=== PATIENT | male | born 1980 | race Caucasian/White ===

== ENCOUNTER 2018-04-24 00:28 | Inpatient (IN) | payer OTHER ==
[2018-04-24] MEDS ORDERED: NA CHLORIDE 0.9% 2,000 ML ONE (00:49)
[2018-04-24] MEDS ORDERED: IBUPROFEN 100 MG/5 ML UCUP ONE (00:49)
[2018-04-24 01:01] LABS: Arterial Blood Carboxyhemoglob 1.2 % (0-1.5); Blood Gas Oxyhemoglobin 87.2 % (94-97); Blood O2 Saturation 89.1 % (92-98.5)
[2018-04-24] MEDS ORDERED: INSULIN -REGULAR HUMAN 50 UNIT/0.5 ML ML ONE (01:16)
--- NOTE | 2018-04-24 01:27 | RAD REPORT ---
EXAM DESCRIPTION: RAD - Chest Single View - 04/24/2018 1:14 am CLINICAL HISTORY: FEVER Chest pain. COMPARISON: Chest Single View dated 06/01/2017; Chest Single View dated 05/29/2017; CHEST PA AND LAT 2 V IEW dated 05/04/2012 FINDINGS: Portable technique limits examination quality. Bilateral interstitial pulmonary opacities are present in both lower lobes, suspicious for interstiti al pneumonia. The heart is normal in size. No displaced fractures. IMPRESSION: Bibasilar pneumonia pattern is suspected, greatest in the right medial lung base.
[2018-04-24 01:34] LABS: Protime INR 1.34
[2018-04-24 01:37] LABS: Absolute Lymphocytes (CBC) 1.2 K/uL (0.7-4.9); Absolute Monocytes 0.8 K/uL (0.1-1.3); Basophils % 0.2 % (0-1.3); Eosinophils % 0.1 % (0-4.4); Hematocrit 53.5 % (39.6-49.0); MCH 30.6 pg (27.0-35.0); Monocytes % 4.1 % (3.3-12.3); RBC Red Blood Cell Count 5.51 M/uL (4.33-5.43)
[2018-04-24] MEDS ORDERED: RSI MEDICATION KIT IV ONE (02:09)
[2018-04-24 02:13] LABS: ALT/SGPT 59 U/L (12-78); AST/SGOT 42 U/L (15-37); Albumin 2.4 g/dL (3.4-5.0); Alkaline Phosphatase 113 U/L (45-117); Amylase Level 109 U/L (25-115); BUN Blood Urea Nitrogen 82 mg/dL (7-18); Bicarbonate 23 mmol/L (21-32); Bilirubin Direct 0.3 mg/dL (0-0.2); Bilirubin Total 0.7 mg/dL (0.2-1.0); CKMB Creatine Kinase MB < 1.0 ng/mL (0.3-3.6); Creatine Phosphokinase 127 U/L (39-308); Lipase 405 U/L (73-393); Potassium 4.4 mmol/L (3.5-5.1); Protein, Total 7.8 g/dL (6.4-8.2); Sodium Level 160 mmol/L (136-145)
[2018-04-24 02:15] LABS: Glucose Level 700 mg/dL (74-106)
--- NOTE | 2018-04-24 02:31 | RAD REPORT ---
EXAM DESCRIPTION: RAD - Chest Single View - 04/24/2018 2:25 am CLINICAL HISTORY: POST ETT Chest pain. COMPARISON: Chest Single View dated 04/24/2018; Chest Single View dated 06/01/2017; Chest Single View d ated 05/29/2017; CHEST PA AND LAT 2 VIEW dated 05/04/2012 FINDINGS: Portable technique limits examination quality. Since the prior examination, the patient has been intubated. The tip of the ET tube is above the naif na. Ill-defined opacities in both lung bases, greater on the right, persist. The heart is normal in s ize.
--- NOTE | 2018-04-24 02:32 | EDPHYS ---
Physician Documentation [facility] Name: Farhat Maza Age: 38 yrs Sex: Male : 1980 Arrival Date: 04/24/2018 Time: 00:38 Bed 4 Private MD: ED Physician Rommel Zamora HPI: 04/24 02:25 This 38 yrs old Male presents to ER via EMS with complaints of Fever. pkl 02:25 The patient has shortness of breath at rest. Onset: The symptoms/episode began/occurred pkl today. Associated signs and symptoms: Pertinent positives: fever. Historical: - Allergies: 00:50 Antihistamine; tl2 00:50 Aspirin; tl2 00:50 PENICILLINS; tl2 - Home Meds: 00:50 Dilantin-125 125 mg/5 mL Oral susp 5 mL 3 times per day [Active]; lactulose 10 gram/15 tl2 mL (15 mL) Oral soln 15 mL nightly [Active]; - PMHx: 00:50 Anoxic brain injury post suicide attempt; Seizures; upper and lower ext contractures; tl2 - Immunization history:: Adult Immunizations up to date. - Social history:: Smoking status: Patient/guardian denies using tobacco. - Ebola Screening: : No symptoms or risks identified at this time. ROS: 02:25 Eyes: Negative for injury, pain, redness, and discharge, ENT: Negative for injury, pkl pain, and discharge, Neck: Negative for injury, pain, and swelling, Cardiovascular: Negative for chest pain, palpitations, and edema. 02:25 Respiratory: Positive for cough, with green sputum, shortness of breath. 02:25 Abdomen/GI: Negative for abdominal pain, nausea, vomiting, and diarrhea. 02:25 Back: Negative for acute changes. 02:25 : Negative for urinary symptoms. 02:25 MS/extremity: Negative for acute changes. 02:25 Skin: Negative for rash. 02:25 Neuro: Negative for acute changes. Exam: 02:25 Head/Face: Normocephalic, atraumatic. Eyes: Pupils equal round and reactive to light, pkl extra-ocular motions intact. Lids and lashes normal. Conjunctiva and sclera are non-icteric and not injected. Cornea within normal limits. Periorbital areas with no swelling, redness, or edema. ENT: Nares patent. No nasal discharge, no septal abnormalities noted. Tympanic membranes are normal and external auditory canals are clear. Oropharynx with no redness, swelling, or masses, exudates, or evidence of obstruction, uvula midline. Mucous membranes moist. Neck: Trachea midline, no thyromegaly or masses palpated, and no cervical lymphadenopathy. Supple, full range of motion without nuchal rigidity, or vertebral point tenderness. No Meningismus. Chest/axilla: Normal chest wall appearance and motion. Nontender with no deformity. No lesions are appreciated. Cardiovascular: Regular rate and rhythm with a normal S1 and S2. No gallops, murmurs, or rubs. Normal PMI, no JVD. No pulse deficits. 02:25 Respiratory: moderate respiratory distress is noted, Respirations: labored breathing, Breath sounds: rales, that are moderate, are scattered, Respiratory rate: 55 02:25 Abdomen/GI: Bowel sounds: normal, Palpation: abdomen is soft and non-tender, in all quadrants. 02:25 Back: Exam negative for acute changes. 02:25 : Exam negative for acute changes. 02:25 Musculoskeletal/extremity: Exam is negative for acute changes. 02:25 Skin: Exam negative for rash. 02:25 Neuro: Exam negative for acute changes. Vital Signs: 00:50 BP 94 / 71; Pulse 155; Resp 45; Temp 104.3(R); Pulse Ox 88% on Non-rebreather mask; tl2 Weight 70.31 kg; Height 5 ft. 9 in. (175.26 cm); 01:29 BP 96 / 66; Pulse 153; Resp 55; Pulse Ox 92% on Non-rebreather mask; tl2 02:00 BP 97 / 61; Pulse 148; Resp 45; Temp 103(R); Pulse Ox 94% on Non-rebreather mask; tl2 02:48 BP 91 / 73; Pulse 137; Resp 26; Pulse Ox 97% on 100% FiO2 ETT vent; tl2 03:26 BP 88 / 74; Pulse 139; Resp 26; Temp 102.9; Pulse Ox 94% on ETT vent; ao 03:55 BP 103 / 71; Pulse 139; Resp 28; Pulse Ox 94% on 100% FiO2 ETT vent; tl2 04:22 BP 91 / 62; Pulse 136; Resp 26; Temp 102.2(R); Pulse Ox 94% on 100% FiO2 ETT vent; tl2 00:50 Body Mass Index 22.89 (70.31 kg, 175.26 cm) tl2 Procedures: 02:29 Intubation: Intubated orally using # 4 Ohlliday blade with 7.0 mm ETT. was successful on pkl first attempt. Tube secured with ETT simpson Placement verified by CXR, CO2 detector with (+) color change, auscultating bilateral breath sounds, Patient tolerated well. MDM: 00:44 Patient medically screened. pkl 02:29 Data reviewed: vital signs, nurses notes, lab test result(s), EKG, radiologic studies, pkl plain films. 04/24 00:46 Order name: Amylase, Serum; Complete Time: 02:32 pk 04/24 00:46 Order name: Basic Metabolic Panel; Complete Time: 02:32 pk 04/24 00:46 Order name: Blood Culture Adult (2) pkl 04/24 00:46 Order name: C-Reactive Protein; Complete Time: 02:32 pk 04/24 00:46 Order name: CBC with Diff; Complete Time: 03:43 pk 04/24 00:46 Order name: Ckmb; Complete Time: 02:32 pkl 04/24 00:46 Order name: CPK; Complete Time: 02:32 pk 04/24 00:46 Order name: Lactate; Complete Time: 02:16 pk 04/24 00:46 Order name: LFT's; Complete Time: 02:32 pkl 04/24 00:46 Order name: Lipase; Complete Time: 02:32 pk 04/24 00:46 Order name: Procalcitonin; Complete Time: 02:32 pkl 04/24 00:46 Order name: Protime (+inr); Complete Time: 02:16 pkl 04/24 00:46 Order name: Ptt, Activated; Complete Time: 02:16 pkl 04/24 00:46 Order name: Sed Rate; Complete Time: 03:43 pkl 04/24 00:46 Order name: Troponin (emerg Dept Use Only); Complete Time: 02:16 pkl 04/24 00:46 Order name: Chest Single View XRAY; Complete Time: 02:16 pkl 04/24 00:47 Order name: ABG pkl 04/24 01:19 Order name: Glucose, Ancillary Testing; Complete Time: 02:16 EDMS 04/24 01:39 Order name: Manual Differential; Complete Time: 03:43 EDMS 04/24 02:22 Order name: Chest Single View XRAY; Complete Time: 02:32 ms 04/24 02:56 Order name: Chest Single View XRAY ao 04/24 03:52 Order name: Lactate ao 04/24 04:36 Order name: Glucose, Ancillary Testing; Complete Time: 05:20 EDMS 04/24 04:40 Order name: Lactate Sepsis 2 HR Follow-up; Complete Time: 05:20 EDMS 04/24 04:50 Order name: Sputum Culture ms 04/24 05:04 Order name: Urine Dipstick--Ancillary (enter results) ms 04/24 00:46 Order name: Accucheck; Complete Time: 01:06 pkl 04/24 00:46 Order name: Cardiac monitoring; Complete Time: 00:54 pkl 04/24 00:46 Order name: EKG - Nurse/Tech; Complete Time: 00:54 pkl 04/24 00:46 Order name: IV Saline Lock - Large Bore; Complete Time: 00:54 pkl 04/24 00:46 Order name: Labs collected and sent; Complete Time: 00:55 pkl 04/24 00:46 Order name: O2 Per Protocol; Complete Time: 00:55 pkl 04/24 00:46 Order name: O2 Sat Monitoring; Complete Time: 00:55 pkl 04/24 00:46 Order name: Urine Dipstick-Ancillary (obtain specimen); Complete Time: 05:03 pkl Administered Medications: 00:54 Drug: NS 0.9% (30 ml/kg) 30 ml/kg Route: IV; Rate: bolus; Site: right hand; tl2 05:03 Follow up: IV Status: Completed infusion; IV Intake: 2500ml tl2 00:56 Drug: Ibuprofen 600 mg Route: PO; tl2 02:38 Follow up: Response: No adverse reaction; Temperature is decreased tl2 01:26 Drug: Insulin Regular Human 10 units {Co-Signature: tl2 (Vee Willis RN).} Route: IVP; ao Site: left hand; 05:04 Follow up: Response: No adverse reaction; Blood sugar is lowered tl2 02:12 Drug: Etomidate 10 mg Route: IVP; Site: left hand; tl2 05:05 Follow up: Response: No adverse reaction; Patient is sedated tl2 02:13 Drug: Etomidate 10 mg Route: IVP; Site: left hand; tl2 05:05 Follow up: Response: No adverse reaction; Patient is sedated tl2 04:15 Drug: Versed 2 mg {Note: left IJ.} Route: IVP; Site: Other; tl2 05:05 Follow up: Response: No adverse reaction; Patient is sedated tl2 04:50 Drug: Versed 2 mg Route: IVP; Site: Other; tl2 05:06 Follow up: Response: No adverse reaction; Patient is sedated tl2 Point of Care Testing: Blood Glucose: 02:48 Blood Glucose: 447 mg/dL; tl2 Ranges: Critical Glucose Levels:Adult <50 mg/dl or >400 mg/dl <40 mg/dl or >180 mg/dl Disposition: 02:29 Critical Care:. pkl Disposition: 04/24/18 02:31 Hospitalization ordered by Dedrick Webber for Inpatient Admission. Preliminary diagnosis is Acute respiratory distress. Bilateral pneumonia. Sepsis. - Bed requested for Intensive Care Unit. - Status is Inpatient Admission. tl2 - Condition is Fair. - Problem is new. - Symptoms are unchanged. UTI on Admission? No Signatures: Dispatcher [employer] EDMS Patt Jeff RN RN kl Lam, Pin, MD MD pk Mario Mai PA PA cp Ortiz, Alex, RN RN ao Knox, Taylor, RN RN tl2 Vee Willis RN tl2 Corrections: (The following items were deleted from the chart) 03:14 02:31 Hospitalization Ordered by Dedrick Webber MD for Inpatient Admission. Preliminary diagnosis is Acute respiratory distress. Bilateral pneumonia. Sepsis. Bed requested for Intensive Care Unit. Status is Inpatient Admission. Condition is Fair. Problem is new. Symptoms are unchanged. UTI on Admission? No. pkl 03:17 03:14 04/24/2018 02:31 Hospitalization Ordered by Dedrick Webber MD for Inpatient Admission. Preliminary diagnosis is Acute respiratory distress. Bilateral pneumonia. Sepsis. Bed requested for Intensive Care Unit. Status is Inpatient Admission. Condition is Fair. Problem is new. Symptoms are unchanged. UTI on Admission? No. kl 05:03 01:40 Cardenas ordered. tl2 tl2 05:09 03:17 04/24/2018 02:31 Hospitalization Ordered by Dedrick Webber MD for Inpatient tl2 Admission. Preliminary diagnosis is Acute respiratory distress. Bilateral pneumonia. Sepsis. Bed requested for Intensive Care Unit. Status is Inpatient Admission. Condition is Fair. Problem is new. Symptoms are unchanged. UTI on Admission? No. kl
--- NOTE | 2018-04-24 02:32 | ER ---
Nurse's Notes [facility] Name: Farhat Maza Age: 38 yrs Sex: Male : 1980 Arrival Date: 04/24/2018 Time: 00:38 Bed 4 Private MD: Diagnosis: Acute respiratory distress. Bilateral pneumonia. Sepsis Presentation: 04/24 00:47 Presenting complaint: EMS states: Pt was diagnosed with a URI and started antibiotics tl2 today, spiked a fever this evening of 104 F. Pt is tachypneic and tachycardic. Rhonchi in RU lobe. Transition of care: patient was received from another setting of care (long-term care facility). Onset of symptoms was April 23, 2018 at 19:00. Risk Assessment: Do you want to hurt yourself or someone else? Patient reports no desire to harm self or others. Initial Sepsis Screen: Does the patient meet any 2 criteria? RR > 20 per min. Temp <36.0*C (96.8*F)) or > 38.3*C (100.4*F). HR > 90 bpm. Yes Does the patient have a suspected source of infection? Yes: Productive cough/pneumonia If YES to both, name of provider notified: Rommel Zamora MD. Care prior to arrival: None. Pt was given Tylenol at facility. 00:47 Method Of Arrival: EMS: [facility] tl2 00:47 Acuity: JOSEPH 2 tl2 Triage Assessment: 00:50 General: Appears distressed, uncomfortable, Behavior is anxious. Pain: Unable to use tl2 pain scale. Patient appears agitated. Neuro: Level of Consciousness is awake, listless, Oriented to pt does not speak. Cardiovascular: Capillary refill < 3 seconds Rhythm is sinus tachycardia. Respiratory: Reports cough that is productive, Airway is patent Respiratory effort is unlabored, Respiratory pattern is symmetrical, tachypnea Breath sounds with rhonchi in right posterior upper lobe the patient has moderate shortness of breath. GI: No signs and/or symptoms were reported involving the gastrointestinal system. : No signs and/or symptoms were reported regarding the genitourinary system. Derm: Skin is clammy, Skin temperature is hot. Historical: - Allergies: 00:50 Antihistamine; tl2 00:50 Aspirin; tl2 00:50 PENICILLINS; tl2 - Home Meds: 00:50 Dilantin-125 125 mg/5 mL Oral susp 5 mL 3 times per day [Active]; lactulose 10 gram/15 tl2 mL (15 mL) Oral soln 15 mL nightly [Active]; - PMHx: 00:50 Anoxic brain injury post suicide attempt; Seizures; upper and lower ext contractures; tl2 - Immunization history:: Adult Immunizations up to date. - Social history:: Smoking status: Patient/guardian denies using tobacco. - Ebola Screening: : No symptoms or risks identified at this time. Screenin:53 Abuse screen: Denies threats or abuse. Nutritional screening: No deficits noted. tl2 Tuberculosis screening: No symptoms or risk factors identified. Fall Risk IV access (20 points). Mental Status- Overestimates/Forgets Limitations (15 pts.). Assessment: 00:50 General: see triage assessment. tl2 01:29 Reassessment: Cool rags placed on pt. tl2 01:50 Reassessment: unable to insert saldana catheter, Dr. Zamora notified, ordered to place tl2 condom cath. 02:00 Reassessment: Dr. Burnette at bedside, order to prepare for intubation. tl2 02:40 Reassessment: Intubation done by DR Zamora. Assisted by DR Burnette, Roya, RN, genaro Baxter RN, Cody, RN and Thomas from respiratory department. Patient tolerated well prcedure. 03:26 Reassessment: Patient and/or family updated on plan of care and expected duration. Pain ao level reassessed. Patient to be admitted to ICU. 04:30 Reassessment: Dr. Burnette ordered for 3 total Liters of NS, third liter started before tl2 taking to ICU. 04:40 Reassessment: VO from Dr. Burnette to give 2 mg IV versed, wait 10 minutes for new BP tl2 and call him before taking to ICU. 04:50 Reassessment: BP 88/65, notified Dr. Burnette, approved to take to ICU. VO from Dr. Zamora tl2 to give 2 mg IV versed, see NOV. Vital Signs: 00:50 BP 94 / 71; Pulse 155; Resp 45; Temp 104.3(R); Pulse Ox 88% on Non-rebreather mask; tl2 Weight 70.31 kg; Height 5 ft. 9 in. (175.26 cm); 01:29 BP 96 / 66; Pulse 153; Resp 55; Pulse Ox 92% on Non-rebreather mask; tl2 02:00 BP 97 / 61; Pulse 148; Resp 45; Temp 103(R); Pulse Ox 94% on Non-rebreather mask; tl2 02:48 BP 91 / 73; Pulse 137; Resp 26; Pulse Ox 97% on 100% FiO2 ETT vent; tl2 03:26 BP 88 / 74; Pulse 139; Resp 26; Temp 102.9; Pulse Ox 94% on ETT vent; ao 03:55 BP 103 / 71; Pulse 139; Resp 28; Pulse Ox 94% on 100% FiO2 ETT vent; tl2 04:22 BP 91 / 62; Pulse 136; Resp 26; Temp 102.2(R); Pulse Ox 94% on 100% FiO2 ETT vent; tl2 00:50 Body Mass Index 22.89 (70.31 kg, 175.26 cm) tl2 Vitals: 01:29 Cardiac Rhythm Assessment Sinus tach. tl2 ED Course: 00:38 Patient arrived in ED. fc 00:44 Rommel Zamora MD is Attending Physician. pkl 00:49 Triage completed. tl2 00:50 Arm band placed on right wrist. EKG completed in triage. Results shown to MD. tl2 00:53 Patient has correct armband on for positive identification. Placed in gown. Bed in low tl2 position. Call light in reach. Side rails up X2. 00:53 Inserted saline lock: 22 gauge in right hand, using aseptic technique. Blood collected. tl2 01:02 Cody Pantoja, ALENA is Primary Nurse. ao 01:10 X-ray completed. Portable x-ray completed in exam room. Patient tolerated procedure kw well. 01:14 Chest Single View XRAY In Process Unspecified. EDMS 01:29 IV was discontinued by the patient. Inserted saline lock: 20 gauge in left hand, using tl2 aseptic technique. 02:14 Assisted provider with intubation using 7.0 mm ETT via oral route. ET tube secured at tl2 24cm at the teeth. Set up intubation tray. Intubated by Rommel Zamora MD Placement verified by CXR, CO2 detector w/ + color change, auscultating bilateral breath sounds, Patient tolerated well. 02:25 Chest Single View XRAY In Process Unspecified. EDMS 02:30 Dedrick Webber MD is Hospitalizing Provider. pkl 02:55 Assisted provider with central line placement. Set up central line tray. Triple lumen ao line placed in left internal jugular. Line placed by Dedrick Webber MD Placement verified by CXR, blood return, Dressed with 4X4s, Tape, Tegaderm, Patient tolerated well. 03:15 Chest Single View XRAY In Process Unspecified. EDMS 05:07 Patient admitted, IV remains in place. tl2 Administered Medications: 00:54 Drug: NS 0.9% (30 ml/kg) 30 ml/kg Route: IV; Rate: bolus; Site: right hand; tl2 05:03 Follow up: IV Status: Completed infusion; IV Intake: 2500ml tl2 00:56 Drug: Ibuprofen 600 mg Route: PO; tl2 02:38 Follow up: Response: No adverse reaction; Temperature is decreased tl2 01:26 Drug: Insulin Regular Human 10 units {Co-Signature: tl2 (Vee Willis RN).} Route: IVP; ao Site: left hand; 05:04 Follow up: Response: No adverse reaction; Blood sugar is lowered tl2 02:12 Drug: Etomidate 10 mg Route: IVP; Site: left hand; tl2 05:05 Follow up: Response: No adverse reaction; Patient is sedated tl2 02:13 Drug: Etomidate 10 mg Route: IVP; Site: left hand; tl2 05:05 Follow up: Response: No adverse reaction; Patient is sedated tl2 04:15 Drug: Versed 2 mg {Note: left IJ.} Route: IVP; Site: Other; tl2 05:05 Follow up: Response: No adverse reaction; Patient is sedated tl2 04:50 Drug: Versed 2 mg Route: IVP; Site: Other; tl2 05:06 Follow up: Response: No adverse reaction; Patient is sedated tl2 Point of Care Testing: Blood Glucose: 02:48 Blood Glucose: 447 mg/dL; tl2 Ranges: Intake: 05:03 IV: 2500ml; Total: 2500ml. tl2 Outcome: 02:31 Decision to Hospitalize by Provider. pkl 05:06 Admitted to ICU accompanied by nurse, via stretcher, room 3, with oxygen, on monitor, tl2 with chart, Report called to ALENA Scott 05:06 critical 05:06 Discharge instructions given to pt intubated 05:09 Patient left the ED. tl2 Signatures: Dispatcher [employer] EDMS Rommel Zamora MD MD pkl Chretien, Felicia RN RN Tashia Lowery Alex RN Vee Ibarra RN RN tl2 Vee Willis RN tl2 Corrections: (The following items were deleted from the chart) 03:53 03:26 BP 88 / 74; Pulse 139bpm; Resp 26bpm; Pulse Ox 94% ET / Ventilator; ao ao
[2018-04-24 02:40] LABS: Blood Morphology Comment NOT SEEN (NOT SEEN); Platelet Estimate ADEQ
[2018-04-24] MEDS ORDERED: NA CHLORIDE 0.9% 1,000 ML IV ONE (02:51)
--- NOTE | 2018-04-24 03:20 | P.HP ---
Certification for Inpatient Patient admitted to: Inpatient With expected LOS: >2 Midnights Practitioner: I am a practitioner with admitting privileges, knowledge of patient current condition, hospital course, and medical plan of care. Services: Services provided to patient in accordance with Admission requirements found in Title 42 Section 412.3 of the Code of Federal Regulations Patient History Date of Service: 04/24/18 Reason for admission: Severe sepsis History of Present Illness: Mr. Maza is a 38-year-old male, with history of anoxic brain injury after suicidal attempt, quadriplegic, resident of a long-term care facility, who was diagnosed with an upper respiratory infection today, and was prescribed oral antibiotics. However, the patient become progressively more shortness of breath , he spikes fever 104.0 F. In ER, the patient remained tachypneic, tachycardic , O2 sat 88% on non-rebreather mask. The patient was intubated in ED. Laboratory work significantly abnormal, remarkable for leukocytosis with bandemia, elevated lactate and procalcitonin, abnormal kidney function. Chest x -ray remarkable for bilateral infiltrate consistent with pneumonia. Allergies Penicillins Allergy (Intermediate, Verified 02/19/13 12:48) Hives/Rash Antih Allergy (Uncoded 05/30/17 04:46) Unknown Aspirin Allergy (Uncoded 05/30/17 04:46) Unknown Home medications list reviewed: Yes Home Medications: Acetaminophen [Tylenol] 650 mg FT Q6HP PRN 05/30/17 Ibuprofen 400 mg FT Q4HP PRN 05/30/17 Lactulose 15 ml PO BEDTIME 05/30/17 Nut.sup,Spec.frm,l-Fr,Iron/Fos [Twocal Hn Liquid] 1,000 ml FT SEECOM 05/30/17 Phenytoin [Dilantin-125] 5 ml FT TID 05/30/17 Cefuroxime [Ceftin*] 500 mg PO BID #20 tab 06/04/17 - Past Medical/Surgical History Diabetic: No -: anoxic brain injury -: seizure disorder -: trach - Family History Family History: Reviewed- Non-Contributory - Social History Alcohol use: No CD- Drugs: No Caffeine use: No Place of Residence: Home Review of Systems is unable to be obtained (The patient was non-verbal) Physical Examination - Physical Exam General: Alert, Moderate distress (Due to respiratory distress) HEENT: Atraumatic, PERRLA, Other (Mucous membrane dry), EOMI Neck: Supple, 2+ carotid pulse no bruit, No LAD, Without JVD or thyroid abnormality Respiratory: Diminished, Crackles/rales (Crackles bibasilar), Expiratory wheezes Cardiovascular: Regular rate/rhythm, Normal S1 S2 Gastrointestinal: Normal bowel sounds, No tenderness Musculoskeletal: No tenderness Integumentary: No rashes Neurological: Abnormal gait, Abnormal speech, Abnormal strength, Abnormal tone Lymphatics: No axilla or inguinal lymphadenopathy - Studies Laboratory Data (last 24 hrs) 04/24/18 00:55: PT 15.9 H, INR 1.34, APTT 40.2 H 04/24/18 00:55: WBC 20.0 H D, Hgb 16.9, Hct 53.5 H, Plt Count 104 L D 04/24/18 00:55: Sodium 160 H, Potassium 4.4, BUN 82 H, Creatinine 2.40 H, Glucose 700 H*, Total Bilirubin 0.7, AST 42 H, ALT 59, Alkaline Phosphatase 113 , Amylase 109, Lipase 405 H Assessment and Plan - Problems (Diagnosis) (1) Severe sepsis Current Visit: Yes Status: Acute (2) Acute respiratory failure Current Visit: Yes Status: Acute Qualifiers: Respiratory failure complication: hypoxia Qualified Code(s): J96.01 - Acute respiratory failure with hypoxia (3) Anoxic brain injury Current Visit: Yes Status: Acute (4) Acute kidney injury Current Visit: No Status: Acute (5) Pneumonia Onset Date: 06/02/17 Current Visit: No Status: Acute Qualifiers: Pneumonia type: due to unspecified organism Laterality: bilateral Lung location: lower lobe of lung Qualified Code(s): J18.1 - Lobar pneumonia, unspecified organism (6) Seizure disorder Onset Date: 06/02/17 Current Visit: No Status: Chronic - Plan 1. Severe sepsis: The patient has elevated lactate and procalcitonin, leukocytosis with bandemia, he is febrile with borderline low blood pressure. Will continue aggressive IV fluid resuscitation, he has central line placed in case he needs vasopressors support. Blood cultures and sputum culture are in process. Broad-spectrum antibiotics have been ordered. 2. Acute respiratory failure: Due to bilateral pneumonia. The patient is ventilator support. Consult Dr. Salcido for ventilator management 3. Bilateral pneumonia: Will order empiric treatment with vancomycin and aztreonam. 4. Acute renal injury: Likely secondary to sepsis in context of volume depletion. Continue aggressive volume resuscitation. - Advance Directives Does patient have a Living Will: No Does patient have a Durable POA for Healthcare: No - Code Status/Comfort Care Code Status Assessed: Yes Code Status: Full Code
[2018-04-24] MEDS ORDERED: MIDAZOLAM HCL 2 MG/2 ML INJ ONE ×2 (04:07→04:41)
[2018-04-24] MEDS ORDERED: SODIUM CHLORIDE 0.9% 10ML INJ IV PRN (04:08)
[2018-04-24] MEDS ORDERED: NACHLORIDE 0.45% 1,000 ML IV SCH (04:08)
[2018-04-24] MEDS ORDERED: ONDANSETRON 4 MG/2 ML VIAL IV PRN (04:08)
--- NOTE | 2018-04-24 04:31 | P.OP ---
Date of Service: 04/24/18 Findings and Operative Technique Central Venous Catheter (CVC, Central Line) Placement Indication: Hemodynamic monitoring/Intravenous access Attending: Mechelle Burnette MD A time-out was completed verifying correct patient, procedure, site, positioning , and special equipment. The patient was placed in a dependent position appropriate for central line placement based on the vein to be cannulated. The patients left neck was prepped and draped in sterile fashion. 1% Lidocaine was used to anesthetize the surrounding skin area. A triple lumen <9-Romanian> Cordis catheter was introduced into the the internal jugular vein using the Seldinger technique and under ultrasound guidance. The catheter was threaded smoothly over the guide wire and appropriate blood return was obtained. Each lumen of the catheter was evacuated of air and flushed with sterile saline. The catheter was then sutured in place to the skin and a sterile dressing applied. Perfusion to the extremity distal to the point of catheter insertion was checked and found to be adequate. Estimated Blood Loss: 4 cc The patient tolerated the procedure well and there were no complications.
[2018-04-24] MEDS ORDERED: HALOPERIDOL LACT 5 MG/ML INJ IV PRN (04:37)
[2018-04-24] MEDS ORDERED: NA CHLORIDE 0.9% 250 ML IV PRN (04:37)
[2018-04-24] MEDS ORDERED: PROPOFOL 1,000 MG/100 ML VIAL IV PRN (04:37)
[2018-04-24] MEDS: INSULIN -REGULAR HUMAN 50 UNIT/0.5 ML ML SQ SCH ×3 (05:27→17:15)
[2018-04-24] MEDS: ACETAMINOPHEN 650MG/RECT SUPP RECT PRN ×2 (05:29→15:27)
[2018-04-24] MEDS ORDERED: VANCOMYCIN 2 GM/500 ML BAG ONE (05:29)
[2018-04-24] MEDS: FENTANYL CITR 100 MCG/2 ML IV PRN ×4 (05:29→21:52)
[2018-04-24 05:31] LABS: Urine Blood 3+ (NEG); Urine Glucose 2+ (NEG); Urine Protein 2+ (NEG)
[2018-04-24 05:45] LABS: Arterial Blood Carboxyhemoglob 0.9 % (0-1.5); Blood Gas Oxyhemoglobin 94.5 % (94-97); Blood O2 Saturation 95.7 % (92-98.5)
[2018-04-24] MEDS ORDERED: AZTREONAM 1 GM/VIAL ONE (05:49)
[2018-04-24] MEDS ORDERED: NA CHLORIDE 0.9% 50 ML ONE (05:54)
[2018-04-24] MEDS ORDERED: AZTREONAM 1 GM in NA CHLORIDE 0.9% 50 ML IV SCH (06:00)
[2018-04-24] MEDS: LORazepam 2 MG/ML VIAL IV PRN (06:38)
--- NOTE | 2018-04-24 07:16 | EKG ---
Test Date: 2018-04-24 Test Time: 00:39:14 Setter Up: JODY MEASUREMENT RESULTS: Intervals: Rate: 155 MA: 128 QRSD: 78 QT: 282 QTc: 453 Blair: P: MA: 128 QRS: 101 T: 27 INTERPRETIVE STATEMENTS: Sinus tachycardia Rightward axis Borderline ECG Compared to ECG 05/30/2017 00:26:32 No significant changes Electronically Signed On 04-24-18 07:15:45 CDT by Lamin Almonte
[2018-04-24] MEDS ORDERED: LACTULOSE 20 GM/30 ML UCUP PO PRN (07:51)
--- NOTE | 2018-04-24 08:26 | P.PN ---
Subjective Date of Service: 04/24/18 Primary Care Provider: CAREN Chief Complaint: Severe sepsis Subjective: Other (Patient intubated and sedated at this time.) Physical Examination - Vital Signs Temperature: 100.1 F Blood Pressure: 85/70 Pulse: 132 Respirations: 24 Pulse Ox (%): 94 - Physical Exam General: Other (Patient intubated and sedated at this time) HEENT: Atraumatic Neck: Supple Respiratory: Clear to auscultation bilaterally Cardiovascular: Abnormal pulses (Sinus tachycardia) Gastrointestinal: Normal bowel sounds, Soft and benign, No tenderness, No masses , No rebound, No guarding, Other (PEG tube in place) Musculoskeletal: Contractures (To the lower extremity), Other (Muscle wasting to the upper and lower extremity) Integumentary: No tenderness/swelling, No erythema, No warmth, No cyanosis Neurological: Other (Patient intubated) Urinary: Other (Condom catheter in place) - Studies Laboratory Data (last 24 hrs) 04/24/18 00:55: PT 15.9 H, INR 1.34, APTT 40.2 H 04/24/18 00:55: WBC 20.0 H D, Hgb 16.9, Hct 53.5 H, Plt Count 104 L D 04/24/18 00:55: Sodium 160 H, Potassium 4.4, BUN 82 H, Creatinine 2.40 H, Glucose 700 H*, Total Bilirubin 0.7, AST 42 H, ALT 59, Alkaline Phosphatase 113 , Amylase 109, Lipase 405 H Medications List Reviewed: Yes Assessment & Plan - Problems (Diagnosis) (1) Acute renal failure Current Visit: Yes Status: Acute Plan: Likely from sepsis related to bilateral pneumonia with possible aspiration pneumonia. Will continue IV fluids. Patient with hypernatremia. Will check BMP this morning. IV fluids may need to be adjusted. Will check renal ultrasound. Patient with history of urethral stricture in the past. Patient has a condom catheter and producing urine. No need for catheter at this time as the ER tried and had difficulty. Nephrology consulted to further assess. (2) Urethral stricture Current Visit: No Status: Chronic Plan: Patient with history urethral stricture in the past. Patient has seen Neurology in the past. ER tried to put in Cardenas catheter without success. Condom catheter in place. No need for catheterization at this time. Qualifiers: Urethral stricture type: unspecified stricture type Qualified Code(s): N35.9 - Urethral stricture, unspecified (3) Severe sepsis Current Visit: Yes Status: Acute Plan: Patient with severe likely from bilateral ammonia and aspiration pneumonia. Continue IV antibiotic therapy. Patient intubated at this time. Pulmonology consulted to further assess. Await blood and urine culture. Patient will be weaned off ventilator. Nurses report that the patient had been given Levaquin a couple days ago for upper respiratory infection. (4) Acute respiratory failure Current Visit: Yes Status: Acute Plan: Patient with acute respiratory failure secondary to bilateral pneumonia/ aspiration pneumonia. Continue as above. Patient on IV antibiotic therapy. Qualifiers: Respiratory failure complication: hypoxia Qualified Code(s): J96.01 - Acute respiratory failure with hypoxia (5) Anoxic brain injury Current Visit: Yes Status: Chronic Plan: Patient with history of anoxic brain injury. He was in half-way when he committed suicide which led to his anoxic brain injury many years ago. He is currently at a longterm. He is quadriplegic (6) Seizure disorder Onset Date: 06/02/17 Current Visit: No Status: Chronic Plan: Patient with history of seizure disorder. Will continue with his anti seizure medication. (7) Pneumonia Onset Date: 06/02/17 Current Visit: No Status: Acute Plan: Bilateral pneumonia likely from aspiration. Patient recently given Levaquin at the longterm for upper respiratory infection a couple days ago. Patient had some nausea and vomiting recently. Suspect aspiration. Now with severe sepsis and acute respiratory failure currently intubated. Pulmonology consulted. Continue IV antibiotic therapy. Will wean off ventilator. Qualifiers: Pneumonia type: aspiration pneumonia Laterality: bilateral Lung location : lower lobe of lung (8) Hypernatremia Onset Date: 06/02/17 Current Visit: No Status: Acute Plan: Recheck BMP. May need to make adjustments to IV fluids. Nephrology consulted to further assess. (9) Quadriplegia Current Visit: Yes Status: Chronic Plan: Patient with quadriplegia and contractures to the lower extremity. Will continue DVT prophylaxis. (10) Malnutrition Current Visit: Yes Status: Chronic Plan: Patient with severe malnutrition in the past. History of PEG tube. Will have dietary assess and continue PEG tube feeds. Qualifiers: Malnutrition type: protein-calorie malnutrition Protein-calorie malnutrition severity: severe Qualified Code(s): E43 - Unspecified severe protein-calorie malnutrition (11) Thrombocytopenia Current Visit: Yes Status: Chronic Plan: Patient with history of thrombocytopenia. Will monitor closely. Discharge Plan: Senior Care Plan to discharge in: Greater than 2 days - Code Status/Comfort Care Code Status Assessed: Yes (Patient is full code. This was confirmed by nurse with .) Time Spent Managing Pts Care (In Minutes): 55
[2018-04-24 08:30] LABS: Absolute Lymphocytes (CBC) 2.7 K/uL (0.7-4.9); Absolute Monocytes 0.6 K/uL (0.1-1.3); Absolute Neutrophil 16.2 K/uL (1.8-8.0); Basophils % 0.5 % (0-1.3); Hematocrit 43.8 % (39.6-49.0); Lymphocytes % 13.7 % (15.3-44.8); MCH 30.7 pg (27.0-35.0); MCV 95.5 fL (80-100); MPV 14.5 fL (7.6-11.3); Monocytes % 3.3 % (3.3-12.3); RBC Red Blood Cell Count 4.59 M/uL (4.33-5.43)
[2018-04-24 08:51] LABS: Potassium 4.2 mmol/L (3.5-5.1)
[2018-04-24 08:52] LABS: Albumin 1.9 g/dL (3.4-5.0); Bilirubin Total 0.6 mg/dL (0.2-1.0); Protein, Total 6.2 g/dL (6.4-8.2)
[2018-04-24] MEDS ORDERED: PANTOPRAZOLE 40 MG INJ IVP SCH (09:00)
[2018-04-24] MEDS ORDERED: AZTREONAM 1 GM/VIAL IV SCH (09:00)
[2018-04-24] MEDS ORDERED: VANCOMYCIN 1.5 GM in NA CHLORIDE 0.9% 500 ML IVPB SCH (09:00)
[2018-04-24] MEDS: PHENYTOIN 125 MG/5 ML ORAL.SUSP FT SCH ×3 (09:26→20:30)
[2018-04-24] MEDS: ENOXAPARIN 30 MG/0.3 ML SQ SCH (09:27)
[2018-04-24] MEDS: FAMOTIDINE 20 MG/2 ML VIAL IV SCH (09:28)
[2018-04-24] MEDS ORDERED: Meropenem 500 MG VIAL IV SCH (09:50)
[2018-04-24] MEDS ORDERED: ALBUMIN HUMAN 25% 100 ML IV ONE (09:51)
--- NOTE | 2018-04-24 09:53 | P.CNS ---
Date of Consult: 04/24/18 Primary Care Provider: CAREN Chief Complaint: Respiratory failure History of Present Illness: Patient is 38 years of age anoxic brain damage admitted to the hospital with respiratory failure fever he was intubated transferred here to the ICU patient is alert does open his eyes to stimulus high concentration of oxygen positive sepsis screen hypotension Allergies Penicillins Allergy (Intermediate, Verified 02/19/13 12:48) Hives/Rash Antih Allergy (Uncoded 05/30/17 04:46) Unknown Antihistamine Allergy (Uncoded 04/24/18 05:13) Unknown Aspirin Allergy (Uncoded 05/30/17 04:46) Unknown Home Medications: Acetaminophen [Pain Relief 8Hr] 650 mg FT Q4HP PRN 04/24/18 Acetaminophen with Codeine [Tylenol with Codeine #3 Tablet] 1 each PO Q6HP PRN 04/24/18 Acetaminophen with Codeine [Tylenol with-Codeine #3 Tablet] 1 each FT BID Ibuprofen 400 mg FT Q4HP PRN 04/24/18 Lactulose 15 ml PO BEDTIME 04/24/18 Phenytoin [Dilantin-125] 6 ml FT TID 04/24/18 levoFLOXacin [Levaquin] 500 mg FT DAILY 04/24/18 - Past Medical/Surgical History Diabetic: No -: anoxic brain injury -: seizure disorder -: trach - Social History Alcohol use: No CD- Drugs: No Caffeine use: No Place of Residence: [facility] Review of Systems is unable to be obtained Physical Examination Temp Pulse Resp BP Pulse Ox 100.1 F 132 H 24 H 85/70 L 94 04/24/18 08:31 04/24/18 08:31 04/24/18 08:31 04/24/18 08:31 04/24/18 08:31 General: Alert Respiratory: Clear to auscultation bilaterally, Diminished Cardiovascular: No edema, Regular rate/rhythm Gastrointestinal: Normal bowel sounds, Soft and benign Laboratory Data (last 24 hrs) 04/24/18 00:55: PT 15.9 H, INR 1.34, APTT 40.2 H 04/24/18 00:55: WBC 20.0 H D, Hgb 16.9, Hct 53.5 H, Plt Count 104 L D 04/24/18 00:55: Sodium 160 H, Potassium 4.4, BUN 82 H, Creatinine 2.40 H, Glucose 700 H*, Total Bilirubin 0.7, AST 42 H, ALT 59, Alkaline Phosphatase 113 , Amylase 109, Lipase 405 H - Problems (1) Acute respiratory failure Current Visit: Yes Status: Acute Plan: Patient is 38 years of age quadriplegic secondary to anoxic brain damage admitted with respiratory failure septic shock I suggest adding meropenem continue with vancomycin cultures are pending requiring high concentrations of oxygen increase PEEP multiorgan failure acute renal failure at 2 doses of albumin Possible pneumonia Qualifiers: Respiratory failure complication: hypoxia Qualified Code(s): J96.01 - Acute respiratory failure with hypoxia (2) Hypernatremia Onset Date: 06/02/17 Current Visit: No Status: Acute Plan: Patient has hypernatremia continue with IV fluids
[2018-04-24] MEDS ORDERED: ETOMIDATE 20 MG/10 ML VIAL IV ONE (11:02)
[2018-04-24] MEDS: Meropenem 500 MG in NA CHLORIDE 0.9% 100 ML IV SCH ×2 (11:09→20:30)
[2018-04-24] MEDS: D5W 1,000 ML IV SCH ×2 (11:10→18:16)
--- NOTE | 2018-04-24 11:31 | RAD REPORT ---
EXAM DESCRIPTION: RAD - Chest Single View - 04/24/2018 3:17 am CLINICAL HISTORY: Check Central line placement Chest pain. COMPARISON: Chest Single View dated 04/24/2018; Chest Single View dated 04/24/2018; Chest Single View dated 06/01/2017; Chest Single View dated 05/29/2017; CHEST PA AND LAT 2 VIEW dated 05/04/2012 FINDINGS: Portable technique limits examination quality. Tip of the ET tube is at the level of the clavicular heads. Left-sided central line terminates along the midline probably within the brachiocephalic vein. No pneumothorax is seen. Again noted are airspa ce opacities in both lungs bases, greatest in the right base, likely representing pneumonia.
[2018-04-24 12:24] LABS: Arterial Blood Carboxyhemoglob 1.1 % (0-1.5); Blood Gas Oxyhemoglobin 87.3 % (94-97); Blood O2 Saturation 88.8 % (92-98.5)
[2018-04-24] MEDS: GLUCERNA 1.5 CAL 1,000 ML BOT RTH SCH (15:00)
--- NOTE | 2018-04-24 16:17 | RAD REPORT ---
EXAM DESCRIPTION: US - Renal Ultrasound-Complete - 04/24/2018 4:03 pm CLINICAL HISTORY: acute renal failure COMPARISON: No comparisons FINDINGS: Both kidneys are normal in size, shape and echotexture. The right kidney measures 11.4 x 4.8 x 4.7 cm. No hydronephrosis, focal mass or perinephric fluid. The left kidney measures 11.3 x 4.7 x 4.5 cm. No hydronephrosis, focal mass or perinephric fluid. The urinary bladder is incompletely distended without gross abnormality seen. IMPRESSION: Unremarkable renal sonogram.
[2018-04-24 16:34] LABS: Magnesium 2.8 mg/dL (1.8-2.4); Phosphorus 2.1 mg/dL (2.5-4.9); Potassium 3.8 mmol/L (3.5-5.1)
[2018-04-24] MEDS ORDERED: KCL 20 MEQ/100 mL IVPB 20 MEQ/100 ML BAG IV SCH (19:00)
[2018-04-24] MEDS ORDERED: POTASS/SODIUM PHOSPHATE 1 PKT POWD.PACK PO ONE (19:00)
[2018-04-24 22:45] LABS: Potassium 4.5 mmol/L (3.5-5.1)
[2018-04-25] MEDS: INSULIN -REGULAR HUMAN 50 UNIT/0.5 ML ML SQ SCH ×4 (00:11→17:09)
--- NOTE | 2018-04-25 02:10 | CON ---
Date of Consultation: 04/24/2018 Chief Complaint: Acute kidney injury; nonoliguric; associated with dehydration , volume depletion and severe hypernatremia. History Of Present Illness: The patient came to the hospital, received IV fluids and normal saline was used for volume resuscitation. Sodium level at that time was 160 and patient was found to have hyperglycemia. Subsequently, sodium was 166 and hyperglycemia improved, the patient was started on D5W for severe dehydration. Sodium level is gradually improving. This afternoon, sodium improved to 164. The patient was found to have hypokalemia and is receiving potassium replacement as well as is receiving phosphorus replacement. The patient has multiple medical problems. He has severe encephalopathy. He is bedbound, unresponsive. He has severe anoxic encephalopathy, history of anoxic brain injury after suicidal attempt. He is quadriplegic. He is a resident of long-term care [facility], was diagnosed with upper respiratory infection. On arrival to the hospital, he was admitted to ICU and started on IV antibiotics. He was found to have hypoxemia and required non-rebreather mask. He was found to have severe leukocytosis, sepsis. Chest x-ray showed bilateral infiltrate, possible pneumonia. Review of Systems: Cannot be obtained. The patient is encephalopathic. Does not follow commands. Past Medical History: Anoxic brain injury, seizure, status post trach. Family History: Unobtainable. Social History: Negative for tobacco, alcohol, illicit drugs. Physical Examination: General: The patient is lethargic, cannot answer questions, encephalopathic, does not follow commands. EYES: No hemorrhagic changes. No conjunctivitis. Ears, Nose, Mouth, and Throat: Oral mucosa moist. No pallor. Neck: Supple. No bruits. Lungs: Crackles and rhonchi bilaterally present. No wheezing. Cardiovascular: Regular rate and rhythm. No pericardial friction rub. S1, S2. Gastrointestinal: Bowel sounds present. no bruits Musculoskeletal: Contractures and decreased muscle mass. Skin: Warm and dry. No cyanosis. Neurological: The patient is quadriparetic, does not move extremities. Laboratory Data: PT 16.9, INR 1.34, PTT is 40.2. WBC 20,000, hemoglobin 16.9, platelet count 104,000. Sodium 166, potassium 4.4, BUN 82, creatinine 2.4, glucose 700. Total bilirubin 0.7. AST 42, ALT is 59. Amylase was 109, lipase 405. Impression And Plan: 1. Severe sepsis. Continue antibiotics. Adjust dose to renal dose. 2. Acute respiratory failure, pneumonia. Continue antibiotics and non- rebreather mask. 3. Anoxic brain injury, chronic. 4. Acute kidney injury with dehydration. Continue fluid replacement for hypernatremia correction and treatment of acute kidney injury and hypovolemia treatment , monitor electrolytes. Monitor phosphorus and magnesium level. 5. The patient is critically ill with sepsis. Plan is to check renal ultrasound to assess kidney size and echotexture. The patient likely has some underlying chronic kidney disease. Previously, he was found to have obstructive uropathy. Monitor urine output and daily fluid balance. EB/MODL Voice ID: [id number] Report ID: [id number] CYNDI
[2018-04-25] MEDS: LORazepam 2 MG/ML VIAL IV PRN ×2 (03:13→15:30)
[2018-04-25 05:44] LABS: Absolute Lymphocytes (CBC) 1.8 K/uL (0.7-4.9); Absolute Monocytes 0.4 K/uL (0.1-1.3); Absolute Neutrophil 12.5 K/uL (1.8-8.0); Basophils % 0.7 % (0-1.3); Eosinophils % 0.7 % (0-4.4); Lymphocytes % 11.9 % (15.3-44.8); MCH 30.6 pg (27.0-35.0); MCV 94.5 fL (80-100); MPV 14.8 fL (7.6-11.3); Monocytes % 2.6 % (3.3-12.3); RBC Red Blood Cell Count 3.91 M/uL (4.33-5.43)
[2018-04-25 06:03] LABS: Albumin 2.3 g/dL (3.4-5.0); Bilirubin Total 0.7 mg/dL (0.2-1.0); Magnesium 2.7 mg/dL (1.8-2.4); Potassium 4.3 mmol/L (3.5-5.1); Protein, Total 6.1 g/dL (6.4-8.2)
[2018-04-25 06:33] LABS: Phosphorus 2.1 mg/dL (2.5-4.9)
[2018-04-25] MEDS: Meropenem 500 MG in NA CHLORIDE 0.9% 100 ML IV SCH ×2 (08:00→20:06)
[2018-04-25] MEDS: PHENYTOIN 125 MG/5 ML ORAL.SUSP FT SCH ×3 (08:00→20:04)
[2018-04-25] MEDS: FAMOTIDINE 20 MG/2 ML VIAL IV SCH (08:00)
[2018-04-25] MEDS ORDERED: D5W 1,000 ML IV SCH ×2 (08:00→15:00)
[2018-04-25] MEDS: ENOXAPARIN 30 MG/0.3 ML SQ SCH (08:00)
[2018-04-25] MEDS: FENTANYL CITR 100 MCG/2 ML IV PRN ×2 (08:06→21:00)
--- NOTE | 2018-04-25 12:04 | P.PN ---
Subjective Date of Service: 04/25/18 Primary Care Provider: CAREN Chief Complaint: Respiratory failure Subjective: Other (Patient intubated.) Physical Examination - Vital Signs Temperature: 99.7 F Blood Pressure: 86/58 Pulse: 113 Respirations: 15 Pulse Ox (%): 97 - Physical Exam General: Other (Patient intubated at this time. Minimal response to pain) HEENT: Atraumatic Neck: Supple Respiratory: Clear to auscultation bilaterally, Normal air movement Cardiovascular: Abnormal pulses (Sinus tachycardia) Gastrointestinal: Normal bowel sounds, Soft and benign, Non-distended Musculoskeletal: Contractures (Contractures to the lower extremity) Integumentary: Other (No significant edema note) Neurological: Other (Intubated ) - Studies Medications List Reviewed: Yes Assessment & Plan - Problems (Diagnosis) (1) Acute renal failure Current Visit: Yes Status: Acute Plan: Likely from sepsis related to bilateral pneumonia with possible aspiration pneumonia. Patient with hypernatremia. Nephrology continues to adjust IV fluids. Patient currently intubated. Pulmonology has adjusted antibiotic therapy. Patient currently on vancomycin and meropenem. Blood cultures positive for Gram negative rods. Sputum culture pending. (2) Urethral stricture Current Visit: No Status: Chronic Plan: Patient with history urethral stricture in the past. Patient has seen Neurology in the past. ER tried to put in Cardenas catheter without success. Condom catheter in place. No need for catheterization at this time. Qualifiers: Urethral stricture type: unspecified stricture type Qualified Code(s): N35.9 - Urethral stricture, unspecified (3) Severe sepsis Current Visit: Yes Status: Acute Plan: Patient with severe sepsis likely from bilateral pneumonia and aspiration pneumonia. Antibiotics adjusted by pulmonology. Currently on meropenem and vancomycin. Blood culture positive for Gram negative rods. Patient intubated this time. Pulmonology to wean off ventilator. (4) Acute respiratory failure Current Visit: Yes Status: Acute Plan: Patient with acute respiratory failure secondary to bilateral pneumonia/ aspiration pneumonia. Continue as above. Patient on IV antibiotic therapy. Qualifiers: Respiratory failure complication: hypoxia Qualified Code(s): J96.01 - Acute respiratory failure with hypoxia (5) Anoxic brain injury Current Visit: Yes Status: Chronic Plan: Patient with history of anoxic brain injury. He was in senior care when he committed suicide which led to his anoxic brain injury many years ago. He is currently at a alf. He is quadriplegic (6) Seizure disorder Onset Date: 06/02/17 Current Visit: No Status: Chronic Plan: Patient with history of seizure disorder. Will continue with his anti seizure medication. (7) Pneumonia Onset Date: 06/02/17 Current Visit: No Status: Acute Plan: Bilateral pneumonia likely from aspiration. Continue IV antibiotic therapy. Patient intubated at this time. Await further recommendations from pulmonology. Qualifiers: Pneumonia type: aspiration pneumonia Laterality: bilateral Lung location : lower lobe of lung (8) Hypernatremia Onset Date: 06/02/17 Current Visit: No Status: Acute Plan: Slight improvement noted. Nephrology making adjustments to IV fluids. (9) Quadriplegia Current Visit: Yes Status: Chronic Plan: Patient with quadriplegia and contractures to the lower extremity. Will continue DVT prophylaxis. (10) Malnutrition Current Visit: Yes Status: Chronic Plan: Patient with severe malnutrition in the past. History of PEG tube. Will continue with PEG tube feeds. Qualifiers: Malnutrition type: protein-calorie malnutrition Protein-calorie malnutrition severity: severe Qualified Code(s): E43 - Unspecified severe protein-calorie malnutrition (11) Thrombocytopenia Current Visit: Yes Status: Chronic Plan: Patient with history of thrombocytopenia. Will monitor closely. Discharge Plan: Senior Living Plan to discharge in: Greater than 2 days Time Spent Managing Pts Care (In Minutes): 55
[2018-04-25 12:51] LABS: Potassium 4.5 mmol/L (3.5-5.1)
[2018-04-25] MEDS: VANCOMYCIN/NS 1 gm 1 GM/250 ML BAG IV SCH (17:09)
[2018-04-25 18:59] LABS: Potassium 4.2 mmol/L (3.5-5.1)
[2018-04-25] MEDS ORDERED: NA CHLORIDE 0.9% 500 ML IV ONE (19:58)
[2018-04-25] MEDS ORDERED: CALCIUM GLUC 10% INJ 4.65 MEQ in NA CHLORIDE 0.9% 100 ML IV ONE (20:09)
[2018-04-25] MEDS: MIDODRINE HCL 5 MG TABLET FT SCH (21:00)
[2018-04-25] MEDS ORDERED: CALCIUM GLUCONATE 1 GM IVPB 1 GM/50 ML BAG IV ONE (23:07)
[2018-04-26] MEDS: D5W 1,000 ML IV SCH ×2 (00:57→16:00)
[2018-04-26] MEDS: MIDAZOLAM HCL 2 MG/2 ML INJ IV PRN ×3 (00:58→06:49)
[2018-04-26] MEDS: LORazepam 2 MG/ML VIAL IV PRN ×4 (02:30→20:16)
--- NOTE | 2018-04-26 03:19 | PN ---
Date of Progress Note: 04/25/2018 Chief Complaint: Acute kidney injury. History Of Present Illness: Acute kidney injury, nonoliguric, associated with hypovolemia, dehydration. The patient was found to have severe hypernatremia. The patient primarily received IV fluids for volemia control. The patient has history of severe anoxic encephalopathy, history of anoxic brain injury after a suicidal attempt in the past. The patient is bed bound, quadriplegic. He has a tube feeding and the patient is started on IV fluids primarily for volume control. Subsequently, normal saline was switched to D5W for hypernatremia control. Sodium level is gradually improving. The patient is on tube feeding and is receiving free water via tube feeding as well. The patient today was found to have hypotension. Midodrine was started for blood pressure control. The patient presented to the hospital after he developed a cough and was found to have severe leukocytosis. He is treated for aspiration pneumonia. White count is improving from 20,000 to 14.9. The patient is started on IV normal saline boluses for hypotension and midodrine was initiated via the tube feeding for blood pressure support. Review of Systems: Unobtainable due to the patient's condition. Physical Examination: Lungs: Few crackles at bases. Heart: S1, S2. Abdomen: Soft. Bowel sounds present. Laboratory Work: Sodium 162, potassium 4.5, chloride 130, CO2 26, BUN 53, creatinine 1.60, glucose 222, calcium 7.9. Impression And Plan: 1. Acute kidney injury. Renal function is gradually improving. Creatinine was 2.4, improving to 1.6 and currently is trending up to 1.8 secondary to prerenal azotemia with hypotension. The patient received normal saline for blood pressure control as well as he will have midodrine. Blood pressure is improving. 2. Pneumonia. Continue antibiotics of broad spectrum. 3. Hypophosphatemia. Monitor phosphorus level. Adjust replacement. 4. Diabetes mellitus. Continue insulin per sliding scale. I spent total 36 min including 25 min to coordinate care plan. ASHLEY/YUSEF Voice ID: [id number] Report ID: [id number] CYNDI
[2018-04-26 06:08] LABS: Absolute Lymphocytes (CBC) 1.3 K/uL (0.7-4.9); Absolute Monocytes 0.2 K/uL (0.1-1.3); Absolute Neutrophil 12.2 K/uL (1.8-8.0); Basophils % 0.5 % (0-1.3); Eosinophils % 1.1 % (0-4.4); Hematocrit 33.3 % (39.6-49.0); Lymphocytes % 9.5 % (15.3-44.8); MCH 31.3 pg (27.0-35.0); MCV 93.8 fL (80-100); MPV 14.6 fL (7.6-11.3); Monocytes % 1.3 % (3.3-12.3); RBC Red Blood Cell Count 3.56 M/uL (4.33-5.43)
[2018-04-26] MEDS: INSULIN -REGULAR HUMAN 50 UNIT/0.5 ML ML SQ SCH ×4 (07:00→17:40)
[2018-04-26 07:03] LABS: Albumin 2.1 g/dL (3.4-5.0); Bilirubin Total 0.5 mg/dL (0.2-1.0); Magnesium 2.5 mg/dL (1.8-2.4); Potassium 4.5 mmol/L (3.5-5.1); Protein, Total 6.2 g/dL (6.4-8.2)
[2018-04-26] MEDS: ACETAMINOPHEN 650MG/RECT SUPP RECT PRN (07:23)
--- NOTE | 2018-04-26 08:09 | P.PN ---
Subjective Date of Service: 04/26/18 Primary Care Provider: CAREN Chief Complaint: Respiratory failure Patient's condition is stable he had an episode of hypotension was bolus yesterday however he has considerable dependent edema thick secretions FiO2 has also decreased minimally responsive Review of Systems is unable to be obtained Physical Examination - Vital Signs Temperature: 98.3 F Blood Pressure: 98/65 Pulse: 114 Respirations: 19 Pulse Ox (%): 97 - Physical Exam General: Unresponsive Respiratory: Clear to auscultation bilaterally Cardiovascular: Edema Gastrointestinal: Normal bowel sounds, Soft and benign - Studies Medications List Reviewed: Yes Assessment & Plan - Problems (Diagnosis) (1) Acute respiratory failure Onset Date: 04/26/18 Current Visit: Yes Status: Acute Plan: Patient is currently on a ventilator oxygenation satisfactory at 45% patient has some haziness on the right side possible pneumonia repeat chest x-ray ordered ETT may need to be reposition Qualifiers: Respiratory failure complication: hypoxia Qualified Code(s): J96.01 - Acute respiratory failure with hypoxia (2) Hypernatremia Onset Date: 06/02/17 Current Visit: No Status: Acute Plan: Currently on D5 water sodium is declining (3) Septic shock Current Visit: Yes Status: Acute Plan: Blood cultures positive for Gram negative rods id pending most likely Pseudomonas patient is on vancomycin and meropenem not on any vasopressors as a transfer to an L tach unit renal function is also worsened
[2018-04-26] MEDS: MIDODRINE HCL 5 MG TABLET FT SCH ×3 (08:40→20:16)
[2018-04-26] MEDS: ENOXAPARIN 30 MG/0.3 ML SQ SCH ×2 (08:40→09:00)
[2018-04-26] MEDS: POTASS/SODIUM PHOSPHATE 1 PKT POWD.PACK FT SCH (08:40)
[2018-04-26] MEDS: PHENYTOIN 125 MG/5 ML ORAL.SUSP FT SCH ×3 (08:43→20:15)
[2018-04-26] MEDS: FAMOTIDINE 20 MG/2 ML VIAL IV SCH (08:43)
[2018-04-26] MEDS: Meropenem 500 MG in NA CHLORIDE 0.9% 100 ML IV SCH ×2 (08:43→20:15)
--- NOTE | 2018-04-26 08:58 | P.PN ---
Subjective Date of Service: 04/26/18 Primary Care Provider: CAREN Chief Complaint: Respiratory failure Subjective: Other (No significant change since yesterday. Patient with noted enlarged scrotal sac today. Patient still intubated.) Physical Examination - Vital Signs Temperature: 98.3 F Blood Pressure: 98/65 Pulse: 114 Respirations: 19 Pulse Ox (%): 97 - Physical Exam General: Other (Patient intubated. Patient nonverbal. Poor response today.) HEENT: Atraumatic Neck: Supple Respiratory: Clear to auscultation bilaterally, Normal air movement Cardiovascular: Abnormal pulses (Sinus tachycardia) Gastrointestinal: Normal bowel sounds, Soft and benign, Non-distended, No tenderness, No masses, No rebound, No guarding Musculoskeletal: Contractures (To the lower extremity.), Other (Muscle wasting to the upper and lower extremities.) Neurological: Other (Patient is nonverbal. Patient with slow responses. Nurses report that he was more alert yesterday with family present) Urinary: Other (A condom catheter in place. Scrotal sac enlarged.) - Studies Medications List Reviewed: Yes Assessment & Plan - Problems (Diagnosis) (1) Acute renal failure Onset Date: 04/26/18 Current Visit: Yes Status: Acute Plan: Likely from sepsis related to bilateral pneumonia with possible aspiration pneumonia. Blood culture positive for Proteus. Will continue with vancomycin and meropenem. IV fluids adjusted by Nephrology. Hypernatremic knee has slightly improved. Renal function slightly more compromise today. Will check scrotal ultrasound to evaluate the enlargement of scrotal sac. Will need to rule out obstruction. Patient with history of trauma to the area. Pulmonology recommends long-term acute care facility placement as the patient has been difficult to wean off. Will discuss with family and social work coordinator. Will discuss further with nephrology. (2) Urethral stricture Current Visit: No Status: Chronic Plan: Patient with history urethral stricture in the past. Patient has seen Urology in the past. ER tried to put in Cardenas catheter without success. Condom catheter in place. Increased scrotal sac noted. Will check scrotal ultrasound to evaluate for possible obstruction. No need for catheterization at this time. Qualifiers: Urethral stricture type: unspecified stricture type Qualified Code(s): N35.9 - Urethral stricture, unspecified (3) Severe sepsis Onset Date: 04/26/18 Current Visit: Yes Status: Acute Plan: Patient with severe sepsis likely from bilateral pneumonia and aspiration pneumonia. Blood culture positive for Proteus. Antibiotics adjusted by pulmonology. Currently on meropenem and vancomycin. Pulmonology recommends long-term acute care facility placement. (4) Acute respiratory failure Onset Date: 04/26/18 Current Visit: Yes Status: Acute Plan: Patient with acute respiratory failure secondary to bilateral pneumonia/ aspiration pneumonia. Continue IV antibiotic therapy. Pulmonology recommends long-term care facility placement to wean off ventilator. Qualifiers: Respiratory failure complication: hypoxia Qualified Code(s): J96.01 - Acute respiratory failure with hypoxia (5) Anoxic brain injury Onset Date: 04/26/18 Current Visit: Yes Status: Chronic Plan: Patient with history of anoxic brain injury. He was in [facility] when he committed [facility] which led to his anoxic brain injury many years ago. He is currently at a detention. He is quadriplegic and nonverbal (6) Seizure disorder Onset Date: 06/02/17 Current Visit: No Status: Chronic Plan: Patient with history of seizure disorder. Will continue with his anti seizure medication. (7) Pneumonia Onset Date: 06/02/17 Current Visit: No Status: Acute Plan: Bilateral pneumonia likely from aspiration. Continue IV antibiotic therapy. Patient intubated at this time. Continue as above Qualifiers: Pneumonia type: aspiration pneumonia Laterality: bilateral Lung location : lower lobe of lung (8) Hypernatremia Onset Date: 06/02/17 Current Visit: No Status: Acute Plan: Slight improvement noted. Nephrology continues to make adjustments to IV fluids. (9) Quadriplegia Onset Date: 04/26/18 Current Visit: Yes Status: Chronic Plan: Patient with quadriplegia and contractures to the lower extremity. Will continue DVT prophylaxis. (10) Malnutrition Onset Date: 04/26/18 Current Visit: Yes Status: Chronic Plan: Patient with severe malnutrition in the past. History of PEG tube. Will continue with PEG tube feeds. Qualifiers: Malnutrition type: protein-calorie malnutrition Protein-calorie malnutrition severity: severe Qualified Code(s): E43 - Unspecified severe protein-calorie malnutrition (11) Thrombocytopenia Onset Date: 04/26/18 Current Visit: Yes Status: Chronic Plan: Patient with history of thrombocytopenia. Will monitor closely. We will hold Lovenox at this time (12) Scrotal edema Current Visit: Yes Status: Acute Plan: Will check scrotal ultrasound. Patient with history of trauma in the past. Will need to rule out obstruction. Condom catheter will be removed. (13) Hypotension Current Visit: Yes Status: Acute Plan: Currently stable. Patient on midodrine. This was started by a nephrology. Qualifiers: Hypotension type: other hypotension type Qualified Code(s): I95.89 - Other hypotension (14) Anemia Current Visit: Yes Status: Acute Plan: Will monitor closely. Likely related to sepsis Qualifiers: Anemia type: other cause Discharge Plan: LTAC Plan to discharge in: 24 Hours Time Spent Managing Pts Care (In Minutes): 55
--- NOTE | 2018-04-26 09:02 | RAD REPORT ---
EXAM DESCRIPTION: US - Scrotum Testicles - 04/26/2018 8:28 am CLINICAL HISTORY: Scrotal pain, scrotal edema COMPARISON: None. FINDINGS: No intratesticular mass lesions identified. Doppler evaluation shows normal blood flow wit hin each testicle. Right testicle may be slightly hyperemic relative to the left. No epididymal enlar gement or abnormal hyperemia. No hydrocele or other extratesticular focal mass lesion. Patient has pronounced scrotal wall thickening and edema. No abscess or drainable fluid collection. IMPRESSION: Pronounced scrotal wall thickening/ edema without abscess or drainable fluid collection. No focal abnormality of either testicle.
--- NOTE | 2018-04-26 14:08 | RAD REPORT ---
EXAM DESCRIPTION: RAD - Chest Single View - 04/26/2018 2:03 pm CLINICAL HISTORY: Respiratory failure Chest pain. COMPARISON: Chest Single View dated 04/24/2018; Chest Single View dated 04/24/2018; Chest Single View dated 04/24/2018; Chest Single View dated 06/01/2017 FINDINGS: Portable technique limits examination quality. Tip of the ET tube is above the mattie. Mild basilar opacities in both lung bases appear improved sin ce the comparative study. The heart is normal in size. No displaced fractures.
[2018-04-26 15:40] LABS: Potassium 4.5 mmol/L (3.5-5.1)
[2018-04-27] MEDS: FENTANYL CITR 100 MCG/2 ML IV PRN ×4 (01:20→17:40)
--- NOTE | 2018-04-27 03:20 | PN ---
Date of Progress Note: 04/26/2018 Chief Complaint: Dehydration, acute on chronic kidney injury, severe hypernatremia. History Of Present Illness: The patient is on tube feeding and is receiving free water flushes with tube feeding as well as IV D5W. Sodium level has improved. The patient is taken off IV fluids and free water with tube feeding was adjusted accordingly. The patient has severe sepsis with leukocytosis and aspiration pneumonia. The patient developed hypotension. Midodrine was started yesterday for blood pressure support. Renal function has declined since yesterday. The patient has acute on chronic kidney injury, moderately severe, nonoliguric. Urine output is somewhat improving this morning. Review of Systems: Unobtainable. The patient has severe encephalopathy and he is nonverbal. Physical Examination: Lungs: Few crackles at bases. Heart: S1, S2. Abdomen: Soft, benign. Extremities: No edema. Laboratory Data: Sodium 151, potassium 4.5, chloride 122, CO2 of 25, BUN 55, creatinine 2.3, glucose 105, calcium 8.0, phosphorus is pending, magnesium is 2.5. Impression And Plan: 1. Acute on chronic kidney injury. Continue IV fluids. 2. Hypernatremia. Currently, the patient is on tube feeding with free water flushes. 3. Hypotension. The patient received midodrine for blood pressure support. 4. Hypophosphatemia, replacement was ordered. Monitor phosphorus level. 5. Diabetes mellitus. Continue insulin per sliding scale. I spent total 36 min including 26 min to coordinate care plan. ASHLEY/YUSEF Voice ID: [id number] Report ID: [id number] CYNDI
[2018-04-27 04:24] LABS: Absolute Lymphocytes (CBC) 1.5 K/uL (0.7-4.9); Absolute Monocytes 0.2 K/uL (0.1-1.3); Absolute Neutrophil 9.4 K/uL (1.8-8.0); Basophils % 0.3 % (0-1.3); Hematocrit 29.1 % (39.6-49.0); MCH 31.2 pg (27.0-35.0); MCV 92.5 fL (80-100); MPV 14.2 fL (7.6-11.3); Monocytes % 2.1 % (3.3-12.3); RBC Red Blood Cell Count 3.15 M/uL (4.33-5.43)
[2018-04-27 04:37] LABS: Albumin 1.9 g/dL (3.4-5.0); Bilirubin Total 0.6 mg/dL (0.2-1.0); Magnesium 2.3 mg/dL (1.8-2.4); Potassium 4.6 mmol/L (3.5-5.1); Protein, Total 6.1 g/dL (6.4-8.2)
[2018-04-27] MEDS: INSULIN -REGULAR HUMAN 50 UNIT/0.5 ML ML SQ SCH ×4 (06:00→18:00)
[2018-04-27] MEDS: VANCOMYCIN/NS 1 gm 1 GM/250 ML BAG IV SCH (06:07)
[2018-04-27 07:20] LABS: Blood Morphology Comment NOT SEEN (NOT SEEN); Platelet Estimate DECR; Urine White Blood Cell Casts OK
[2018-04-27] MEDS: PHENYTOIN 125 MG/5 ML ORAL.SUSP FT SCH ×3 (08:01→21:22)
[2018-04-27] MEDS: FAMOTIDINE 20 MG/2 ML VIAL IV SCH (08:01)
[2018-04-27] MEDS: ACETAMINOPHEN 650MG/RECT SUPP RECT PRN (08:01)
[2018-04-27] MEDS: ENOXAPARIN 30 MG/0.3 ML SQ SCH ×2 (08:02→09:32)
[2018-04-27] MEDS: MIDODRINE HCL 5 MG TABLET FT SCH (08:02)
[2018-04-27] MEDS: POTASS/SODIUM PHOSPHATE 1 PKT POWD.PACK FT SCH (08:04)
--- NOTE | 2018-04-27 08:49 | P.PN ---
Subjective Date of Service: 04/27/18 Primary Care Provider: CAREN Chief Complaint: Respiratory failure Patient is doing better although he has thick secretions significant scrotal and penile edema still urinating Review of Systems is unable to be obtained Physical Examination - Vital Signs Temperature: 99.2 F Blood Pressure: 118/64 Pulse: 102 Respirations: 19 Pulse Ox (%): 94 - Physical Exam General: Unresponsive Respiratory: Clear to auscultation bilaterally, Diminished Urinary: Other (Significant scrotal and penile edema) - Studies Microbiology Data (last 24 hrs): 04/24/18 01:21 Blood - Blood Aerobic Blood Culture - Final Proteus Mirabilis 04/24/18 01:21 Blood - Blood Gram Stain - Final 04/24/18 01:21 Blood - Blood Anaerobic Blood Culture - Final Proteus Mirabilis 04/24/18 01:21 Blood - Blood Gram Stain - Final 04/24/18 00:55 Blood - Blood Aerobic Blood Culture - Final Proteus Mirabilis 04/24/18 00:55 Blood - Blood Gram Stain - Final 04/24/18 00:55 Blood - Blood Anaerobic Blood Culture - Final Proteus Mirabilis 04/24/18 00:55 Blood - Blood Gram Stain - Final Medications List Reviewed: Yes Assessment & Plan - Problems (Diagnosis) (1) Acute respiratory failure Onset Date: 04/26/18 Current Visit: Yes Status: Acute Plan: Patient is doing better he is on 45% FiO2 plan to wean Qualifiers: Respiratory failure complication: hypoxia Qualified Code(s): J96.01 - Acute respiratory failure with hypoxia (2) Hypernatremia Onset Date: 06/02/17 Current Visit: No Status: Acute Plan: Patient is still hypernatremic start on D5 water patient's renal function has improved significantly (3) Septic shock Current Visit: Yes Status: Acute Plan: Blood cultures positive for Proteus change to Rocephin white count is improving Dc midodrine
--- NOTE | 2018-04-27 08:49 | RAD REPORT ---
EXAM DESCRIPTION: RAD - Chest Single View - 04/27/2018 6:36 am CLINICAL HISTORY: Respiratory failure, intubation COMPARISON: March 30 TECHNIQUE: AP portable chest image was obtained 0619 hours . FINDINGS: Endotracheal tube remains in good position T3 level 2 cm above the aortic arch. Lung anayeli ngs are mildly prominent but unchanged. No progressive lung parenchymal process. Heart and vasculatur e are normal. No pneumothorax or large pleural effusion. No acute aortic findings suspected. IMPRESSION: No new or progressive cardiopulmonary finding. Endotracheal tube positioning is stable.
[2018-04-27] MEDS ORDERED: D5W 1,000 ML IV SCH (09:00)
[2018-04-27] MEDS: CEFTRIAXONE/SWI 1gm 1 GM/10 ML SYR IV SCH (09:25)
--- NOTE | 2018-04-27 12:51 | P.PN ---
Subjective Date of Service: 04/27/18 Primary Care Provider: CAREN Chief Complaint: Respiratory failure Patient seen and examined. Case discussed with pulmonology and nephrology. Currently patient remains intubated. Patient has been having some scrotal edema and that is getting progressively worse. Patient has been having urinary incontinence. No long-term acute care benefits. Review of Systems General: As per HPI Physical Examination - Vital Signs Temperature: 99.2 F Blood Pressure: 118/64 Pulse: 102 Respirations: 19 Pulse Ox (%): 94 - Physical Exam General: Other (Intubated and sedated) HEENT: Atraumatic Neck: Supple Respiratory: Normal air movement, Crackles/rales Cardiovascular: Normal pulses, Regular rate/rhythm Gastrointestinal: Normal bowel sounds, Soft and benign, Non-distended Musculoskeletal: Contractures, Other (Quadriplegic) Integumentary: Skin breakdown, Skin lesion, Tenderness/swelling, Erythema, Warmth (To the scrotal area) External genitalia: Edema, Tenderness, Other (Severe scrotal swelling noted. Tip of the penis on the dorsal side patient has hematoma noted) - Studies Microbiology Data (last 24 hrs): 04/24/18 01:21 Blood - Blood Aerobic Blood Culture - Final Proteus Mirabilis 04/24/18 01:21 Blood - Blood Gram Stain - Final 04/24/18 01:21 Blood - Blood Anaerobic Blood Culture - Final Proteus Mirabilis 04/24/18 01:21 Blood - Blood Gram Stain - Final 04/24/18 00:55 Blood - Blood Aerobic Blood Culture - Final Proteus Mirabilis 04/24/18 00:55 Blood - Blood Gram Stain - Final 04/24/18 00:55 Blood - Blood Anaerobic Blood Culture - Final Proteus Mirabilis 04/24/18 00:55 Blood - Blood Gram Stain - Final Medications List Reviewed: Yes Assessment & Plan - Problems (Diagnosis) (1) Acute respiratory failure Onset Date: 04/26/18 Current Visit: Yes Status: Acute Plan: Acute respiratory failure most likely secondary to bilateral pneumonia. -Currently intubated and sedated. -pulmonology consulted. Recc appreciated. -vent protocol. Wean as tolerated. -continue to monitor continuous pulse ox, chest x-ray and ABGs Qualifiers: Respiratory failure complication: hypoxia Qualified Code(s): J96.01 - Acute respiratory failure with hypoxia (2) Severe sepsis Onset Date: 04/26/18 Current Visit: Yes Status: Acute Plan: Severe sepsis most likely secondary to pneumonia and bacteremia -bilateral pneumonia: Most likely secondary to aspiration. -bacteremia: Positive for Proteus. -IV vanc and meropenem -Hemodynamically stable -WBC improving. (3) Pneumonia Onset Date: 06/02/17 Current Visit: No Status: Acute Qualifiers: Pneumonia type: aspiration pneumonia Laterality: bilateral Lung location : lower lobe of lung (4) Bacteremia Current Visit: No Status: Acute (5) Scrotal edema Current Visit: Yes Status: Acute Plan: Acute scrotal edema most likely secondary to volume overload. -urology consultation. Recommendations awaiting -patient may need to have suprapubic catheter due to urinary incontinence. -will elevate the scrotal area at this time and ice the area. -scrotal ultrasound done consistent with fluid accumulation (6) Acute renal failure Onset Date: 04/26/18 Current Visit: Yes Status: Acute Plan: Acute renal failure most likely secondary to sepsis -IV fluids changed to D5W -avoid nephrotoxic agent -nephrology consulted. Recommendations appreciated -BUN/CR improving Qualifiers: Acute renal failure type: with acute tubular necrosis Qualified Code(s): N17.0 - Acute kidney failure with tubular necrosis (7) Anoxic brain injury Onset Date: 04/26/18 Current Visit: Yes Status: Chronic (8) Quadriplegia Onset Date: 04/26/18 Current Visit: Yes Status: Chronic (9) Severe protein-calorie malnutrition Current Visit: No Status: Acute (10) Seizure disorder Onset Date: 06/02/17 Current Visit: No Status: Chronic (11) Urethral stricture Current Visit: No Status: Chronic Qualifiers: Urethral stricture type: unspecified stricture type Qualified Code(s): N35.9 - Urethral stricture, unspecified Discharge Plan: Other Plan to discharge in: 72 Hours - Code Status/Comfort Care Code Status Assessed: Yes Critical Care: Yes
[2018-04-27] MEDS: D5W 1,000 ML IV SCH ×2 (15:00→21:23)
--- NOTE | 2018-04-27 15:52 | PN ---
Date of Progress Note: 04/27/2018 Subjective: The patient still sleepy, confused. Objective: Vital Signs: Blood pressure 122/58, pulse of 79. The patient had urine output of 850, p ositive of 1 liter. Chest: Decreased entry bilateral base. Heart: S1, S2. Regular. Abdomen: Soft, nontender. Extremities: Contracted. Edema on the scrotal area. Laboratory Data: WBC 11.2, H and H 9.8/29.1, platelets of 67. Sodium 152, potassium 4.6, bicarb 27, BUN 41, creatinine down to 1.2, calcium of 8. Current Medications: The patient on D5 started at 75, ceftriaxone, Tylenol, haloperidol, midazolam, Dilantin 150 t.i.d., Glucerna, Pepcid, Zofran. Assessment And Plan: 1.Acute kidney injury secondary to prerenal, on the recovery phase. Slightly on the third spacing, with significant proteinuria. No quantification for the proteinuria, on recovery. I am going to nely nge D5 to 100 to control the hypernatremia and we will continue to monitor. 2.Hypernatremia secondary to dehydration, third spacing. I am going to give the patient 1 dose of a lbumin with Lasix to establish for sodium diuresis and we will increase the D5 to 100, increase free water to 200 q.6, and we will monitor the patient. We will request urine electrolyte. 3.Proteinuria. We will send for protein creatinine. 4.Bacteremia, Proteus mirabilis. Continue current antibiotic. Will follow up with the primary. AKILAH Voice ID: [id number] Report ID: [id number]
[2018-04-27] MEDS ORDERED: FUROSEMIDE 40 MG/4 ML VIAL IV ONE (16:00)
[2018-04-27] MEDS ORDERED: ALBUMIN HUMAN 25% 100 ML IV ONE (16:00)
[2018-04-27] MEDS: LORazepam 2 MG/ML VIAL IV PRN (17:10)
[2018-04-27 17:57] LABS: UR PROTEIN 16 mg/dL (<11.9); UR SODIUM 137 mmol/L (27-287)
[2018-04-28] MEDS: INSULIN -REGULAR HUMAN 50 UNIT/0.5 ML ML SQ SCH ×4 (02:00→18:00)
[2018-04-28 05:33] LABS: Absolute Lymphocytes (CBC) 1.1 K/uL (0.7-4.9); Absolute Monocytes 0.3 K/uL (0.1-1.3); Absolute Neutrophil 7.1 K/uL (1.8-8.0); Basophils % 0.2 % (0-1.3); Eosinophils % 1.3 % (0-4.4); Hematocrit 25.8 % (39.6-49.0); Lymphocytes % 13.2 % (15.3-44.8); MCV 90.8 fL (80-100); MPV 14.2 fL (7.6-11.3); Monocytes % 3.5 % (3.3-12.3); RBC Red Blood Cell Count 2.84 M/uL (4.33-5.43)
[2018-04-28 05:55] LABS: ALT/SGPT 71 U/L (12-78); AST/SGOT 56 U/L (15-37); Albumin 2.1 g/dL (3.4-5.0); Alkaline Phosphatase 89 U/L (45-117); BUN Blood Urea Nitrogen 27 mg/dL (7-18); Bicarbonate 28 mmol/L (21-32); Bilirubin Total 0.5 mg/dL (0.2-1.0); Glucose Level 193 mg/dL (74-106); Magnesium 2.2 mg/dL (1.8-2.4); Potassium 3.8 mmol/L (3.5-5.1); Sodium Level 144 mmol/L (136-145)
--- NOTE | 2018-04-28 08:35 | RAD REPORT ---
EXAM DESCRIPTION: RAD - Chest Single View - 04/28/2018 6:30 am CLINICAL HISTORY: Respiratory failure Chest pain. COMPARISON: Chest Single View dated 04/27/2018; Chest Single View dated 04/26/2018; Chest Single View dated 04/24/2018; Chest Single View dated 04/24/2018 FINDINGS: Portable technique limits examination quality. Since the prior study, the patient has been extubated. Left-sided central line has tip in the brachio cephalic vein. Mild haziness of both lung bases probably related to atelectasis and small pleural eff usions and appear stable. The heart is normal in size. No displaced fractures. IMPRESSION: Interval extubation since comparative study.
[2018-04-28] MEDS: CEFTRIAXONE/SWI 1gm 1 GM/10 ML SYR IV SCH (10:28)
[2018-04-28] MEDS: FAMOTIDINE 20 MG/2 ML VIAL IV SCH (10:28)
[2018-04-28] MEDS: POTASS/SODIUM PHOSPHATE 1 PKT POWD.PACK FT SCH (10:28)
[2018-04-28] MEDS: ENOXAPARIN 30 MG/0.3 ML SQ SCH (10:28)
[2018-04-28] MEDS: PHENYTOIN 125 MG/5 ML ORAL.SUSP FT SCH ×3 (10:28→20:36)
[2018-04-28] MEDS: GLUCERNA 1.5 CAL 1,000 ML BOT RTH SCH (10:30)
[2018-04-28] MEDS: D5W 1,000 ML IV SCH ×2 (10:30→10:33)
[2018-04-28] MEDS ORDERED: FUROSEMIDE 20 MG TABLET PO ONE (11:31)
[2018-04-28] MEDS ORDERED: POTASSIUM 25 MEQ EFFERV TAB PO ONE (11:44)
[2018-04-28] MEDS ORDERED: CEFTRIAXONE/SWI 1gm 1 GM/10 ML SYR IV ONE (12:00)
--- NOTE | 2018-04-28 12:15 | PN ---
Date of Progress Note: 04/28/2018 Subjective: The patient is status post Lasix yesterday, increased D5 and free water. Sodium is tren ding down. Objective: Vital Signs: Blood pressure 114/74, pulse of 83. The patient had good urine output. Mu ltiple wet diaper. Chest: Clear to auscultation. Heart: S1, S2. Regular. Abdomen: Soft, nontender. Extremities: Contracted. Scrotal swelling. Laboratory Data: H and H 8.8/25.8. Sodium 144, potassium 3.8, bicarb 28, BUN 27, creatinine 0.9, GF R of 90, calcium 7.8. Protein-creatinine look mostly possible bad collection as protein 16, creatini ne 0.1, could be turned to be nephrotic giving. Assessment And Plan: 1.Acute kidney injury secondary to prerenal, resolved. Currently has third spacing. Received Lasix yesterday. I am going to go ahead and give him extra dose today and we will follow up the patient. 2.Hypernatremia, recovered. I going to go ahead and decrease D5 to 50 per hour with plan to discont inue tomorrow. 3.Respiratory failure status post self extubation. We will continue with the primary. 4.Multiorgan failure bacteremia, pneumonia secondary to Proteus mirabilis. Continue current antibio tic. Dose adjusted. We will increase it to 2 g and we will follow up. AKILAH Voice ID: [id number] Report ID: [id number]
--- NOTE | 2018-04-28 13:18 | P.PN ---
Subjective Date of Service: 04/28/18 Primary Care Provider: CAREN Chief Complaint: Respiratory failure Patient seen and examined at bedside with RN. Chart reviewed. Patient self- extubated himself yesterday. Has been doing well since then. Patient is currently saturating well on nasal cannula. No complaints to offer overnight. Review of Systems General: As per HPI Physical Examination - Vital Signs Temperature: 98.9 F Blood Pressure: 114/74 Pulse: 83 Respirations: 18 Pulse Ox (%): 98 - Physical Exam General: Alert, Cachectic, Other HEENT: Atraumatic Neck: Supple Respiratory: Normal air movement, Crackles/rales, Rhonchi/gurgles Cardiovascular: Regular rate/rhythm, Normal S1 S2 Gastrointestinal: Normal bowel sounds, Soft and benign, Non-distended, No tenderness Musculoskeletal: Other (parapelgic ) Integumentary: No rashes Neurological: Abnormal speech, Abnormal affect Lymphatics: No axilla or inguinal lymphadenopathy External genitalia: Edema, Lesions, Tenderness - Studies Medications List Reviewed: Yes Assessment & Plan - Problems (Diagnosis) (1) Acute respiratory failure Onset Date: 04/26/18 Current Visit: Yes Status: Acute Plan: Acute respiratory failure most likely secondary to bilateral pneumonia. Resolved now -Currently extubated and doing well. On NC. Wean As tolerated. -pulmonology consulted. Recc appreciated. -continue to monitor continuous pulse ox, chest x-ray and ABGs Qualifiers: Respiratory failure complication: hypoxia Qualified Code(s): J96.01 - Acute respiratory failure with hypoxia (2) Severe sepsis Onset Date: 04/26/18 Current Visit: Yes Status: Acute Plan: Severe sepsis most likely secondary to pneumonia and bacteremia -bilateral pneumonia: Most likely secondary to aspiration. -bacteremia: Positive for Proteus. -IV vanc and meropenem -Hemodynamically stable -WBC improving. (3) Pneumonia Onset Date: 06/02/17 Current Visit: No Status: Acute Plan: BL PNA -Aspiration most likely -IV vanc and meropenum -Pulmonology consulted. Appreciated Reccs Qualifiers: Pneumonia type: aspiration pneumonia Laterality: bilateral Lung location : lower lobe of lung (4) Bacteremia Current Visit: No Status: Acute (5) Scrotal edema Current Visit: Yes Status: Acute Plan: Acute scrotal edema most likely secondary to volume overload. -urology consultation. Recommendations awaiting -patient may need to have suprapubic catheter due to urinary incontinence. -will elevate the scrotal area at this time and ice the area. -scrotal ultrasound done consistent with fluid accumulation (6) Acute renal failure Onset Date: 04/26/18 Current Visit: Yes Status: Acute Plan: Acute renal failure most likely secondary to sepsis. Improved today -IV fluids changed to D5W and decreased rate -avoid nephrotoxic agent -nephrology consulted. Recommendations appreciate Qualifiers: Acute renal failure type: with acute tubular necrosis Qualified Code(s): N17.0 - Acute kidney failure with tubular necrosis (7) Anoxic brain injury Onset Date: 04/26/18 Current Visit: Yes Status: Chronic (8) Quadriplegia Onset Date: 04/26/18 Current Visit: Yes Status: Chronic (9) Severe protein-calorie malnutrition Current Visit: No Status: Acute (10) Seizure disorder Onset Date: 06/02/17 Current Visit: No Status: Chronic (11) Urethral stricture Current Visit: No Status: Chronic Qualifiers: Urethral stricture type: unspecified stricture type Qualified Code(s): N35.9 - Urethral stricture, unspecified Discharge Plan: Other Plan to discharge in: 48 Hours - Code Status/Comfort Care Code Status Assessed: Yes Critical Care: No
--- NOTE | 2018-04-28 20:33 | CON ---
History Of Present Illness: This gentleman is a quadriplegic 38-year-old gentleman who attempted suicide in [place], attempted to hang himself and developed anoxic brain injury. Currently resides in a fci. I saw him back in May 2017 for urethral stricture with filiforms and follower dilation at the bedside and placed a Cardenas catheter in his bladder. The nursing was to change it monthly. Apparently recently they took it off and could not replace it. Then, the patient developed aspiration pneumonia and came to the hospital. Now he is in ICU, has edematous scrotum and penis, possible from third spacing from bacteremia. He has been admitted for about 3 days now. Allergies: PENICILLIN CAUSES HIVES AND RASH, ANTIHISTAMINE UNKNOWN ALLERGY, ASPIRIN UNKNOWN ALLERGY. Medications: His medication list includes ibuprofen, Tylenol, lactulose, nutritional supplement, phenytoin, Ceftin. He is not diabetic. Past Medical History: Significant for anoxic brain injury, seizure disorder, quadriplegic. Family History: Noncontributory. Social History: No alcohol, no drug, no caffeine use. Resides in a fci. Review of Systems: Unable to obtain. The patient is nonverbal and is in ICU bed #3 in the position form his quadriplegia. Physical Examination: Vital Signs: Afebrile, stable. HEENT: Atraumatic, normocephalic. Neck: Supple. Respiratory: Diminished. Crackles and rales. Expiratory wheezes. Cardiovascular: S1, S2. Gastrointestinal: Soft, nontender. No abdominal scars. There is hair in the abdominal wall. Skin: No rashes. Neurologic: He does not walk, does not talk. No speech. No gait. Lymphatics: Normal. Laboratory Studies: White count is now normalized at 8.4, was high at 20,000. H and H are now 8.8 and 25.8, platelet count 68. Coagulation; PT 15.9, INR 1.3 , PTT 40. Chemistry; sodium 144, potassium 3.5, chloride 110, carbon dioxide 28 , BUN 27, creatinine 0.9. GFR greater than 90. Glucose 193. Urine study done showed 3+ blood, nitrite negative. Assessment: This gentleman is quadriplegic from attempted suicide, now he has anoxic brain injury and quadriplegic. Cardenas catheter has been removed at the fci, but never replaced, developed aspiration pneumonia, now in ICU. His white count down from 20,000 to about 8000. He is on Rocephin and Lovenox. We will hold the Lovenox today and we plan to do a cystoscopy and suprapubic tube placement tomorrow sometime. Make him n.p.o. after midnight. Consent will be obtained from his , next-of-kin, who has the power of attorney recruiter. AIDA Voice ID: [id number] Report ID: [id number] MTDChaka
[2018-04-29 05:29] LABS: Absolute Lymphocytes (CBC) 1.2 K/uL (0.7-4.9); Absolute Monocytes 0.4 K/uL (0.1-1.3); Basophils % 0.1 % (0-1.3); Eosinophils % 1.5 % (0-4.4); Hematocrit 27.6 % (39.6-49.0); Lymphocytes % 15.4 % (15.3-44.8); MCH 31.1 pg (27.0-35.0); MCV 90.8 fL (80-100); MPV 13.3 fL (7.6-11.3); RBC Red Blood Cell Count 3.04 M/uL (4.33-5.43)
[2018-04-29 05:53] LABS: ALT/SGPT 83 U/L (12-78); AST/SGOT 59 U/L (15-37); Albumin 2.2 g/dL (3.4-5.0); Alkaline Phosphatase 98 U/L (45-117); BUN Blood Urea Nitrogen 18 mg/dL (7-18); Bicarbonate 26 mmol/L (21-32); Bilirubin Total 0.4 mg/dL (0.2-1.0); Glucose Level 127 mg/dL (74-106); Potassium 3.6 mmol/L (3.5-5.1); Protein, Total 6.4 g/dL (6.4-8.2); Sodium Level 141 mmol/L (136-145)
[2018-04-29] MEDS: INSULIN -REGULAR HUMAN 50 UNIT/0.5 ML ML SQ SCH ×4 (06:00→18:00)
[2018-04-29] MEDS: D5W 1,000 ML IV SCH (06:34)
[2018-04-29] MEDS ORDERED: KCL 20 MEQ/100 mL IVPB 20 MEQ/100 ML BAG IV SCH (08:00)
[2018-04-29] MEDS: PHENYTOIN 125 MG/5 ML ORAL.SUSP FT SCH ×3 (09:00→22:12)
[2018-04-29] MEDS ORDERED: CEFTRIAXONE 2,000 MG in NA CHLORIDE 0.9% 100 ML IV SCH (09:00)
[2018-04-29] MEDS: FAMOTIDINE 20 MG/2 ML VIAL IV SCH (09:22)
[2018-04-29] MEDS: CEFTRIAXONE/SWI 2gm 2 GM/20 ML SYR IV SCH (09:22)
[2018-04-29] MEDS ORDERED: MIDAZOLAM HCL 2 MG/2 ML INJ ONE (11:47)
[2018-04-29] MEDS ORDERED: PROPOFOL 200 MG/20 ML VIAL IV ONE (11:47)
[2018-04-29] MEDS ORDERED: LIDOCAINE 2% MPF 5 ML VIAL ONE (11:47)
[2018-04-29] MEDS ORDERED: NA CHLORIDE 0.9% 1,000 ML ONE (12:08)
[2018-04-29] MEDS ORDERED: LIDOCAINE 1% MPF 5 ML VIAL ONE (12:12)
[2018-04-29] MEDS ORDERED: FENTANYL CITR 100 MCG/2 ML ONE ×4 (12:27→13:26)
[2018-04-29] MEDS ORDERED: EPHEDRINE SULF 50 MG/10 ML SYR ONE (12:32)
[2018-04-29] MEDS ORDERED: Ringers Lactate 1,000 ML IV ONE (13:48)
--- NOTE | 2018-04-29 14:45 | P.PN ---
Subjective Date of Service: 04/29/18 Primary Care Provider: CAREN Chief Complaint: Respiratory failure Patient seen and examined at bedside with RN. Chart reviewed. doing well overnight. No Respiratory Distress noted. Is Scheduled for Suprapubic catheter placement today. Swelling in the gential area is improved as well. Review of Systems General: As per HPI Physical Examination - Vital Signs Temperature: 97.4 F Blood Pressure: 130/64 Pulse: 68 Respirations: 18 Pulse Ox (%): 97 - Physical Exam General: In no apparent distress HEENT: Atraumatic Neck: Supple Respiratory: Normal air movement, Crackles/rales Cardiovascular: Regular rate/rhythm, Normal S1 S2 Gastrointestinal: Normal bowel sounds, Soft and benign, Non-distended, No tenderness Musculoskeletal: Contractures Neurological: Abnormal speech, Abnormal tone Lymphatics: No axilla or inguinal lymphadenopathy External genitalia: Edema (Improved from Prior day. ), Tenderness - Studies Medications List Reviewed: Yes Assessment & Plan - Problems (Diagnosis) (1) Acute respiratory failure Onset Date: 04/26/18 Current Visit: Yes Status: Acute Plan: Acute respiratory failure most likely secondary to bilateral pneumonia. Resolved now -Currently extubated and doing well. On NC. Wean As tolerated. -pulmonology consulted. Recc appreciated. -continue to monitor continuous pulse ox, chest x-ray and ABGs Qualifiers: Respiratory failure complication: hypoxia Qualified Code(s): J96.01 - Acute respiratory failure with hypoxia (2) Severe sepsis Onset Date: 04/26/18 Current Visit: Yes Status: Acute Plan: Severe sepsis most likely secondary to pneumonia and bacteremia -bilateral pneumonia: Most likely secondary to aspiration. -bacteremia: Positive for Proteus. -On rocephin now -Hemodynamically stable -WBC improving. (3) Pneumonia Current Visit: No Status: Acute Plan: BL PNA -Aspiration most likely -On rocephin now -Pulmonology consulted. Appreciated Reccs Qualifiers: Pneumonia type: aspiration pneumonia Laterality: bilateral Lung location : lower lobe of lung (4) Bacteremia Current Visit: No Status: Acute (5) Scrotal edema Current Visit: Yes Status: Acute Plan: Acute scrotal edema most likely secondary to volume overload. -urology consultation. Recommendations awaiting -scheduled for suprapubic catheter due to urinary incontinence. -will elevate the scrotal area at this time and ice the area. -scrotal ultrasound done consistent with fluid accumulation (6) Acute renal failure Onset Date: 04/26/18 Current Visit: Yes Status: Acute Plan: Acute renal failure most likely secondary to sepsis. Improved today -IV fluids changed to D5W and decreased rate -avoid nephrotoxic agent -nephrology consulted. Recommendations appreciate Qualifiers: Acute renal failure type: with acute tubular necrosis Qualified Code(s): N17.0 - Acute kidney failure with tubular necrosis (7) Anoxic brain injury Onset Date: 04/26/18 Current Visit: Yes Status: Chronic (8) Quadriplegia Onset Date: 04/26/18 Current Visit: Yes Status: Chronic (9) Severe protein-calorie malnutrition Current Visit: No Status: Acute (10) Seizure disorder Onset Date: 06/02/17 Current Visit: No Status: Chronic (11) Urethral stricture Current Visit: No Status: Chronic Qualifiers: Urethral stricture type: unspecified stricture type Qualified Code(s): N35.9 - Urethral stricture, unspecified Discharge Plan: [facility] Plan to discharge in: 24 Hours - Code Status/Comfort Care Code Status Assessed: Yes Critical Care: No
[2018-04-29] MEDS: GLUCERNA 1.5 CAL 1,000 ML BOT RTH SCH (14:58)
--- NOTE | 2018-04-29 15:07 | RAD REPORT ---
EXAM DESCRIPTION: RAD - Urography Retrograde - 04/29/2018 3:02 pm CLINICAL HISTORY: SUP PUBIC CATHETER PLACEMENT COMPARISON: No comparisons FINDINGS: Fluoroscopic imaging of the pelvis is submitted from suprapubic catheter placement. Detail s of the procedure are not available. Total fluoro time: 5 seconds.
--- NOTE | 2018-04-29 18:55 | PN ---
Subjective: The patient is sleeping. Objective: Pelvic: Urine in the bag is clear, but not much, so we will have the nurse irrigate the catheter as soon as possible. Assessment: Status post cystoscopy, stricture dilation and extraction of stones due to false passage into scrotum, large cavity, cystoscopy and cystogram and suprapubic tube placement. Plan: Irrigate suprapubic. Make sure it is patent and draining well to gravity and suprapubic care. NONA/YUSEF Voice ID: [id number] Report ID: [id number]
--- NOTE | 2018-04-30 01:12 | PN ---
Date of Progress Note: 04/29/2018 Chief Complaint: Acute on chronic kidney injury, prerenal azotemia. Subjective: The patient developed hypotensive episodes. Renal function has declined. Creatinine wa s up to 2.0. IV fluids were adjusted and the patient received midodrine for blood pressure support. Creatinine level improved to 1.2. There is persistent prerenal azotemia. BUN was up to 52 and impr tayla to 41. Recently, blood work obtained today showed BUN 18, creatinine 0.60. Hypernatremia has improved with adequate hydration. Review of Systems: Unobtainable. The patient has severe encephalopathy. Physical Examination: Lungs: Clear to auscultation bilaterally. Heart: S1, S2. Abdomen: Soft, benign. Extremities: No edema. Laboratory Data: Sodium 141, potassium 3.6, chloride 109, CO2 26, BUN 18, creatinine 0.6, calcium 8. 1. Impression And Plan: 1.Acute kidney injury. Renal function has improved. Monitor electrolytes and fluid balance. Marin nue IV fluids. 2.Obstructive uropathy. The patient underwent cystoscopy today. Further workup with Urology. Cont inue antibiotics for urinary tract infection. EB/MODL Voice ID: [id number] Report ID: [id number]
[2018-04-30] MEDS: D5W 1,000 ML IV SCH ×2 (03:00→05:39)
[2018-04-30] MEDS: INSULIN -REGULAR HUMAN 50 UNIT/0.5 ML ML SQ SCH ×3 (06:00→11:50)
[2018-04-30 06:38] LABS: BUN Blood Urea Nitrogen 11 mg/dL (7-18); Bicarbonate 27 mmol/L (21-32); Glucose Level 123 mg/dL (74-106); Potassium 3.9 mmol/L (3.5-5.1); Sodium Level 142 mmol/L (136-145)
[2018-04-30] MEDS ORDERED: KCL 20 MEQ/100 mL IVPB 20 MEQ/100 ML BAG IV SCH (07:00)
[2018-04-30] MEDS: FAMOTIDINE 20 MG/2 ML VIAL IV SCH (09:30)
[2018-04-30] MEDS: CEFTRIAXONE/SWI 2gm 2 GM/20 ML SYR IV SCH (09:30)
[2018-04-30] MEDS: PHENYTOIN 125 MG/5 ML ORAL.SUSP FT SCH ×2 (09:30→14:51)
--- NOTE | 2018-04-30 16:39 | P.DS ---
Admission Date: 04/24/18 Discharge Date: 04/30/18 Primary Care Provider: CAREN Disposition: ROUTINE DISCHARGE Discharge Condition: GOOD Reason for Admission: Respiratory failure Consultations: Nephrology Cardiology Urology - Problems (1) Acute respiratory failure Onset Date: 04/26/18 Current Visit: Yes Status: Acute Qualifiers: Respiratory failure complication: hypoxia Qualified Code(s): J96.01 - Acute respiratory failure with hypoxia (2) Severe sepsis Onset Date: 04/26/18 Current Visit: Yes Status: Acute (3) Pneumonia Current Visit: No Status: Acute Qualifiers: Pneumonia type: aspiration pneumonia Laterality: bilateral Lung location : lower lobe of lung (4) Bacteremia Current Visit: No Status: Acute (5) Scrotal edema Current Visit: Yes Status: Acute (6) Acute renal failure Onset Date: 04/26/18 Current Visit: Yes Status: Acute Qualifiers: Acute renal failure type: with acute tubular necrosis Qualified Code(s): N17.0 - Acute kidney failure with tubular necrosis (7) Anoxic brain injury Onset Date: 04/26/18 Current Visit: Yes Status: Chronic (8) Quadriplegia Onset Date: 04/26/18 Current Visit: Yes Status: Chronic (9) Severe protein-calorie malnutrition Current Visit: No Status: Acute (10) Seizure disorder Onset Date: 06/02/17 Current Visit: No Status: Chronic (11) Urethral stricture Current Visit: No Status: Chronic Qualifiers: Urethral stricture type: unspecified stricture type Qualified Code(s): N35.9 - Urethral stricture, unspecified Brief History of Present Illness: Mr. Maza is a 38-year-old male, with history of anoxic brain injury after suicidal attempt, quadriplegic, resident of a long-term care facility, who was diagnosed with an upper respiratory infection today, and was prescribed oral antibiotics. However, the patient become progressively more shortness of breath , he spikes fever 104.0 F. In ER, the patient remained tachypneic, tachycardic , O2 sat 88% on non-rebreather mask. The patient was intubated in ED. Laboratory work significantly abnormal, remarkable for leukocytosis with bandemia, elevated lactate and procalcitonin, abnormal kidney function. Chest x -ray remarkable for bilateral infiltrate consistent with pneumonia. Hospital Course: Overall during the hospital stay patient stable Patient was initially admitted to the hospital for acute respiratory distress, severe sepsis most likely secondary to pneumonia. Patient has been resident of the long-term acute care facility. He initially was prescribed oral antibiotics however failed outpatient therapy and was seen in the ER. Patient was intubated for acute respiratory failure. For patient's acute respiratory failure patient was initially extubated. Pulmonology was consulted. Patient was placed on vent protocol. Patient was successfully weaned off the ventilator and was extubated without any complications. Patient's respiratory failure was most likely secondary to pneumonia which was treated with IV vanc and Zosyn initially. Patient sputum culture was negative however blood culture was positive for Proteus thus patient was continued on IV Rocephin and vancomycin and Zosyn were stopped. Patient had marked improvement in his respiratory status and thus was switched over to p.o. Levaquin on discharge. For patient's severe sepsis which was most likely secondary to pneumonia versus bacteremia. As mentioned before patient was started on IV vancomycin and Zosyn and had marked improvement in his symptoms. Urine culture blood culture and sputum cultures were collected out of which blood culture was positive for Proteus. Patient's Proteus was sensitive to Levaquin which he was prescribed on discharge. Patient also had acute renal failure while here in the hospital for which nephrology was consulted. Patient remained on IV fluids. Patient had marked improvement of his kidney function on the day of discharge. Patient was also found to have scrotal edema after having IV fluids for his acute renal failure. Urology was consulted. Patient had suprapubic catheter placed by urology here in the hospital. Patient tolerated the procedure without any complication and thus was discharged back to the [facility] without having any complication during this stay. Patient is to continue taking Levaquin for 2 weeks post discharge and follow up with urology nephrology and pulmonology after discharge in about 1-2 weeks. Vital Signs/Physical Exam: Temp Pulse Resp BP Pulse Ox 98.9 F 99 H 18 106/58 L 96 04/30/18 12:04/30/18 12:00 04/30/18 12:00 04/30/18 12:04/30/18 12:00 General: Alert, Demented, Other (In [place] sick brain injury. Patient is confused at baseline) HEENT: Atraumatic Neck: Supple, JVD not distended Respiratory: Normal air movement, Expiratory wheezes Cardiovascular: Regular rate/rhythm, Normal S1 S2 Gastrointestinal: Normal bowel sounds, Soft and benign, Non-distended, No tenderness, Other (PEg tube in place) Musculoskeletal: Contractures (BL LE and UE) Integumentary: No rashes Neurological: Normal tone, Abnormal speech, Abnormal reflexes, Abnormal affect Lymphatics: No axilla or inguinal lymphadenopathy Laboratory Data at Discharge: WBC 7.7 K/uL (4.3-10.9) 04/29/18 04:40 Hgb 9.5 g/dL (13.6-17.9) L 04/29/18 04:40 Hct 27.6 % (39.6-49.0) L 04/29/18 04:40 Plt Count 106 K/uL (152-406) L D 04/29/18 04:40 PT 15.9 SECONDS (9.5-12.5) H 04/24/18 00:55 INR 1.34 04/24/18 00:55 APTT 40.2 SECONDS (24.3-36.9) H 04/24/18 00:55 Sodium 142 mmol/L (136-145) 04/30/18 05:48 Potassium 3.9 mmol/L (3.5-5.1) 04/30/18 05:48 BUN 11 mg/dL (7-18) 04/30/18 05:48 Creatinine 0.40 mg/dL (0.55-1.3) L 04/30/18 05:48 Glucose 123 mg/dL (74-106) H 04/30/18 05:48 Phosphorus 2.1 mg/dL (2.5-4.9) L 04/25/18 05:10 Magnesium 2.0 mg/dL (1.8-2.4) 04/29/18 04:40 Total Bilirubin 0.4 mg/dL (0.2-1.0) 04/29/18 04:40 AST 59 U/L (15-37) H 04/29/18 04:40 ALT 83 U/L (12-78) H 04/29/18 04:40 Alkaline Phosphatase 98 U/L (45-117) 04/29/18 04:40 Amylase 109 U/L (25-115) 04/24/18 00:55 Lipase 405 U/L (73-393) H 04/24/18 00:55 Home Medications: Acetaminophen [Pain Relief 8Hr] 650 mg FT Q4HP PRN 04/24/18 Acetaminophen with Codeine [Tylenol with Codeine #3 Tablet] 1 each PO Q6HP PRN 04/24/18 Acetaminophen with Codeine [Tylenol with-Codeine #3 Tablet] 1 each FT BID Lactulose 15 ml PO BEDTIME 04/24/18 Phenytoin [Dilantin-125] 6 ml FT TID 04/24/18 Pantoprazole Sodium [Protonix] 40 mg PO DAILY #30 tablet. 04/30/18 levoFLOXacin [Levaquin*] 500 mg FT DAILY #14 tab 04/30/18 New Medications: levoFLOXacin [Levaquin*] 500 mg FT DAILY #14 tab Pantoprazole Sodium [Protonix] 40 mg PO DAILY #30 tablet. Diet: PEG tube feeding Activity: Ad dallin Followup: Alfa Zavala MD [ACTIVE - CAN ADMIT] - 1 Week
[2018-05-03 15:46] LABS: Albumin, (SPE) 2.6 g/dL (3.8-4.8); Alpha-1-Globulins 0.6 g/dL (0.2-0.3); Gamma Globulins 1.3 g/dL (0.8-1.7); INTERPRETATION REPORT
== END 2018-04-30 17:15 | DRG 871 ==
LOC: ER 00:28 → ERHOLD 02:34 → 3RD-ICU 04:36 → 4TH 04-28 17:00
PROVIDERS: ADMIT Internal Medicine; ATTEND Family Medicine
PROC: 05H433Z Insertion of Infusion Device into Left Innominate Vein, Percutaneous Approach (ICD-10-PCS; principal; 2018-04-24)
PROC: 0BH17EZ Insertion of Endotracheal Airway into Trachea, Via Natural or Artificial Opening (ICD-10-PCS; 2018-04-24)
PROC: 5A1945Z Respiratory Ventilation, 24-96 Consecutive Hours (ICD-10-PCS; 2018-04-24)
PROC: 0TCD8ZZ Extirpation of Matter from Urethra, Via Natural or Artificial Opening Endoscopic (ICD-10-PCS; 2018-04-29)
PROC: 0T9B30Z Drainage of Bladder with Drainage Device, Percutaneous Approach (ICD-10-PCS; 2018-04-29)
DX: A41.89 Other specified sepsis (principal); J96.01 Acute respiratory failure with hypoxia; J69.0 Pneumonitis due to inhalation of food and vomit; N17.0 Acute kidney failure with tubular necrosis; G82.50 Quadriplegia, unspecified; E43 Unspecified severe protein-calorie malnutrition; R65.21 Severe sepsis with septic shock; G93.1 Anoxic brain damage, not elsewhere classified; E87.0 Hyperosmolality and hypernatremia; N50.89 Other specified disorders of the male genital organs; G40.909 Epilepsy, unspecified, not intractable, without status epilepticus; R73.9 Hyperglycemia, unspecified; E83.39 Other disorders of phosphorus metabolism; N35.9 Urethral stricture, unspecified; D64.9 Anemia, unspecified; N13.9 Obstructive and reflux uropathy, unspecified; D69.6 Thrombocytopenia, unspecified; N21.0 Calculus in bladder; Z88.6 Allergy status to analgesic agent; Z88.0 Allergy status to penicillin; Z88.8 Allergy status to other drugs, medicaments and biological substances; Z74.01 Bed confinement status
CPT/HCPCS: 31500; 36415; 71045; 74420; 76770; 76870; 80048; 80053; 80076; 80202; 81003; 82150; 82360; 82550; 82553; 82570; 82805; 82962; 83605; 83690; 83735; 84100; 84132; 84145; 84156; 84165; 84300; 84484; 85025; 85610; 85652; 85730; 86140; 87040; 87070; 87077; 87186; 87205; 88300; 93005; 94002; 94003; 99285; J0610; J0696; J1650; J2250; J3010; J3370; J7030; P9047; Q9967

== ENCOUNTER 2018-05-26 00:15 | Observation (INO) | payer OTHER ==
--- NOTE | 2018-05-26 00:40 | ER ---
Nurse's Notes [facility] Name: Farhat Maza Age: 38 yrs Sex: Male : 1980 Arrival Date: 05/26/2018 Time: 00:18 Bed 14 Private MD: Diagnosis: Displacement of cystostomy catheter Presentation: 05/26 00:22 Presenting complaint: EMS states: Pt pulled out his suprapubic catheter. Transition of jb4 care: patient was received from another setting of care (long-term care facility), [facility]. Onset of symptoms is unknown. Risk Assessment: Do you want to hurt yourself or someone else? Patient reports no desire to harm self or others. Initial Sepsis Screen: Does the patient meet any 2 criteria? HR > 90 bpm. Yes Does the patient have a suspected source of infection? No. Patient's initial sepsis screen is negative. Care prior to arrival: None. 00:22 Method Of Arrival: EMS: [facility] jb4 00:22 Acuity: JOSEPH 4 jb4 Triage Assessment: 00:43 General: Appears in no apparent distress. comfortable, Behavior is calm, cooperative. jb4 Pain: Denies pain. Historical: - Allergies: 00:43 Antihistamine; jb4 00:43 Aspirin; jb4 00:43 PENICILLINS; jb4 - Home Meds: 00:43 lactulose 10 gram/15 mL (15 mL) Oral soln 15 mL nightly [Active]; Dilantin-125 125 mg/5 jb4 mL Oral susp 5 mL 3 times per day [Active]; Protonix 40 mg Oral TbEC 1 tab [Active]; zinc sulfate 220 mg Oral tab [Active]; Vitamin C 500 mg Oral tab [Active]; acetaminophen-codeine 300-30 mg Oral tab [Active]; acetaminophen 325 mg Oral cap for Fever [Active]; - PMHx: 00:43 Anoxic brain injury post suicide attempt; Seizures; upper and lower ext contractures; jb4 GERD; Obstructive and Reflux Uropathy; Pneumonia; - Immunization history:: Adult Immunizations up to date, Pneumococcal vaccine is up to date, Flu vaccine is up to date. - Social history:: Smoking status: unknown. - Ebola Screening: : No symptoms or risks identified at this time. Screenin:00 Abuse screen: Denies threats or abuse. Nutritional screening: No deficits noted. jb4 01:00 Tuberculosis screening: No symptoms or risk factors identified. Fall Risk None jb4 identified. Assessment: 01:00 General: Appears in no apparent distress. comfortable, Behavior is calm, cooperative. jb4 Pain: Denies pain. Neuro: Level of Consciousness is awake, alert, Oriented to unable to obtain due to pt history of anoxic brain injury. PT presents to ED today in his normal state.. Cardiovascular: Heart tones S1 S2 present Patient's skin is warm and dry. Respiratory: Airway is patent Respiratory effort is even, unlabored, Respiratory pattern is regular, symmetrical, Breath sounds are clear bilaterally. GI: No signs and/or symptoms were reported involving the gastrointestinal system. : Suprapubic catheter was dislodged prior to arrival. EENT: No signs and/or symptoms were reported regarding the EENT system. Derm: Skin is intact, Skin is pink, warm \T\ dry. Musculoskeletal: Pt presents in his normal state. 06:54 Reassessment:. aa1 Vital Signs: 00:30 BP 93 / 65; Pulse 99; Resp 18; Temp 98.3; Pulse Ox 94% on R/A; jb4 01:00 BP 91 / 78; Pulse 98; Resp 18; Pulse Ox 95% on R/A; jb4 ED Course: 00:18 Patient arrived in ED. ds1 00:22 Edmundo Juarez PA is PHCP. jr8 00:22 Christian Candelaria MD is Attending Physician. jr8 00:22 Neymar Rosado, ALENA is Primary Nurse. jb4 00:30 Arm band placed on right wrist. jb4 00:31 Triage completed. jb4 00:39 Torrey Andres MD is Hospitalizing Provider. jr8 01:00 Patient has correct armband on for positive identification. Placed in gown. Bed in low jb4 position. Side rails up X2. Pulse ox on. NIBP on. 01:00 Initial lab(s) drawn, by me, sent to lab. Inserted saline lock: 24 gauge in left hand, jb4 using aseptic technique. Blood collected. 01:15 Inserted saline lock: 20 gauge in right hand, using aseptic technique. Blood collected. jb4 Administered Medications: 01:31 Drug: NS 0.9% 1000 ml Route: IV; Rate: 50 ml/hr; Site: right hand; jb4 02:38 Follow up: Response: No adverse reaction; IV Status: Infusion continued upon admission jb4 Outcome: 00:40 Decision to Hospitalize by Provider. jr8 01:30 Admitted to ER Hold. Please see [facility] for further documentation. jb4 10:28 Patient left the ED. ph Signatures: Gina Parisi, RN RN aa1 Nandini Ann ds1 Edmundo Juarez PA PA jr8 Adry Cornelius RN RN Neymar Rosado RN RN jb4 Corrections: (The following items were deleted from the chart) 05:49 00:22 Initial Sepsis Screen: Does the patient meet any 2 criteria? No. Patient's jb4 initial sepsis screen is negative. Does the patient have a suspected source of infection? No. Patient's initial sepsis screen is negative. jb4
[2018-05-26] MEDS ORDERED: ONDANSETRON 4 MG/2 ML VIAL IV PRN ×2 (00:43→11:04)
[2018-05-26] MEDS ORDERED: ACETAMINOPHEN 650MG/RECT SUPP PR PRN (00:43)
[2018-05-26] MEDS: NA CHLORIDE 0.9% 1,000 ML IV SCH ×2 (01:00→17:39)
[2018-05-26] MEDS ORDERED: NA CHLORIDE 0.9% 1,000 ML ONE ×3 (01:14→14:06)
[2018-05-26 01:34] LABS: Absolute Monocytes 0.9 K/uL (0.1-1.3); Absolute Neutrophil 7.4 K/uL (1.8-8.0); Basophils % 0.8 % (0-1.3); Eosinophils % 7.7 % (0-4.4); Hematocrit 36.4 % (39.6-49.0); Lymphocytes % 17.7 % (15.3-44.8); MCH 29.5 pg (27.0-35.0); MCV 88.9 fL (80-100); MPV 9.9 fL (7.6-11.3); Monocytes % 8.4 % (3.3-12.3); RBC Red Blood Cell Count 4.09 M/uL (4.33-5.43)
[2018-05-26 01:37] LABS: BUN Blood Urea Nitrogen 14 mg/dL (7-18); Bicarbonate 29 mmol/L (21-32); Glucose Level 94 mg/dL (74-106); Potassium 4.3 mmol/L (3.5-5.1); Sodium Level 135 mmol/L (136-145)
[2018-05-26] MEDS ORDERED: CEFAZOLIN/SWI 1gm 1 GM/10 ML SYR ONE (05:43)
[2018-05-26] MEDS ORDERED: CEFAZOLIN/NS 1gm 1 GM/50 ML BAG IVPB SCH (06:00)
[2018-05-26] MEDS ORDERED: ONDANSETRON 4 MG/2 ML VIAL ONE (07:57)
[2018-05-26] MEDS ORDERED: MORPHINE 4 MG/ML SYR ONE (07:57)
[2018-05-26] MEDS: MORPHINE 2 MG/ML SYR IV PRN (08:06)
[2018-05-26] MEDS ORDERED: CODEINE 30MG/APAP 300MG TAB FT PRN (09:14)
[2018-05-26] MEDS ORDERED: ACETAMINOPHEN 325 MG TABLET FT PRN (09:14)
--- NOTE | 2018-05-26 09:21 | P.HP ---
Certification for Inpatient Patient admitted to: Observation With expected LOS: <2 Midnights Patient will require the following post-hospital care: None Practitioner: I am a practitioner with admitting privileges, knowledge of patient current condition, hospital course, and medical plan of care. Services: Services provided to patient in accordance with Admission requirements found in Title 42 Section 412.3 of the Code of Federal Regulations Patient History Date of Service: 05/26/18 Reason for admission: Suprapubic catheter was removed History of Present Illness: Patient is a 38-year-old gentleman who came into the hospital after the suprapubic catheter was pulled. Patient came into the emergency room for replacement. Patient lives at a halfway. Suprapubic catheter was accidentally removed. The tract had been replace. Patient will be brought into the hospital for replacement of a suprapubic catheter. Patient has a history of anoxic brain injury. He does seems to follow voice with his eyes. He will need to be monitored very closely. Allergies Penicillins Allergy (Intermediate, Verified 02/19/13 12:48) Hives/Rash aspirin Allergy (Verified 05/26/18 01:19) Unknown Antihistamine Allergy (Uncoded 04/24/18 05:13) Unknown Home Medications: Acetaminophen [Pain Relief 8Hr] 650 mg FT Q4HP PRN 04/24/18 Acetaminophen with Codeine [Tylenol with-Codeine #3 Tablet] 1 each FT TID PRN Lactulose 15 ml FT DAILY 04/24/18 Phenytoin [Dilantin-125] 6 ml FT TID 04/24/18 Ascorbate Calcium [Vitamin C] 500 mg FT DAILY 05/26/18 Famotidine [Pepcid] 20 mg FT DAILY 05/26/18 Zinc Sulfate [Zinc Sulfate*] 220 mg FT DAILY 05/26/18 - Past Medical/Surgical History Diabetic: No -: anoxic brain injury -: seizure disorder -: GERD -: Pneumonitis -: Obstructive uropathy -: Tracheostomy - Family History Father Family History: Reviewed- Non-Contributory - Social History Smoking Status: Unknown if ever smoked Alcohol use: No CD- Drugs: No Caffeine use: No Place of Residence: [place] Review of Systems 10-point ROS is otherwise unremarkable Physical Examination - Vital Signs Temperature: 99.4 F Blood Pressure: 102/67 Pulse: 95 Respirations: 18 Pulse Ox (%): 94 - Physical Exam General: In no apparent distress, Unresponsive HEENT: Atraumatic, PERRLA, Mucous membr. moist/pink, EOMI, Sclerae nonicteric Neck: Supple, 2+ carotid pulse no bruit, No LAD, Without JVD or thyroid abnormality Respiratory: Clear to auscultation bilaterally, Normal air movement Cardiovascular: Regular rate/rhythm, Normal S1 S2 Gastrointestinal: Normal bowel sounds, Soft and benign, Non-distended, No tenderness, Other (peg tube) Musculoskeletal: No tenderness Integumentary: No rashes Neurological: Abnormal gait, Abnormal speech, Abnormal strength, Abnormal tone, Abnormal affect Lymphatics: No axilla or inguinal lymphadenopathy Assessment & Plan - Problems (Diagnosis) (1) Suprapubic catheter dysfunction Current Visit: Yes Status: Acute (2) S/P percutaneous endoscopic gastrostomy (PEG) tube placement Current Visit: Yes Status: Acute (3) Anoxic brain injury Onset Date: 04/26/18 Current Visit: No Status: Chronic (4) Malnutrition Onset Date: 04/26/18 Current Visit: No Status: Chronic Qualifiers: (5) Quadriplegia Onset Date: 04/26/18 Current Visit: No Status: Chronic (6) Seizure disorder Onset Date: 06/02/17 Current Visit: No Status: Chronic - Plan Plan: 1. NPO after midnight 2. Urology consultation 3. Suprapubic catheter replacement 4. Gentle hydration 5. The antibiotic 6. Strict blood pressure and blood sugar control 7. GI and DVT prophylaxis Discharge Plan: Home Plan to discharge in: 48 Hours - Advance Directives Does patient have a Living Will: Yes Does patient have a Durable POA for Healthcare: No - Code Status/Comfort Care Code Status Assessed: Yes Code Status: Full Code Critical Care: No Time Spent Managing PTS Care (In Minutes): 50
--- NOTE | 2018-05-26 10:29 | EDPHYS ---
Physician Documentation [facility] Name: Farhat Maza Age: 38 yrs Sex: Male : 1980 Arrival Date: 05/26/2018 Time: 00:18 Bed 14 Private MD: ED Physician Christian Candelaria HPI: 05/26 00:40 This 38 yrs old Male presents to ER via EMS with complaints of Problem With jr8 Urinary Catheter. 00:41 Patient sent over from [place] for displaced suprapubic catheter. Unknown when it was pulled jr8 today . Severity of symptoms: At their worst the symptoms were very mild in the emergency department the symptoms are unchanged. It is unknown whether or not the patient has had similar symptoms in the past. It is unknown whether or not the patient has recently seen a physician. Historical: - Allergies: 00:43 Antihistamine; jb4 00:43 Aspirin; jb4 00:43 PENICILLINS; jb4 - Home Meds: 00:43 lactulose 10 gram/15 mL (15 mL) Oral soln 15 mL nightly [Active]; Dilantin-125 125 mg/5 jb4 mL Oral susp 5 mL 3 times per day [Active]; Protonix 40 mg Oral TbEC 1 tab [Active]; zinc sulfate 220 mg Oral tab [Active]; Vitamin C 500 mg Oral tab [Active]; acetaminophen-codeine 300-30 mg Oral tab [Active]; acetaminophen 325 mg Oral cap for Fever [Active]; - PMHx: 00:43 Anoxic brain injury post suicide attempt; Seizures; upper and lower ext contractures; jb4 GERD; Obstructive and Reflux Uropathy; Pneumonia; - Immunization history:: Adult Immunizations up to date, Pneumococcal vaccine is up to date, Flu vaccine is up to date. - Social history:: Smoking status: unknown. - Ebola Screening: : No symptoms or risks identified at this time. ROS: 00:41 Unable to obtain ROS due to patient is in a persistent vegetative state. jr8 Exam: 00:41 Eyes: Pupils equal round and reactive to light, extra-ocular motions intact. Lids and jr8 lashes normal. Conjunctiva and sclera are non-icteric and not injected. Cornea within normal limits. Periorbital areas with no swelling, redness, or edema. ENT: Nares patent. No nasal discharge, no septal abnormalities noted. Tympanic membranes are normal and external auditory canals are clear. Oropharynx with no redness, swelling, or masses, exudates, or evidence of obstruction, uvula midline. Mucous membranes moist. Cardiovascular: Regular rate and rhythm with a normal S1 and S2. No gallops, murmurs, or rubs. Normal PMI, no JVD. No pulse deficits. Respiratory: Lungs have equal breath sounds bilaterally, clear to auscultation and percussion. No rales, rhonchi or wheezes noted. No increased work of breathing, no retractions or nasal flaring. Abdomen/GI: Soft, non-tender, with normal bowel sounds. No distension or tympany. No guarding or rebound. No evidence of tenderness throughout. PEG tube in place. Suprapubic ostomy site almost completely sealed up Skin: Warm, dry with normal turgor. Normal color with no rashes, no lesions, and no evidence of cellulitis. MS/ Extremity: Pulses equal, no cyanosis. Neurovascular intact. Patient is contracted 00:41 Neuro: Orientation: Not oriented to person, place, time, situation, Mentation: unable to follow commands, Patient with persistent vegetative state. Will open eyes occasionally. Will moan with movement . Vital Signs: 00:30 BP 93 / 65; Pulse 99; Resp 18; Temp 98.3; Pulse Ox 94% on R/A; jb4 01:00 BP 91 / 78; Pulse 98; Resp 18; Pulse Ox 95% on R/A; jb4 MDM: 00:39 Patient medically screened. jr8 00:43 Data reviewed: vital signs, nurses notes, lab test result(s). Data interpreted: Pulse jr8 oximetry: on room air is 100 %. Interpretation: normal. Counseling: I had a detailed discussion with the patient and/or guardian regarding: the historical points, exam findings, and any diagnostic results supporting the discharge/admit diagnosis, lab results, the need for further work-up and treatment in the hospital. ED course: Called Dr. Zavala about suprapubic ostomy site. Stated to put him in and he will bring him back to surgery to open site and cannulate it again . 05/26 00:45 Order name: CBC with Diff jr8 05/26 00:45 Order name: Basic Metabolic Panel jr8 05/26 00:36 Order name: CONS Physician Consult EDMS 05/26 00:46 Order name: CBC with Automated Diff EDAL 05/26 00:46 Order name: Basic Metabolic Panel EDAL 05/26 00:45 Order name: IV; Complete Time: 01:07 jr8 05/26 00:46 Order name: CONS Pharmacy Consult EDAL 05/26 00:46 Order name: NPO EDAL Administered Medications: 01:31 Drug: NS 0.9% 1000 ml Route: IV; Rate: 50 ml/hr; Site: right hand; [facility] 02:38 Follow up: Response: No adverse reaction; IV Status: Infusion continued upon admission jb4 Disposition: 05/26/18 00:40 Hospitalization ordered by Torrey Andres for Observation. Preliminary diagnosis is Displacement of cystostomy catheter. - Bed requested for Telemetry/MedSurg (observation). - Status is Observation. ph - Condition is Stable. - Problem is new. - Symptoms are unchanged. UTI on Admission? No Signatures: Dispatcher [employer] EDAL Dominique Palafox Josh, PA PA jr8 Adry Cornelius RN RN ph Vee Willis, RN RN tl2 Neymar Rosado, ALENA RN jb4 Corrections: (The following items were deleted from the chart) 04:28 00:40 Hospitalization Ordered by Torrey Andres MD for Observation. Preliminary tl2 diagnosis is Displacement of cystostomy catheter. Bed requested for Telemetry/MedSurg (observation). Status is Observation. Condition is Stable. Problem is new. Symptoms are unchanged. UTI on Admission? No. jr8 08:45 04:28 05/26/2018 00:40 Hospitalization Ordered by Torrey Andres MD for Observation. bd Preliminary diagnosis is Displacement of cystostomy catheter. Bed requested for [facility] ER HOLD. Status is Observation. Condition is Stable. Problem is new. Symptoms are unchanged. UTI on Admission? No. tl2 10:28 08:45 05/26/2018 00:40 Hospitalization Ordered by Torrey Andres MD for Observation. ph Preliminary diagnosis is Displacement of cystostomy catheter. Bed requested for Telemetry/MedSurg (observation). Status is Observation. Condition is Stable. Problem is new. Symptoms are unchanged. UTI on Admission? No. bd
[2018-05-26] MEDS ORDERED: NA CHLORIDE 0.9% 1,000 ML IV SCH (11:04)
[2018-05-26] MEDS: CEFAZOLIN/SWI 1gm 1 GM/10 ML SYR IV SCH ×2 (11:49→18:08)
[2018-05-26] MEDS ORDERED: MIDAZOLAM HCL 2 MG/2 ML INJ ONE ×2 (12:26→12:34)
[2018-05-26] MEDS ORDERED: PROPOFOL 200 MG/20 ML VIAL IV ONE ×2 (12:34→13:26)
[2018-05-26] MEDS ORDERED: LIDOCAINE JELLY 2%- 5 ML TUBE ONE (12:35)
[2018-05-26] MEDS ORDERED: FENTANYL CITR 100 MCG/2 ML ONE (12:35)
[2018-05-26] MEDS ORDERED: LIDOCAINE 2% INJ, MPF 2 ML 1 ML ONE (12:40)
[2018-05-26] MEDS ORDERED: LIDOCAINE 1% MPF 2 ML AMPULE ONE (12:50)
[2018-05-26] MEDS ORDERED: ONDANSETRON HCL 40 MG/20 ML VIAL ONE (12:58)
[2018-05-26] MEDS ORDERED: GENTAMICIN 100 MG/100 ML BAG 100 MG/100 ML BAG IV ONE (13:13)
[2018-05-26] MEDS ORDERED: MORPHINE 10 MG/ML VIAL ONE (13:27)
[2018-05-26] MEDS: PHENYTOIN 125 MG/5 ML ORAL.SUSP FT SCH ×2 (14:00→22:26)
[2018-05-26] MEDS ORDERED: GENTAMICIN 80 MG/100 ML BAG 80 MG/100 ML BAG IV ONE (14:12)
--- NOTE | 2018-05-26 14:12 | RAD REPORT ---
EXAM DESCRIPTION: RAD - Cystography - 05/26/2018 1:55 pm FINDINGS: Two images were submitted from a cystogram. Assessment is limited when only selected image s are available. Fluoro time was 0.03 minutes.
[2018-05-26 14:20] LABS: Urine Appearance CLOUDY; Urine Bilirubin NEGATIVE (NEG); Urine Blood 3+ (NEG); Urine Color YELLOW; Urine Glucose NEGATIVE (NEG); Urine Protein TRACE (NEG); Urine Urobilinogen 0.2 mg/dL (0.2-1.0)
[2018-05-26 14:36] LABS: Urine Bacteria 20-50 /HPF (NONE SEEN); Urine Culture Reflex Order REFLEXED; Urine RBC >50 /HPF (NONE SEEN)
--- NOTE | 2018-05-26 17:19 | CON ---
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 He came here a few months ago. The urethra was all traumatized and th e scrotum had a huge pocket in it from the urethra. Had multiple stones that were removed and we use d S dilators to dilate the urethra and get into the bladder, placed a cystoscope in and placed a Cook 14-Telugu suprapubic tube. Apparently, these catheters have been removed, and now he needs another catheter to be replaced. Allergies: PENICILLIN, ASPIRIN, AND ANTIHISTAMINE. Home Medications: Tylenol, lactulose, Dilantin, vitamin C, Pepcid, zinc sulfate. 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 Family History: Not known. Social History: As far as we know, no drugs, alcohol, or caffeine use. Resides in a detention. Review of Systems: A 10-point review of systems is unable to obtain. Physical Examination: Vital Signs: Temperature 99.4, blood pressure 102/67, pulse 97, respirations 18, pulse ox 94%. General Appearance: The patient is all contracted, upper and lower, lying in bed, in no acute distre ss. Unresponsive. HEENT: Atraumatic, normocephalic. Neck: Supple. Respiratory: Clear. Cardiovascular: S1, S2. Gastrointestinal: Normal bowel sounds. Musculoskeletal: No tenderness. Skin: No rashes. Neurologic: No gait. No speech. No strength. Abnormal tone. Lymphatic: No lymphadenopathy. Assessment: Neurogenic bladder. The patient lost suprapubic tube. Plan: Plan is try to do a cysto, try to get into the bladder, possible [place], placement of SP tube , possible ultrasound assistance if possible. Informed consent was obtained via phone. Verbal order from power of commonwealth attorney by the nurses. NONA/YUSEF Voice ID: [id number] Report ID: [id number]
[2018-05-27] MEDS: CEFAZOLIN/SWI 1gm 1 GM/10 ML SYR IV SCH ×3 (00:35→12:00)
--- NOTE | 2018-05-27 01:41 | OP ---
Preop dx: Quadriplegia, Neurogenic Bladder, lost Suprapubic catheter Post op dx: same Procedure: Cysto Suprapubic Catheter Placement 18 Fr by SP Punch Technique and Morgan drain placement into scrotal cavity. Surgeon: Alfa Zavala MD Complication: none Anesth; General and local He is a quadriplegic gentleman with anoxic brain injury from attempted hanging in [facility]. He acciddentally pulled out suprapubic tube. He has an open scrotal space, has been collecting urine that was left to be drained via urethra before. Because this tube fell out and he needs another placed, he had a Cook urethane SP tube placed last time 14-Bahamian. Consent was obtained by phone from Carmen Mai, spouse, today. He was taken to the operative room, placed in a supine lithotomy position. Received general anesthesia. Area was shaved, prepped, and draped. We first performed cystoscopy with a 17-Bahamian scope and 30-degree lens. Penile urethra was intact up until the bulbar that was blown out into an open cavity in the scrotum , it had cloudy looking like urine. This was squeezed and extracted. The urethra was seen at 12 o'clock and narrowed. We were able to pass a wire through this area, verifying that it was in the bladder by fluoroscopy. It was unable to accommodate a 17-Bahamian scope, so we dilated with Amplatz dilators up to 20-Bahamian that was pretty tight. We were unable to pass a 17-Bahamian scope into the bladder after. Verifying that we were in the bladder and that the wire was in the bladder, we could see the area where the suprapubic tube was before at the dome. We filled the bladder up, put the patient in Trendelenburg , placed a spinal needle to verify the track. We were then able to place the entire area up with lidocaine. We did placement of trocar by nicking the fascia with a 15 blade knife and we used the metal trocar and placed into the bladder then the obturator was removed. Then, the 18-Bahamian Cardenas was slid through the space. We then verified that the Cardenas catheter was in the bladder cystoscopically, we then stitched the Cardenas in place pulling the balloon up to the bladder for tamponade and any bleeders using 2-0 Prolene suture. Next, we placed a sound through the penile urethra into the scrotum, brought up to the skin in the midline of the scrotum. This was incised and 0.25 inch Helena drain was placed into the cavity and stitched in place, so it can drain. The procedure was then terminated and the patient went to the recovery room in stable condition. NONA/YUSEF Voice ID: [id number] Report ID: [id number] CYNDI
[2018-05-27] MEDS: MORPHINE 2 MG/ML SYR IV PRN (02:24)
[2018-05-27 05:13] LABS: Absolute Lymphocytes (CBC) 1.6 K/uL (0.7-4.9); Absolute Monocytes 0.8 K/uL (0.1-1.3); Absolute Neutrophil 7.1 K/uL (1.8-8.0); Basophils % 0.4 % (0-1.3); Eosinophils % 3.4 % (0-4.4); Lymphocytes % 15.8 % (15.3-44.8); MCH 29.9 pg (27.0-35.0); MCV 88.9 fL (80-100); MPV 9.3 fL (7.6-11.3); RBC Red Blood Cell Count 3.59 M/uL (4.33-5.43)
[2018-05-27 05:53] LABS: BUN Blood Urea Nitrogen 9 mg/dL (7-18); Bicarbonate 25 mmol/L (21-32); Glucose Level 80 mg/dL (74-106); Potassium 4.2 mmol/L (3.5-5.1); Sodium Level 138 mmol/L (136-145)
[2018-05-27] MEDS: NA CHLORIDE 0.9% 1,000 ML IV SCH (05:55)
[2018-05-27] MEDS ORDERED: FAMOTIDINE 20 MG TAB FT SCH (09:00)
[2018-05-27] MEDS ORDERED: ZINC SULFATE 220 MG CAP FT SCH (09:00)
[2018-05-27] MEDS ORDERED: ASCORBIC ACID 500 MG TABLET FT SCH (09:00)
[2018-05-27] MEDS ORDERED: LACTULOSE 20 GM/30 ML UCUP FT SCH (09:00)
[2018-05-27] MEDS ORDERED: JEVITY 1.5 CAL LIQUID 1,000 ML BOT RTH SCH (10:00)
[2018-05-27] MEDS: PHENYTOIN 125 MG/5 ML ORAL.SUSP FT SCH (10:56)
--- NOTE | 2018-05-27 15:26 | P.SSS ---
Patient History Date of Service: 05/27/18 Reason for admission: Suprapubic catheter was removed History of Present Illness: Patient is a 38-year-old gentleman who came into the hospital after the suprapubic catheter was pulled. Patient came into the emergency room for replacement. Patient lives at a snf. Suprapubic catheter was accidentally removed. The tract had been replace. Patient will be brought into the hospital for replacement of a suprapubic catheter. Patient has a history of anoxic brain injury. He does seems to follow voice with his eyes. He will need to be monitored very closely. Allergies Penicillins Allergy (Intermediate, Verified 02/19/13 12:48) Hives/Rash aspirin Allergy (Verified 05/26/18 01:19) Unknown Antihistamine Allergy (Uncoded 04/24/18 05:13) Unknown Home Medications: Acetaminophen [Pain Relief 8Hr] 650 mg FT Q4HP PRN 04/24/18 Acetaminophen with Codeine [Tylenol with-Codeine #3 Tablet] 1 each FT TID PRN Lactulose 15 ml FT DAILY 04/24/18 Phenytoin [Dilantin-125] 6 ml FT TID 04/24/18 Ascorbate Calcium [Vitamin C] 500 mg FT DAILY 05/26/18 Famotidine [Pepcid*] 20 mg FT DAILY 05/26/18 Zinc Sulfate [Zinc Sulfate*] 220 mg FT DAILY 05/26/18 levoFLOXacin [Levaquin] 500 mg PO DAILY #7 tab 05/27/18 - Past Medical/Surgical History Diabetic: No -: anoxic brain injury -: seizure disorder -: GERD -: Pneumonitis -: Obstructive uropathy -: Tracheostomy - Social History Smoking Status: Unknown if ever smoked Alcohol use: No CD- Drugs: No Caffeine use: No Place of Residence: [place] Review of Systems 10-point ROS is otherwise unremarkable Physical Examination - Vital Signs Temperature: 98.9 F Blood Pressure: 114/72 Pulse: 100 Respirations: 16 Pulse Ox (%): 93 - Physical Exam General: Alert, In no apparent distress HEENT: Atraumatic, PERRLA, Mucous membr. moist/pink, EOMI, Sclerae nonicteric Neck: Supple, 2+ carotid pulse no bruit, No LAD, Without JVD or thyroid abnormality Respiratory: Clear to auscultation bilaterally, Normal air movement Cardiovascular: Regular rate/rhythm, Normal S1 S2 Gastrointestinal: Normal bowel sounds, No tenderness Musculoskeletal: No tenderness Integumentary: No rashes Neurological: Normal gait, Normal speech, Normal strength at 5/5 x4 extr, Normal tone, Normal affect Lymphatics: No axilla or inguinal lymphadenopathy - Diagnosis (Problem(s)) (1) Suprapubic catheter dysfunction Status: Acute (2) Anoxic brain injury Onset Date: 04/26/18 Status: Chronic (3) Malnutrition Onset Date: 04/26/18 Status: Chronic Qualifiers: (4) Quadriplegia Onset Date: 04/26/18 Status: Chronic (5) Seizure disorder Onset Date: 06/02/17 Status: Chronic Treatment Summary: Overall during the hospital stay patient remained stable Patient was initially admitted to the hospital due to dislodge suprapubic catheter. Urology was consulted. Patient had a for replacement of his suprapubic catheter here in the hospital. He was them trasferred to the [place]. - Disposition Disposition: TRANSFER TO CORRECTION Condition: GOOD Diet: Regular Activity: Ad dallin
--- NOTE | 2018-05-27 18:14 | PN ---
Subjective: The patient is stable. Objective: Afebrile, stable. White count normal. Suprapubic draining well. Scrotal wound draining well, serosanguineous. Plan: The patient is ready to go home. He will go home on Levaquin 500 once a day, crushed via G-tu be x7 days. Dressings will be pressed to the scrotum. Nurses can change the suprapubic tube in a mo [facility]. Also, they can advance to [place] in a month when the wound closes and follow up p.r.n. NONA/YUSEF Voice ID: [id number] Report ID: [id number]
== END 2018-05-27 13:32 ==
LOC: ER 00:15 → ERHOLD 00:46 → 2ND 10:13
PROVIDERS: ADMIT Hospitalist; ATTEND Hospitalist
PROC: 0WH Anatomical Regions, General, Insertion (ICD-10-PCS; principal; 2018-05-26 12:15)
DX: T83.090A Other mechanical complication of cystostomy catheter, initial encounter (principal); Z87.820 Personal history of traumatic brain injury; G82.50 Quadriplegia, unspecified; G40.909 Epilepsy, unspecified, not intractable, without status epilepticus; E46 Unspecified protein-calorie malnutrition; Z68.22 Body mass index [BMI] 22.0-22.9, adult; N31.9 Neuromuscular dysfunction of bladder, unspecified
CPT/HCPCS: 36415; 51600; 74430; 80048; 81001; 82962; 85025; 87077; 87086; 87088; 87186; 96360; 99285; G0378; J0690; J1580; J2001; J2250; J2270; J2405; J3010; J3490; J7030

== ENCOUNTER 2018-09-02 17:31 | Emergency (ER) | payer OTHER ==
[2018-09-02 18:53] LABS: Absolute Lymphocytes (CBC) 1.9 K/uL (0.7-4.9); Absolute Monocytes 0.5 K/uL (0.1-1.3); Absolute Neutrophil 4.8 K/uL (1.8-8.0); Basophils % 0.8 % (0-1.3); Eosinophils % 2.9 % (0-4.4); Lymphocytes % 25.5 % (15.3-44.8); MCH 30.3 pg (27.0-35.0); MCV 88.1 fL (80-100); MPV 11.2 fL (7.6-11.3); Monocytes % 6.3 % (3.3-12.3); RBC Red Blood Cell Count 4.99 M/uL (4.33-5.43)
--- NOTE | 2018-09-02 19:03 | RAD REPORT ---
EXAM DESCRIPTION: CT - Pelvis Wo Cont - 09/02/2018 6:56 pm CLINICAL HISTORY: suprapubic catheter malfunction Pelvic pain COMPARISON: No comparisons TECHNIQUE: All CT scans are performed using dose optimization technique as appropriate and may inclu de automated exposure control or mA/KV adjustment according to patient size. FINDINGS: Suprapubic catheter tip appears to be within the urinary bladder directed caudally. The ca theter bulb also appears within the urinary bladder. Urinary bladder volume is low currently. No pelvic free fluid, mass or hematoma. IMPRESSION: Suprapubic catheter bulb and tip appear within the bladder lumen as detailed.
[2018-09-02 19:09] LABS: BUN Blood Urea Nitrogen 13 mg/dL (7-18); Bicarbonate 29 mmol/L (21-32); Glucose Level 80 mg/dL (74-106); Potassium 4.1 mmol/L (3.5-5.1); Sodium Level 139 mmol/L (136-145)
[2018-09-02] MEDS ORDERED: NA CHLORIDE 0.9% 1,000 ML ONE (20:21)
[2018-09-02 21:31] LABS: Urine Blood 3+ (NEG); Urine Glucose NEGATIVE (NEG); Urine Protein 3+ (NEG); Urine Specific Gravity 1.025 (1.005-1.030)
--- NOTE | 2018-09-02 21:59 | EDPHYS ---
Physician Documentation [facility] Name: Farhat Maza Age: 38 yrs Sex: Male : 1980 Arrival Date: 09/02/2018 Time: 17:32 Bed 16 Private MD: ED Physician Dwayne Haines HPI: 09/02 17:50 This 38 yrs old Male presents to ER via EMS with complaints of Problem With [facility] Urinary Catheter. 17:50 The patient presents with catheter problem. Onset: The symptoms/episode began/occurred jm today. This is a 38 year old male with a history of anoxic brain injury that presents to the ED with longterm complaints of suprapubic catheter being unable to drain. Historical: - Allergies: 17:42 Antihistamine; ch 17:42 Aspirin; ch 17:42 PENICILLINS; ch 17:42 Demerol; ch - Home Meds: 17:42 Dilantin-125 125 mg/5 mL Oral susp 6 mL every 8 hours for Epilepsy [Active]; Ibuprofen ch Oral [Active]; lactulose 10 gram/15 mL (15 mL) Oral soln 15 mL nightly for Constipation [Active]; Pepcid 20 mg Oral tab 1 tab once daily for Gastroesophageal Reflux [Active]; tramadol 50 mg Oral tab 1 tab every 8 hours prn pain [Active]; - PMHx: 17:42 Anoxic brain injury post suicide attempt; GERD; obstructive and reflux uropathy; ch Pneumonia; Seizures; upper and lower ext contractures; aspiration pneumonia; UTI; - PSHx: 17:42 peg; suprapubic cath; ch - Immunization history:: Adult Immunizations up to date. - Social history:: Smoking status: Patient/guardian denies using tobacco. - Ebola Screening: : Patient negative for fever greater than or equal to 101.5 degrees Fahrenheit, and additional compatible Ebola Virus Disease symptoms Patient denies exposure to infectious person Patient denies travel to an Ebola-affected area in the 21 days before illness onset No symptoms or risks identified at this time. ROS: 17:50 Unable to obtain ROS due to patient is in a persistent vegetative state. [facility] Exam: 17:50 Cardiovascular: Regular rate and rhythm. No edema appreciated Respiratory: Normal [facility] respirations, no respiratory distress appreciated 17:50 ENT: Moist Mucus Membranes Neck: Trachea midline, Supple Chest/axilla: Normal chest wall appearance and motion. 17:50 Constitutional: The patient appears in no acute distress. 17:50 Abdomen/GI: suprapubic catheter noted, foul smelling drainage is appreciated. 17:50 Skin: Appearance: Color: normal in color. Vital Signs: 17:42 Pulse 84; Resp 18; Temp 98.9(R); Pulse Ox 97% on R/A; Pain 2/10; ch 17:55 BP 87 / 61; ch 18:43 BP 106 / 67; Pulse 74; Resp 20; Pulse Ox 97% on R/A; rb1 19:05 BP 100 / 54; Pulse 74; Resp 16; Pulse Ox 99% on R/A; jb4 20:00 BP 103 / 60; Pulse 77; Resp 16; Pulse Ox 95% on R/A; jb4 21:15 BP 99 / 65; Pulse 70; Resp 16; Pulse Ox 99% on R/A; jb4 22:00 BP 116 / 75; Pulse 71; Resp 16; Pulse Ox 98% on R/A; jb4 17:42 Junior-Edwards (FACES) ch 17:55 pt is non verbal, with sever contractures. pt does not move at all on his own, ch considered a quadrapegic MDM: 17:50 Patient medically screened. [facility] 21:56 Data reviewed: vital signs, nurses notes. ED course: a new suprapubic catheter was [facility] inserted by RN. Cardenas appears to be draining. UA is concerning for infection. Will prescribe antibiotics. . 09/02 17:51 Order name: CBC with Diff; Complete Time: 19:07 [facility] 09/02 17:51 Order name: BMP; Complete Time: 19:20 [facility] 09/02 17:51 Order name: Urine Microscopic Only [facility] 09/02 18:21 Order name: CT Pelvis wo Cont; Complete Time: 19:07 [facility] 09/02 21:01 Order name: Urine Culture [facility] 09/02 21:02 Order name: Urine Dipstick--Ancillary (enter results); Complete Time: 21:55 [facility] 09/02 17:51 Order name: Saline Lock; Complete Time: 18:48 [facility] 09/02 17:51 Order name: Urine Dipstick-Ancillary (obtain specimen); Complete Time: 21:01 [facility] Administered Medications: 20:13 Not Given (Duplicate Order): NS 0.9% 1000 ml IV at 1 bolus Per protocol; 1000 mL bolus jb4 20:16 Drug: NS 0.9% 1000 ml Route: IV; Rate: 1 bolus; Site: left hand; jb4 22:37 Follow up: Response: No adverse reaction; IV Status: Completed infusion jb4 Disposition: 09/02/18 21:58 Discharged to Home. Impression: Other mechanical complication of urinary (indwelling) catheter, Urinary tract infection, site not specified. - Condition is Stable. - Discharge Instructions: Urinary Tract Infection, Adult, Suprapubic Catheter Replacement, Care After, Suprapubic Catheter Home Guide. - Prescriptions for sulfamethoxazole- trimethoprim 200-40 mg/5 mL Oral Suspension - take 20 milliliter by ORAL route every 12 hours for 10 days; 400 milliliter. - Medication Reconciliation Form, Thank You Letter, Antibiotic Education, Prescription Opioid Use, SBAR form form. - Follow up: Private Physician; When: 2 - 3 days; Reason: Recheck today's complaints, Continuance of care, Re-evaluation by your physician. Addendum: 09/06/2018 07:03 Co-signature as Attending Physician, Dwayne Haines MD. r n Signatures: Dispatcher [employer] EDZahida Schulte RN RN Benito Monique PA PA jmm Nieto, Roman, MD MD rn Bryson, James, RN RN jb4 Corrections: (The following items were deleted from the chart) 09/02 22:43 21:58 09/02/2018 21:58 Discharged to Home. Impression: Other mechanical complication of jb4 urinary (indwelling) catheter; Urinary tract infection, site not specified. Condition is Stable. Forms are Medication Reconciliation Form, Thank You Letter, Antibiotic Education, Prescription Opioid Use. Follow up: Private Physician; When: 2 - 3 days; Reason: Recheck today's complaints, Continuance of care, Re-evaluation by your physician. [email or web address]
--- NOTE | 2018-09-02 21:59 | ER ---
Nurse's Notes [facility] Name: Farhat Maza Age: 38 yrs Sex: Male : 1980 Arrival Date: 09/02/2018 Time: 17:32 Bed 16 Private MD: Diagnosis: Other mechanical complication of urinary (indwelling) catheter;Urinary tract infection, site not specified Presentation: 09/02 17:33 Presenting complaint: EMS states: toned out to snf because they are concerned that his suprapubic cath is dislodged. pt has had diapers that have urine in them but is not having much urine in the saldana bag. pt has lots of sediment and cloudy dark urine. Transition of care: patient was received from another setting of care (long-term care facility), [facility]. Onset of symptoms was September 02, 2018. Risk Assessment: Do you want to hurt yourself or someone else? Patient reports no desire to harm self or others. Initial Sepsis Screen: Does the patient meet any 2 criteria? No. Patient's initial sepsis screen is negative. Does the patient have a suspected source of infection? No. Patient's initial sepsis screen is negative. Care prior to arrival: None. 17:33 Method Of Arrival: EMS: [facility] 17:33 Acuity: JOSEPH 3 Triage Assessment: 17:42 General: Appears in no apparent distress. comfortable, Behavior is unresponsive. pt is non verbal and has sever mental impairment from anoxic brain injury.. Pain: Unable to use pain scale. Does not appear to understand pain scale. Neuro: Level of Consciousness is awake, unresponsive. Cardiovascular: Clubbing of nail beds is present. Respiratory: Airway is patent Respiratory effort is even, unlabored, Breath sounds are diminished bilaterally. GI: No signs and/or symptoms were reported involving the gastrointestinal system. Abdomen is flat, non-distended, Bowel sounds present X 4 quads. Abd is soft and non tender X 4 quads. : suprapubic catheter in place to gravity drainage. Derm: Skin is pink, warm \T\ dry. Musculoskeletal: pt has severe contractures. Historical: - Allergies: 17:42 Antihistamine; 17:42 Aspirin; 17:42 PENICILLINS; 17:42 Demerol; - Home Meds: 17:42 Dilantin-125 125 mg/5 mL Oral susp 6 mL every 8 hours for Epilepsy [Active]; Ibuprofen ch Oral [Active]; lactulose 10 gram/15 mL (15 mL) Oral soln 15 mL nightly for Constipation [Active]; Pepcid 20 mg Oral tab 1 tab once daily for Gastroesophageal Reflux [Active]; tramadol 50 mg Oral tab 1 tab every 8 hours prn pain [Active]; - PMHx: 17:42 Anoxic brain injury post suicide attempt; GERD; obstructive and reflux uropathy; ch Pneumonia; Seizures; upper and lower ext contractures; aspiration pneumonia; UTI; - PSHx: 17:42 peg; suprapubic cath; ch - Immunization history:: Adult Immunizations up to date. - Social history:: Smoking status: Patient/guardian denies using tobacco. - Ebola Screening: : Patient negative for fever greater than or equal to 101.5 degrees Fahrenheit, and additional compatible Ebola Virus Disease symptoms Patient denies exposure to infectious person Patient denies travel to an Ebola-affected area in the 21 days before illness onset No symptoms or risks identified at this time. Screenin:45 Abuse screen: Denies threats or abuse. Nutritional screening: No deficits noted. rb1 Tuberculosis screening: No symptoms or risk factors identified. Fall Risk No fall in past 12 months (0 pts). Secondary diagnosis (15 points) impaired mobility, No IV (0 pts). Ambulatory Aid- None/Bed Rest/Nurse Assist (0 pts). Gait- Impaired (20 pts.). Mental Status- Overestimates/Forgets Limitations (15 pts.). Total Bejarano Fall Scale indicates High Risk Score (45 or more points). Fall prevention measures have been instituted. Side Rails Up X 2 Placed Close to Nursing Station 1:1 Attendant Assigned Frequent Obs/Assessments Occuring. Assessment: 17:45 General: Appears in no apparent distress. comfortable, Behavior is calm, cooperative. rb1 Pain: Unable to use pain scale. pt. has aphasia. Neuro: Level of Consciousness is awake. Neuro: Speech aphasia. Cardiovascular: Capillary refill < 3 seconds is brisk in bilateral fingers. Respiratory: Airway is patent Respiratory effort is even, unlabored, Respiratory pattern is regular, symmetrical. GI: incontinent of bowels. : suprapubic catheter in place. Derm: Skin is pink, warm \T\ dry. Musculoskeletal: upper and lower extremities are contracted. 18:15 Reassessment: Attempted to irrigate the suprapubic catheter and was unable to due to rb1 resistance. Provider notified. 18:45 Reassessment: Pt. went to CT. rb1 19:05 Reassessment: Patient appears in no apparent distress at this time. Pt is back from Ct. jb4 Awake and alert, respirations even and unlabored. Cardiovascular: Patient's skin is warm and dry. Respiratory: Airway is patent Respiratory effort is even, unlabored, Respiratory pattern is regular, symmetrical. 20:05 Reassessment: Patient appears in no apparent distress at this time. Pt is resting with jb4 eyes closed. Respirations even and unlabored. No S/S of distress noted. No urine output noted after Suprapubic catheter replacement. Provider notified see MAR for orders. 21:00 Reassessment: Patient appears in no apparent distress at this time. No changes from jb4 previously documented assessment. 22:00 Reassessment: Patient appears in no apparent distress at this time. No changes from jb4 previously documented assessment. 22:40 Reassessment: Dressing applied to suprapubic catheter. jb4 Vital Signs: 17:42 Pulse 84; Resp 18; Temp 98.9(R); Pulse Ox 97% on R/A; Pain 2/10; ch 17:55 BP 87 / 61; ch 18:43 BP 106 / 67; Pulse 74; Resp 20; Pulse Ox 97% on R/A; rb1 19:05 BP 100 / 54; Pulse 74; Resp 16; Pulse Ox 99% on R/A; jb4 20:00 BP 103 / 60; Pulse 77; Resp 16; Pulse Ox 95% on R/A; jb4 21:15 BP 99 / 65; Pulse 70; Resp 16; Pulse Ox 99% on R/A; jb4 22:00 BP 116 / 75; Pulse 71; Resp 16; Pulse Ox 98% on R/A; jb4 17:42 Junior-Jerry (FACES) ch 17:55 pt is non verbal, with sever contractures. pt does not move at all on his own, ch considered a quadrapegic ED Course: 17:32 Patient arrived in ED. ch 17:34 Benito Victor PA is PHCP. [facility] 17:34 Dwayne Haines MD is Attending Physician. [facility] 17:36 Triage completed. ch 17:42 Arm band placed on left wrist. Patient placed in an exam room, on a stretcher, on pulse ch oximetry. 17:45 Patient has correct armband on for positive identification. Placed in gown. Bed in low rb1 position. Side rails up X2. Pulse ox on. NIBP on. Warm blanket given. 18:35 Patient moved to [place] via stretcher. 2 18:36 Naa Vigil, RN is Primary Nurse. [facility] 18:41 Initial lab(s) drawn, by ok, sent to lab. Inserted saline lock: 24 gauge in left hand, 3 using aseptic technique. Blood collected. 18:56 CT Pelvis wo Cont In Process Unspecified. EDMS 19:00 Report given to ALENA Young. [facility] 19:09 CT completed. Patient moved back from MN. 2 22:41 No provider procedures requiring assistance completed. IV discontinued, intact, jb4 bleeding controlled. Administered Medications: 20:13 Not Given (Duplicate Order): NS 0.9% 1000 ml IV at 1 bolus Per protocol; 1000 mL bolus 4 20:16 Drug: NS 0.9% 1000 ml Route: IV; Rate: 1 bolus; Site: left hand; jb4 22:37 Follow up: Response: No adverse reaction; IV Status: Completed infusion jb4 Outcome: 21:58 Discharge ordered by . [facility] 22:41 Discharged to snf. [facility] 22:41 Condition: stable 22:41 Discharge instructions given to snf, Instructed on discharge instructions, follow up and referral plans. medication usage, Demonstrated understanding of instructions, follow-up care, medications, Prescriptions given X 1. 22:43 Patient left the ED. jb4 Signatures: Dispatcher [employer] EDMS Zahida Apple, RN RN Benito Monique PA PA [facility] Naa Vigil, RN RN rb1 Neymar Rosado RN RN [facility] Rashmi Mortensen [facility] Zoe Torre [facility]
[2018-09-02 22:42] LABS: Urine Bacteria >50 /HPF (NONE SEEN); Urine Culture Reflex Order REFLEXED; Urine RBC >50 /HPF (NONE SEEN)
== END 2018-09-02 22:43 | disposition home or self-care (01) ==
LOC: ER 17:31
DX: N39.0 Urinary tract infection, site not specified (principal); G40.919 Epilepsy, unspecified, intractable, without status epilepticus; Z88.0 Allergy status to penicillin; Z88.5 Allergy status to narcotic agent; Z88.6 Allergy status to analgesic agent; Z88.8 Allergy status to other drugs, medicaments and biological substances; Z87.820 Personal history of traumatic brain injury
CPT/HCPCS: 36415; 72192; 80048; 81003; 81015; 85025; 87077; 87086; 87088; 87186; 96360; 96361; 99285; J7030

== ENCOUNTER 2018-10-07 11:25 | Emergency (ER) | payer OTHER ==
--- OUTSIDE RECORDS SUMMARY | 2018-10-07 11:29 | XMS REPORT ---
:1980 [facility] [address] [place] [address] [address] [place] [address] Care Team Providers Name Role Phone Unavailable Unavailable Unavailable Problems This patient has no known problems. Allergies, Adverse Reactions, Alerts This patient has no known allergies or adverse reactions. Medications This patient has no known medications.
--- NOTE | 2018-10-07 12:12 | ER ---
Nurse's Notes [facility] Name: Farhat Maza Age: 38 yrs Sex: Male : 1980 Arrival Date: 10/07/2018 Time: 11:27 Bed 16 Private MD: Diagnosis: Urinary tract infection, site not specified;Other mechanical complication of urinary (indwelling) catheter Presentation: 10/07 11:27 Presenting complaint: EMS states: possible clogged suprapubic catheter, no urine output iw for 12 hours. Transition of care: patient was received from another setting of care (long-term care facility). Onset of symptoms was October 07, 2018. Risk Assessment: Do you want to hurt yourself or someone else? Patient reports no desire to harm self or others. Initial Sepsis Screen: Does the patient meet any 2 criteria? No. Patient's initial sepsis screen is negative. Does the patient have a suspected source of infection? No. Patient's initial sepsis screen is negative. Care prior to arrival: None. 11:27 Method Of Arrival: EMS: [facility] iw 11:27 Acuity: JOSEPH 3 iw Historical: - Allergies: 11:29 Antihistamine; iw 11:29 Aspirin; iw 11:29 Demerol; iw 11:29 PENICILLINS; iw - Home Meds: 11:29 Dilantin-125 125 mg/5 mL Oral susp 6 mL every 8 hours for epilepsy [Active]; Ibuprofen iw Oral [Active]; lactulose 10 gram/15 mL (15 mL) Oral soln 15 mL nightly for constipation [Active]; Pepcid 20 mg Oral tab 1 tab once daily for Gastroesophageal reflux [Active]; tramadol 50 mg Oral tab 1 tab every 8 hours prn pain [Active]; - PMHx: 11:29 Anoxic brain injury post suicide attempt; aspiration pneumonia; GERD; obstructive and iw reflux uropathy; Pneumonia; Seizures; upper and lower ext contractures; UTI; - PSHx: 11:29 peg; suprapubic cath; iw - Immunization history:: Adult Immunizations up to date. - Ebola Screening: : Patient negative for fever greater than or equal to 101.5 degrees Fahrenheit, and additional compatible Ebola Virus Disease symptoms Patient denies exposure to infectious person Patient denies travel to an Ebola-affected area in the 21 days before illness onset No symptoms or risks identified at this time. - Social history:: Smoking status: unknown. Screenin:00 Abuse screen: Denies threats or abuse. Denies injuries from another. Nutritional aj screening: On. Tuberculosis screening: No symptoms or risk factors identified. Fall Risk Assessment: 11:58 General: Appears in no apparent distress. comfortable, Behavior is calm, cooperative, aj appropriate for age. Neuro: Level of Consciousness is awake. Respiratory: Airway is patent Respiratory effort is even, unlabored, Respiratory pattern is regular, symmetrical. : suprapubic catheter in place. Derm: Skin is intact, is healthy with good turgor, Skin is pink, warm \T\ dry. normal. 14:03 Reassessment: Patient placed on air mattress for comfort. aj Vital Signs: 11:57 BP 109 / 55; Pulse 82; Resp 17; Temp 98.4; Pulse Ox 99% on R/A; Weight 68.04 kg; Height aj 5 ft. 10 in. (177.80 cm); 14:56 BP 110 / 68; Pulse 87; Resp 16; Pulse Ox 99% on R/A; aj 11:57 Body Mass Index 21.52 (68.04 kg, 177.80 cm) aj ED Course: 11:27 Patient arrived in ED. iw 11:28 Triage completed. iw 11:39 Mario Pisano MD is Attending Physician. nely 11:39 Mario Mai PA is PHCP. cp 11:54 Janessa Mari, RN is Primary Nurse. aj 11:57 Arm band placed on left wrist. Patient placed in an exam room. aj 12:00 Placed in gown. Bed in low position. Side rails up X2. aj 12:00 suprapubic catheter exchange. aj 13:34 Report given to Anat at [facility]. aj 14:55 Patient did not have IV access during this emergency room visit. aj Administered Medications: No medications were administered Outcome: 12:12 Discharge ordered by . cp 13:11 Discharge ordered by . cp 14:55 Discharged to halfway. Report called to Anat Transfer form completed. aj 14:55 Condition: stable 14:55 Discharge instructions given to EMS, Prescriptions given X 1. 14:56 Patient left the ED. aj Addendum: 10/12/2018 08:27 Addendum: Culture Results: Positive urine culture. No further action required. Bacteria i w sensitive to prescribed antibiotic. Signatures: Janessa Mari RN RN aj Anderson, Corey, MD MD cha Williams, Irene, RN RN iw Page, Corey, PA PA cp
--- NOTE | 2018-10-07 12:12 | EDPHYS ---
Physician Documentation [facility] Name: Farhat Maza Age: 38 yrs Sex: Male : 1980 Arrival Date: 10/07/2018 Time: 11:27 Bed 16 Private MD: ED Physician Mario Pisano HPI: 10/07 11:40 This 38 yrs old Male presents to ER via EMS with complaints of Problem With cp Urinary Catheter. 11:40 The patient presents with a Cardenas catheter problem, is not draining. Onset: The cp symptoms/episode began/occurred at an unknown time. Associated signs and symptoms: Pertinent negatives: fever. Historical: - Allergies: 11:29 Antihistamine; iw 11:29 Aspirin; iw 11:29 Demerol; iw 11:29 PENICILLINS; iw - Home Meds: 11:29 Dilantin-125 125 mg/5 mL Oral susp 6 mL every 8 hours for epilepsy [Active]; Ibuprofen iw Oral [Active]; lactulose 10 gram/15 mL (15 mL) Oral soln 15 mL nightly for constipation [Active]; Pepcid 20 mg Oral tab 1 tab once daily for Gastroesophageal reflux [Active]; tramadol 50 mg Oral tab 1 tab every 8 hours prn pain [Active]; - PMHx: 11:29 Anoxic brain injury post suicide attempt; aspiration pneumonia; GERD; obstructive and iw reflux uropathy; Pneumonia; Seizures; upper and lower ext contractures; UTI; - PSHx: 11:29 peg; suprapubic cath; iw - Immunization history:: Adult Immunizations up to date. - Ebola Screening: : Patient negative for fever greater than or equal to 101.5 degrees Fahrenheit, and additional compatible Ebola Virus Disease symptoms Patient denies exposure to infectious person Patient denies travel to an Ebola-affected area in the 21 days before illness onset No symptoms or risks identified at this time. - Social history:: Smoking status: unknown. ROS: 11:45 Constitutional: Negative for fever. cp 11:45 : Positive for obstructed suprapubic catheter. cp 11:45 Unable to obtain ROS due to patient is in a persistent vegetative state. Exam: 11:52 Constitutional: The patient appears in no acute distress, awake, non-toxic, well cp developed. 11:52 Head/Face: Normocephalic, atraumatic. cp 11:52 Eyes: Periorbital structures: appear normal, Conjunctiva: normal, no exudate, no injection, Lids and lashes: appear normal, bilaterally. 11:52 ENT: External ear(s): are unremarkable, Nose: is normal, Mouth: Lips: moist. 11:52 Chest/axilla: Inspection: normal. 11:52 Cardiovascular: Rate: normal, Rhythm: regular. 11:52 Respiratory: the patient does not display signs of respiratory distress, Respirations: normal, no use of accessory muscles, no retractions, no splinting, no tachypnea. 11:52 Abdomen/GI: Inspection: abdomen appears normal, Palpation: abdomen is soft and non-tender, in all quadrants. 11:52 : a suprapubic catheter is noted. 11:52 Skin: cellulitis, is not appreciated, no rash present. Vital Signs: 11:57 BP 109 / 55; Pulse 82; Resp 17; Temp 98.4; Pulse Ox 99% on R/A; Weight 68.04 kg; Height aj 5 ft. 10 in. (177.80 cm); 14:56 BP 110 / 68; Pulse 87; Resp 16; Pulse Ox 99% on R/A; aj 11:57 Body Mass Index 21.52 (68.04 kg, 177.80 cm) aj MDM: 11:39 Patient medically screened. [facility] 10/07 12:16 Order name: Urine Microscopic Only; Complete Time: 13:26 10/07 13:26 Interpretation: Normal except: UWBC 10-20; URBC >50. 10/07 13:21 Order name: Urine Culture [facility] 10/07 12:16 Order name: Urine Dipstick-Ancillary (obtain specimen); Complete Time: 13:45 10/07 13:46 Order name: Urine Dipstick--Ancillary (enter results) em1 Administered Medications: No medications were administered Disposition: 15:41 Co-signature as Attending Physician, Mario Pisano MD I agree with the assessment and [facility] plan of care. Disposition: 10/07/18 13:11 Discharged to Home. Impression: Urinary tract infection, site not specified, Other mechanical complication of urinary (indwelling) catheter. - Condition is Stable. - Discharge Instructions: Urinary Tract Infection, Adult. - Prescriptions for sulfamethoxazole- trimethoprim 200-40 mg/5 mL Oral Suspension - take 20 milliliter by ORAL route every 12 hours for 7 days; 280 milliliter. - Medication Reconciliation Form, Thank You Letter, Antibiotic Education, Prescription Opioid Use form. - Follow up: Private Physician; When: 1 - 2 days; Reason: Recheck today's complaints. - Problem is new. - Symptoms have improved. Signatures: Dispatcher [employer] EDJanessa Blair RN RN aj Anderson, Corey, MD MD cha Williams, Irene, RN RN iw Page, Corey, PA PA cp Corrections: (The following items were deleted from the chart) 12:16 12:12 10/07/2018 12:12 Discharged to Home. Impression: Encounter for fitting and cp adjustment of non-vascular catheter. Condition is Stable. Forms are Medication Reconciliation Form, Thank You Letter, Antibiotic Education, Prescription Opioid Use. Follow up: Emergency Department; When: As needed; Reason: Worsening of condition. Problem is new. Symptoms are resolved. cp 14:56 13:11 10/07/2018 13:11 Discharged to Home. Impression: Urinary tract infection, site aj not specified; Other mechanical complication of urinary (indwelling) catheter. Condition is Stable. Forms are Medication Reconciliation Form, Thank You Letter, Antibiotic Education, Prescription Opioid Use. Follow up: Private Physician; When: 1 - 2 days; Reason: Recheck today's complaints. Problem is new. Symptoms have improved. cp 10/08 09:10/07 14:00 Constitutional: The patient appears in no acute distress, non-toxic, well cp developed, cp 10/08 09:10/07 14:00 Head/Face: Normocephalic, atraumatic. cp cp 10/08 09:10/07 14:00 Eyes: Periorbital structures: appear normal, Conjunctiva: normal, no cp exudate, no injection, Lids and lashes: appear normal, bilaterally, cp 10/08 14:00 ENT: External ear(s): are unremarkable, Nose: is normal, Mouth: Lips: cp moist, Oral mucosa: moist, cp 10/08 09:10/07 14:00 Chest/axilla: Inspection: normal, Palpation: is normal, no crepitus, no cp tenderness, cp 10/08 09:10/07 14:00 Cardiovascular: Rate: normal, Rhythm: regular, cp cp 10/08 09:10/07 14:00 Respiratory: the patient does not display signs of respiratory distress, cp Respirations: normal, no use of accessory muscles, no retractions, no splinting, no tachypnea, labored breathing, is not present, cp 10/08 14:00 Abdomen/GI: Inspection: abdomen appears normal, Palpation: abdomen is soft cp and non-tender, in all quadrants, involuntary guarding, is not appreciated, cp 10/08 14:00 : a suprapubic catheter is noted, cp cp
[2018-10-07 13:20] LABS: Urine Bacteria <20 /HPF (NONE SEEN); Urine Culture Reflex Order REFLEXED; Urine RBC >50 /HPF (NONE SEEN)
[2018-10-07 16:35] LABS: Urine Blood 3+ (NEG); Urine Glucose NEGATIVE (NEG); Urine Protein 3+ (NEG); Urine Specific Gravity 1.015 (1.005-1.030); Urine pH >8.5 (5.0-7.0)
== END 2018-10-07 14:56 | disposition home or self-care (01) ==
LOC: ER 11:25
DX: T83.091A Other mechanical complication of indwelling urethral catheter, initial encounter (principal); N39.0 Urinary tract infection, site not specified; G93.1 Anoxic brain damage, not elsewhere classified; K21.9 Gastro-esophageal reflux disease without esophagitis; Z79.899 Other long term (current) drug therapy
CPT/HCPCS: 81003; 81015; 87077; 87086; 87088; 87186; 99283

== ENCOUNTER 2018-11-02 11:58 | Emergency (ER) | payer OTHER ==
--- OUTSIDE RECORDS SUMMARY | 2018-11-02 12:16 | XMS REPORT ---
:1980 [facility] Address [address] [place] [address] [address] [place] [address] Care Team Providers Name Role Phone Unavailable Unavailable Unavailable Problems This patient has no known problems. Allergies, Adverse Reactions, Alerts This patient has no known allergies or adverse reactions. Medications This patient has no known medications.
[2018-11-02 14:25] LABS: Urine Blood 3+ (NEG); Urine Glucose NEGATIVE (NEG); Urine Protein 2+ (NEG); Urine Specific Gravity 1.015 (1.005-1.030); Urine pH 6.5 (5.0-7.0)
--- NOTE | 2018-11-02 14:36 | EDPHYS ---
Physician Documentation [facility] Name: Farhat Maza Age: 38 yrs Sex: Male : 1980 Arrival Date: 11/02/2018 Time: 12:01 Bed 24 Private MD: ED Physician Dwayne Haines HPI: 11/02 12:18 This 38 yrs old Male presents to ER via EMS with complaints of SUPRAPUBIC jmm CATH NOT DRAINING. 12:18 Onset: The symptoms/episode began/occurred today. This is a 38 year old male with a jmm history of anoxic brain injury that presents to the ED with concerns his suprapubic catheter has been dislodged. No known fever. . Historical: - Allergies: 12:04 Antihistamine; bp 12:04 Aspirin; bp 12:04 Demerol; bp 12:04 PENICILLINS; bp - Home Meds: 12:04 Dilantin-125 125 mg/5 mL Oral susp 6 mL every 8 hours for epilepsy [Active]; Ibuprofen bp Oral [Active]; lactulose 10 gram/15 mL (15 mL) Oral soln 15 mL nightly for constipation [Active]; Pepcid 20 mg Oral tab 1 tab once daily for Gastroesophageal reflux [Active]; tramadol 50 mg Oral tab 1 tab every 8 hours prn pain [Active]; - PMHx: 12:04 Anoxic brain injury post suicide attempt; aspiration pneumonia; GERD; obstructive and bp reflux uropathy; Pneumonia; Seizures; upper and lower ext contractures; UTI; - Immunization history:: Adult Immunizations up to date. - Social history:: Smoking status: Patient/guardian denies using tobacco. - Ebola Screening: : Patient negative for fever greater than or equal to 101.5 degrees Fahrenheit, and additional compatible Ebola Virus Disease symptoms Patient denies exposure to infectious person Patient denies travel to an Ebola-affected area in the 21 days before illness onset No symptoms or risks identified at this time. ROS: 12:18 Unable to obtain ROS due to patient is in a persistent vegetative state. m Exam: 12:18 Head/Face: atraumatic. Eyes: EOMI, no conjunctival erythema appreciated Chest/axilla: jmm Normal chest wall appearance and motion. Cardiovascular: Regular rate and rhythm. No edema appreciated Respiratory: Normal respirations, no respiratory distress appreciated 12:18 Skin: General appearance color normal 12:18 Constitutional: This is a well developed, well nourished patient who is awake, alert, and in no acute distress. Neck: Trachea midline, Supple 12:18 Constitutional: The patient appears in no acute distress. 12:18 Abdomen/GI: suprapubic catheter noted, no purulent drainage is appreciated, no induration is appreciated. 12:18 Neuro: Vital Signs: 12:05 BP 103 / 63; Pulse 81; Resp 14; Temp 97.9; Pulse Ox 100% ; Weight 52.16 kg; bp 12:22 BP 97 / 59; Pulse 75; Resp 14; Pulse Ox 96% ; bp 13:16 BP 96 / 60; Pulse 67; Resp 14; Pulse Ox 96% ; bp 14:22 BP 98 / 60; Pulse 68; Resp 14; Pulse Ox 97% ; bp 15:00 BP 107 / 74; Pulse 72; Resp 16; Pulse Ox 100% on R/A; rv 15:30 BP 107 / 61; Pulse 73; Resp 16 S; Pulse Ox 97% on R/A; rv MDM: 12:18 Patient medically screened. [facility] 14:34 Data reviewed: vital signs, nurses notes. Counseling: I had a detailed discussion with [facility] the patient and/or guardian regarding:. ED course: Suprapubic catheter was replaced with good return of urine. Urine shows signs of infection. Will treat with antibiotics. Return precautions are given in disposition. . 11/02 14:04 Order name: Urine Dipstick--Ancillary (enter results); Complete Time: 14:27 bd 11/02 12:27 Order name: Misc. Order; Complete Time: 14:01 [facility] 11/02 12:31 Order name: Urine Dipstick-Ancillary (obtain specimen); Complete Time: 14:01 [facility] Administered Medications: No medications were administered Disposition: 17:54 Co-signature as Attending Physician, Dwayne Haines MD. rn Disposition: 11/02/18 14:35 Discharged to Home. Impression: Other mechanical complication of urinary (indwelling) catheter, Urinary tract infection, site not specified. - Condition is Stable. - Discharge Instructions: Urinary Tract Infection, Adult. - Prescriptions for sulfamethoxazole- trimethoprim 200-40 mg/5 mL Oral Suspension - take 19 milliliter by ORAL route every 12 hours for 10 days; 400 milliliter. - Medication Reconciliation Form, Thank You Letter, Antibiotic Education, Prescription Opioid Use form. - Follow up: Private Physician; When: 1 - 2 days; Reason: Recheck today's complaints, Continuance of care, Re-evaluation by your physician. - Notes: Please return the patient to the ED if he develops fever, vomiting, redness around the catheter insertion site, or decreased in urinary output. Signatures: Dispatcher [employer] EDMS Benito Victor PA PA jmm Nieto, Roman, MD MD rn Peltier, Brian, RN RN Oumar Kraus RN RN rv Corrections: (The following items were deleted from the chart) 17:15 14:35 11/02/2018 14:35 Discharged to Home. Impression: Other mechanical complication of rv urinary (indwelling) catheter; Urinary tract infection, site not specified. Condition is Stable. Forms are Medication Reconciliation Form, Thank You Letter, Antibiotic Education, Prescription Opioid Use. Follow up: Private Physician; When: 1 - 2 days; Reason: Recheck today's complaints, Continuance of care, Re-evaluation by your physician. fransisco
--- NOTE | 2018-11-02 14:36 | ER ---
Nurse's Notes [facility] Name: Farhat Maza Age: 38 yrs Sex: Male : 1980 Arrival Date: 11/02/2018 Time: 12:01 Bed 24 Private MD: Diagnosis: Other mechanical complication of urinary (indwelling) catheter;Urinary tract infection, site not specified Presentation: 11/02 12:02 Presenting complaint: EMS states: SENT FROM [facility] FOR POSSIBLE CATHETER bp DISPLACEMENT. Transition of care: patient was received from another setting of care (long-term care facility), [facility]. Onset of symptoms is unknown. Risk Assessment: Do you want to hurt yourself or someone else? Patient reports no desire to harm self or others. Initial Sepsis Screen: Does the patient meet any 2 criteria? No. Patient's initial sepsis screen is negative. Does the patient have a suspected source of infection? No. Patient's initial sepsis screen is negative. Care prior to arrival: None. 12:02 Method Of Arrival: EMS: [facility] bp 12:02 Acuity: JOSEPH 3 bp Triage Assessment: 13:16 General: Appears in no apparent distress. bp Historical: - Allergies: 12:04 Antihistamine; bp 12:04 Aspirin; bp 12:04 Demerol; bp 12:04 PENICILLINS; bp - Home Meds: 12:04 Dilantin-125 125 mg/5 mL Oral susp 6 mL every 8 hours for epilepsy [Active]; Ibuprofen bp Oral [Active]; lactulose 10 gram/15 mL (15 mL) Oral soln 15 mL nightly for constipation [Active]; Pepcid 20 mg Oral tab 1 tab once daily for Gastroesophageal reflux [Active]; tramadol 50 mg Oral tab 1 tab every 8 hours prn pain [Active]; - PMHx: 12:04 Anoxic brain injury post suicide attempt; aspiration pneumonia; GERD; obstructive and bp reflux uropathy; Pneumonia; Seizures; upper and lower ext contractures; UTI; - Immunization history:: Adult Immunizations up to date. - Social history:: Smoking status: Patient/guardian denies using tobacco. - Ebola Screening: : Patient negative for fever greater than or equal to 101.5 degrees Fahrenheit, and additional compatible Ebola Virus Disease symptoms Patient denies exposure to infectious person Patient denies travel to an Ebola-affected area in the days before illness onset No symptoms or risks identified at this time. Screenin:06 Abuse screen: Denies threats or abuse. Denies injuries from another. Nutritional bp screening: No deficits noted. Tuberculosis screening: No symptoms or risk factors identified. Fall Risk None identified. Assessment: 12:05 General: Appears in no apparent distress. comfortable, Behavior is flat. Pain: Unable bp to use pain scale. Does not appear to understand pain scale. Neuro: AT BASELINE. Cardiovascular: No deficits noted. Respiratory: Airway is patent Respiratory effort is even, unlabored, Respiratory pattern is regular, symmetrical. GI: G-TUBE IN PLACE. : SUPRAPUBIC CATH IN PLACE, BUT NOT DRAINING. EENT: No deficits noted. Derm: No deficits noted. Musculoskeletal: Circulation, motion, and sensation intact. Range of motion: intact in all extremities. 13:15 Reassessment: UNABLE TO ASPIRATE FROM CATH, PROVIDER NOTIFIED. bp 14:22 Reassessment: SUPRAPUBIC CATH REPLACED BY PROVIDER, DRAINING CLOUDY URINE TO GRAVITY. bp 14:31 Reassessment: REPORT [facility]YSHA AT [facility], TRANSPORT EN ROUTE. bp Vital Signs: 12:05 BP 103 / 63; Pulse 81; Resp 14; Temp 97.9; Pulse Ox 100% ; Weight 52.16 kg; bp 12:22 BP 97 / 59; Pulse 75; Resp 14; Pulse Ox 96% ; bp 13:16 BP 96 / 60; Pulse 67; Resp 14; Pulse Ox 96% ; bp 14:22 BP 98 / 60; Pulse 68; Resp 14; Pulse Ox 97% ; bp 15:00 BP 107 / 74; Pulse 72; Resp 16; Pulse Ox 100% on R/A; rv 15:30 BP 107 / 61; Pulse 73; Resp 16 S; Pulse Ox 97% on R/A; rv ED Course: 12:01 Patient arrived in ED. bp 12:03 Triage completed. bp 12:06 Arm band placed on. bp 12:06 Patient has correct armband on for positive identification. Placed in gown. Bed in low bp position. Call light in reach. Side rails up X2. 12:14 Benito Victor PA is PHCP. [facility] 12:14 Dwayne Haines MD is Attending Physician. [facility] 12:22 Jair Alvarado, RN is Primary Nurse. bp 14:22 SUPRAPUBIC CATH REPLACEMENT, 16FR, STERILE PROCEDURE. bp 17:15 Patient did not have IV access during this emergency room visit. rv Administered Medications: No medications were administered Outcome: 14:35 Discharge ordered by . fransisco 17:13 Discharged to [facility]. Report called to [facility] Transfer form completed. rv 17:13 Condition: good 17:13 Discharge instructions given to EMS, Instructed on discharge instructions, follow up and referral plans. medication usage, Demonstrated understanding of instructions, follow-up care, medications, Prescriptions given X 1. 17:15 Patient left the ED. rv Signatures: Benito Victor PA PA jmm Peltier, Brian, RN RN Oumar Kraus, RN RN rv
== END 2018-11-02 17:15 | disposition home or self-care (01) ==
LOC: ER 11:58
DX: T83.028A Displacement of other urinary catheter, initial encounter (principal); N39.0 Urinary tract infection, site not specified; Z88.6 Allergy status to analgesic agent; Z88.5 Allergy status to narcotic agent; Z88.0 Allergy status to penicillin; Z88.8 Allergy status to other drugs, medicaments and biological substances; Z79.899 Other long term (current) drug therapy; K21.9 Gastro-esophageal reflux disease without esophagitis; G40.909 Epilepsy, unspecified, not intractable, without status epilepticus
CPT/HCPCS: 81003; 99283

== ENCOUNTER 2018-11-15 10:16 | Emergency (ER) | payer OTHER ==
--- OUTSIDE RECORDS SUMMARY | 2018-11-15 10:18 | XMS REPORT ---
:1980 [facility] Address [address] [place] [address] [address] [place] [address] Care Team Providers Name Role Phone Unavailable Unavailable Unavailable Problems This patient has no known problems. Allergies, Adverse Reactions, Alerts This patient has no known allergies or adverse reactions. Medications This patient has no known medications.
--- NOTE | 2018-11-15 11:33 | EDPHYS ---
Physician Documentation [facility] Name: Farhat Maza Age: 38 yrs Sex: Male : 1980 Arrival Date: 11/15/2018 Time: 10:19 Bed 19 Private MD: ED Physician Britton Mccord HPI: 11/15 11:30 This 38 yrs old Male presents to ER via EMS with complaints of Problem With gs Urinary Catheter. 11:30 Onset: The symptoms/episode began/occurred today. Unable to obtain HPI due to patient gs is in a persistent vegetative state. Historical: - Allergies: 10:23 Antihistamine; hb 10:23 Aspirin; hb 10:23 Demerol; hb 10:23 PENICILLINS; hb - Home Meds: 10:23 Dilantin-125 125 mg/5 mL Oral susp 6 mL every 8 hours for epilepsy [Active]; Ibuprofen hb Oral [Active]; lactulose 10 gram/15 mL (15 mL) Oral soln 15 mL nightly for constipation [Active]; Pepcid 20 mg Oral tab 1 tab once daily for Gastroesophageal reflux [Active]; tramadol 50 mg Oral tab 1 tab every 8 hours prn pain [Active]; - PMHx: 10:23 aspiration pneumonia; Anoxic brain injury post suicide attempt; GERD; obstructive and hb reflux uropathy; Pneumonia; Seizures; upper and lower ext contractures; UTI; - Immunization history:: Adult Immunizations up to date. - Social history:: Smoking status: Patient/guardian denies using tobacco. - Ebola Screening: : No symptoms or risks identified at this time. ROS: 11:30 Unable to obtain ROS due to patient is in a persistent vegetative state. gs Exam: 11:30 Constitutional: The patient appears awake. gs 11:30 Cardiovascular: Rate: normal, Rhythm: regular. 11:30 Abdomen/GI: Palpation: nontender. 11:30 : a suprapubic catheter is noted, not draining. 11:30 Musculoskeletal/extremity: Extremities: the patient is contracted, diffusely. Vital Signs: 10:24 BP 98 / 62; Pulse 88; Resp 16; Temp 98.1; Pulse Ox 100% on R/A; hb 12:30 BP 100 / 64; Pulse 86; Resp 16; Pulse Ox 100% on R/A; hb Procedures: 11:30 suprapubic by MD tolerated well. gs MDM: 10:41 Patient medically screened. 11:30 Data reviewed: vital signs, nurses notes. 11/15 10:42 Order name: Chantelc. Order: pretty please with sugar on top irrigate saldana; Complete Time: 11:05 Administered Medications: No medications were administered Disposition: 11/15/18 11:32 Discharged to Home. Impression: Mechanical complication of urinary (indwelling) catheter. - Condition is Stable. - Medication Reconciliation Form, Thank You Letter, Antibiotic Education, Prescription Opioid Use form. - Follow up: Private Physician; When: 2 - 3 days; Reason: Re-evaluation by your physician. Signatures: Dasha Caldera RN RN Britton Mccord MD MD Corrections: (The following items were deleted from the chart) 13:33 11:32 11/15/2018 11:32 Discharged to Home. Impression: Mechanical complication of hb urinary (indwelling) catheter. Condition is Stable. Forms are Medication Reconciliation Form, Thank You Letter, Antibiotic Education, Prescription Opioid Use. Follow up: Private Physician; When: 2 - 3 days; Reason: Re-evaluation by your physician.
--- NOTE | 2018-11-15 11:33 | ER ---
Nurse's Notes [facility] Name: Farhat Maza Age: 38 yrs Sex: Male : 1980 Arrival Date: 11/15/2018 Time: 10:19 Bed 19 Private MD: Diagnosis: Mechanical complication of urinary (indwelling) catheter Presentation: 11/15 10:19 Presenting complaint: EMS states: [facility] concerned catheter is clogged, no output hb >5 hrs. Transition of care: patient was not received from another setting of care. Onset of symptoms was November 15, 2018. Risk Assessment: Do you want to hurt yourself or someone else? Patient reports no desire to harm self or others. Initial Sepsis Screen: Does the patient meet any 2 criteria? No. Patient's initial sepsis screen is negative. Does the patient have a suspected source of infection? No. Patient's initial sepsis screen is negative. Care prior to arrival: None. 10:19 Method Of Arrival: EMS: [facility] hb 10:19 Acuity: JOSEPH 3 hb Historical: - Allergies: 10:23 Antihistamine; hb 10:23 Aspirin; hb 10:23 Demerol; hb 10:23 PENICILLINS; hb - Home Meds: 10:23 Dilantin-125 125 mg/5 mL Oral susp 6 mL every 8 hours for epilepsy [Active]; Ibuprofen hb Oral [Active]; lactulose 10 gram/15 mL (15 mL) Oral soln 15 mL nightly for constipation [Active]; Pepcid 20 mg Oral tab 1 tab once daily for Gastroesophageal reflux [Active]; tramadol 50 mg Oral tab 1 tab every 8 hours prn pain [Active]; - PMHx: 10:23 aspiration pneumonia; Anoxic brain injury post suicide attempt; GERD; obstructive and hb reflux uropathy; Pneumonia; Seizures; upper and lower ext contractures; UTI; - Immunization history:: Adult Immunizations up to date. - Social history:: Smoking status: Patient/guardian denies using tobacco. - Ebola Screening: : No symptoms or risks identified at this time. Screenin:05 Abuse screen: Denies threats or abuse. Denies injuries from another. Nutritional hb screening: No deficits noted. Tuberculosis screening: No symptoms or risk factors identified. Fall Risk Total Bejarano Fall Scale indicates High Risk Score (45 or more points). Fall prevention measures have been instituted. Side Rails Up X 2 Placed Close to Nursing Station Frequent Obs/Assessments Occuring As available patient and family educated on Fall Prevention Program and Strategies. Assessment: 10:45 General: Appears in no apparent distress. Behavior is calm. Pain: Unable to use pain hb scale. Does not appear to understand pain scale. FLACC scale score is 0 out of 10. Neuro: Level of Consciousness is awake, alert, Oriented to Pt is nonverbal, does not follow commands. Cardiovascular: Capillary refill < 3 seconds Patient's skin is warm and dry. Respiratory: Airway is patent Trachea midline Respiratory effort is even, unlabored, Respiratory pattern is regular, symmetrical, Breath sounds are clear bilaterally. GI: No signs and/or symptoms were reported involving the gastrointestinal system. Abdomen is non-distended, Bowel sounds present X 4 quads. : suprapubic catheter in place Urine is none gauze at site is saturated with urine, yellow/palomino, foul smelling, dated 11/11/18. EENT: No signs and/or symptoms were reported regarding the EENT system. Derm: Skin is intact, is healthy with good turgor. Musculoskeletal: No signs and/or symptoms reported regarding the musculoskeletal system. 11:45 Reassessment: Patient appears in no apparent distress at this time. Patient and/or hb family updated on plan of care and expected duration. Pain level reassessed. 11:55 Reassessment: Discharge ordered, report called to Elvia CARVAJAL at [facility] awaiting [facility] for transport. 12:45 Reassessment: Patient appears in no apparent distress at this time. No changes from previously documented assessment. Vital Signs: 10:24 BP 98 / 62; Pulse 88; Resp 16; Temp 98.1; Pulse Ox 100% on R/A; hb 12:30 BP 100 / 64; Pulse 86; Resp 16; Pulse Ox 100% on R/A; ED Course: 10:19 Patient arrived in ED. hb 10:21 Triage completed. hb 10:24 Britton Mccord MD is Attending Physician. gs 10:24 Arm band placed on. hb 11:08 Placed in gown. Bed in low position. Side rails up X2. hb 13:30 Dasha Caldera, ALENA is Primary Nurse. hb 13:31 No provider procedures requiring assistance completed. Patient did not have IV access hb during this emergency room visit. Administered Medications: No medications were administered Outcome: 11:32 Discharge ordered by . enzo 13:31 Discharged to [facility]. Report called to Elvia CARVAJAL at [facility] 13:31 Condition: stable 13:31 Instructed on discharge instructions. 13:33 Patient left the ED. Signatures: Dasha Caldera RN RN Britton Mccord MD MD
== END 2018-11-15 13:33 | disposition home or self-care (01) ==
LOC: ER 10:16
PROC: 0T9B70Z Drainage of Bladder with Drainage Device, Via Natural or Artificial Opening (ICD-10-PCS; principal; 2018-11-15)
DX: T83.091A Other mechanical complication of indwelling urethral catheter, initial encounter (principal); Z46.6 Encounter for fitting and adjustment of urinary device; R40.3 Persistent vegetative state; K21.9 Gastro-esophageal reflux disease without esophagitis; Z79.899 Other long term (current) drug therapy

== ENCOUNTER 2019-03-03 15:34 | Emergency (ER) | payer OTHER ==
--- OUTSIDE RECORDS SUMMARY | 2019-03-03 15:37 | XMS REPORT ---
:1980 [facility] Address [address] [place] [address] [address]. [address] [place] [address] Care Team Providers Name Role Phone Unavailable Unavailable Unavailable Problems This patient has no known problems. Allergies, Adverse Reactions, Alerts This patient has no known allergies or adverse reactions. Medications This patient has no known medications.
[2019-03-03 17:20] LABS: Urine Blood 3+ (NEG); Urine Glucose TRACE (NEG); Urine Protein 3+ (NEG); Urine Specific Gravity 1.025 (1.005-1.030)
[2019-03-03 17:27] LABS: Urine Bacteria >50 /HPF (NONE SEEN); Urine Culture Reflex Order NOT NEEDED; Urine RBC >50 /HPF (NONE SEEN)
[2019-03-03 17:28] LABS: Urine Amorphous Sediment 3+ /HPF (NONE SEEN); Urine Mucus 3+ /HPF (NONE SEEN)
[2019-03-03 17:47] LABS: BUN Blood Urea Nitrogen 15 mg/dL (7-18); Bicarbonate 29 mmol/L (21-32); Glucose Level 84 mg/dL (74-106); Potassium 4.1 mmol/L (3.5-5.1); Sodium Level 141 mmol/L (136-145)
[2019-03-03 18:12] LABS: Absolute Lymphocytes (CBC) 1.6 K/uL (0.7-4.9); Absolute Monocytes 0.6 K/uL (0.1-1.3); Absolute Neutrophil 4.8 K/uL (1.8-8.0); Basophils % 0.5 % (0-1.3); Eosinophils % 2.6 % (0-4.4); Hematocrit 48.1 % (39.6-49.0); Lymphocytes % 21.8 % (15.3-44.8); MPV 11.6 fL (7.6-11.3); Monocytes % 7.9 % (3.3-12.3); RBC Red Blood Cell Count 5.25 M/uL (4.33-5.43)
--- NOTE | 2019-03-03 18:22 | ER ---
Nurse's Notes [facility] Name: Farhat Maza Age: 38 yrs Sex: Male : 1980 Arrival Date: 03/03/2019 Time: 15:36 Bed 15 Private MD: Diagnosis: Urinary tract infection, site not specified;Mechanical complication of other urinary devices and implants Presentation: 03/03 15:37 Presenting complaint: EMS states: Pt. is from [facility]. Suprapubic catheter is rb1 clogged. Facility tried to flush/irrigate the catheter but was unable to unclog it. BP 111/62, P 65, R 16, 99% RA. Transition of care: patient was received from another setting of care (long-term care facility), [facility]. Onset of symptoms was March 02, 2019. Risk Assessment: Do you want to hurt yourself or someone else? Patient reports no desire to harm self or others. 15:37 Method Of Arrival: EMS: [place] [id number] 15:37 Acuity: JOSEPH 3 rb1 15:37 Initial Sepsis Screen: Does the patient meet any 2 criteria? No. Patient's initial rb1 sepsis screen is negative. Does the patient have a suspected source of infection? No. Patient's initial sepsis screen is negative. Care prior to arrival: None. Triage Assessment: 15:35 General: Appears in no apparent distress. comfortable, Behavior is calm, cooperative. rb1 Pain: Denies pain. Neuro: Level of Consciousness is awake, Oriented to person. Cardiovascular: Capillary refill < 3 seconds is brisk in bilateral fingers. Respiratory: Airway is patent Respiratory effort is even, unlabored, Respiratory pattern is regular, symmetrical. GI: incontinence. : suprapubic catheter in place clogged catheter. Derm: Skin is pink, warm \T\ dry. Musculoskeletal: arms and legs contracted. Historical: - Allergies: 15:35 Antihistamine; rb1 15:35 Aspirin; rb1 15:35 Demerol; rb1 15:35 PENICILLINS; rb1 - Home Meds: 15:35 Dilantin-125 125 mg/5 mL Oral susp 6 mL every 8 hours for epilepsy [Active]; Ibuprofen rb1 Oral [Active]; lactulose 10 gram/15 mL (15 mL) Oral soln 15 mL nightly for constipation [Active]; Pepcid 20 mg Oral tab 1 tab once daily for Gastroesophageal reflux [Active]; tramadol 50 mg Oral tab 1 tab every 8 hours prn pain [Active]; - PMHx: 15:35 Anoxic brain injury post suicide attempt; aspiration pneumonia; GERD; obstructive and rb1 reflux uropathy; Pneumonia; Seizures; upper and lower ext contractures; UTI; - Immunization history:: Adult Immunizations up to date. - Social history:: Smoking status: Patient/guardian denies using tobacco. - Ebola Screening: : Patient negative for fever greater than or equal to 101.5 degrees Fahrenheit, and additional compatible Ebola Virus Disease symptoms. Screenin:37 Abuse screen: Denies threats or abuse. Nutritional screening: Peg Tube in place. rb1 Tuberculosis screening: No symptoms or risk factors identified. Fall Risk No fall in past 12 months (0 pts). Secondary diagnosis (15 points) impaired mobility, No IV (0 pts). Ambulatory Aid- None/Bed Rest/Nurse Assist (0 pts). Gait- Impaired (20 pts.). Mental Status- Overestimates/Forgets Limitations (15 pts.). Total Bejarano Fall Scale indicates Low Risk Score (25-44 pts). Fall prevention measures have been instituted. Side Rails Up X 2 Placed close to Nursing Station 1:1 attendant Assigned to Pt. Frequent Obs/Assesments occuring As available Patient and Family Educated on Fall Prevention Program and strategies. Assessment: 15:37 General: See triage assesssment. rb1 16:37 Reassessment: Patient appears in no apparent distress at this time. No changes from rb1 previously documented assessment. 17:30 Reassessment: Patient appears in no apparent distress at this time. Patient and/or rb1 family updated on plan of care and expected duration. Pain level reassessed. Patient is alert, oriented x 3, equal unlabored respirations, skin warm/dry/pink. Changed pt. diaper. 17:40 Reassessment: NS 500 ml bolus infusing at a slowly in the left hand. Had difficulty rb1 getting IV access. 18:40 Reassessment: Patient appears in no apparent distress at this time. Patient and/or rb1 family updated on plan of care and expected duration. Pain level reassessed. Patient is alert, oriented x 3, equal unlabored respirations, skin warm/dry/pink. 19:17 Reassessment: Called report to Amarilis Wakefield at [place]. Informed her that the Cardenas rb1 catheter has been changed by the provider, diagnosis is UTI and will be sent back to the facility with a prescription for antibiotics. Amarilis will call [facility] for transportation. 19:30 Reassessment: [place] staff called; States [facility] unable to take transfers lp1 due to weather. 20:30 Reassessment: Patient appears in no apparent distress at this time. Patient resting, lp1 eyes closed, respirations unlabored. 20:30 : Cardenas in place to gravity drainage. lp1 21:50 Reassessment: Patient appears in no apparent distress at this time. EMS at bedside lp1 for transfer back to [facility]. Vital Signs: 15:46 BP 97 / 62; Pulse 72; Resp 17; Temp 98.4(A); Pulse Ox 97% on R/A; Pain 0/10; rb1 16:45 BP 114 / 96; Pulse 87; Resp 16; Temp 98.1(O); Pulse Ox 97% on R/A; Pain 0/10; rb1 17:24 BP 95 / 49; Pulse 83; Resp 18; Temp 97.9(TE); Pulse Ox 97% on R/A; mh5 18:20 BP 108 / 58; Pulse 84; Resp 17; Temp 98.2(O); Pulse Ox 97% on R/A; Pain 0/10; rb1 19:30 BP 109 / 74; Pulse 73; Resp 18; Pulse Ox 97% on R/A; lp1 21:00 BP 121 / 90; Pulse 81; Resp 18; Pulse Ox 97% on R/A; lp1 ED Course: 15:35 Arm band placed on right wrist. rb1 15:36 Patient arrived in ED. rb1 15:37 Benito Victor PA is PHCP. [facility] 15:37 Mario Pisano MD is Attending Physician. jmm 15:37 Patient has correct armband on for positive identification. Bed in low position. Call rb1 light in reach. Side rails up X2. Pulse ox on. NIBP on. Warm blanket given. 15:41 Triage completed. rb1 16:12 Naa Vigil, RN is Primary Nurse. rb1 17:15 Missed attempt(s): 22 gauge in right upper arm. rb1 17:24 Missed attempt(s): 22 gauge upper arm. [facility] 17:30 Inserted saline lock: 22 gauge in left hand, using aseptic technique. Blood collected. bp 19:00 Report given to ALENA Mcclendon. rb1 19:40 No provider procedures requiring assistance completed. IV discontinued, No lp1 redness/swelling at site. Pressure dressing applied. 21:25 Primary Nurse role handed off by Naa Vigil, ALENA ed1 22:02 Danelle Diego, RN is Primary Nurse. lp1 Administered Medications: 17:38 Drug: NS 0.9% 500 ml Route: IV; Rate: bolus; Site: left hand; rb1 18:30 Follow up: IV Status: Completed infusion rb1 Output: 17:15 Urine: 100ml (Cardenas); Total: 100ml. rb1 Outcome: 18:21 Discharge ordered by . [facility] 19:30 Condition: stable [facility] 19:30 Instructed on discharge instructions, [facility] called by Naa Vigil RN 22:04 Discharged to skilled nursing. [place] [id number] 22:05 Patient left the ED. lp1 Addendum: 03/08/2019 17:06 Addendum: Culture Results: Positive urine culture. Bacteria is resistant to, has i w intermediate sensitivity, or is not tested against prescribed antibiotics. Report given to NAOMI for further evaluation and then to horticultural technical officer for follow up with patient. Phone call Attempt #1 faxed culture report to [facility], attn: Jennifer. Signatures: Benito Victor PA PA Nara Kim RN RN iw Riggs, Erika, RN RN ed1 Danelle Diego, ALENA RN [facility] Naa Vigil, RN Korin Gallego [facility] Jair Alvarado RN RN bp
--- NOTE | 2019-03-03 18:22 | EDPHYS ---
Physician Documentation [facility] Name: Farhat Maza Age: 38 yrs Sex: Male : 1980 Arrival Date: 03/03/2019 Time: 15:36 Bed 15 Private MD: ED Physician Mario Pisano HPI: 03/03 15:37 This 38 yrs old Male presents to ER via EMS with complaints of Clogged jmm Suprapubic Catheter.. 15:37 The patient presents with a Cardenas catheter problem, is not draining. Onset: The jmm symptoms/episode began/occurred today. Modifying factors: The symptoms are alleviated by nothing, the symptoms are aggravated by nothing. This is a 38 year old male with a history of anoxic brain injury that presents to the ED with no urine flow to his catheter. . Historical: - Allergies: 15:35 Antihistamine; rb1 15:35 Aspirin; rb1 15:35 Demerol; rb1 15:35 PENICILLINS; rb1 - Home Meds: 15:35 Dilantin-125 125 mg/5 mL Oral susp 6 mL every 8 hours for epilepsy [Active]; Ibuprofen rb1 Oral [Active]; lactulose 10 gram/15 mL (15 mL) Oral soln 15 mL nightly for constipation [Active]; Pepcid 20 mg Oral tab 1 tab once daily for Gastroesophageal reflux [Active]; tramadol 50 mg Oral tab 1 tab every 8 hours prn pain [Active]; - PMHx: 15:35 Anoxic brain injury post suicide attempt; aspiration pneumonia; GERD; obstructive and rb1 reflux uropathy; Pneumonia; Seizures; upper and lower ext contractures; UTI; - Immunization history:: Adult Immunizations up to date. - Social history:: Smoking status: Patient/guardian denies using tobacco. - Ebola Screening: : Patient negative for fever greater than or equal to 101.5 degrees Fahrenheit, and additional compatible Ebola Virus Disease symptoms. ROS: 15:37 Unable to obtain ROS due to vegetative state. jmm Exam: 15:37 Head/Face: atraumatic. Cardiovascular: Regular rate and rhythm. No edema appreciated jmm Respiratory: Normal respirations, no respiratory distress appreciated 15:37 Skin: General appearance color normal 15:37 Constitutional: The patient appears awake. 15:37 : suprapubic catheter noted, no surrounding erythema or purulent drainage is appreciated. 15:37 Musculoskeletal/extremity: contracted. 15:37 Skin: Appearance: Color: normal in color. Vital Signs: 15:46 BP 97 / 62; Pulse 72; Resp 17; Temp 98.4(A); Pulse Ox 97% on R/A; Pain 0/10; rb1 16:45 BP 114 / 96; Pulse 87; Resp 16; Temp 98.1(O); Pulse Ox 97% on R/A; Pain 0/10; rb1 17:24 BP 95 / 49; Pulse 83; Resp 18; Temp 97.9(TE); Pulse Ox 97% on R/A; mh5 18:20 BP 108 / 58; Pulse 84; Resp 17; Temp 98.2(O); Pulse Ox 97% on R/A; Pain 0/10; rb1 19:30 BP 109 / 74; Pulse 73; Resp 18; Pulse Ox 97% on R/A; lp1 21:00 BP 121 / 90; Pulse 81; Resp 18; Pulse Ox 97% on R/A; lp1 MDM: 15:37 Patient medically screened. nely 18:16 ED course: Suprapubic catheter replaced with spontaneous urine return. UA shows signs jm of infection. Will treat with oral antibiotics. . 03/03 16:50 Order name: BMP; Complete Time: 17:58 [facility] 03/03 16:50 Order name: CBC with Diff; Complete Time: 18:44 [facility] 03/03 16:51 Order name: Urine Culture [facility] 03/03 16:58 Order name: Urine Microscopic Only; Complete Time: 17:31 [facility] 03/03 17:05 Order name: Urine Dipstick--Ancillary (enter results); Complete Time: 17:31 [facility] 03/03 18:18 Order name: CBC Smear Scan; Complete Time: 18:44 [facility] 03/03 15:42 Order name: Cardenas; Complete Time: 16:58 [facility] 03/03 15:42 Order name: Urine Dipstick-Ancillary (obtain specimen); Complete Time: 16:58 [facility] 03/03 17:46 Order name: Labs - recollect needed; Complete Time: 18:36 [facility] Administered Medications: 17:38 Drug: NS 0.9% 500 ml Route: IV; Rate: bolus; Site: left hand; rb1 18:30 Follow up: IV Status: Completed infusion rb1 Disposition: 03/04 07:17 Co-signature as Attending Physician, Mario Pisano MD I agree with the assessment and nely plan of care. Disposition: 03/03/19 18:21 Discharged to Home. Impression: Urinary tract infection, site not specified, Mechanical complication of other urinary devices and implants. - Condition is Stable. - Discharge Instructions: Urinary Tract Infection, Adult, Suprapubic Catheter Replacement, Suprapubic Catheter Replacement, Care After, Suprapubic Catheter Home Guide. - Prescriptions for sulfamethoxazole- trimethoprim 200-40 mg/5 mL Oral Suspension - take 20 milliliter by ORAL route every 12 hours for 10 days; 400 milliliter. - Medication Reconciliation Form, Thank You Letter, Antibiotic Education, Prescription Opioid Use, SBAR form form. - Follow up: Private Physician; When: 2 - 3 days; Reason: Recheck today's complaints, Continuance of care, Re-evaluation by your physician. Signatures: Dispatcher [employer] EDMario Jameson MD MD cha Mickail, Joel, PA PA jmm Pena, Laura, RN RN lp1 Ursula Olivier Rebecca, RN RN rb1 Corrections: (The following items were deleted from the chart) 03/03 22:05 18:21 03/03/2019 18:21 Discharged to Home. Impression: Urinary tract infection, site lp1 not specified; Mechanical complication of other urinary devices and implants. Condition is Stable. Forms are Medication Reconciliation Form, Thank You Letter, Antibiotic Education, Prescription Opioid Use. Follow up: Private Physician; When: 2 - 3 days; Reason: Recheck today's complaints, Continuance of care, Re-evaluation by your physician. fransisco
[2019-03-03] MEDS ORDERED: NA CHLORIDE 0.9% 500 ML ONE (18:35)
[2019-03-03 18:43] LABS: Blood Morphology Comment NOT SEEN (NOT SEEN); Platelet Estimate ADEQ; Urine White Blood Cell Casts OK
== END 2019-03-03 22:05 | disposition home or self-care (01) ==
LOC: ER 15:34
PROC: 0T2BX0Z Change Drainage Device in Bladder, External Approach (ICD-10-PCS; principal; 2019-03-03)
DX: T83.091A Other mechanical complication of indwelling urethral catheter, initial encounter (principal); N39.0 Urinary tract infection, site not specified
CPT/HCPCS: 36415; 80048; 81003; 81015; 85025; 87077; 87086; 87088; 87186; 96360; 99284

== ENCOUNTER 2019-10-01 19:43 | Emergency (ER) | payer OTHER ==
--- OUTSIDE RECORDS SUMMARY | 2019-10-01 19:45 | XMS REPORT ---
:1980 Author [facility] Address [address] [place] [address] [address]. Arv[address]u [address] [place] [address] Care Team Providers Name Role Phone Unavailable Unavailable Unavailable Problems This patient has no known problems. Allergies, Adverse Reactions, Alerts This patient has no known allergies or adverse reactions. Medications This patient has no known medications.
[2019-10-01] MEDS ORDERED: NA CHLORIDE 0.9% 2,000 ML ONE (19:52)
[2019-10-01] MEDS ORDERED: ACETAMINOPHEN 650MG/RECT SUPP PR ONE (19:52)
[2019-10-01 20:15] LABS: Protime INR 1.23
[2019-10-01 20:27] LABS: ALT/SGPT 90 U/L (12-78); AST/SGOT 54 U/L (15-37); Albumin 2.8 g/dL (3.4-5.0); Alkaline Phosphatase 233 U/L (45-117); BUN Blood Urea Nitrogen 23 mg/dL (7-18); Bicarbonate 25 mmol/L (21-32); Bilirubin Direct 0.3 mg/dL (0-0.2); Bilirubin Total 0.5 mg/dL (0.2-1.0); CKMB Creatine Kinase MB < 1.0 ng/mL (0.3-3.6); Creatine Phosphokinase 38 U/L (39-308); Glucose Level 124 mg/dL (74-106); Lipase 29 U/L (73-393); Potassium 3.6 mmol/L (3.5-5.1); Protein, Total 8.1 g/dL (6.4-8.2); Sodium Level 143 mmol/L (136-145); Troponin (Emerg Dept Use Only) < 0.02 ng/mL (0.0-0.045)
[2019-10-01] MEDS ORDERED: ONDANSETRON 4 MG/2 ML VIAL ONE (20:34)
[2019-10-01] MEDS ORDERED: PANTOPRAZOLE 40 MG INJ ONE (20:34)
[2019-10-01] MEDS ORDERED: NA CHLORIDE 0.9% 100 ML IV ONE (20:34)
[2019-10-01] MEDS ORDERED: NA CHLORIDE 0.9% 250 ML ONE (20:34)
[2019-10-01] MEDS ORDERED: VANCOMYCIN 1 GM/VIAL ONE (20:34)
[2019-10-01] MEDS ORDERED: CEFEPIME 2 GM VIAL ONE (20:34)
--- NOTE | 2019-10-01 20:43 | RAD REPORT ---
EXAM DESCRIPTION: RAD - Chest Single View - 10/01/2019 8:27 pm CLINICAL HISTORY: Abdominal pain, vomiting COMPARISON: April 2018 TECHNIQUE: AP portable chest image was obtained in supine positioning 2022 hours . FINDINGS: Low lung volumes are noted. Interstitial pattern is accentuated. No focal consolidation. S ignificant failure or volume overload are doubtful. Heart and vasculature are normal. No measurable pleural effusion and no pneumothorax. No acute bony abnormality seen. No acute aortic findings suspected. IMPRESSION: No acute cardiopulmonary process. Shallow inspiration accentuates lung markings.
[2019-10-01 21:05] LABS: Hematocrit 38.9 % (39.6-49.0); MPV 11.4 fL (7.6-11.3); RBC Red Blood Cell Count 4.36 M/uL (4.33-5.43)
[2019-10-01 21:20] LABS: Urine Bacteria 20-50 /HPF (NONE SEEN); Urine RBC TNTC /HPF (NONE SEEN)
[2019-10-01 21:21] LABS: Urine Amorphous Sediment 2+ /HPF (NONE SEEN); Urine Culture Reflex Order REFLEXED
--- NOTE | 2019-10-01 21:34 | ER ---
Nurse's Notes [facility] Name: Farhat Maza Age: 39 yrs Sex: Male : 1980 Arrival Date: 10/01/2019 Time: 19:45 Bed 20 Private MD: Diagnosis: Other sepsis Presentation: 10/01 19:40 Presenting complaint: EMS states: pt has had episodes of projectile vomiting for a few iw days, feels hot to touch, BP in 90's systolic, HR 130's, pt is nonverbal, bed bound, hx of anoxic brain injury. Transition of care: patient was not received from another setting of care. Onset of symptoms was September 28, 2019. Risk Assessment: Do you want to hurt yourself or someone else? Patient reports no desire to harm self or others. Initial Sepsis Screen: Does the patient meet any 2 criteria? RR > 20 per min. Temp <36.0*C (96.8*F)) or > 38.3*C (100.9*F). HR > 90 bpm. Does the patient have a suspected source of infection? Yes: Dysuria/Frequency/Urgency/UTI Other: vomiting If YES to both, name of provider notified: Montana Vu MD. Care prior to arrival: None. 19:40 Method Of Arrival: EMS: [facility] iw 19:40 Acuity: JOSEPH 2 iw Triage Assessment: 19:40 GI: Reports vomiting. iw Historical: - Allergies: 20:24 Antihistamine; iw 20:24 Aspirin; iw 20:24 Demerol; iw 20:24 PENICILLINS; iw - Home Meds: 23:11 Acidophilus Oral cap daily [Active]; artificial tears(hypromellose) 0.4 % Opht drop iw twice a day [Active]; Dilantin-125 125 mg/5 mL Oral susp 5 mL every 6 hours [Active]; Ibuprofen Oral 3 times per day [Active]; lactulose 10 gram/15 mL (15 mL) Oral soln 15 mL nightly for constipation [Active]; Levaquin 500 mg Oral tab 1 tab once daily [Active]; oxybutynin chloride 5 mg Oral tab 2 times per day [Active]; Prilosec 20 mg Oral cpDR 1 cap once daily [Active]; tramadol 50 mg Oral tab three times a day [Active]; - PMHx: 21:55 Anoxic brain injury post suicide attempt; aspiration pneumonia; GERD; obstructive and iw reflux uropathy; Pneumonia; Seizures; upper and lower ext contractures; UTI; - Immunization history:: Adult Immunizations up to date. - Ebola Screening: : Patient negative for fever greater than or equal to 101.5 degrees Fahrenheit, and additional compatible Ebola Virus Disease symptoms Patient denies exposure to infectious person Patient denies travel to an Ebola-affected area in the 21 days before illness onset No symptoms or risks identified at this time. - Social history:: Smoking status: Patient/guardian denies using tobacco. Screenin:57 Abuse screen: Denies threats or abuse. Denies injuries from another. Nutritional iw screening: On NPO diet. Tuberculosis screening: No symptoms or risk factors identified. Fall Risk IV access (20 points). Assessment: 19:45 General: Appears uncomfortable, ill, Behavior is listless. Pain: Unable to use pain iw scale. Does not appear to understand pain scale. FLACC scale score is 5 out of 10. Patient is unresponsive. Neuro: Level of Consciousness is awake, obtunded, Oriented to none Paralysis in bilateral arm(s) leg(s). Cardiovascular: Patient's skin is warm and dry. Pulses are all present. Rhythm is sinus tachycardia. Respiratory: Respiratory effort is labored, Respiratory pattern is tachypnea. GI: Abdomen is flat, PEG tube clamped. Site clean. GI: Bowel sounds present X 4 quads. Abd is soft X 4 quads Parent/caregiver reports the patient having vomiting. : suprapubic catheter in place to gravity drainage Urine is cloudy. Derm: Skin. Musculoskeletal: Range of motion: limited in all extremities. 21:51 Reassessment: pt returned from CT, pt moaning, still tachycardiac at 133, IVF complete, iw vancomycin infusing, pt repositioned in bed. 22:30 Reassessment: Mario Mai notified of BP 80's over 50's verbal order for 3rd liter of iw fluid, also notified that pt appears to be uncomfortable, pt normally takes ibuprofen for pain via PEG, new order given. 10/02 00:15 Reassessment: pt still moaning, appears uncomfortable, JOSÉ LUIS Hughes notified , verbal iw order for Fentanyl 25 mcg IVP, givne now. 02:37 Reassessment: Patient appears in no apparent distress at this time. pt appears more iw relaxed, eyes closed, respirations even and unlabored, HR down to 101, temp down to 99.0, BP=99/76, report given to ALENA Lou at [facility], awaiting EMS transport. Vital Signs: 10/01 19:40 BP 95 / 62; Pulse 148; Resp 32; Temp 103.6(R); Pulse Ox 91% on R/A; Weight 72.57 kg (R);iw 20:28 BP 105 / 79; Pulse 125; Resp 30; Pulse Ox 93% on R/A; iw 21:50 BP 97 / 71; Pulse 133; Resp 29 S; Temp 101.1; Pulse Ox 92% on R/A; iw 22:15 BP 87 / 54; Pulse 130; Resp 30 S; Pulse Ox 91% on R/A; iw 22:30 BP 81 / 59; Pulse 128; Resp 30 S; Pulse Ox 91% on R/A; iw 22:51 BP 95 / 51; Pulse 124; Resp 24 S; Pulse Ox 91% on R/A; Pain 5/10; iw 23:51 BP 100 / 76; Pulse 116; Resp 24 S; Temp 99.0(R); Pulse Ox 93% on R/A; iw Vitals: 22:15 Cardiac Rhythm Assessment Sinus tach. iw ED Course: 19:40 Inserted saline lock: 20 gauge in right hand, using aseptic technique. Blood collected. iw IV inserted by ALENA White. 19:45 Patient arrived in ED. ds1 19:45 Nara Javier RN is Primary Nurse. iw 19:45 Arm band placed on. iw 19:48 Patient has correct armband on for positive identification. iw 19:50 Mario Mai PA is PHCP. cp 19:50 Montana Vu MD is Attending Physician. cp 19:50 Inserted saline lock: 20 gauge in left hand, using aseptic technique. IV inserted by sarah White RN. 20:23 Triage completed. iw 20:27 Chest Single View XRAY In Process Unspecified. EDMS 21:32 Torrey Andres MD is Hospitalizing Provider. cp 21:54 CT Abd/Pelvis - IV Contrast Only In Process Unspecified. EDMS 10/02 00:42 No provider procedures requiring assistance completed. Patient transferred, IV remains iw in place. Administered Medications: 10/01 19:42 Drug: Tylenol Suppository 650 mg Route: NE; iw 20:01 Drug: NS 0.9% (30 ml/kg) 30 ml/kg Route: IV; Rate: bolus; Site: right hand; iw 20:30 Drug: Zofran 4 mg Route: IVP; Site: left hand; iw 22:05 Follow up: Response: No adverse reaction iw 20:30 Drug: ProTONIX 40 mg Route: IVP; Site: left hand; iw 22:05 Follow up: Response: No adverse reaction iw 20:40 Drug: Cefepime 2 grams Route: IVPB; Rate: 200 ml/hr; Infused Over: 30 mins; Site: left iw hand; 21:40 Follow up: IV Status: Completed infusion iw 21:50 Drug: vancoMYCIN 1 grams Route: IVPB; Infused Over: 2 hrs; Site: left hand; iw 22:30 Drug: Motrin 600 mg Route: PO; iw 10/02 01:00 Follow up: Response: No adverse reaction iw 10/01 22:30 Drug: NS 0.9% 1000 ml Route: IV; Rate: 1000 ml; Site: left hand; iw 10/02 00:12 Drug: fentaNYL (PF) 25 mcg Route: IVP; Site: left hand; iw 02:00 Follow up: Response: No adverse reaction; Pain is decreased iw 01:19 Drug: NS 0.9% 1000 ml Route: IV; Rate: 125 ml/hr; Site: right hand; iw 02:25 Follow up: IV Status: Infusion continued upon transfer iw 02:45 Follow up: IV Status: Infusion continued upon transfer iw Outcome: 10/01 21:33 Decision to Hospitalize by Provider. cp 10/02 00:11 ER care complete, transfer ordered by MD. cp 02:38 Transferred by ground EMS to [facility], Transfer form completed. X-rays iw sent w/ patient. 02:38 Condition: stable 02:38 Discharge instructions given to family, , Tashia Mai was notified of POC by JOSÉ LUIS Perry, information passed on to judy at [facility] 02:59 Patient left the ED. iw Signatures: Dispatcher [facility] Nandini Ann ds1 Nara Javier, RN RN iw Mario Mai PA PA cp Corrections: (The following items were deleted from the chart) 10/01 20:01 19:40 BP 95 / 62; Pulse 148bpm; Resp 32bpm; Pulse Ox 91% RA; Temp 103.6F Rectal; iw iw 22:40 10:30 NS 0.9% 1000 ml IV at 1000 ml in left hand iw iw
--- NOTE | 2019-10-01 21:35 | EDPHYS ---
Physician Documentation [facility] Name: Farhat Maza Age: 39 yrs Sex: Male : 1980 Arrival Date: 10/01/2019 Time: 19:45 Bed 20 Private MD: ED Physician Montana Vu HPI: 10/01 19:55 This 39 yrs old Male presents to ER via EMS with complaints of Vomiting. cp 19:55 The patient presents to the emergency department with vomiting, that is intermittent. cp Onset: The symptoms/episode began/occurred 2 day(s) ago. Possible causes: unknown. 19:55 Unable to obtain HPI due to patient is in a persistent vegetative state. cp Historical: - Allergies: 20:24 Antihistamine; iw 20:24 Aspirin; iw 20:24 Demerol; iw 20:24 PENICILLINS; iw - Home Meds: 23:11 Acidophilus Oral cap daily [Active]; artificial tears(hypromellose) 0.4 % Opht drop iw twice a day [Active]; Dilantin-125 125 mg/5 mL Oral susp 5 mL every 6 hours [Active]; Ibuprofen Oral 3 times per day [Active]; lactulose 10 gram/15 mL (15 mL) Oral soln 15 mL nightly for constipation [Active]; Levaquin 500 mg Oral tab 1 tab once daily [Active]; oxybutynin chloride 5 mg Oral tab 2 times per day [Active]; Prilosec 20 mg Oral cpDR 1 cap once daily [Active]; tramadol 50 mg Oral tab three times a day [Active]; - PMHx: 21:55 Anoxic brain injury post suicide attempt; aspiration pneumonia; GERD; obstructive and iw reflux uropathy; Pneumonia; Seizures; upper and lower ext contractures; UTI; - Immunization history:: Adult Immunizations up to date. - Ebola Screening: : Patient negative for fever greater than or equal to 101.5 degrees Fahrenheit, and additional compatible Ebola Virus Disease symptoms Patient denies exposure to infectious person Patient denies travel to an Ebola-affected area in the 21 days before illness onset No symptoms or risks identified at this time. - Social history:: Smoking status: Patient/guardian denies using tobacco. ROS: 20:00 Constitutional: Positive for fever, poor PO intake. cp 20:00 Unable to obtain ROS due to patient is in a persistent vegetative state. cp Exam: 20:38 Constitutional: The patient appears alert, awake, non-diaphoretic, well developed, well cp nourished, obviously ill. 20:38 Head/Face: Normocephalic, atraumatic. cp 20:38 Eyes: Periorbital structures: appear normal, Pupils: equal, round, and reactive to light and accomodation, Conjunctiva: normal, no exudate, no injection, Sclera: no appreciated abnormality, Lids and lashes: appear normal, bilaterally. 20:38 ENT: External ear(s): are unremarkable, Nose: is normal, Mouth: Lips: dry, Oral mucosa: dry, Posterior pharynx: Airway: no evidence of obstruction, patent. 20:38 Neck: ROM/movement: Meningeal signs: are not present, nuchal rigidity, is not appreciated. 20:38 Chest/axilla: Inspection: normal, Palpation: is normal, no crepitus, no tenderness. 20:38 Cardiovascular: Rate: tachycardic, Rhythm: regular, Edema: is not appreciated, JVD: is not appreciated. 20:38 Respiratory: the patient does not display signs of respiratory distress, Respirations: normal, no use of accessory muscles, no retractions, no splinting, no tachypnea, labored breathing, is not present, Breath sounds: are clear throughout, no decreased breath sounds, no stridor, no wheezing. 20:38 Abdomen/GI: Inspection: abdomen appears normal, Bowel sounds: active, all quadrants, Palpation: abdomen is soft and non-tender, in all quadrants, rebound tenderness, is not appreciated, involuntary guarding, is not appreciated. 20:38 Musculoskeletal/extremity: Exam is negative for deformity, injury. 20:38 Skin: cellulitis, is not appreciated, no rash present. 20:38 Neuro: Orientation: unable to test, patient with history of anoxic brain injury, Mentation: unable to test, patient with history of anoxic brain injury, Motor: the patient is contracted. 20:40 ECG was reviewed by the Attending Physician. cp Vital Signs: 19:40 BP 95 / 62; Pulse 148; Resp 32; Temp 103.6(R); Pulse Ox 91% on R/A; Weight 72.57 kg (R);iw 20:28 BP 105 / 79; Pulse 125; Resp 30; Pulse Ox 93% on R/A; iw 21:50 BP 97 / 71; Pulse 133; Resp 29 S; Temp 101.1; Pulse Ox 92% on R/A; iw 22:15 BP 87 / 54; Pulse 130; Resp 30 S; Pulse Ox 91% on R/A; iw 22:30 BP 81 / 59; Pulse 128; Resp 30 S; Pulse Ox 91% on R/A; iw 22:51 BP 95 / 51; Pulse 124; Resp 24 S; Pulse Ox 91% on R/A; Pain 5/10; iw 23:51 BP 100 / 76; Pulse 116; Resp 24 S; Temp 99.0(R); Pulse Ox 93% on R/A; iw MDM: 19:56 Patient medically screened. 21:30 Data reviewed: vital signs, nurses notes, lab test result(s), EKG, radiologic studies, cp plain films. 23:20 Physician consultation: Torrey Andres MD was called at 23:00, was contacted at 23:00, regarding patient's condition, after a discussion of the case, a recommendation for transfer for higher level of care is made. 10/02 01:27 ED course: Spoke with Tashia Mai, patient's spouse, who approves transfer of patient to [facility]. . 10/01 19:46 Order name: Basic Metabolic Panel; Complete Time: 20:48 10/01 21:23 Interpretation: Normal except: CL 110; GLUC 124; BUN 23; GFR 86. 10/01 19:46 Order name: Blood Culture Adult (2) iw 10/01 19:46 Order name: CBC with Diff; Complete Time: 22:52 iw 10/01 22:52 Interpretation: Normal except: WBC 12.9; HGB 12.8; HCT 38.9; PLT 116; MPV 11.4. 10/01 19:46 Order name: Ckmb; Complete Time: 20:48 iw 10/01 19:46 Order name: CPK; Complete Time: 20:48 iw 10/01 19:46 Order name: Lactate; Complete Time: 20:48 10/01 22:53 Interpretation: Abnormal: LAC 2.8. 10/01 19:46 Order name: LFT's; Complete Time: 20:48 iw 10/01 22:53 Interpretation: Normal except: AST 54; ALT 90; ALK 233; BILID 0.3; ALB 2.8; GLOB 5.3; cp A/G 0.5. 10/01 19:46 Order name: Lipase; Complete Time: 20:48 iw 10/01 19:46 Order name: Procalcitonin; Complete Time: 20:48 iw 10/01 22:54 Interpretation: Abnormal: Procalcitonin 14.43. cp 10/01 19:46 Order name: Protime (+inr); Complete Time: 20:48 iw 10/01 19:46 Order name: Ptt, Activated; Complete Time: 20:48 iw 10/01 19:46 Order name: Troponin (emerg Dept Use Only); Complete Time: 20:48 10/01 19:46 Order name: Urine Microscopic Only; Complete Time: 21:23 iw 10/02 01:18 Interpretation: Normal except: UWBC TNTC; URBC TNTC; UBACT 20-50. 10/01 20:03 Order name: Flu; Complete Time: 21:23 10/01 19:46 Order name: Chest Single View XRAY; Complete Time: 20:48 10/01 20:55 Order name: CT Abd/Pelvis - IV Contrast Only 10/01 21:09 Order name: Manual Differential; Complete Time: 22:52 EDCA 10/01 22:53 Interpretation: Normal except: BANDS [F] 13; SEGS 81; LYM 2; META 1. cp 10/01 21:24 Order name: Urine Culture EDCA 10/01 22:17 Order name: CBC with Automated Diff EDCA 10/01 22:17 Order name: Comprehensive Metabolic Panel EDCA 10/01 22:17 Order name: Troponin I EDMS 10/02 00:41 Order name: Lactate Sepsis 2 HR Follow-up; Complete Time: 01:14 EDCA 10/01 19:46 Order name: Accucheck; Complete Time: 22:06 10/01 19:46 Order name: Cardiac monitoring; Complete Time: 22:06 10/01 19:46 Order name: EKG - Nurse/Tech; Complete Time: 20:37 10/01 19:46 Order name: IV Saline Lock - Large Bore; Complete Time: 22:06 10/01 19:46 Order name: Labs collected and sent; Complete Time: 22:06 10/01 19:46 Order name: O2 Per Protocol; Complete Time: 22:06 10/01 19:46 Order name: O2 Sat Monitoring; Complete Time: 22:06 10/01 19:46 Order name: Urine Dipstick-Ancillary (obtain specimen); Complete Time: 22:06 10/01 20:28 Order name: Labs - recollect needed: recollect CBC please. Not enough specimen in dm5 container; Complete Time: 20:52 10/01 22:16 Order name: CONS Pharmacy Consult EDMS EC/04 20:40 Rate is 133 beats/min. Rhythm is regular. AR interval is normal at 156 msec. QRS cp interval is normal. QT interval is normal. Interpreted by me. Reviewed by me. Administered Medications: 19:42 Drug: Tylenol Suppository 650 mg Route: AR; : Drug: NS 0.9% (30 ml/kg) 30 ml/kg Route: IV; Rate: bolus; Site: right hand; 20:30 Drug: Zofran 4 mg Route: IVP; Site: left hand; iw 22:05 Follow up: Response: No adverse reaction 20:30 Drug: ProTONIX 40 mg Route: IVP; Site: left hand; 22:05 Follow up: Response: No adverse reaction 20:40 Drug: Cefepime 2 grams Route: IVPB; Rate: 200 ml/hr; Infused Over: 30 mins; Site: left iw hand; 21:40 Follow up: IV Status: Completed infusion 21:50 Drug: vancoMYCIN 1 grams Route: IVPB; Infused Over: 2 hrs; Site: left hand; 22:30 Drug: Motrin 600 mg Route: PO; 10/02 01:00 Follow up: Response: No adverse reaction 10/01 22:30 Drug: NS 0.9% 1000 ml Route: IV; Rate: 1000 ml; Site: left hand; 10/02 00:12 Drug: fentaNYL (PF) 25 mcg Route: IVP; Site: left hand; iw 02:00 Follow up: Response: No adverse reaction; Pain is decreased :19 Drug: NS 0.9% 1000 ml Route: IV; Rate: 125 ml/hr; Site: right hand; iw 02:25 Follow up: IV Status: Infusion continued upon transfer iw 02:45 Follow up: IV Status: Infusion continued upon transfer iw Disposition: 03:00 Chart complete. cp 07:04 Co-signature as Attending Physician, Montana Vu MD I agree with the assessment and ps1 plan of care. Disposition: 10/02/19 00:11 Transfer ordered to [facility]. Diagnosis is Other sepsis. - Reason for transfer: Higher level of care. - Accepting physician is MR Ventura. - Condition is Critical. - Problem is new. - Symptoms have improved. Critical care time excluding procedures: 00:20 Critical care time: Bedside Care: 25 minutes, Consultation: 10 minutes, Family cp Intervention: 5 minutes. Total time: 40 minutes Signatures: Dispatcher [employer] Cammie Rutledge, RN RN dm5 Nara Javier RN RN iw Mario Mai PA PA Daren Sutton RN RN ja1 Montana Vu MD MD ps1 Corrections: (The following items were deleted from the chart) 10/01 21:14 19:59 Cardenas ordered. cp iw 10/02 00:08 10/01 21:33 Hospitalization Ordered by Torrey Andres MD for Inpatient Admission. ja1 Preliminary diagnosis is Other sepsis. Bed requested for Telemetry/MedSurg (Inpatient). Status is Inpatient Admission. Condition is Stable. Problem is new. Symptoms have improved. UTI on Admission? No. cp 10/02 00:10 00:08 10/01/2019 21:33 Hospitalization Ordered by Torrey Andres MD for Inpatient cp Admission. Preliminary diagnosis is Other sepsis. Bed requested for Telemetry/MedSurg (Inpatient). Status is Inpatient Admission. Condition is Stable. Problem is new. Symptoms have improved. UTI on Admission? No. ja1 : 00:11 10/02/2019 00:11 Transfer ordered to [facility]. Diagnosis is cp Other sepsis. Reason for transfer: Higher level of care. Accepting physician is doctor. Condition is Critical. Problem is new. Symptoms have improved. cp :24 10:10/02/2019 00:11 Transfer ordered to [facility]. Diagnosis is cp Other sepsis. Reason for transfer: Higher level of care. Accepting physician is doctor. Condition is Critical. Problem is new. Symptoms have improved. cp 02:59 01:10/02/2019 00:11 Transfer ordered to [facility]. Diagnosis is iw Other sepsis. Reason for transfer: Higher level of care. Accepting physician is MR Ventura. Condition is Critical. Problem is new. Symptoms have improved. cp
[2019-10-01 21:58] LABS: Blood Morphology Comment NOT SEEN (NOT SEEN); Platelet Estimate ADEQ
[2019-10-01] MEDS ORDERED: ONDANSETRON 4 MG/2 ML VIAL IV PRN (22:04)
[2019-10-01] MEDS ORDERED: MORPHINE 2 MG/ML SYR IV PRN (22:04)
[2019-10-01] MEDS ORDERED: ACETAMINOPHEN 500 MG TAB PO PRN (22:04)
[2019-10-01] MEDS ORDERED: IBUPROFEN 200 MG TAB PO ONE (22:26)
[2019-10-01] MEDS ORDERED: NA CHLORIDE 0.9% 1,000 ML IV SCH (23:00)
[2019-10-02] MEDS ORDERED: FENTANYL CITR 100 MCG/2 ML ONE
[2019-10-02] MEDS ORDERED: NA CHLORIDE 0.9% 1,000 ML ONE (01:15)
[2019-10-02 03:23] VITALS: BP 100/76; TEMP 99; O2SAT 93
--- NOTE | 2019-10-02 12:48 | EKG ---
Test Date: 2019-10-01 Test Time: 20:32:37 Inventory Control Assistant: ROME MEASUREMENT RESULTS: Intervals: Rate: 133 OK: 156 QRSD: 80 QT: 288 QTc: 428 [place]: P: 87 OK: 156 QRS: 111 T: 59 INTERPRETIVE STATEMENTS: Sinus tachycardia Possible Right ventricular hypertrophy Abnormal ECG Compared to ECG 04/24/2018 00:39:14 Right-axis deviation no longer present Electronically Signed On 10-02-19 12:47:30 ACADEMIC COMPUTING DIRECTOR by Melvin Díaz
--- NOTE | 2019-10-03 11:45 | RAD REPORT ---
EXAM DESCRIPTION: Abdomen Pelvis W Contrast CLINICAL HISTORY: 39 years Male vomiting COMPARISON: None TECHNIQUE: Images were obtained in axial, and coronal planes. Intravenous contrast was administered. This exam was performed according to our departmental dose-optimization program which includes use of Automated Exposure Control, adjustment of the mA and/or kV according to patient size and/or use of i terative reconstruction technique. FINDINGS: 2.8 x 1.7 x 2.1 cm staghorn calculus right kidney with associated moderate right hydroneph rosis. Multiple additional subcentimeter calyceal calcifications seen. No obstructing renal calcifica tions on left. No hydronephrosis on left. Cardenas catheter balloon is seen within the bladder. Bladder is decompressed. No abnormality involving the liver. Distended bowel loops are seen adjacent to the anterior right lob e of the liver. Spleen is enlarged measuring 14.8 cm in greatest dimension. Unremarkable pancreas and adrenal glands bilaterally. Contracted gallbladder. Cecum is identified within the mid right abdomen. Appendix within normal limits. No bowel obstruction or perforation. Markedly distended transverse and right colon. Abnormal mucosal thickening involving the splenic flexure is questioned. Airspace attenuation lower lobes bilaterally consistent with infiltrate and atelectatic change right greater than left. 1.1 cm ill-defined nodule anterior right lower lobe. No acute osseous abnormality. Flexion contractures. IMPRESSION: 2.8 cm staghorn calculus right renal pelvis with associated moderate right hydronephrosi s. Additional subcentimeter calyceal calcifications present on right. Marked distention right and transverse colon with possible abnormal mucosal thickening in region of s plenic flexure. Direct visualization suggested for further characterization. Developing bowel obstruc tion related to this finding is questioned. Splenomegaly. 1.1 cm ill-defined nodular lesion right lower lobe. Comparison with prior imaging studies would be fofana ggested to confirm stability. Electronically signed by: Maribell Antonio MD 10/01/2019 10:25 PM HEAD FIELD HOCKEY COACH Due to temporary technical issues with the PACS/Fluency reporting system, reports are being signed by the in house radiologist as a courtesy to ensure prompt reporting. The interpreting radiologist is f ully responsible for the content of the report.
== END 2019-10-02 02:59 | disposition short-term general hospital (02) ==
LOC: ER 19:43 → ERHOLD 22:24 → UNDOADMOB 22:24 → ER 10-02 02:59
DX: A41.89 Other specified sepsis (principal); K21.9 Gastro-esophageal reflux disease without esophagitis; G40.909 Epilepsy, unspecified, not intractable, without status epilepticus; Z87.820 Personal history of traumatic brain injury; Z88.0 Allergy status to penicillin; Z88.5 Allergy status to narcotic agent; Z88.6 Allergy status to analgesic agent; Z88.8 Allergy status to other drugs, medicaments and biological substances
CPT/HCPCS: 96365; 96361; 93005; 87040 ×2; 87088; 85025; 87086; 80048; 36415; 82550; 87205 ×4; 85610; 80076; 83605 ×2; 85730; 87077 ×3; 87186 ×3; 81015; 84484; 82553; 83690; 84145; 87804 ×2; 74177; 71045; 96375; 99285; Q9967; C9113; J3010; J0692; J7030 ×4; J2405

== ENCOUNTER 2019-10-17 16:22 | Emergency (ER) | payer OTHER ==
--- OUTSIDE RECORDS SUMMARY | 2019-10-17 16:25 | XMS REPORT ---
:1980 Author Organization [facility] Address [address] [place] [address] [address] [place] [address] Care Team Providers Name Role Phone Unavailable Unavailable Unavailable Problems This patient has no known problems. Allergies, Adverse Reactions, Alerts This patient has no known allergies or adverse reactions. Medications This patient has no known medications.
[2019-10-17] MEDS ORDERED: NA CHLORIDE 0.9% 500 ML ONE (17:19)
[2019-10-17] MEDS ORDERED: CLINDAMYCIN 600MG/D5W 600 MG/50 ML BAG IV ONE (17:19)
[2019-10-17 17:39] LABS: Absolute Lymphocytes (CBC) 1.7 K/uL (0.7-4.9); Basophils % 0.9 % (0-1.3); Hematocrit 43.7 % (39.6-49.0); Lymphocytes % 16.6 % (15.3-44.8); MPV 10.6 fL (7.6-11.3)
[2019-10-17 17:53] LABS: ALT/SGPT 101 U/L (12-78); AST/SGOT 47 U/L (15-37); Albumin 3.3 g/dL (3.4-5.0); Alkaline Phosphatase 202 U/L (45-117); BUN Blood Urea Nitrogen 11 mg/dL (7-18); Bicarbonate 28 mmol/L (21-32); Bilirubin Total 0.4 mg/dL (0.2-1.0); Glucose Level 90 mg/dL (74-106); Potassium 3.8 mmol/L (3.5-5.1); Protein, Total 8.9 g/dL (6.4-8.2); Sodium Level 137 mmol/L (136-145)
--- NOTE | 2019-10-17 17:57 | RAD REPORT ---
EXAM DESCRIPTION: RAD - Hand Right 2 View - 10/17/2019 5:23 pm CLINICAL HISTORY: Right hand pain and swelling FINDINGS: Single view obtained. Marked flexion deformity present. Osteoporosis No gross fracture.. No gross bony destructive lesions seen
--- NOTE | 2019-10-17 18:03 | ER ---
Nurse's Notes [facility] Name: Farhat Maza Age: 39 yrs Sex: Male : 1980 Arrival Date: 10/17/2019 Time: 16:24 Bed 19 Private MD: Diagnosis: Cellulitis and acute lymphangitis of other parts of limb-right hand Presentation: 10/17 16:24 Presenting complaint: EMS states: he was here admitted here last time and IV in the mg2 right hand was infiltrated. 5 days ago, his right hand became infected and necrotic. BGL- 91 mg/dl. Transition of care: patient was received from another setting of care (long-term care facility), [facility]. Onset of symptoms was September 2019. Risk Assessment: Do you want to hurt yourself or someone else? Patient reports no desire to harm self or others. Care prior to arrival: None. 16:24 Method Of Arrival: EMS: [facility] mg2 16:24 Acuity: JOSEPH 3 mg2 Triage Assessment: 16:30 General: Appears distressed, Behavior is MINIMALLY RESPONSIVE AT BASELINE, AOx0, bp NON-VERBAL. Pain: Unable to use pain scale. Does not appear to understand pain scale. EENT: No deficits noted. Neuro: Level of Consciousness is AT BASELINE. Cardiovascular: No deficits noted. Respiratory: No deficits noted. GI: No signs and/or symptoms were reported involving the gastrointestinal system. : No signs and/or symptoms were reported regarding the genitourinary system. suprapubic catheter in place. Derm: No deficits noted. Musculoskeletal: CONTRACTIONS IN ALL EXTREMITIES. Historical: - Allergies: 16:28 Antihistamine; mg2 16:28 Aspirin; mg2 16:28 Demerol; mg2 16:28 PENICILLINS; mg2 - PMHx: 16:28 Anoxic brain injury post suicide attempt; aspiration pneumonia; GERD; obstructive and mg2 reflux uropathy; Pneumonia; Seizures; upper and lower ext contractures; UTI; - Immunization history:: Flu vaccine status is unknown. - Social history:: Smoking status: unknown Patient/guardian denies using alcohol, street drugs, The patient lives with family. - Ebola Screening: : No symptoms or risks identified at this time. - Family history:: not pertinent. Screenin:30 Abuse screen: Denies threats or abuse. Denies injuries from another. Nutritional bp screening: No deficits noted. Tuberculosis screening: No symptoms or risk factors identified. Fall Risk None identified. Assessment: 16:30 General: SEE TRIAGE NOTE. bp 17:23 Reassessment: BLOOD CX x2 COMPLETED. IV ABX INFUSING. bp 18:06 Reassessment: D/C ON HOLD FOR IVF COMPLETION. PT CLEARED FOR RETURN WITH PLASTICS/HAND bp C/S. 18:22 Reassessment: REPORT TO JUN[facility] AT [facility]. TRANSPORT PENDING. bp 19:15 Reassessment: Patient appears in no apparent distress at this time. Patient and/or hb family updated on plan of care and expected duration. Pain level reassessed. 19:39 Reassessment: June at [facility] reports EMS transport should be here at 2030. hb 21:12 Reassessment: EMS transport has note shown up yet so I called [facility] and spoke with subhash Olmos who stated that Ty would be here within the hour. I told her I would call her back if we did not see them by 2200. Vital Signs: 16:26 BP 121 / 79; Pulse 110; Resp 18; Temp 99.8(A); Pulse Ox 95% on R/A; mg2 17:22 BP 111 / 73; Pulse 104; Resp 16; Pulse Ox 94% ; bp 18:07 BP 116 / 68; Pulse 108; Resp 17; Pulse Ox 95% ; bp 19:15 BP 102 / 69; Pulse 106; Resp 20; Pulse Ox 94% on R/A; hb 20:15 BP 108 / 72; Pulse 104; Resp 19; Pulse Ox 93% on R/A; hb 21:30 BP 114 / 76; Pulse 108; Resp 18; Pulse Ox 95% on R/A; hb ED Course: 16:24 Patient arrived in ED. mg2 16:25 Jair Alvarado, RN is Primary Nurse. bp 16:26 Triage completed. mg2 16:28 Arm band placed on. mg2 16:30 Patient has correct armband on for positive identification. Bed in low position. Call bp light in reach. Side rails up X2. 16:31 Torrey Borrego MD is Attending Physician. ma2 16:49 First set of blood cultures drawn by me. Inserted saline lock: 24 gauge in left hand, dh3 using aseptic technique. Blood collected. 17:04 Initial lab(s) drawn, by me, sent to lab. 3 17:04 Second set of blood cultures drawn by ia. dh3 17:23 Hand Right 2 View In Process Unspecified. EDMS 18:02 Britton Talbot MD is Referral Physician. ma2 Administered Medications: 16:50 Drug: Clindamycin 600 mg Route: IVPB; Infused Over: 30 mins; Site: left hand; bp 18:23 Follow up: IV Status: Completed infusion; IV Intake: 50ml bp 16:50 Drug: NS 0.9% 1000 ml Route: IV; Rate: 1 bolus; Site: left hand; bp 18:23 Follow up: IV Status: Completed infusion; IV Intake: 1000ml bp Intake: 18:23 IV: 50ml; Total: 50ml. bp 18:23 IV: 1000ml; Total: 1050ml. bp Outcome: 18:02 Discharge ordered by . [email or web address] 22:13 Patient left the ED. Signatures: Dispatcher [employer] [facility] Cammie Lanier RN RN dm5 Dasha Caldera RN RN Zoe Torre [facility] Jair Alvarado RN RN bp Torrey Borrego MD MD ohEarnest Hendrickson, RN RN mg2
--- NOTE | 2019-10-17 18:03 | EDPHYS ---
Physician Documentation [facility] Name: Farhat Maza Age: 39 yrs Sex: Male : 1980 Arrival Date: 10/17/2019 Time: 16:24 Bed 19 Private MD: ED Physician Torrey Borrego HPI: 10/17 17:56 This 39 yrs old Male presents to ER via EMS with complaints of hand infection.ma2 17:56 The patient or guardian reports a rash. The complaints affect the right hand diffusely. ma2 Onset: The symptoms/episode began/occurred gradually, 2 day(s) ago. Associated signs and symptoms: Pertinent negatives: fever, numbness distally, tingling distally. Severity of symptoms: At their worst the symptoms were moderate, in the emergency department the symptoms are unchanged. right hand infection s/p iv insertion 2 days ago . Historical: - Allergies: 16:28 Antihistamine; mg2 16:28 Aspirin; mg2 16:28 Demerol; mg2 16:28 PENICILLINS; mg2 - PMHx: 16:28 Anoxic brain injury post suicide attempt; aspiration pneumonia; GERD; obstructive and mg2 reflux uropathy; Pneumonia; Seizures; upper and lower ext contractures; UTI; - Immunization history:: Flu vaccine status is unknown. - Social history:: Smoking status: unknown Patient/guardian denies using alcohol, street drugs, The patient lives with family. - Ebola Screening: : No symptoms or risks identified at this time. - Family history:: not pertinent. ROS: 17:56 Constitutional: Negative for fever, chills, and weight loss. ma2 17:56 Unable to obtain ROS due to baseline dementia. Exam: 17:56 Constitutional: This is a well developed, well nourished patient who is awake, alert, ma2 and in no acute distress. Chest/axilla: Normal chest wall appearance and motion. Nontender with no deformity. No lesions are appreciated. Cardiovascular: Regular rate and rhythm with a normal S1 and S2. No gallops, murmurs, or rubs. Normal PMI, no JVD. No pulse deficits. Respiratory: Lungs have equal breath sounds bilaterally, clear to auscultation and percussion. No rales, rhonchi or wheezes noted. No increased work of breathing, no retractions or nasal flaring. Skin: Warm, dry with normal turgor. Normal color with no rashes, no lesions, and no evidence of cellulitis. MS/ Extremity: cellulitis of dorsal aspect of right hand measuring 3x3cm no abscess, no crepitations, with open woun, otherwise Pulses equal, no cyanosis. Neurovascular intact. Full, normal range of motion. Neuro: Awake and alert, GCS 15, oriented to person, place, time, and situation. Cranial nerves II-XII grossly intact. Motor strength 5/5 in all extremities. Sensory grossly intact. Cerebellar exam normal. Normal gait. Vital Signs: 16:26 BP 121 / 79; Pulse 110; Resp 18; Temp 99.8(A); Pulse Ox 95% on R/A; mg2 17:22 BP 111 / 73; Pulse 104; Resp 16; Pulse Ox 94% ; bp 18:07 BP 116 / 68; Pulse 108; Resp 17; Pulse Ox 95% ; bp 19:15 BP 102 / 69; Pulse 106; Resp 20; Pulse Ox 94% on R/A; hb 20:15 BP 108 / 72; Pulse 104; Resp 19; Pulse Ox 93% on R/A; hb 21:30 BP 114 / 76; Pulse 108; Resp 18; Pulse Ox 95% on R/A; hb MDM: 16:31 Patient medically screened. ma2 17:56 Differential diagnosis: open fracture, closed fracture, contusion, tendonitis. Data ma2 reviewed: vital signs, nurses notes. Counseling: I had a detailed discussion with the patient and/or guardian regarding: the historical points, exam findings, and any diagnostic results supporting the discharge/admit diagnosis, the presence of at least one elevated blood pressure reading (>120/80) during this emergency department visit, the need for outpatient follow up. Response to treatment: the patient's symptoms have markedly improved after treatment. ED course: hr is 104 bpm however no other component of sirs, wbc wnl, given iv abx, he needs wound care anad f/u with hand surgeon in 2 days . 10/17 16:32 Order name: CBC with Diff; Complete Time: 17:56 nd2 10/17 16:32 Order name: CMP; Complete Time: 17:56 [facility] 10/17 16:36 Order name: Lactate; Complete Time: 17:56 [facility] 01/20 16:36 Order name: Blood Culture Adult (2) nd2 10/17 17:13 Order name: Hand Right 2 View; Complete Time: 18:01 EDRI 10/17 18:02 Order name: Dressing - Wound; Complete Time: 18:19 ma2 Administered Medications: 16:50 Drug: Clindamycin 600 mg Route: IVPB; Infused Over: 30 mins; Site: left hand; bp 18:23 Follow up: IV Status: Completed infusion; IV Intake: 50ml bp 16:50 Drug: NS 0.9% 1000 ml Route: IV; Rate: 1 bolus; Site: left hand; bp 18:23 Follow up: IV Status: Completed infusion; IV Intake: 1000ml bp Disposition: 10/17/19 18:02 Discharged to Home. Impression: Cellulitis and acute lymphangitis of other parts of limb - right hand . - Condition is Stable. - Discharge Instructions: Cellulitis, Adult. - Prescriptions for Clindamycin HCl 300 mg Oral Capsule - take 1 capsule by ORAL route every 6 hours for 10 days; 40 capsule. Tylenol- Codeine #3 300-30 mg Oral Tablet - take 2 tablet by ORAL route every 6 hours As needed; 30 tablet. - Medication Reconciliation Form, Thank You Letter, Antibiotic Education, Prescription Opioid Use form. - Follow up: Britton Talbot; When: Tomorrow; Reason: Continuance of care. - Notes: follow up with plastic surgery and daily wound care Signatures: Dispatcher [employer] EDMS Dasha Caldera RN RN hb Jair Alvarado RN RN bp Torrey Borrego MD MD [facility] Earnest Fish RN RN mg2 Corrections: (The following items were deleted from the chart) 17:13 16:39 Hand Right 3 View+RAD.RAD.BRZ ordered. EDRI EDRI 22:13 18:02 10/17/2019 18:02 Discharged to Home. Impression: Cellulitis and acute hb lymphangitis of other parts of limb - right hand . Condition is Stable. Discharge Instructions: Cellulitis, Adult. Prescriptions for Clindamycin HCl 300 mg Oral Capsule - take 1 capsule by ORAL route every 6 hours for 10 days; 40 capsule, Tylenol-Codeine #3 300-30 mg Oral Tablet - take 2 tablet by ORAL route every 6 hours As needed; 30 tablet. and Forms are Medication Reconciliation Form, Thank You Letter, Antibiotic Education, Prescription Opioid Use. Follow up: Britton Talbot; When: Tomorrow; Reason: Continuance of care. ma2
[2019-10-17] MEDS ORDERED: DIAZEPAM 10 MG/2 ML INJ SYRINGE ONE (18:12)
[2019-10-18 02:25] VITALS: BP 114/76; O2SAT 95
== END 2019-10-17 22:13 | disposition home or self-care (01) ==
LOC: ER 16:22
DX: L03.113 Cellulitis of right upper limb (principal); L03.123 Acute lymphangitis of right upper limb; Z88.0 Allergy status to penicillin; Z88.5 Allergy status to narcotic agent; Z88.6 Allergy status to analgesic agent; Z88.8 Allergy status to other drugs, medicaments and biological substances
CPT/HCPCS: 96365; 87040 ×2; 85025; 36415; 83605; 80053; 73120; 99284; 96366; J3360; J7040

== ENCOUNTER 2019-10-28 21:55 | Emergency (ER) | payer OTHER ==
--- OUTSIDE RECORDS SUMMARY | 2019-10-28 21:57 | XMS REPORT ---
:1980 [facility] Address [address] [place] [address] Dr. [address] [place] [address] Care Team Providers Name Role Phone Unavailable Unavailable Unavailable Problems This patient has no known problems. Allergies, Adverse Reactions, Alerts This patient has no known allergies or adverse reactions. Medications This patient has no known medications.
--- NOTE | 2019-10-28 22:51 | EDPHYS ---
Physician Documentation [facility] Name: Farhta Maza Age: 39 yrs Sex: Male : 1980 Arrival Date: 10/28/2019 Time: 21:57 Bed 8 Private MD: ED Physician Pan Low HPI: 10/28 22:32 This 39 yrs old Male presents to ER via EMS with complaints of Nephrostomy kdr Tube came out. 22:32 [facility]. The kdr patient has anoxic brain injury and is unable to give a history. According to the [facility], the last time this happened, we transferred the patient to [facility] and then he was transferred to [facility] where the issues was addressed and then [facility] was [facility] to the [facility] Onset: The symptoms/episode began/occurred suddenly, just prior to arrival. Severity of symptoms: At their worst the symptoms were mild in the emergency department the symptoms are unchanged. The patient has not experienced similar symptoms in the past. The patient has not recently seen a physician. Historical: - Allergies: 22:04 Antihistamine; jd3 22:04 Aspirin; jd3 22:04 Demerol; jd3 22:04 PENICILLINS; jd3 - Home Meds: 22:04 Acidophilus Oral cap daily [Active]; artificial tears(hypromellose) 0.4 % Opht drop jd3 twice a day [Active]; Dilantin-125 125 mg/5 mL Oral susp 6 mL every 8 hours for epilepsy [Active]; Dilantin-125 125 mg/5 mL Oral susp 5 mL every 6 hours [Active]; Ibuprofen Oral [Active]; Ibuprofen Oral 3 times per day [Active]; lactulose 10 gram/15 mL (15 mL) Oral soln 15 mL nightly for constipation [Active]; Levaquin 500 mg Oral tab 1 tab once daily [Active]; oxybutynin chloride 5 mg Oral tab 2 times per day [Active]; Pepcid 20 mg Oral tab 1 tab once daily for Gastroesophageal reflux [Active]; Prilosec 20 mg Oral cpDR 1 cap once daily [Active]; tramadol 50 mg Oral tab 1 tab every 8 hours prn pain [Active]; tramadol 50 mg Oral tab three times a day [Active]; - PMHx: 22:04 Anoxic brain injury post suicide attempt; obstructive and reflux uropathy; Seizures; jd3 GERD; upper and lower ext contractures; Pneumonia; aspiration pneumonia; UTI; - PSHx: 22:04 nephrostomy tube; jd3 - Immunization history:: Adult Immunizations up to date. - Coronavirus screen:: The patient has NOT traveled to [place], [place], or [place] in the past 14 days. The patient has NOT had contact with known/suspected case of Coronavirus? Proceed with normal triage procedures. - Social history:: Smoking status: Patient denies any tobacco usage or history of. - Ebola Screening: : Patient negative for fever greater than or equal to 101.5 degrees Fahrenheit, and additional compatible Ebola Virus Disease symptoms. ROS: 22:32 Constitutional: Unable to give a history due to anoxic brain injury kdr Exam: 22:32 Constitutional: This is a well developed, poorly nourished patient who is in no acute kdr distress - clearly he has a prior annoxic brain injury Head/Face: Normocephalic, atraumatic. Respiratory: Lungs have equal breath sounds bilaterally, clear to auscultation and percussion. No rales, rhonchi or wheezes noted. No increased work of breathing, no retractions or nasal flaring. Abdomen/GI: Soft, non-tender, with normal bowel sounds. No distension or tympany. No guarding or rebound. No evidence of tenderness throughout. Skin: Warm, dry with normal turgor. Normal color with no rashes, no lesions, and no evidence of cellulitis. There is a wound on the right flank which appears to be the site of the prior nephrostomy tube. There is no bleeding or discharge currently from the wound. There is a small amount of blood on the dressing though. Vital Signs: 22:04 BP 100 / 53; Pulse 66; Resp 16 S; Temp 97.8(TE); Pulse Ox 97% on R/A; Weight 49.9 kg jd3 (R); Pain 00/10; 10/29 00:00 BP 114 / 75; Pulse 100; Resp 17 S; Pulse Ox 97% on R/A; jd3 01:22 BP 101 / 71; Pulse 100; Resp 17 S; Pulse Ox 100% on R/A; jd3 10/28 22:04 Kathryn (FACES) jd3 MDM: 01/31 22:32 Data reviewed: vital signs, nurses notes, lab test result(s). Counseling: I had a kdr detailed discussion with the patient and/or guardian regarding: the historical points, exam findings, and any diagnostic results supporting the discharge/admit diagnosis, lab results, the need to transfer to another facility. Physician consultation: Alfa Zavala MD regarding consult, patient's condition, after a discussion of the case, a recommendation for transfer for higher level of care is made. 22:41 Patient medically screened. kdr 10/28 22:27 Order name: CBC with Diff; Complete Time: 23:38 kdr 10/28 22:27 Order name: Chem 7; Complete Time: 23:38 kdr Administered Medications: No medications were administered Disposition: 10/28/19 22:41 Transfer ordered to [facility]. Diagnosis is Nephrostomy Tube Dispalcement, Anoxic Brain injury. - Reason for transfer: Higher level of care. - Accepting physician is SHAUN: Cayla. - Condition is Fair. - Problem is new. - Symptoms are unchanged. Signatures: Dispatcher [employer] EDMS Pan Low MD MD [facility] Alex Hsieh RN RN jd3 Corrections: (The following items were deleted from the chart) 10/29 01:09 10/28 22:41 10/28/2019 22:41 Transfer ordered to [facility]. Diagnosis is kdr Nephrostomy Tube Dispalcement, Anoxic Brain injury. Reason for transfer: Higher level of care. Accepting physician is [facility]. Condition is Fair. Problem is new. Symptoms are unchanged. kdr 10/29 02:02 01:10/28/2019 22:41 Transfer ordered to [facility]. Diagnosis is Nephrostomy jd3 Tube Dispalcement, Anoxic Brain injury. Reason for transfer: Higher level of care. Accepting physician is [facility]: Cayla. Condition is Fair. Problem is new. Symptoms are unchanged. kdr
--- NOTE | 2019-10-28 22:51 | ER ---
Nurse's Notes [facility] Name: Farhat Maza Age: 39 yrs Sex: Male : 1980 Arrival Date: 10/28/2019 Time: 21:57 Bed 8 Private MD: Diagnosis: Nephrostomy Tube Dispalcement, Anoxic Brain injury Presentation: 10/28 21:59 Presenting complaint: EMS states: "[facility] had sat him up in a jd3 bariatric chair when he slipped a little pulling out his nephrostomy tube.". Transition of care: patient was received from another setting of care ([facility]), [place]. Onset of symptoms was October 28, 2019. Risk Assessment: Do you want to hurt yourself or someone else? Patient reports no desire to harm self or others. Initial Sepsis Screen: Does the patient meet any 2 criteria? No. Patient's initial sepsis screen is negative. Does the patient have a suspected source of infection? No. Patient's initial sepsis screen is negative. Care prior to arrival: None. 21:59 Method Of Arrival: EMS: [facility] jd3 21:59 Acuity: JOSEPH 3 jd3 Historical: - Allergies: 22:04 Antihistamine; jd3 22:04 Aspirin; jd3 22:04 Demerol; jd3 22:04 PENICILLINS; jd3 - Home Meds: 22:04 Acidophilus Oral cap daily [Active]; artificial tears(hypromellose) 0.4 % Opht drop jd3 twice a day [Active]; Dilantin-125 125 mg/5 mL Oral susp 6 mL every 8 hours for epilepsy [Active]; Dilantin-125 125 mg/5 mL Oral susp 5 mL every 6 hours [Active]; Ibuprofen Oral [Active]; Ibuprofen Oral 3 times per day [Active]; lactulose 10 gram/15 mL (15 mL) Oral soln 15 mL nightly for constipation [Active]; Levaquin 500 mg Oral tab 1 tab once daily [Active]; oxybutynin chloride 5 mg Oral tab 2 times per day [Active]; Pepcid 20 mg Oral tab 1 tab once daily for Gastroesophageal reflux [Active]; Prilosec 20 mg Oral cpDR 1 cap once daily [Active]; tramadol 50 mg Oral tab 1 tab every 8 hours prn pain [Active]; tramadol 50 mg Oral tab three times a day [Active]; - PMHx: 22:04 Anoxic brain injury post suicide attempt; obstructive and reflux uropathy; Seizures; jd3 GERD; upper and lower ext contractures; Pneumonia; aspiration pneumonia; UTI; - PSHx: 22:04 nephrostomy tube; jd3 - Immunization history:: Adult Immunizations up to date. - Coronavirus screen:: The patient has NOT traveled to [place], [place], or [place] in the past 14 days. The patient has NOT had contact with known/suspected case of Coronavirus? Proceed with normal triage procedures. - Social history:: Smoking status: Patient denies any tobacco usage or history of. - Ebola Screening: : Patient negative for fever greater than or equal to 101.5 degrees Fahrenheit, and additional compatible Ebola Virus Disease symptoms. Screenin:08 Abuse screen: no signs of abuse noted. Nutritional screening: No deficits noted. jd3 Tuberculosis screening: No symptoms or risk factors identified. Fall Risk Secondary diagnosis (15 points) impaired mobility, Ambulatory Aid- None/Bed Rest/Nurse Assist (0 pts). Gait- Normal/Bed Rest/Wheelchair (0 pts) Mental Status- Overestimates/Forgets Limitations (15 pts.). Total Bejarano Fall Scale indicates Low Risk Score (25-44 pts). Fall prevention measures have been instituted. Side Rails Up X 2 Placed close to Nursing Station Frequent Obs/Assesments occuring. Assessment: 22:05 General: Appears in no apparent distress. comfortable, Behavior is quiet, [place] jd3 reporting a dislodged nephrostomy tube. Pain: Unable to use pain scale. Does not appear to understand pain scale. FLACC scale score is 0 out of 10. Neuro: Level of Consciousness is awake, Oriented to none. Cardiovascular: Capillary refill < 3 seconds Patient's skin is warm and dry. Respiratory: Airway is patent Respiratory effort is even, unlabored, Respiratory pattern is regular, symmetrical. GI: No signs and/or symptoms were reported involving the gastrointestinal system. Abdomen is round non-distended, PEG tube in place, Site clean. : No signs and/or symptoms were reported regarding the genitourinary system. super pubic catheter noted in placed. EENT: No signs and/or symptoms were reported regarding the EENT system. Derm: Skin is intact, Skin is dry, Skin is normal, Skin temperature is warm. Musculoskeletal: Range of motion: pt with contractures. 10/29 00:00 Reassessment: Patient appears in no apparent distress at this time. No changes from jd3 previously documented assessment. Patient and/or family updated on plan of care and expected duration. Pain level reassessed. 01:22 Reassessment: Patient appears in no apparent distress at this time. No changes from jd3 previously documented assessment. Patient and/or family updated on plan of care and expected duration. Pain level reassessed. 01:40 Reassessment: report given to Ling CARVAJAL at [facility]. awaiting transfer. pt resting jd3 in bed with eyes closed, even and unlabored respirations. no distress noted at this time. IV in place with no redness or swelling noted at this time. 02:00 Reassessment: Patient appears in no apparent distress at this time. No changes from jd3 previously documented assessment. Patient and/or family updated on plan of care and expected duration. Pain level reassessed. report given to EMS. Vital Signs: 10/28 22:04 BP 100 / 53; Pulse 66; Resp 16 S; Temp 97.8(TE); Pulse Ox 97% on R/A; Weight 49.9 kg jd3 (R); Pain 00/10; 10/29 00:00 BP 114 / 75; Pulse 100; Resp 17 S; Pulse Ox 97% on R/A; jd3 01:22 BP 101 / 71; Pulse 100; Resp 17 S; Pulse Ox 100% on R/A; jd3 10/28 22:04 Kathryn (FACES) [facility] ED Course: 10/28 21:55 Pan Low MD is Attending Physician. kdr 21:57 Patient arrived in ED. cf2 21:59 Alex Hsieh, ALENA is Primary Nurse. jd3 22:01 Triage completed. jd3 22:05 Arm band placed on. jd3 22:08 Patient has correct armband on for positive identification. Bed in low position. Call j light in reach. Side rails up X2. Warm blanket given. 23:06 Accessed peripheral vein via ultrasound, utilizing dynamic ultrasound technique using bb per hospital protocol. Good blood return. Flushes easily. 20g 8 cm propower glide. 23:08 Initial lab(s) drawn, by me, sent to lab. bb 10/29 02:01 No provider procedures requiring assistance completed. Patient admitted, IV remains in jd3 place. Administered Medications: No medications were administered Outcome: 10/28 22:41 ER care complete, transfer ordered by . kdr 10/29 02:01 Transferred by ground EMS to [facility], Transfer form jd3 completed. Condition: stable Instructed on the need for transfer. 02:02 Patient left the ED. jd3 Signatures: Pan Low MD MD kdr Ree Townsend RN RN bb Alex Hsieh RN RN jNoble Keen cf2 Corrections: (The following items were deleted from the chart) 10/28 22:08 21:59 Transition of care: patient was not received from another setting of care. jd3 jd3 22: 22:08 Abuse screen: Denies threats or abuse. jd3 jd3 : 22:05 GI: No signs and/or symptoms were reported involving the gastrointestinal system. jd3 Abdomen is round non-distended, j : 22:05 : No signs and/or symptoms were reported regarding the genitourinary system. [id number]
[2019-10-28 23:17] LABS: Absolute Lymphocytes (CBC) 1.9 K/uL (0.7-4.9); Basophils % 0.9 % (0-1.3); Hematocrit 43.1 % (39.6-49.0); MPV 11.6 fL (7.6-11.3); RBC Red Blood Cell Count 4.97 M/uL (4.33-5.43)
[2019-10-28 23:29] LABS: BUN Blood Urea Nitrogen 10 mg/dL (7-18); Bicarbonate 30 mmol/L (21-32); Glucose Level 85 mg/dL (74-106); Potassium 3.8 mmol/L (3.5-5.1); Sodium Level 139 mmol/L (136-145)
[2019-10-29 02:11] VITALS: TEMP 97.8
[2019-10-29 02:14] VITALS: BP 101/71; O2SAT 100
== END 2019-10-29 02:02 | disposition short-term general hospital (02) ==
LOC: ER 21:55
DX: T83.022A Displacement of nephrostomy catheter, initial encounter (principal); Z87.820 Personal history of traumatic brain injury; G40.909 Epilepsy, unspecified, not intractable, without status epilepticus; Z88.5 Allergy status to narcotic agent; Z88.6 Allergy status to analgesic agent; Z88.8 Allergy status to other drugs, medicaments and biological substances
CPT/HCPCS: 36415; 80048; 85025; 99285

== ENCOUNTER 2019-11-16 07:56 | Day surgery (SDC) | payer OTHER ==
--- OUTSIDE RECORDS SUMMARY | 2019-11-16 07:59 | XMS REPORT ---
:1980 [facility] Address [address] [place] [address] Dr. Arv[address] [place] [id number] Care Team Providers Name Role Phone Unavailable Unavailable Unavailable Problems This patient has no known problems. Allergies, Adverse Reactions, Alerts This patient has no known allergies or adverse reactions. Medications This patient has no known medications.
[2019-11-16] MEDS ORDERED: Ringers Lactate 1,000 ML IV ONE (08:27)
[2019-11-16] MEDS: CEFAZOLIN/SWI 1gm 1 GM/10 ML SYR ONE ×2 (10:06→11:00)
[2019-11-16] MEDS ORDERED: FENTANYL CITR 100 MCG/2 ML ONE (10:15)
[2019-11-16] MEDS ORDERED: LIDOCAINE 2% MPF 5 ML VIAL ONE (10:16)
[2019-11-16] MEDS ORDERED: propofoL 200 MG/20 ML VIAL IV ONE (10:16)
[2019-11-16] MEDS ORDERED: ONDANSETRON 4 MG/2 ML VIAL ONE (10:17)
[2019-11-16] MEDS ORDERED: EPHEDRINE SULF 50 MG/ML VIAL ONE (11:04)
[2019-11-16] MEDS ORDERED: PHENYTOIN 125 MG/5 ML ORAL.SUSP FT ONE (13:10)
[2019-11-16] MEDS ORDERED: WATER FOR INJ,STERILE 20 ML ONE ×2 (13:12→13:23)
[2019-11-16 14:54] VITALS: O2SAT 98
[2019-11-16 14:56] VITALS: BP 93/50; TEMP 98
--- NOTE | 2019-11-16 22:49 | OP ---
Date of Procedure: 11/16/2019 Surgeon: Salvador Pearce MD Preoperative Diagnosis: Nonhealing wound, right hand. Postoperative Diagnosis: Nonhealing wound, right hand. Procedure: Excisional debridement of right hand wound 10 x 8 cm to subcutaneous tissue with applicat ion of a TheraSkin graft. Estimated Blood Loss: Minimal. Specimen: Necrotic tissue, debridement tissue. Findings: As above. Anesthesia: General. Complications: None. Disposition: Patient tolerated the procedure in stable condition, taken to Recovery in good general condition. Operative Note: The patient was brought to the OR and placed in supine position. General anesthesia was begun. Patient was prepped and draped in usual sterile fashion. Marcaine 0.5% was infiltrated locally for postop pain control. Then, a 15 blade was used to excise the eschar approximately 10 x 8 cm with some fibrin on the edges, which was debrided with a curette all the way down to the subcutan eous tissue. Good bleeding was obtained, bleeding was controlled with cautery and pressure. Then th e TheraSkin graft was cut to appropriate size and attached to the graft, it was secured circumferenti ally with interrupted 3-0 chromic sutures. Then Adaptic cotton ball bolster dressing was applied. S terile dressing was applied. The patient was awakened and taken to Recovery in good general conditio n. Discharge Note: The patient will go to day surgery and a chcf when stable. Disposition: correction. Condition: Stable. Discharge Instructions: Resume home medications and diet. Activity as tolerated. Keep dressing john an and dry, sponge bathe only. I will change the dressing in the chcf next week. Tylenol No . 3 one tablet p.o. q.4 p.r.n. pain. /MODL Voice ID: [id number] Report ID: [id number]
== END 2019-11-16 13:30 | disposition home or self-care (01) ==
LOC: OR 07:56
PROVIDERS: ATTEND Surgery
PROC: 0HRFXK3 Replacement of Right Hand Skin with Nonautologous Tissue Substitute, Full Thickness, External Approach (ICD-10-PCS; principal; 2019-11-16 10:00)
DX: S61.401A Unspecified open wound of right hand, initial encounter (principal); G93.1 Anoxic brain damage, not elsewhere classified; M62.49 Contracture of muscle, multiple sites; Z93.1 Gastrostomy status; J45.909 Unspecified asthma, uncomplicated; Z88.0 Allergy status to penicillin; Z88.6 Allergy status to analgesic agent; Z88.8 Allergy status to other drugs, medicaments and biological substances
CPT/HCPCS: 15275; 15276 ×3; 88304; J2704; J1165; J3010; J0690; J7120; J2405

== ENCOUNTER 2019-11-16 21:22 | Emergency (ER) | payer OTHER ==
--- OUTSIDE RECORDS SUMMARY | 2019-11-16 21:24 | XMS REPORT ---
:1980 [facility] Address [address] [place] [address] Dr. Arv[address]u [address] [place] [id number] Care Team Providers Name Role Phone Unavailable Unavailable Unavailable Problems This patient has no known problems. Allergies, Adverse Reactions, Alerts This patient has no known allergies or adverse reactions. Medications This patient has no known medications.
--- OUTSIDE RECORDS SUMMARY | 2019-11-16 21:26 | XMS REPORT | Summary of Care ---
:1980 Author Organization [facility] Address [address] [place] [address] Care Team Providers Name Role Phone Pcp, Patient Does Not Have A Primary Care Provider Reason for Referral (MICHAEL) Status Reason Specialty Diagnoses / Referred By Referred To Procedures Contact Contact New Request Infusion Therapy Diagnoses Right renal stone Demarcus Mckeon, Procedures CONSULT/REFERRAL AMB INFUSION THERAPY Preferred location: [facility] [address] [place] [address] [address] [place] [address] Reason for Visit Reason Comments Hospital F/U right renal pelvis Encounter Details Date Type Department Care Team Description 11/10/2019 Office Visit [facility] Urology- Demarcus Mckeon MD Right renal stone [address] (Primary Dx) [address] [facility] [address] [place] [id number] [phone] Allergies Active Allergy Reactions Severity Noted Date Comments Triprolidine-Pseudoep Unknown - See 07/23/2017 hedrine comments Aspirin Unknown - See 07/23/2017 comments Penicillins Unknown - See 07/23/2017 Patient tolerated comments Ceftriaxone at recent outside hospitalization documented as of this encounter (statuses as of 11/16/2019) Medications Medication Sig Dispensed Refills Start Date End Date Status GENERLAC 10 gram/15 mL Take 15 mL 0 05/18/2017 Active solution through enteral tube at bedtime. phenytoin 125 mg/5 mL Take 125 mg 0 06/17/2017 Active suspension through enteral tube 3 (three) times daily. acetaminophen-codeine Take 1 tablet by 0 Active 300-30 mg tablet mouth 2 (two) times daily. ibuprofen 400 mg tablet Take 400 mg by 0 Active mouth every 4 (four) hours as needed. acetaminophen (TYLENOL Take 650 mg by 0 Active ARTHRITIS PAIN) 650 mg mouth every 6 CR tablet (six) hours as needed for Pain. artificial 1 Drop. 0 Active tears,hypromellose, 0.3 % ophthalmic gel traMADol 50 mg tablet Take 50 mg by 0 Active mouth. oxybutynin chloride 5 Take 5 mg by 0 Active mg tablet mouth. omeprazole 20 mg Take 20 mg by 0 Active capsule mouth. Hospital, Clinic, or Other Ordered Dose Route Frequency Start Date End Date Status Facility Administered Medication aztreonam (AZACTAM) 2,000 mg 2000 mg IVPB DAILY 11/21/2019 Active in NaCl 0.9% (NS) 100 mL IV Piggyback documented as of this encounter (statuses as of 11/16/2019) Active Problems Problem Noted Date Right renal stone 11/10/2019 Overview: Added automatically from request for surgery [id number] Nephrostomy tube displaced 10/29/2019 Protein-calorie malnutrition, moderate 08/25/2017 Moderate protein-calorie malnutrition 08/25/2017 Hx of traumatic brain injury 08/10/2017 Overview: Added automatically from request for surgery [id number] Injury of urethra, subsequent encounter 08/10/2017 Overview: Added automatically from request for surgery [id number] documented as of this encounter (statuses as of 11/16/2019) Social History Tobacco Use Types Packs/Day Years Used Date Former Smoker Smokeless Tobacco: Never Used Comments: Former heavy smoking Alcohol Use Drinks/Week oz/Week Comments No Sex Assigned at Date Recorded Not on file Job Start Date Occupation Industry Not on file Not on file Not on file Travel History Travel Start Travel End No recent travel history available. documented as of this encounter Last Filed Vital Signs Vital Sign Reading Time Taken Comments Blood Pressure - - Pulse - - Temperature - - Respiratory Rate - - Oxygen Saturation - - Inhaled Oxygen Concentration - - Weight 50.3 kg (111 lb) 11/10/2019 9:38 AM [facility] Height 165.1 cm (5' 5") 11/10/2019 9:38 AM [facility] Body Mass Index 18.47 11/10/2019 9:38 AM [facility] documented in this encounter Progress Notes Demarcus Mckeon MD - 11/10/2019 9:30 AM CST Demarcus Mckeon MD [facility] U[facility] Health Care Specialist of Female Urology, Voiding Dysfunction and Pelvic Reconstruction [facility] Division of Urology Referring Provider: No referring provider defined for this encounter. REASON FOR REFERRAL/CHIEF COMPLAINT: Right staghorn stone Neurogenic bladder s/p brain anoxia, severe body contracture, non responsive. G tube. HISTORY OF PRESENT ILLNESS: The patient is a 39 year old male who was referred to the urology clinic for evaluation of right staghorn stone. The patient has presented today with his nurse, and medical transport in [facility]. The patient has been followed and treated with Dr. Feliz. There is no details about his previous condition. The patient has hx of brain anoxic brain injury s/p suicide attempt, resulting upper and lower extremity spacticity, and neurogenic bladder. He is bed ridden, unresponsive, severe contracture, G tube, SPT and right PCN. The patient has rightlarge 2.2 cm renal pelvic stone with PCN. He is here for preop PCNL visit. No fever, chills or gross hematuria in SPT or PCN. PAST MEDICAL HISTORY: Past Medical History: Diagnosis Date Anoxic brain injury 09/04/2016 Asthma Seizures PAST SURGICAL HISTORY: Past Surgical History: Procedure Laterality Date PERCUTANEOUS ENDOSCOPIC GASTRIC TUBE PLACEMENT TRACHEOSTOMY Later removed MEDICATIONS: Current Outpatient Medications: artificial tears,hypromellose, 0.3 % ophthalmic gel, 1 Drop., Disp: , Rfl: omeprazole 20 mg capsule, Take 20 mg by mouth., Disp: , Rfl: oxybutynin chloride 5 mg tablet, Take 5 mg by mouth., Disp: , Rfl: traMADol 50 mg tablet, Take 50 mg by mouth., Disp: , Rfl: acetaminophen (TYLENOL ARTHRITIS PAIN) 650 mg CR tablet, Take 650 mg by mouth every 6 (six) hours as needed for Pain., Disp: , Rfl: acetaminophen-codeine 300-30 mg tablet, Take 1 tablet by mouth 2 (two) times daily., Disp: , Rfl: ibuprofen 400 mg tablet, Take 400 mg by mouth every 4 (four) hours as needed., Disp: , Rfl: GENERLAC 10 gram/15 mL solution, Take 15 mL through enteral tube at bedtime., Disp: , Rfl: phenytoin 125 mg/5 mL suspension, Take 125 mg through enteral tube 3 (three ) times daily., Disp: , Rfl: ALLERGIES: Allergies Allergen Reactions Antihistamine [Triprolidine-Pseudoephedrine] Unknown - See comments Aspirin Unknown - See comments Pcn [Penicillins] Unknown - See comments Patient tolerated Ceftriaxone at recent outside hospitalization FAMILY HISTORY: No family history on file. SOCIAL HISTORY: Social History Socioeconomic History Marital status: Spouse name: Not on file Number of children: Not on file Years of education: Not on file Highest education level: Not on file Occupational History Not on file Social Needs Financial resource strain: Not on file Food insecurity: Worry: Not on file Inability: Not on file Transportation needs: Medical: Not on file Non-medical: Not on file Tobacco Use Smoking status: Former Smoker Smokeless tobacco: Never Used Tobacco comment: Former heavy smoking Substance and Sexual Activity Alcohol use: No Drug use: No Comment: Past drug use Sexual activity: Not on file Lifestyle Physical activity: Days per week: Not on file Minutes per session: Not on file Stress: Not on file Relationships Social connections: Talks on phone: Not on file Gets together: Not on file Attends holiness service: Not on file Active member of club or organization: Not on file Attends meetings of clubs or organizations: Not on file Relationship status: Not on file Intimate partner violence: Fear of current or ex partner: Not on file Emotionally abused: Not on file Physically abused: Not on file Forced sexual activity: Not on file Other Topics Concern Not on file Social History Narrative Not on file REVIEW OF SYSTEMS: Could not assessed well due to patient condition. PHYSICAL EXAMINATION: Vitals: 11/10/19 0938 Weight: 111 lb (50.3 kg) Height: 5' 5" (1.651 m) Although no optimum due to patient condition General: no acute distress. Psych: unable to assess Skin : No visible rashes or lesions HEENT: Normocephalic, atraumatic, Chest: non-labored, even respirations Cor: Regular rate, rhythm Abdomen: Soft, nontender, nondistended, with no palpable masses or organomegaly. No obvious hernias are present. Neuro:upper and lower extremity spacticity, SPT in place and clear urine in bag : Normal penis, normal testicles, normal urethral meatus. LISSA not done LABS: Reviewed CT scan: 1. Staghorn calculus in the right renal pelvis, resulting in moderate hydronephrosis and perinephric stranding. Also consider early xanthogranulomatous pyelonephritis. 2. Subcentimeter nonobstructive right renal stones. 3. Right ureteral thickening and surrounding inflammatory stranding, suggestive of chronic inflammation or ascending infection. 4. Mild right posterior lateral urinary bladder wall thickening. While this can be related to the above, consider nonemergent CT urogram or direct visualization ASSESSMENT AND PLAN: The patient is a 39 year old male who was referred to the urology clinic for evaluation of right staghorn stone I discussed the condition, risk benefits with his " Tashia" who is the proxy for him, the best option for his stone, I offered right PCNL( supine).. The risks, benefits, and alternatives of treatment were discussed in full with the patient, including, but not limited to bleeding (possibly requiring blood transfusion with the attendant risk of transfusion reaction or rarely of infection); infection possibly requiring additional hospital stay, IV antibiotics, readmission or re-intervention; surgical damage to surrounding organs, including bowel, bladder, nerves, vessels, urethra or ureters requiring additional intervention; medical complications including DVT, PE, IA, CVA and . Unable to access the kidney, ureter, or bladder, unable to clear all the stone. 1. UC from SPT and right PCN and will follow and treat accordingly. 2. Consider Heparin 5000 U sc preop to prevent DVT 3. The aware about the high risk procedure based on patient condition. She will sign the consent at the day of surgery 4. Plan to do cystoscopy through the suprapubic tract. Demarcus Mckeon MD documented in this encounter Plan of Treatment Date Type Specialty Care Team Description 12/01/2019 Office Visit Urology Demarcus Mckeon MD [address] [facility] [address] [place] [address] [phone] 12/05/2019 Hospital Encounter Ambulatory Demarcus Mckeon Right renal stone Surgical [address] [facility] [address] [place] [address] [phone] 12/05/2019 Surgery Surgery Mike, Bilal, ENDOSCOPIC PERCUTANEOUS MD NEPHROLITHOTOMY [address] [facility] [address] [place] [address] [phone] Health Maintenance Due Date Last Done Comments VARICELLA VACCINES (1 of 2 - 1982 2-dose childhood series) DTaP,Tdap,and Td Vaccines (1 - 1992 Tdap) INFLUENZA VACCINE (#1) 2019 PNEUMOCOCCAL 0-64 YEARS COMBINED Aged Out No longer eligible based on SERIES patient's age to complete this topic documented as of this encounter Procedures Procedure Name Priority Date/Time Associated Diagnosis Comments URINE CULTURE Routine 11/10/2019 2:25 PM Right renal stone Results for this [facility] procedure are in the results section. URINE CULTURE Routine 11/10/2019 2:25 PM Right renal stone Results for this [facility] procedure are in the results section. documented in this encounter Results URINE CULTURE (11/10/2019 2:25 PM [facility]) URINE CULTURE >100,000 CFU/mL [facility] Pseudomonas SERVICES aeruginosa Specimen Urine - URINE, CLEAN CATCH Organism Antibiotic Method Susceptibility Pseudomonas aeruginosa Ceftazidime SUSCEPTIBILITY TESTING 8: Susceptible Pseudomonas aeruginosa Ciprofloxacin SUSCEPTIBILITY TESTING >=4: Resistant Pseudomonas aeruginosa Levofloxacin SUSCEPTIBILITY TESTING >4: Resistant Pseudomonas aeruginosa Piperacillin/Tazobactam SUSCEPTIBILITY TESTING 32: Intermediate Pseudomonas aeruginosa Tobramycin SUSCEPTIBILITY TESTING <=1: Susceptible Performing Organization Address [facility] Phone Number [facility] CLIA: [id number], [address] [place] [address] [facility] URINE CULTURE (11/10/2019 2:25 PM LACE [facility]) URINE CULTURE >100,000 CFU/mL [facility] Pseudomonas SERVICES aeruginosaComment: For susceptibility results, refer to culture # - [id number] Specimen Urine - URINE, CLEAN CATCH Performing Organization Address City/[facility] Phone Number [facility] CLIA: [id number], [address] [place] [id number] [facility] documented in this encounter Visit Diagnoses Diagnosis Right renal stone - Primary documented in this encounter Insurance Payer Benefit Plan / Subscriber ID Effective Phone Address Type Group Dates [employer] xxxxxxxxx [address] [place] [id number] [place] [address] documented as of this encounter
[2019-11-16 22:55] LABS: Absolute Lymphocytes (CBC) 1.8 K/uL (0.7-4.9); Basophils % 0.7 % (0-1.3); Hematocrit 42.9 % (39.6-49.0); Lymphocytes % 24.9 % (15.3-44.8); MPV 11.3 fL (7.6-11.3); RBC Red Blood Cell Count 4.92 M/uL (4.33-5.43)
[2019-11-16 23:02] LABS: Protime INR 1.05
[2019-11-16 23:32] LABS: ALT/SGPT 185 U/L (12-78); AST/SGOT 58 U/L (15-37); Albumin 3.5 g/dL (3.4-5.0); Alkaline Phosphatase 242 U/L (45-117); BUN Blood Urea Nitrogen 12 mg/dL (7-18); Bicarbonate 27 mmol/L (21-32); Bilirubin Direct 0.2 mg/dL (0-0.2); Bilirubin Total 0.6 mg/dL (0.2-1.0); Glucose Level 79 mg/dL (74-106); Lipase 47 U/L (73-393); Sodium Level 136 mmol/L (136-145)
--- NOTE | 2019-11-17 00:40 | ER ---
Nurse's Notes [facility] Name: Farhat Maza Age: 39 yrs Sex: Male : 1980 Arrival Date: 11/16/2019 Time: 21:28 Bed 8 Private MD: Diagnosis: Displacement of urinary stent Presentation: 11/16 21:29 Presenting complaint: EMS states: Pt coming from [facility], nursing staff ea reports pt had an unwitnessed fall from bed, report nephrostomy tubing came out. Pt unable to answer questions, unknown LOC. Care prior to arrival: None. Mechanism of Injury: Fall out of bed. Trauma event details: Injury occurred in the [facility], Injury occurred: [facility] Injury occurred: November 16, 2019 Injury occurred at: 21:34. 21:29 Acuity: JOSEPH 3 ea 21:29 Method Of Arrival: EMS: [facility] ea 21:48 Transition of care: patient was received from another setting of care (long-term care facility), [facility]. Onset of symptoms was November 16, 2019. Risk Assessment: Do you want to hurt yourself or someone else? Patient reports no desire to harm self or others. Initial Sepsis Screen: Does the patient meet any 2 criteria? No. Patient's initial sepsis screen is negative. Does the patient have a suspected source of infection? No. Patient's initial sepsis screen is negative. Trauma Activation: Alert Physician: ED Physician; Name: ; Notified At: ; Arrived At: Physician: General Surgeon; Name: ; Notified At: ; Arrived At: Physician: Radiology; Name: ; Notified At: ; Arrived At: Physician: Respiratory; Name: ; Notified At: ; Arrived At: Physician: Lab; Name: ; Notified At: ; Arrived At: Historical: - Allergies: 21:42 Antihistamine; ea 21:42 Aspirin; ea 21:42 Demerol; ea 21:42 PENICILLINS; ea - Home Meds: 21:42 Acidophilus Oral cap daily [Active]; artificial tears(hypromellose) 0.4 % Opht drop ea twice a day [Active]; Dilantin-125 125 mg/5 mL Oral susp 6 mL every 8 hours for epilepsy [Active]; Dilantin-125 125 mg/5 mL Oral susp 5 mL every 6 hours [Active]; Ibuprofen Oral [Active]; tramadol 50 mg Oral tab three times a day [Active]; tramadol 50 mg Oral tab 1 tab every 8 hours prn pain [Active]; Pepcid 20 mg Oral tab 1 tab once daily for Gastroesophageal reflux [Active]; Prilosec 20 mg Oral cpDR 1 cap once daily [Active]; oxybutynin chloride 5 mg Oral tab 2 times per day [Active]; Levaquin 500 mg Oral tab 1 tab once daily [Active]; lactulose 10 gram/15 mL (15 mL) Oral soln 15 mL nightly for constipation [Active]; Ibuprofen Oral 3 times per day [Active]; - PMHx: 21:42 UTI; upper and lower ext contractures; Seizures; Pneumonia; GERD; obstructive and ea reflux uropathy; aspiration pneumonia; Anoxic brain injury post suicide attempt; - PSHx: 21:42 nephrostomy tube; ea - Coronavirus screen:: The patient has NOT traveled to [place] in the past 14 days. - Immunization history: Last tetanus immunization: - up to date. - Social history:: Smoking status: unknown. - Ebola Screening: : No symptoms or risks identified at this time. Screenin:29 Abuse screen: Denies threats or abuse. Nutritional screening: No deficits noted. ea Tuberculosis screening: No symptoms or risk factors identified. Fall Risk Gait- Impaired (20 pts.). Primary Survey: 21:37 NO uncontrolled hemorrhage observed. A: Airway: patent. Breathing/Chest: Respiratory ea pattern: regular, Respiratory effort: spontaneous, unlabored. Circulation: Skin color: pale, Skin temperature: warm. Disability Painful Stimuli. Exposure/Environment: Obvious injury(ies) are noted at this time: [facility] reported nephrostomy tube came out during fall A warming method has been applied: A warm blanket has been provided to the patient. 22:40 Reassessment Airway Airway Patent Breathing/Chest Respiratory pattern Regular ea Respiratory effort Spontaneous. Secondary Survey: 21:53 Musculoskeletal: Circulation, motion, and sensation intact. ea Assessment: 21:49 General: Appears in no apparent distress. Behavior is withdrawals from painful ea stimulus. Pain: Unable to use pain scale. FLACC scale score is 3 out of 10. Neuro: Level of Consciousness is withdrawals from painful stimulus. Respiratory: Airway is patent Respiratory effort is even, unlabored, Respiratory pattern is regular, symmetrical. Derm: Dressing to right hand, EMS reports skin graft was done today at [facility], dressing is to stay intact until follow up with specialist. 22:30 Reassessment: Patient and/or family updated on plan of care and expected duration. Pain ea level reassessed. Pt reacts to painful stimulus, respirations even and unlabored. No s/s of pain or discomfort noted at this time. 23:50 Reassessment: Patient and/or family updated on plan of care and expected duration. Pain ea level reassessed. Pt resting with eyes closed, respirations even and unlabored. Chest expansions even and symmetrical. 11/17 01:07 Reassessment: Report called to Lilian CARVAJAL at [facility]. ea 01:57 Reassessment: Patient and/or family updated on plan of care and expected duration. Pain ea level reassessed. Respirations even and unlabored, chest expansions even and symmetrical, no s/s of pain or discomfort noted at this time. Pt transferred to [facility] per [facility]. Pt left ED per stretcher tolerating well. Vital Signs: 11/16 21:42 BP 98 / 58; Pulse 60; Resp 18; Temp 97.2; Pulse Ox 97% ; Weight 52.16 kg; ea 22:30 BP 95 / 63; Pulse 72; Resp 18; Pulse Ox 97% on R/A; ea 23:30 BP 116 / 84; Pulse 80; Resp 18; Pulse Ox 100% ; ea 11/17 00:00 BP 127 / 77; Pulse 88; Resp 18; Pulse Ox 95% on R/A; ea 01:30 BP 115 / 75; Pulse 88; Resp 18; Pulse Ox 95% on R/A; ea [place] Coma Score: 11/16 21:42 Eye Response: to pain(2). Verbal Response: none(1). Motor Response: withdraws from ea pain(4). Total: 7. Trauma Score (Adult): 21:42 Eye Response: to pain(0); Verbal Response: none(0); Motor Response: withdraws from ea pain(1); Systolic BP: > 89 mm Hg(4); Respiratory Rate: 10 to 29 per min(4); Lex Score: 7; Trauma Score: 9 ED Course: 21:28 Patient arrived in ED. ea 21:28 Christian Candelaria MD is Attending Physician. tw4 21:29 Patient maintains SpO2 saturation greater than 95% on room air. ea 21:34 Triage completed. ea 21:37 Thermoregulation: warm blanket given to patient. ea 21:47 Patient has correct armband on for positive identification. Bed in low position. Call ea light in reach. Side rails up X2. 21:49 Arm band placed on right wrist. Patient placed in an exam room, on a stretcher, on ea pulse oximetry. 21:54 Violeta Hampton, RN is Primary Nurse. ea 22:50 Inserted saline lock: 22 gauge in left ,using aseptic technique. shoulder. rr5 23:56 No provider procedures requiring assistance completed. ea 11/17 01:53 Patient transferred, IV remains in place. ea Administered Medications: No medications were administered Intake: 01:54 PO: 0ml; Total: 0ml. ea Outcome: 00:39 ER care complete, transfer ordered by . tw4 01:46 Condition: stable aa1 01:51 Transferred by ground EMS to [facility], Transfer form ea completed. 01:59 Patient left the ED. ea Signatures: Gina Guadarrama, RN RN aa1 Violeta Hampton, RN RN ea Christian Candelaria MD MD tw4 Franky Silva RN RN rr5
--- NOTE | 2019-11-17 00:40 | EDPHYS ---
Physician Documentation [facility] Name: Farhat Maza Age: 39 yrs Sex: Male : 1980 Arrival Date: 11/16/2019 Time: 21:28 Bed 8 Private MD: ED Physician Christian Candelaria HPI: 11/17 01:11 This 39 yrs old Male presents to ER via EMS with complaints of Fall Injury. tw4 01:11 Details of fall: The patient fell from seated position, off the edge of a bed. Onset: tw4 The symptoms/episode began/occurred just prior to arrival. Associated injuries: The patient sustained no obvious injury. The patient has not experienced similar symptoms in the past. nephrostomy tube dislodged. Historical: - Allergies: 11/16 21:42 Antihistamine; ea 21:42 Aspirin; ea 21:42 Demerol; ea 21:42 PENICILLINS; ea - Home Meds: 21:42 Acidophilus Oral cap daily [Active]; artificial tears(hypromellose) 0.4 % Opht drop ea twice a day [Active]; Dilantin-125 125 mg/5 mL Oral susp 6 mL every 8 hours for epilepsy [Active]; Dilantin-125 125 mg/5 mL Oral susp 5 mL every 6 hours [Active]; Ibuprofen Oral [Active]; tramadol 50 mg Oral tab three times a day [Active]; tramadol 50 mg Oral tab 1 tab every 8 hours prn pain [Active]; Pepcid 20 mg Oral tab 1 tab once daily for Gastroesophageal reflux [Active]; Prilosec 20 mg Oral cpDR 1 cap once daily [Active]; oxybutynin chloride 5 mg Oral tab 2 times per day [Active]; Levaquin 500 mg Oral tab 1 tab once daily [Active]; lactulose 10 gram/15 mL (15 mL) Oral soln 15 mL nightly for constipation [Active]; Ibuprofen Oral 3 times per day [Active]; - PMHx: 21:42 UTI; upper and lower ext contractures; Seizures; Pneumonia; GERD; obstructive and ea reflux uropathy; aspiration pneumonia; Anoxic brain injury post suicide attempt; - PSHx: 21:42 nephrostomy tube; ea - Coronavirus screen:: The patient has NOT traveled to [place] in the past 14 days. - Immunization history: Last tetanus immunization: - up to date. - Social history:: Smoking status: unknown. - Ebola Screening: : No symptoms or risks identified at this time. ROS: 11/17 01:11 Unable to obtain ROS due to comatose state. tw4 Exam: 01:11 Constitutional: This is a well developed, well nourished patient who is awake, alert, tw4 and in no acute distress. Head/Face: Normocephalic, atraumatic. Chest/axilla: Normal chest wall appearance and motion. Nontender with no deformity. No lesions are appreciated. Cardiovascular: Regular rate and rhythm with a normal S1 and S2. No gallops, murmurs, or rubs. Normal PMI, no JVD. No pulse deficits. Respiratory: Lungs have equal breath sounds bilaterally, clear to auscultation and percussion. No rales, rhonchi or wheezes noted. No increased work of breathing, no retractions or nasal flaring. Abdomen/GI: Soft, non-tender, with normal bowel sounds. No distension or tympany. No guarding or rebound. No evidence of tenderness throughout. MS/ Extremity: Pulses equal, no cyanosis. Neurovascular intact. Full, normal range of motion. 01:11 Back: stoma right flank no erythema nephrostomy tube dislodged . 01:11 Neuro: Orientation: unable to test, the patient is comatose, Mentation: unable to test, the patient is comatose, Motor: the patient is contracted. Vital Signs: 11/16 21:42 BP 98 / 58; Pulse 60; Resp 18; Temp 97.2; Pulse Ox 97% ; Weight 52.16 kg; ea 22:30 BP 95 / 63; Pulse 72; Resp 18; Pulse Ox 97% on R/A; ea 23:30 BP 116 / 84; Pulse 80; Resp 18; Pulse Ox 100% ; ea 11/17 00:00 BP 127 / 77; Pulse 88; Resp 18; Pulse Ox 95% on R/A; ea 01:30 BP 115 / 75; Pulse 88; Resp 18; Pulse Ox 95% on R/A; ea Lex Coma Score: 11/16 21:42 Eye Response: to pain(2). Verbal Response: none(1). Motor Response: withdraws from ea pain(4). Total: 7. Trauma Score (Adult): 21:42 Eye Response: to pain(0); Verbal Response: none(0); Motor Response: withdraws from ea pain(1); Systolic BP: > 89 mm Hg(4); Respiratory Rate: 10 to 29 per min(4); Lavelle Score: 7; Trauma Score: 9 MDM: 21:28 Patient medically screened. 11/17 01:11 Differential diagnosis: abrasion, closed head injury, contusion, laceration. Data tw4 reviewed: vital signs, nurses notes, long-term records, lab test result(s), cardiac enzymes, CBC. Data interpreted: Pulse oximetry: Interpretation: normal. Counseling: I had a detailed discussion with the patient and/or guardian regarding: the historical points, exam findings, and any diagnostic results supporting the discharge/admit diagnosis, lab results. ED course: pt will need higher level of care for nephrotomy tube replacement . 11/16 21:29 Order name: Basic Metabolic Panel; Complete Time: 00:14 4 11/16 21:29 Order name: CBC with Diff; Complete Time: 23:30 tw4 11/16 23:30 Interpretation: Normal except: PLT 139. tw11/16 21:29 Order name: Creatinine for Radiology; Complete Time: 23:30 4 11/16 23:30 Interpretation: CRE 0.64. 11/16 21:29 Order name: Hepatic Function; Complete Time: 00:14 4 11/16 21:29 Order name: Lipase; Complete Time: 00:14 4 11/16 21:36 Order name: PT-INR; Complete Time: 23:30 4 11/16 23:30 Interpretation: Within normal limits: PT 12.4. tw11/16 21:29 Order name: IV Saline Lock; Complete Time: 22:55 4 11/16 21:29 Order name: Labs collected and sent; Complete Time: 22:55 4 11/16 21:36 Order name: Ptt, Activated; Complete Time: 23:30 11/16 23:30 Interpretation: Within normal limits: PTT 30.4. tw4 Administered Medications: No medications were administered Disposition: 11/17/19 00:39 Transfer ordered to [facility]. Diagnosis is Displacement of urinary stent. - Reason for transfer: Higher level of care. - Accepting physician is Dr Bull. - Condition is Stable. - Problem is new. - Symptoms have improved. Signatures: Dispatcher [employer] Violeta Eaton, Christian Moseley RN, ea, MD MD tw4 Corrections: (The following items were deleted from the chart) 01:17 00:39 11/17/2019 00:39 Transfer ordered to [facility]. Diagnosis is Displacement of tw4 urinary stent. Reason for transfer: Higher level of care. Accepting physician is Condition is Stable. Problem is new. Symptoms have improved. tw4 01:59 01:17 11/17/2019 00:39 Transfer ordered to [facility]. Diagnosis is Displacement of ea urinary stent. Reason for transfer: Higher level of care. Accepting physician is Dr Bull. Condition is Stable. Problem is new. Symptoms have improved. tw4
[2019-11-17 03:53] VITALS: BP 115/75; O2SAT 95
[2019-11-17 04:02] VITALS: TEMP 97.2
== END 2019-11-17 01:59 | disposition short-term general hospital (02) ==
LOC: ER 21:22
DX: T83.122A Displacement of indwelling ureteral stent, initial encounter (principal); W06.XXXA Fall from bed, initial encounter; Y93.9 Activity, unspecified; Y92.9 Unspecified place or not applicable; Z87.820 Personal history of traumatic brain injury; Z91.5 Personal history of self-harm; G40.909 Epilepsy, unspecified, not intractable, without status epilepticus; Z88.0 Allergy status to penicillin; Z88.5 Allergy status to narcotic agent; Z88.6 Allergy status to analgesic agent; Z88.8 Allergy status to other drugs, medicaments and biological substances
CPT/HCPCS: 36415; 80048; 80076; 83690; 85025; 85610; 85730; 99285

== ENCOUNTER 2019-12-04 22:28 | Emergency (ER) | payer OTHER ==
--- OUTSIDE RECORDS SUMMARY | 2019-12-04 22:30 | XMS REPORT ---
:1980 [facility] Address [address] [place] [address] Dr. Arvizu [address] [place] [address] Care Team Providers Name Role Phone Unavailable Unavailable Unavailable Problems This patient has no known problems. Allergies, Adverse Reactions, Alerts This patient has no known allergies or adverse reactions. Medications This patient has no known medications.
--- OUTSIDE RECORDS SUMMARY | 2019-12-04 22:32 | XMS REPORT | Summary of Care ---
:1980 Author Organization [facility] Address [address] [place] [id number] Care Team Providers Name Role Phone Pcp, Patient Does Not Have A Primary Care Provider Reason for Visit Reason Comments Follow-up (Routine) Status Reason Specialty Diagnoses / Referred By Referred To Procedures Contact Contact Closed URO-UROLOGY / Diagnoses Nephrostomy tube displaced [facility] U[facility] Procedures Discharge Follow-Up: Specialty Service URO-UROLOGY; 1 Week Discharge Follow-Up: Specialty Service URO-UROLOGY; 1 Week MD Humberto [address] [facility] [id number] [place] [address] Encounter Details Date Type Department Care Team Description 12/01/2019 Office Visit [facility] Urology- Demarcus Mckeon MD Urinary tract [place] [address] [facility] infection associated [address] with nephrostomy [address] catheter, subsequent [place], [place] encounter (Primary Dx) [id number] [phone] Allergies Active Allergy Reactions Severity Noted Date Comments Triprolidine-Pseudoep Unknown - See 07/23/2017 hedrine comments Aspirin Unknown - See 07/23/2017 comments Meperidine Hcl Unknown - See 11/17/2019 comments Penicillins Unknown - See 07/23/2017 Patient tolerated comments Ceftriaxone at recent outside hospitalization documented as of this encounter (statuses as of 12/01/2019) Medications Medication Sig Dispensed Refills Start Date End Date Status GENERLAC 10 gram/15 Take 15 mL 0 05/18/2017 Active mL solution through enteral tube at bedtime. phenytoin 125 mg/5 mL Take 150 mg 0 06/17/2017 Active suspension through enteral tube 3 (three) times daily. ibuprofen 400 mg Take 400 mg by 0 Active tablet mouth every 8 (eight) hours as needed. artificial 1 Drop. 0 Active tears,hypromellose, 0.3 % ophthalmic gel traMADol 50 mg tablet Take 50 mg by 0 Active mouth. oxybutynin chloride 5 Take 5 mg by 0 Active mg tablet mouth 2 (two) times daily. omeprazole 20 mg Take 20 mg by 0 Active capsule mouth. Nitrofurantoin&Nit. Take 1 capsule 10 capsule 0 12/01/2019 12/06/2019 Active Macrocryst 100 mg by mouth 2 (two) capsuleIndications: times daily for Urinary tract 5 days. infection associated with nephrostomy catheter, subsequent encounter documented as of this encounter (statuses as of 12/01/2019) Active Problems Problem Noted Date Attention to nephrostomy 11/17/2019 Right renal stone 11/10/2019 Overview: Added automatically from request for surgery [id number] Nephrostomy tube displaced 10/29/2019 Protein-calorie malnutrition, moderate 08/25/2017 Moderate protein-calorie malnutrition 08/25/2017 Hx of traumatic brain injury 08/10/2017 Overview: Added automatically from request for surgery [id number] Injury of urethra, subsequent encounter 08/10/2017 Overview: Added automatically from request for surgery [id number] documented as of this encounter (statuses as of 12/01/2019) Social History Tobacco Use Types Packs/Day Years [...] of this encounter Last Filed Vital Signs Not on filedocumented in this encounter Progress Notes Demarcus Mckeon MD - 12/01/2019 9:15 AM CST Demarcus Mckeon MD Medical Lab Technician of Urology Women'S Activities Adviser of Female Urology, Voiding Dysfunction and Pelvic Reconstruction [facility] | Division of Urology Referring Provider: No referring [...] with his nurse, [facility] The patient has been followed and treated [...] or gross hematuria in SPT or PCN. The patient has received IV abx for 5 days. PAST MEDICAL HISTORY: Past Medical History: Diagnosis Date Anoxic brain injury 09/04/2016 Asthma Recurrent UTI Seizures PAST SURGICAL HISTORY: Past Surgical History: Procedure Laterality Date NEPHROSTOMY PERCUTANEOUS ENDOSCOPIC GASTRIC TUBE PLACEMENT SUPRAPUBIC CATHETER PLACEMENT TRACHEOSTOMY Later removed MEDICATIONS: Current Outpatient Medications: Nitrofurantoin&Nit. Macrocryst 100 mg capsule, Take 1 capsule by mouth 2 (two) times daily for 5 days., Disp: 10 capsule, Rfl: 0 artificial tears,hypromellose, 0.3 % ophthalmic gel, 1 Drop., Disp: , Rfl: omeprazole 20 mg capsule, Take 20 mg by mouth., Disp: , Rfl: oxybutynin chloride 5 mg tablet, Take 5 mg by mouth 2 (two) times daily., Disp: , Rfl: traMADol 50 mg tablet, Take 50 mg by mouth., Disp: , Rfl: ibuprofen 400 mg tablet, Take 400 mg by mouth every 8 (eight) hours as needed., Disp: , Rfl: GENERLAC 10 gram/15 mL solution, Take 15 mL through enteral tube at bedtime., Disp: , Rfl: phenytoin 125 mg/5 mL suspension, Take 150 mg through enteral tube 3 (three ) times daily., Disp: , Rfl: ALLERGIES: Allergies Allergen Reactions Antihistamine [Triprolidine-Pseudoephedrine] Unknown - See comments Aspirin Unknown - See comments Demerol [Meperidine Hcl] Unknown - See comments Pcn [Penicillins] Unknown [...] file Gets together: Not on file Attends scientologist service: Not on file Active member of [...] well due to patient condition. PHYSICAL EXAMINATION: There were no vitals filed for this visit. Although no optimum due to patient condition [...] clinic for evaluation of right staghorn stone 1. I discussed the condition, risk benefits with [...] additional intervention; medical complications including DVT, PE, [place], CVA and . Unable to access the kidney, ureter, or bladder, unable to clear all the stone. 2. Consider Heparin 5000 U sc preop to prevent DVT 3. The aware about the high risk procedure based on patient condition. She will sign the consent at the day of surgery 4. Plan to do cystoscopy through the suprapubic tract. 5. Will start Macrobid 100 mg BID for 5 days before surgery. Demarcus Mckeon MD documented in this encounter Plan of Treatment Date Type Specialty Care Team Description 12/05/2019 Hospital Encounter Ambulatory Demarcus Mckeon MD Right renal stone Surgical [address] [facility] [address] [place], [place] [id number] 12/05/2019 Anesthesia Event Surgery Peter Phillips DO [address] [place] [address]. [place] [phone] 12/05/2019 Surgery Surgery Demarcus Mckeon MD ENDOSCOPIC [address] [facility] PERCUTANEOUS South NEPHROLITHOTOMY [address] [place], [place] [id number] Health Maintenance Due Date Last Done Comments VARICELLA VACCINES (1 of 2 - 1982 2-dose childhood series) DTaP,Tdap,and Td Vaccines (1 - 1992 Tdap) INFLUENZA VACCINE (#1) 2019 PNEUMOCOCCAL 0-64 YEARS COMBINED Aged Out No longer eligible based on SERIES patient's age to complete this topic documented as of this encounter Results Not on filedocumented in this encounter Visit Diagnoses Diagnosis Urinary tract infection associated with nephrostomy catheter, subsequent encounter - Primary documented in this encounter Additional Health Concerns Infection Noted Time Resolved Time Contact - VRE 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
--- OUTSIDE RECORDS SUMMARY | 2019-12-04 22:32 | XMS REPORT | Summary of Care ---
:1980 Author Organization [facility] Address [address] [place] [address] Care Team Providers Name Role Phone Pcp, Patient Does Not Have A Primary Care Provider Reason for Visit Reason Comments Follow-up (Routine) Status Reason Specialty Diagnoses / Referred By Referred To Procedures Contact Contact Closed URO-UROLOGY / Diagnoses Nephrostomy tube displaced [facility] U[facility] Procedures Discharge Follow-Up: Specialty Service URO-UROLOGY; 1 Week Discharge Follow-Up: Specialty Service URO-UROLOGY; 1 Week MD Humberto [address] [facility] [id number] [place] [address] Encounter Details Date Type Department Care Team Description 12/01/2019 Office Visit [facility] Urology- Demarcus Mckeon MD Urinary tract [place] [address] [facility] infection associated [address] [place] with nephrostomy [address] catheter, subsequent [place], [place] encounter (Primary Dx) [id number] [phone] Allergies Active Allergy Reactions Severity Noted Date [...] Overview: Added automatically from request for surgery [id number] Nephrostomy tube displaced 10/29/2019 Protein-calorie malnutrition, moderate 08/25/2017 Moderate protein-calorie malnutrition 08/25/2017 Hx of traumatic brain injury 08/10/2017 Overview: Added automatically from request for surgery [id number] Injury of urethra, subsequent encounter 08/10/2017 Overview: Added automatically from request for surgery [id number] documented as of this encounter (statuses as [...] 12/01/2019 9:15 AM CST Demarcus Mckeon MD Information Technology Officer of Urology Shift Lab Technician of Female Urology, Voiding Dysfunction and Pelvic Reconstruction [facility] | Division of Urology Referring Provider: No [...] with his nurse, and medical transport [facility]. The patient has been followed and treated [...] file Gets together: Not on file Attends mandaen service: Not on file Active member of [...] the condition, risk benefits with his " Tashai" who is the proxy for him, the [...] additional intervention; medical complications including DVT, PE, [place], CVA and . Unable to access the [...] Mckeon MD Right renal stone Surgical [address] [facility] [address] [place], [place] [address] 12/05/2019 Anesthesia Event Surgery Peter Phillips DO [address] [place] [address]. [place] [phone] 12/05/2019 Surgery Surgery Demarcus Mckeon MD ENDOSCOPIC [address] 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
--- NOTE | 2019-12-04 23:07 | EDPHYS ---
Physician Documentation [facility] Name: Farhat Maza Age: 39 yrs Sex: Male : 1980 Arrival Date: 12/04/2019 Time: 22:31 Bed 5 Private MD: ED Physician Torrey Borrego HPI: 12/03 23:01 This 39 yrs old Male presents to ER via EMS with complaints of pulled ma2 nephrostomy tube . 23:01 Onset: The symptoms/episode began/occurred suddenly, 1 hour(s) ago. Associated signs ma2 and symptoms: Pertinent negatives: anorexia, diarrhea, fever, headache, testicular pain, vomiting blood. Severity of pain: At its worst the pain was mild in the emergency department the pain is unchanged. The patient has experienced similar episodes in the past. Historical: - Allergies: 22:34 Antihistamine; rv 22:34 Aspirin; rv 22:34 Demerol; rv 22:34 PENICILLINS; rv - PMHx: 22:34 Anoxic brain injury post suicide attempt; aspiration pneumonia; GERD; obstructive and rv reflux uropathy; Pneumonia; Seizures; upper and lower ext contractures; UTI; - PSHx: 22:34 SUPRAPUBIC CATH; NEPHROSTOMY TUBE; rv - Immunization history:: Adult Immunizations up to date. - Social history:: Smoking status: unknown Patient/guardian denies using alcohol, street drugs, The patient lives with family. - Family history:: not pertinent. ROS: 23:01 Constitutional: Negative for fever, chills, and weight loss. ma2 23:01 Unable to obtain ROS due to tbi. Exam: 23:01 Head/Face: Normocephalic, atraumatic. Eyes: Pupils equal round and reactive to light, ma2 extra-ocular motions intact. Lids and lashes normal. Conjunctiva and sclera are non-icteric and not injected. Cornea within normal limits. Periorbital areas with no swelling, redness, or edema. Chest/axilla: Normal chest wall appearance and motion. Nontender with no deformity. No lesions are appreciated. Cardiovascular: Regular rate and rhythm with a normal S1 and S2. No gallops, murmurs, or rubs. Normal PMI, no JVD. No pulse deficits. Respiratory: Lungs have equal breath sounds bilaterally, clear to auscultation and percussion. No rales, rhonchi or wheezes noted. No increased work of breathing, no retractions or nasal flaring. Abdomen/GI: Soft, non-tender, with normal bowel sounds. No distension or tympany. No guarding or rebound. No evidence of tenderness throughout. Back: nephrostomy tube site is dry and in good order, No spinal tenderness. No costovertebral tenderness. Full range of motion. Skin: Warm, dry with normal turgor. Normal color with no rashes, no lesions, and no evidence of cellulitis. MS/ Extremity: Pulses equal, no cyanosis. Neurovascular intact. Full, normal range of motion. Neuro: Awake and alert, GCS 15, oriented to person, place, time, and situation. Cranial nerves II-XII grossly intact. Motor strength 5/5 in all extremities. Sensory grossly intact. Cerebellar exam normal. Normal gait. Vital Signs: 12/02 23:50 BP 92 / 60; Pulse 95; Resp 17; Temp 98.; Pulse Ox 99% ; rr5 12/03 22:31 BP 96 / 54; Pulse 96; Resp 15; Temp 98.4(TE); Pulse Ox 96% on R/A; Weight 54.43 kg; rv MDM: 22:53 Patient medically screened. ma2 23:01 Differential diagnosis: nephrostomy tube displacement. Data reviewed: vital signs, ok2 nurses notes. Counseling: I had a detailed discussion with the patient and/or guardian regarding: the historical points, exam findings, and any diagnostic results supporting the discharge/admit diagnosis, the presence of at least one elevated blood pressure reading (>120/80) during this emergency department visit, the need to transfer to another facility. ED course: no urology available in our hospital, will transfer for higher level of care. . 23:11 ED course: discussed with dr. Mckeon he has him scheduled for operation tomorrow ma2 morning and he advised to discharge him home tonight and he will place a new tube tomorrow . Administered Medications: No medications were administered Disposition: 12/04/19 23:16 Discharged to Home. Impression: Displacement of other urinary devices and implants - displaced nephrostomy tube. - Condition is Stable. - Medication Reconciliation Form, Thank You Letter, Antibiotic Education, Prescription Opioid Use, SBAR form form. - Follow up: Private Physician; When: Today; Reason: Continuance of care. - Notes: follow up with [facility] urology tomorrow morning Thursday12/05/2019 Signatures: Torrey Borrego MD MD ma2 Oumar Jung, RN RN rv Franky Silva RN RN rr5 Corrections: (The following items were deleted from the chart) 23:09 23:06 12/04/2019 23:06 Transfer ordered to Other Acute Care Facility. Diagnosis is ma2 Other and unspecified hydronephrosis. Reason for transfer: Higher level of care. Accepting physician is [facility]. Condition is Stable. Problem is new. Symptoms are unchanged. ma2 23:10 23:09 12/04/2019 23:06 Transfer ordered to Other Acute Care Facility. Diagnosis is ma2 Displacement of other urinary devices and implants. Reason for transfer: Higher level of care. Accepting physician is [facility]. Condition is Stable. Problem is new. Symptoms are unchanged. ma2 23:12 23:10 12/04/2019 23:06 Transfer ordered to Other Acute Care Facility. Diagnosis is ma2 Displacement of other urinary devices and implants. Reason for transfer: Higher level of care. Accepting physician is dr. rodrigez. Condition is Stable. Problem is new. Symptoms are unchanged. ma2 12/04 00:06 12/03 23:16 12/04/2019 23:16 Discharged to Home. Impression: Displacement of other rr5 urinary devices and implants - displaced nephrostomy tube. Condition is Stable. Forms are Medication Reconciliation Form, Thank You Letter, Antibiotic Education, Prescription Opioid Use. Follow up: Private Physician; When: Today; Reason: Continuance of care. ma2
--- NOTE | 2019-12-04 23:07 | ER ---
Nurse's Notes [facility] Name: Farhat Maza Age: 39 yrs Sex: Male : 1980 Arrival Date: 12/04/2019 Time: 22:31 Bed 5 Private MD: Diagnosis: Displacement of other urinary devices and implants-displaced nephrostomy tube Presentation: 12/03 22:31 Chief complaint: EMS states: PATIENT IS FROM [place]. THE NURSE WAS CHECKING ON rv SOMETHING WHEN THE NURSE FOUND THE NEPHROSTOMY TUBE OUT/DISLODGED. Coronavirus screen: The patient has NOT traveled to a country currently being monitored by the [facility] within the last 14 days. Proceed with normal triage procedures. The patient has NOT had contact with any known and/or suspected case of coronavirus. Proceed with normal triage procedures. Ebola Screen: No symptoms or risks identified at this time. Initial Sepsis Screen: Does the patient meet any 2 criteria? No. Patient's initial sepsis screen is negative. Does the patient have a suspected source of infection? No. Patient's initial sepsis screen is negative. Risk Assessment: Do you want to hurt yourself or someone else? Patient reports no desire to harm self or others. 22:31 Method Of Arrival: EMS: [facility] rv 22:31 Acuity: JOSEPH 4 rv 22:35 Onset of symptoms was December 04, 2019 at 22:00. rv Triage Assessment: 22:35 Pain: Unable to use pain scale. Does not appear to understand pain scale. rv 22:35 General: Appears in no apparent distress. Behavior is calm. rv Historical: - Allergies: 22:34 Antihistamine; rv 22:34 Aspirin; rv 22:34 Demerol; rv 22:34 PENICILLINS; rv - PMHx: 22:34 Anoxic brain injury post suicide attempt; aspiration pneumonia; GERD; obstructive and rv reflux uropathy; Pneumonia; Seizures; upper and lower ext contractures; UTI; - PSHx: 22:34 SUPRAPUBIC CATH; NEPHROSTOMY TUBE; rv - Immunization history:: Adult Immunizations up to date. - Social history:: Smoking status: unknown Patient/guardian denies using alcohol, street drugs, The patient lives with family. - Family history:: not pertinent. Screenin:35 Abuse screen: Denies threats or abuse. Denies injuries from another. Nutritional rv screening: No deficits noted. Tuberculosis screening: No symptoms or risk factors identified. Fall Risk None identified. Assessment: 23:00 General: Appears in no apparent distress. Behavior is calm. Pain: Unable to use pain rr5 scale. Patient appears quiet. Neuro: Level of Consciousness is awake. Cardiovascular: Capillary refill < 3 seconds Patient's skin is warm and dry. Respiratory: Airway is patent Respiratory effort is even, unlabored, Respiratory pattern is regular, symmetrical. GI: PEG tube in place, clamped. Site clean. : suprapubic catheter in place Urine is sediments noted. 23:00 EENT: No deficits noted. Derm: Skin is fragile, is thin, skin graft right hand Skin rr5 temperature is warm. Musculoskeletal: Capillary refill < 3 seconds, decorticate position. 23:20 Reassessment: ED provider spoke to urologist SHAUN. patient is for discharge has an rr5 appointment tomorrow, he will do the procedure at the same time. helen CARVAJAL spoke to [facility] staff to arrange trasnport. 23:35 Reassessment: awaiting for EMS transport, going home. rr5 12/04 00:00 Reassessment: Patient appears in no apparent distress at this time. report given to rr5 LJEMS, awake, v/S stable. anup (daughter) informed thru phone. Vital Signs: 12/02 23:50 BP 92 / 60; Pulse 95; Resp 17; Temp 98.; Pulse Ox 99% ; rr5 12/03 22:31 BP 96 / 54; Pulse 96; Resp 15; Temp 98.4(TE); Pulse Ox 96% on R/A; Weight 54.43 kg; rv ED Course: 22:31 Patient arrived in ED. rv 22:33 Triage completed. rv 22:35 Arm band placed on Patient placed Patient notified of wait time. rv 22:35 Patient has correct armband on for positive identification. Pulse ox on. NIBP on. rv 22:47 Franky Silva RN is Primary Nurse. rr5 22:53 Torrey Borrego MD is Attending Physician. ma2 12/04 00:02 No provider procedures requiring assistance completed. Patient did not have IV access rr5 during this emergency room visit. Administered Medications: No medications were administered Outcome: 12/03 23:06 ER care complete, transfer ordered by MD. post 23:16 Discharge ordered by MD. post 12/04 00:00 [facility]. Transfer form completed. report given to ERIC rr5 Condition: stable Discharge instructions given to EMS, Instructed on discharge instructions, follow up and referral plans. Demonstrated understanding of instructions, follow-up care. 00:06 Patient left the ED. rr5 Signatures: Torrey Borrego MD MD ma2 Oumar Jung RN RN Franky Fonseca RN RN rr5
[2019-12-05 00:39] VITALS: BP 96/54; TEMP 98.4; O2SAT 96
== END 2019-12-05 00:06 | disposition home or self-care (01) ==
LOC: ER 22:28
DX: T83.022A Displacement of nephrostomy catheter, initial encounter (principal); Z88.0 Allergy status to penicillin; Z88.6 Allergy status to analgesic agent
CPT/HCPCS: 99283

== ENCOUNTER 2019-12-22 02:01 | Inpatient (IN) | payer OTHER ==
--- OUTSIDE RECORDS SUMMARY | 2019-12-22 02:03 | XMS REPORT ---
:1980 Author Organization [facility] Address [address] [place] [address] Dr. Arvizu [address] [place] [id number] Care Team Providers Name Role Phone Unavailable Unavailable Unavailable Problems This patient has no known problems. Allergies, Adverse Reactions, Alerts This patient has no known allergies or adverse reactions. Medications This patient has no known medications.
[2019-12-22] MEDS ORDERED: ACETAMINOPHEN 500 MG TAB ONE (02:29)
[2019-12-22] MEDS ORDERED: NA CHLORIDE 0.9% 500 ML ONE (02:29)
[2019-12-22] MEDS ORDERED: NA CHLORIDE 0.9% 2,000 ML ONE (02:29)
[2019-12-22 02:35] LABS: Absolute Lymphocytes (CBC) 0.6 K/uL (0.7-4.9); Basophils % 0.1 % (0-1.3); Hematocrit 47.2 % (39.6-49.0); Lymphocytes % 4.7 % (15.3-44.8); MPV 10.9 fL (7.6-11.3)
[2019-12-22 02:40] LABS: Protime INR 1.19
[2019-12-22] MEDS ORDERED: ONDANSETRON 4 MG/2 ML VIAL ONE ×2 (02:45→04:26)
[2019-12-22 02:55] LABS: ALT/SGPT 100 U/L (12-78); AST/SGOT 57 U/L (15-37); Albumin 3.5 g/dL (3.4-5.0); Alkaline Phosphatase 244 U/L (45-117); Amylase Level 23 U/L (25-115); BUN Blood Urea Nitrogen 18 mg/dL (7-18); Bicarbonate 22 mmol/L (21-32); Bilirubin Direct 0.4 mg/dL (0-0.2); Bilirubin Total 1.1 mg/dL (0.2-1.0); CKMB Creatine Kinase MB < 1.0 ng/mL (0.3-3.6); Creatine Phosphokinase 51 U/L (39-308); Glucose Level 117 mg/dL (74-106); Lipase 28 U/L (73-393); Potassium 3.7 mmol/L (3.5-5.1); Protein, Total 8.8 g/dL (6.4-8.2); Sodium Level 142 mmol/L (136-145); Troponin (Emerg Dept Use Only) < 0.02 ng/mL (0.0-0.045)
[2019-12-22] MEDS ORDERED: VANCOMYCIN 1 GM/VIAL ONE (03:10)
[2019-12-22] MEDS ORDERED: NA CHLORIDE 0.9% 250 ML ONE (03:10)
[2019-12-22] MEDS ORDERED: CEFEPIME 2 GM VIAL ONE (03:10)
[2019-12-22] MEDS ORDERED: NA CHLORIDE 0.9% 100 ML IV ONE (03:10)
[2019-12-22 03:14] LABS: Magnesium 1.9 mg/dL (1.8-2.4); NT PRO-BNP 544 pg/mL (<125); Phenytoin (Dilantin) Level 3.7 ug/mL (10.0-20.0)
--- NOTE | 2019-12-22 03:36 | ER ---
Nurse's Notes [facility] Name: Farhat Maza Age: 39 yrs Sex: Male : 1980 Arrival Date: 12/22/2019 Time: 02:03 Bed 7 Private MD: Diagnosis: Fever, unspecified;Sepsis, unspecified organism;Urinary tract infection, site not specified;Quadriplegia Presentation: 12/21 02:05 Chief complaint: EMS states: patient had a projectile vomiting 3x and fever with a rr5 temperature of T 101.3 F, Heart rate of 150 bpm. Coronavirus screen: Patient denies fever greater than 100.4F, cough, shortness of breath, or difficulty breathing. Proceed with normal triage process. Ebola Screen: Patient negative for fever greater than or equal to 101.5 degrees Fahrenheit, and additional compatible Ebola Virus Disease symptoms Patient denies exposure to infectious person. Patient denies travel to an Ebola-affected area in the 21 days before illness onset. Initial Sepsis Screen: Does the patient meet any 2 criteria? RR > 20 per min. Temp <36.0*C (96.8*F)) or > 38.3*C (100.9*F). HR > 90 bpm. Does the patient have a suspected source of infection? Yes: Dysuria/Frequency/Urgency/UTI Risk Assessment: Do you want to hurt yourself or someone else? Unable to obtain. Onset of symptoms was December 21, 2019. 02:05 Method Of Arrival: EMS: [facility] rr5 02:05 Acuity: JOSEPH 2 rr5 02:05 Transition of care: patient was received from another setting of care (long-term care rr5 facility), [facility]. Triage Assessment: 02:05 GI: Reports unable to verbalized. rr5 Historical: - Allergies: 02:17 Aspirin; lp1 02:17 PENICILLINS; lp1 02:17 Antihistamine; lp1 02:17 Demerol; lp1 - Home Meds: 02:17 Arginaid 4.5 gram-156 mg/9.2 gram oral pwpk twice a day [Active]; artificial lp1 tears(hypromellose) 0.4 % Opht drop 1 drop daily [Active]; Baclofen 5 mg Oral 1 tab daily [Active]; lactulose 10 gram/15 mL (15 mL) Oral soln 15 mL nightly for constipation [Active]; ibuprofen 200 mg oral tab 2 tabs every 4 hours for Pain [Active]; omeprazole 2mg/ml suspension Oral 10 mL once daily [Active]; oxybutynin chloride 5 mg Oral tab 1 tab daily [Active]; phenytoin 125 mg/5 mL Oral susp 5 mL 3 times per day [Active]; tramadol 50 mg Oral tab 1 tab three times a day [Active]; Zinc Sulfate Oral 1 tab twice a day [Active]; - PMHx: 02:17 Anoxic brain injury post suicide attempt; Seizures; GERD; UTI; upper and lower ext lp1 contractures; Pneumonia; obstructive and reflux uropathy; aspiration pneumonia; Asthma; - PSHx: 02:17 G-tube; lp1 02:21 nephrostomy tube; suprapubic cath; lp1 - Immunization history:: Adult Immunizations unknown. - Social history:: Smoking status: unknown. - Family history:: not pertinent. Screenin:35 Abuse screen: Denies threats or abuse. Denies injuries from another. Nutritional rr5 screening: No deficits noted. Tuberculosis screening: No symptoms or risk factors identified. Fall Risk Fall in past 12 months (25 points). Secondary diagnosis (15 points) impaired mobility, IV access (20 points). Ambulatory Aid- None/Bed Rest/Nurse Assist (0 pts). Gait- Impaired (20 pts.). Mental Status- Overestimates/Forgets Limitations (15 pts.). Total Bejarano Fall Scale indicates High Risk Score (45 or more points). Fall prevention measures have been instituted. Side Rails Up X 2 Placed Close to Nursing Station Frequent Obs/Assessments Occuring As available patient and family educated on Fall Prevention Program and Strategies. Assessment: 02:05 General: Appears in no apparent distress. uncomfortable, Behavior is moaning. nursing rr5 home reported fever. 02:05 Pain: Unable to use pain scale. Patient appears to be moaning. Neuro: Level of rr5 Consciousness is awake, alert, Oriented to none. Cardiovascular: Capillary refill < 3 seconds Patient's skin is warm and dry. Rhythm is sinus tachycardia. Respiratory: Airway is patent Respiratory effort is even, Respiratory pattern is regular, symmetrical, tachypnea. GI: Abdomen is flat, PEG tube in place, clamped. Site clean. Stools are reported to be loose, Parent/caregiver reports the patient having vomiting. : suprapubic catheter in place to gravity drainage. EENT: No signs and/or symptoms were reported regarding the EENT system. Derm: Skin is fragile, is thin, Skin is moist, Skin temperature is warm. Musculoskeletal: Capillary refill < 3 seconds, decorticate position, paraplegic. 03:05 Reassessment: Patient appears in no apparent distress at this time. No changes from rr5 previously documented assessment. awaiting for results. 04:15 Reassessment: Patient appears in no apparent distress at this time. patient keeps on rr5 moaning, facial grimace noted. ED provider informed with order made and carried out. 05:20 Reassessment: Patient appears in no apparent distress at this time. resting eyes closed rr5 breathing spontaneously with oxygen support at 2 liters. hospitalist came and seen the patient. 06:10 Reassessment: Patient appears in no apparent distress at this time. No changes from rr5 previously documented assessment. awaiting for room assignment. vitally stable. 07:49 Reassessment: ADMIT COMPLETE, REPORT TO ZORAN CARVAJAL FOR 205. bp Vital Signs: 02:05 BP 109 / 70; Pulse 145; Resp 23; Temp 102.7; Pulse Ox 91% on R/A; Weight 80 kg; rr5 02:40 BP 104 / 89; Pulse 111; Resp 22; Pulse Ox 97% on 3 lpm NC; rr5 04:00 BP 106 / 69; Pulse 115; Resp 24; Temp 100.7; Pulse Ox 98% on 3 lpm NC; rr5 04:29 BP 113 / 71; Pulse 118; Resp 22; Temp 100; Pulse Ox 97% on 3 lpm NC; rr5 05:10 BP 105 / 70; Pulse 116; Resp 20; Temp 99.8; Pulse Ox 99% on 2 lpm NC; rr5 06:10 BP 96 / 59; Pulse 108; Resp 19; Temp 99.2; Pulse Ox 99% on 2 lpm NC; rr5 07:50 BP 93 / 65; Pulse 106; Resp 21; Temp 99.5; Pulse Ox 98% on 3 lpm NC; bp ED Course: 02:03 Patient arrived in ED. lp1 02:04 Franky Silva, RN is Primary Nurse. rr5 02:05 Patient has correct armband on for positive identification. Placed in gown. Bed in low rr5 position. Side rails up X2. inspector and clerk on. Pulse ox on. NIBP on. 02:11 Triage completed. rr5 02:12 Arm band placed on left wrist. rr5 02:20 Inserted saline lock: 20 gauge in left forearm, using aseptic technique. Blood rv collected. 02:20 Initial lab(s) drawn, by me, sent to lab. First set of blood cultures drawn by me. rv 02:25 EKG done, by ED staff, reviewed by Mario Pisano MD. rr5 02:38 Chest Single View XRAY In Process Unspecified. EDMS 02:38 Mario Pisano MD is Attending Physician. nely 03:25 Urine collected: suprapubic catheter. rr5 03:32 Torrey Andres MD is Hospitalizing Provider. nely 07:51 No provider procedures requiring assistance completed. Patient admitted, IV remains in bp place. Administered Medications: 02:35 Drug: NS 0.9% (30 ml/kg) 30 ml/kg Route: IV; Rate: bolus; Site: left forearm; rr5 05:00 Follow up: Response: No adverse reaction; IV Status: Completed infusion; IV Intake: rr5 2400ml 02:50 Drug: Tylenol 1000 mg Route: PO; rr5 03:45 Follow up: Response: No adverse reaction; Temperature is decreased rr5 02:55 Drug: Zofran (Ondansetron) 4 mg Route: IVP; Site: left forearm; rr5 03:44 Follow up: Response: No adverse reaction rr5 03:00 Dru grams of (Cefepime 2 grams, NS 0.9% 100 ml) Route: IVPB; Rate: 200 ml/hr; rr5 Infused Over: 30 mins; Site: left forearm; 03:40 Follow up: Response: No adverse reaction; IV Status: Completed infusion; IV Intake: rr5 100ml 03:45 Dru grams of (vancoMYCIN 1 grams, NS 0.9% 250 ml) Route: IVPB; Infused Over: 2 hrs; rr5 Site: left forearm; 05:30 Follow up: Response: No adverse reaction; IV Status: Completed infusion; IV Intake: rr5 250ml 04:23 Drug: Zofran (Ondansetron) 4 mg Route: IVP; Site: left forearm; rr5 05:10 Follow up: Response: No adverse reaction rr5 04:25 Drug: morphine 2 mg {Note: rass 0.} Route: IVP; Site: left forearm; rr5 05:25 Follow up: Response: No adverse reaction; RASS: Alert and Calm (0) rr5 Intake: 03:40 IV: 100ml; Total: 100ml. rr5 05:00 IV: 2400ml; Total: 2500ml. rr5 05:30 IV: 250ml; Total: 2750ml. rr5 Outcome: 03:34 Decision to Hospitalize by Provider. nely 07:50 Admitted to Med/surg accompanied by tech, via stretcher, room 205, with chart, Report bp called to ZORAN CARVAJAL 07:50 Condition: stable 07:50 Instructed on the need for admit. 08:29 Patient left the ED. bp Signatures: Dispatcher [employer] EDMS Mario Pisano MD MD cha Pena, Laura, RN RN lp1 Jair Alvarado RN RN bp Vicente, Ronaldo, ALENA RN rv Franky Silva, RN RN rr5 Corrections: (The following items were deleted from the chart) 03:27 03:26 2 grams of (Cefepime 2 grams, NS 0.9% 100 ml) IVPB at 200 ml/hr in left forearm rr5 over 30 mins rr5 04:00 02:05 Musculoskeletal: Capillary refill < 3 seconds, decorticate position rr5 rr5
--- NOTE | 2019-12-22 03:36 | EDPHYS ---
Physician Documentation [facility] Name: Farhat Maza Age: 39 yrs Sex: Male : 1980 Arrival Date: 12/22/2019 Time: 02:03 Bed 7 Private MD: ANJELICA Physician Mario Pisano HPI: 12/21 02:56 This 39 yrs old Male presents to ER via EMS with complaints of Fever, nely Vomiting. 02:56 The patient reports fever, that was measured at 103 degrees Fahrenheit. Onset: The nely symptoms/episode began/occurred 1 day(s) ago. Modifying factors: there are no obvious modifying factors. Associated signs and symptoms: Pertinent positives: abdominal pain, vomiting. Severity of symptoms: At their worst the symptoms were mild moderate in the emergency department the symptoms are unchanged. The patient has experienced similar episodes in the past, a few times. Historical: - Allergies: 02:17 Aspirin; lp1 02:17 PENICILLINS; lp1 02:17 Antihistamine; lp1 02:17 Demerol; lp1 - Home Meds: 02:17 Arginaid 4.5 gram-156 mg/9.2 gram oral pwpk twice a day [Active]; artificial lp1 tears(hypromellose) 0.4 % Opht drop 1 drop daily [Active]; Baclofen 5 mg Oral 1 tab daily [Active]; lactulose 10 gram/15 mL (15 mL) Oral soln 15 mL nightly for constipation [Active]; ibuprofen 200 mg oral tab 2 tabs every 4 hours for Pain [Active]; omeprazole 2mg/ml suspension Oral 10 mL once daily [Active]; oxybutynin chloride 5 mg Oral tab 1 tab daily [Active]; phenytoin 125 mg/5 mL Oral susp 5 mL 3 times per day [Active]; tramadol 50 mg Oral tab 1 tab three times a day [Active]; Zinc Sulfate Oral 1 tab twice a day [Active]; - PMHx: 02:17 Anoxic brain injury post suicide attempt; Seizures; GERD; UTI; upper and lower ext lp1 contractures; Pneumonia; obstructive and reflux uropathy; aspiration pneumonia; Asthma; - PSHx: 02:17 G-tube; lp1 02:21 nephrostomy tube; suprapubic cath; lp1 - Immunization history:: Adult Immunizations unknown. - Social history:: Smoking status: unknown. - Family history:: not pertinent. ROS: 02:56 Eyes: Negative for injury, pain, redness, and discharge, ENT: Negative for injury, nely pain, and discharge, Neck: Negative for injury, pain, and swelling, Cardiovascular: Negative for chest pain, palpitations, and edema, Respiratory: Negative for shortness of breath, cough, wheezing, and pleuritic chest pain, Back: Negative for injury and pain, : Negative for injury, bleeding, discharge, and swelling, MS/Extremity: Negative for injury and deformity, Skin: Negative for injury, rash, and discoloration, Neuro: Negative for headache, weakness, numbness, tingling, and seizure, Psych: Negative for depression, anxiety, suicide ideation, homicidal ideation, and hallucinations, Allergy/Immunology: Negative for hives, rash, and allergies, Endocrine: Negative for neck swelling, polydipsia, polyuria, polyphagia, and marked weight changes, Hematologic/Lymphatic: Negative for swollen nodes, abnormal bleeding, and unusual bruising. 02:56 Constitutional: Positive for fatigue, fever, malaise. 02:56 Abdomen/GI: Positive for nausea, vomiting. Exam: 02:56 Constitutional: This is a well developed, well nourished patient who is awake, alert, nely and in no acute distress. Head/Face: Normocephalic, atraumatic. Eyes: Pupils equal round and reactive to light, extra-ocular motions intact. Lids and lashes normal. Conjunctiva and sclera are non-icteric and not injected. Cornea within normal limits. Periorbital areas with no swelling, redness, or edema. ENT: Nares patent. No nasal discharge, no septal abnormalities noted. Tympanic membranes are normal and external auditory canals are clear. Oropharynx with no redness, swelling, or masses, exudates, or evidence of obstruction, uvula midline. Mucous membranes moist. Neck: Trachea midline, no thyromegaly or masses palpated, and no cervical lymphadenopathy. Supple, full range of motion without nuchal rigidity, or vertebral point tenderness. No Meningismus. Chest/axilla: Normal chest wall appearance and motion. Nontender with no deformity. No lesions are appreciated. Respiratory: Lungs have equal breath sounds bilaterally, clear to auscultation and percussion. No rales, rhonchi or wheezes noted. No increased work of breathing, no retractions or nasal flaring. Abdomen/GI: Soft, non-tender, with normal bowel sounds. No distension or tympany. No guarding or rebound. No evidence of tenderness throughout. Back: No spinal tenderness. No costovertebral tenderness. Full range of motion. Male : Normal genitalia with no discharge or lesions. Skin: Warm, dry with normal turgor. Normal color with no rashes, no lesions, and no evidence of cellulitis. MS/ Extremity: Pulses equal, no cyanosis. Neurovascular intact. Full, normal range of motion. Neuro: Awake and alert, GCS 15, oriented to person, place, time, and situation. Cranial nerves II-XII grossly intact. Motor strength 5/5 in all extremities. Sensory grossly intact. Cerebellar exam normal. Normal gait. Psych: Awake, alert, with orientation to person, place and time. Behavior, mood, and affect are within normal limits. 02:56 Cardiovascular: Rate: tachycardic, Rhythm: regular, Pulses: Pulses are 4+ in bilateral radial, brachial, femoral, popliteal, posterior tibial and and dorsalis pedis arteries.. Heart sounds: normal, Edema: is not appreciated, JVD: is not appreciated. Vital Signs: 02:05 BP 109 / 70; Pulse 145; Resp 23; Temp 102.7; Pulse Ox 91% on R/A; Weight 80 kg; rr5 02:40 BP 104 / 89; Pulse 111; Resp 22; Pulse Ox 97% on 3 lpm NC; rr5 04:00 BP 106 / 69; Pulse 115; Resp 24; Temp 100.7; Pulse Ox 98% on 3 lpm NC; rr5 04:29 BP 113 / 71; Pulse 118; Resp 22; Temp 100; Pulse Ox 97% on 3 lpm NC; rr5 05:10 BP 105 / 70; Pulse 116; Resp 20; Temp 99.8; Pulse Ox 99% on 2 lpm NC; rr5 06:10 BP 96 / 59; Pulse 108; Resp 19; Temp 99.2; Pulse Ox 99% on 2 lpm NC; rr5 07:50 BP 93 / 65; Pulse 106; Resp 21; Temp 99.5; Pulse Ox 98% on 3 lpm NC; bp MDM: 02:38 [facility] medically screened. [facility] 02:56 Data reviewed: vital signs, nurses notes, lab test result(s), EKG, radiologic studies. [facility] 12/21 02:12 Order name: Amylase, Serum; Complete Time: 03:[address] [facility] 12/21 02:12 Order name: Basic Metabolic Panel; Complete Time: 03:[address] [facility] 12/21 02:12 Order name: Blood Culture Adult (2) [facility] 12/21 02:12 Order name: CBC with Diff; Complete Time: 04:[address] [facility] 12/21 02:12 Order name: Ckmb; Complete Time: 03:[address] [facility] 12/21 02:12 Order name: CPK; Complete Time: 03:[address] [facility] 12/21 02:12 Order name: Lactate; Complete Time: 03:[address] [facility] 12/21 02:12 Order name: LFT's; Complete Time: 03:[address] [facility] 12/21 02:12 Order name: Lipase; Complete Time: 03:[address] [facility] 12/21 02:12 Order name: Procalcitonin; Complete Time: 03:[address] [facility] 12/21 02:12 Order name: Protime (+inr); Complete Time: 03:[address] [facility] 12/21 02:12 Order name: Ptt, Activated; Complete Time: 03:[address] [facility] 12/21 02:12 Order name: Troponin (emerg Dept Use Only); Complete Time: 03:[address] [facility] 12/21 02:12 Order name: Urine Microscopic Only; Complete Time: 04:[address] [facility] 12/21 02:40 Order name: Manual Differential; Complete Time: 04:22 [facility] 12/21 02:55 Order name: Urine Culture [facility] 12/21 03:02 Order name: NT PRO-BNP; Complete Time: 03:27 [facility] 12/21 03:02 Order name: Magnesium; Complete Time: 03:27 [facility] 12/21 03:02 Order name: Phenytoin (Dilantin) Level; Complete Time: 03:27 [facility] 12/21 03:20 Order name: Urine Dipstick--Ancillary (enter results); Complete Time: 04:22 [facility] 12/21 03:28 Order name: Influenza Screen (a \T\ B); Complete Time: 05:35 [facility] 12/21 05:47 Order name: Lactate Sepsis 2 HR Follow-up [facility] 12/21 06:43 Order name: ABG Arterial Blood Gas [facility] 12/21 06:43 Order name: Procalcitonin [facility] 12/21 06:43 Order name: CBC with Automated Diff [facility]MS 12/21 06:43 Order name: CBC with Automated Diff EDMS 12/21 02:12 Order name: Chest Single View XRAY rr5 12/21 02:12 Order name: Accucheck; Complete Time: 02:34 rr5 12/21 02:12 Order name: Cardiac monitoring; Complete Time: 02:34 5 12/21 02:12 Order name: EKG - Nurse/Tech; Complete Time: 02:34 rr5 12/21 02:12 Order name: IV Saline Lock - Large Bore; Complete Time: 02:[address] [facility] 12/21 02:12 Order name: Labs collected and sent; Complete Time: 02:34 5 12/21 02:12 Order name: O2 Per Protocol; Complete Time: 02:34 5 12/21 02:12 Order name: O2 Sat Monitoring; Complete Time: 02:[address] [facility] 12/21 02:12 Order name: Urine Dipstick-Ancillary (obtain specimen); Complete Time: 03:28 5 12/21 02:52 Order name: EKG; Complete Time: 02:53 nely 12/21 06:42 Order name: CONS Pharmacy Consult [facility] 12/21 06:42 Order name: CONS Pharmacy Consult [facility] 12/21 06:42 Order name: EKG Electrocardiogram [facility] 12/21 06:43 Order name: Comprehensive Metabolic Panel [facility] 12/21 06:43 Order name: Comprehensive Metabolic Panel [facility] 12/21 06:43 Order name: Protime (+INR) [facility] 12/21 06:43 Order name: Protime (+INR) [facility] 12/21 06:43 Order name: PTT, Activated Partial Thromb EDMS 12/21 06:43 Order name: PTT, Activated Partial Thromb ED[facility] 12/21 06:44 Order name: Procalcitonin [facility] 12/21 06:44 Order name: Procalcitonin [facility] 12/21 06:44 Order name: Lactate [facility] Administered Medications: 02:35 Drug: NS 0.9% (30 ml/kg) 30 ml/kg Route: IV; Rate: bolus; Site: left forearm; rr5 05:00 Follow up: Response: No adverse reaction; IV Status: Completed infusion; IV Intake: rr5 2400ml 02:50 Drug: Tylenol 1000 mg Route: PO; rr5 03:45 Follow up: Response: No adverse reaction; Temperature is decreased rr5 02:55 Drug: Zofran (Ondansetron) 4 mg Route: IVP; Site: left forearm; rr5 03:44 Follow up: Response: No adverse reaction rr5 03:00 Dru grams of (Cefepime 2 grams, NS 0.9% 100 ml) Route: IVPB; Rate: 200 ml/hr; rr5 Infused Over: 30 mins; Site: left forearm; 03:40 Follow up: Response: No adverse reaction; IV Status: Completed infusion; IV Intake: rr5 100ml 03:45 Dru grams of (vancoMYCIN 1 grams, NS 0.9% 250 ml) Route: IVPB; Infused Over: 2 hrs; rr5 Site: left forearm; 05:30 Follow up: Response: No adverse reaction; IV Status: Completed infusion; IV Intake: rr5 250ml 04:23 Drug: Zofran (Ondansetron) 4 mg Route: IVP; Site: left forearm; rr5 05:10 Follow up: Response: No adverse reaction rr5 04:25 Drug: morphine 2 mg {Note: rass 0.} Route: IVP; Site: left forearm; rr5 05:25 Follow up: Response: No adverse reaction; RASS: Alert and Calm (0) rr5 Disposition: 12/22/19 03:34 Hospitalization ordered by Torrey Andres for Inpatient Admission. Preliminary diagnosis are Fever, unspecified, Sepsis, unspecified organism, Urinary tract infection, site not specified, Quadriplegia. - Bed requested for Telemetry/MedSurg (Inpatient). - Status is Inpatient Admission. bp - Condition is Fair. - Problem is new. - Symptoms have improved. Signatures: Dispatcher [employer] EDMario Jameson MD MD cha Pena, Laura, RN RN lp1 Trudy Rodríguez, RN RN tl1 Jair Alvarado, RN RN Franky Pavon, RN RN rr5 Corrections: (The following items were deleted from the chart) 02:58 02:52 IV Saline Lock ordered. nely rr5 03:01 02:53 MAGNESIUM+C.LAB.BRZ ordered. [facility]MS [facility] 03:01 02:53 PROBNP+C.LAB.BRZ ordered. [facility] EDMS 03:01 02:55 PHENYTOIN (DILANTIN)+C.LAB.BRZ ordered. [facility] EDMS 05:32 04:58 LACTATE+C.LAB.BRZ ordered. [facility] EDMS 06:50 03:34 Hospitalization Ordered by Torrey Andres MD for Inpatient Admission. Preliminary tl1 diagnosis is Fever, unspecified; Sepsis, unspecified organism; Urinary tract infection, site not specified; Quadriplegia. Bed requested for Telemetry/MedSurg (Inpatient). Status is Inpatient Admission. Condition is Fair. Problem is new. Symptoms have improved. [facility] 08:29 06:50 12/22/2019 03:34 Hospitalization Ordered by Torrey Andres MD for Inpatient bp Admission. Preliminary diagnosis is Fever, unspecified; Sepsis, unspecified organism; Urinary tract infection, site not specified; Quadriplegia. Bed requested for Telemetry/MedSurg (Inpatient). Status is Inpatient Admission. Condition is Fair. Problem is new. Symptoms have improved. tl1
[2019-12-22 03:52] LABS: Blood Morphology Comment NOT SEEN (NOT SEEN); Platelet Estimate ADEQ
[2019-12-22 03:58] LABS: Urine Culture Reflex Order NOT NEEDED; Urine Volume 1.5 ML
[2019-12-22 03:58] LABS: Urine Blood 3+ (NEG); Urine Glucose NEGATIVE (NEG); Urine Protein 3+ (NEG); Urine Specific Gravity >1.030 (1.005-1.030)
[2019-12-22 03:59] LABS: Urine Bacteria LOADED /HPF (NONE SEEN); Urine RBC <5 /HPF (NONE SEEN)
[2019-12-22] MEDS ORDERED: MORPHINE 2 MG/ML SYR ONE (04:26)
[2019-12-22] MEDS ORDERED: NA CHLORIDE 0.9% 500 ML IV ONE ×2 (06:35→20:17)
[2019-12-22] MEDS ORDERED: SODIUM CHL 0.9% 1000 ML BAG IV ONE (06:35)
[2019-12-22] MEDS ORDERED: ACETAMINOPHEN 500 MG TAB PO PRN (06:35)
[2019-12-22] MEDS ORDERED: MORPHINE 2 MG/ML SYR IV PRN (06:35)
[2019-12-22] MEDS ORDERED: ONDANSETRON 4 MG/2 ML VIAL IV PRN (06:35)
[2019-12-22] MEDS ORDERED: CEFTRIAXONE 1 GM/NS 50 ML 1 GM/50 ML BAG IV SCH (07:00)
[2019-12-22 07:05] LABS: Arterial Blood Carboxyhemoglob 1.6 % (0-1.5); Blood Gas Oxyhemoglobin 96.4 % (94-97); Blood O2 Saturation 98.6 % (92-98.5)
--- NOTE | 2019-12-22 07:05 | RAD REPORT ---
EXAM DESCRIPTION: RAD - Chest Single View - 12/22/2019 2:37 am CLINICAL HISTORY: FEVER, vomiting, tachycardia, history of prior anoxic brain injury COMPARISON: Portable October 01, 2019 TECHNIQUE: AP portable chest image was obtained 12/22/2019 2:37 am . FINDINGS: Patient has substantially rotated. No pulmonary edema or volume overload finding seen. No peripheral consolidation or mass identifiable. Slight motion degradation limits medial left base asse ssment. Gross change from the prior study is not seen. Heart and vasculature are normal. No measurabl e pleural effusion and no pneumothorax. No acute bony abnormality seen. No acute aortic findings susp ected. IMPRESSION: Exam has substantial limitation but no acute cardiopulmonary findings are evident.
--- NOTE | 2019-12-22 08:30 | P.HP ---
Certification for Inpatient Patient admitted to: Inpatient With expected LOS: >2 Midnights Patient will require the following post-hospital care: None Practitioner: I am a practitioner with admitting privileges, knowledge of patient current condition, hospital course, and medical plan of care. Services: Services provided to patient in accordance with Admission requirements found in Title 42 Section 412.3 of the Code of Federal Regulations Patient History Date of Service: 12/22/19 Reason for admission: UTI with sepsis in a quadriplegic History of Present Illness: Patient is a 39-year-old gentleman who suffered anoxic brain injury many years ago. Patient has been come to our facility for quite a while and has been diagnosed on numerous occasions with UTI. In the emergency room he was febrile and tachycardic. He was started on IV fluids and his workup revealed a UTI. He normally has Proteus mirabilis in his urine. This tends to be sensitive to cephalosporins. Will go ahead and start him on IV hydration and IV antibiotics. He will also need to get started on tube feeds. He will be admitted to the hospital for further evaluation. Allergies Penicillins Allergy (Intermediate, Verified 11/15/19 13:33) unknown aspirin Allergy (Verified 11/15/19 13:33) Unknown Antihistamine Allergy (Uncoded 11/15/19 13:33) Unknown Home Medications: Lactulose 15 ml FT DAILY 04/24/18 Phenytoin [Dilantin-125] 5 ml FT TID 04/24/18 Zinc Sulfate [Zinc Sulfate*] 220 mg FT DAILY 05/26/18 Baclofen 5 mg FT DAILY 11/15/19 Omeprazole Magnesium [Prilosec] 10 mg PO DAILY 11/15/19 Oxybutynin Chloride 5 mg PO DAILY 11/15/19 Tramadol HCl [Ultram] 50 mg FT TID 11/15/19 - Past Medical/Surgical History Diabetic: No -: anoxic brain injury -: seizure disorder -: GERD -: Pneumonitis -: Obstructive uropathy -: Tracheostomy - Social History Alcohol use: No CD- Drugs: No Caffeine use: No Review of Systems is unable to be obtained Physical Examination - Vital Signs Temperature: 99 F Blood Pressure: 130/70 Pulse: 89 Respirations: 16 Pulse Ox (%): 96 - Physical Exam General: Confused HEENT: Atraumatic, Normocephalic Neck: Supple, 2+ carotid pulse no bruit, JVD not distended Respiratory: Clear to auscultation bilaterally, Normal air movement Cardiovascular: Regular rate/rhythm, Normal S1 S2 Gastrointestinal: Normal bowel sounds, Soft and benign, Non-distended, No tenderness, Other (PEG tube) Musculoskeletal: No clubbing, No swelling, Other (Contractures all 4 extremities ) Neurological: Other (contractures all 4 extremities; noncommunicative), Abnormal gait, Abnormal speech, Abnormal strength, Abnormal tone - Studies Laboratory Data (last 24 hrs) 12/22/19 02:52: Magnesium Cancelled 12/22/19 02:20: PT 14.0 H, INR 1.19, APTT 31.5 12/22/19 02:20: WBC 11.9 H, Hgb 15.6, Hct 47.2, Plt Count 209 12/22/19 02:20: Sodium 142, Potassium 3.7, BUN 18, Creatinine 0.89, Glucose 117 H, Magnesium 1.9, Total Bilirubin 1.1 H, AST 57 H, ALT 100 H, Alkaline Phosphatase 244 H, Amylase 23 L, Lipase 28 L Microbiology Data (last 24 hrs): 12/22/19 03:35 Nasopharnyx Influenza Type A Antigen Screen - Final 12/22/19 03:35 Nasopharnyx Influenza Type B Antigen Screen - Final Assessment & Plan - Problems (Diagnosis) (1) UTI (urinary tract infection) Current Visit: Yes Status: Acute (2) Proteus mirabilis infection Current Visit: Yes Status: Acute (3) Quadriplegia Current Visit: Yes Status: Acute - Plan plan: 1. Continue with IV hydration and IV antibiotics 2. resume tube feedings per dietary recommendation 3. Monitor labs closely 4. Await urine culture to see if patient may have multi-drug resistant UTI secondary to being at the nursing facility 5. continue with GI and DVT prophylaxis Discharge Plan: Custodial Plan to discharge in: Greater than 2 days - Advance Directives Does patient have a Living Will: Yes Does patient have a Durable POA for Healthcare: No - Code Status/Comfort Care Code Status Assessed: Yes Code Status: Full Code Critical Care: No Time Spent Managing PTS Care (In Minutes): 40
[2019-12-22] MEDS: NA CHLORIDE 0.9% 1,000 ML IV SCH ×2 (10:03→22:45)
--- NOTE | 2019-12-22 10:03 | EKG ---
Test Date: 2019-12-22 Test Time: 02:34:38 Wrap Checker: MEGAN MEASUREMENT RESULTS: Intervals: Rate: 137 MA: 158 QRSD: 72 QT: 272 QTc: 410 [place]: P: 67 MA: 158 QRS: 111 T: 61 INTERPRETIVE STATEMENTS: Sinus tachycardia Left posterior fascicular block ST & T wave abnormality, consider inferior ischemia Abnormal ECG Compared to ECG 10/01/2019 20:32:37 Left posterior fascicular block now present ST (T wave) deviation now present Possible ischemia now present Electronically Signed On 12-22-19 10:02:50 CDT by Melvin Díaz
--- NOTE | 2019-12-22 13:47 | P.PN ---
Date of Service: 12/22/19 Patient seen and examined He cannot provide any history. Patient transferred from the assisted to the ED due to fever. Chest x-ray shows no pneumonia. UA suggests UTI. The patient has chronic indwelling Cardenas. He also has a PEG tube. Continue current antibiotics and follow cultures.
[2019-12-22] MEDS: JEVITY 1.5 CAL LIQUID 1,000 ML BOT RTH SCH (14:13)
[2019-12-22] MEDS: CEFTRIAXONE/SWI 1gm 1 GM/10 ML SYR IV SCH (17:40)
[2019-12-22 21:04] VITALS: BMI 29.3
[2019-12-23] MEDS: NA CHLORIDE 0.9% 1,000 ML IV SCH ×4 (03:00→22:15)
[2019-12-23] MEDS ORDERED: NA CHLORIDE 0.9% 500 ML IV ONE (03:21)
[2019-12-23] MEDS: CEFTRIAXONE/SWI 1gm 1 GM/10 ML SYR IV SCH ×2 (05:14→17:24)
[2019-12-23 05:48] LABS: Absolute Lymphocytes (CBC) 1.1 K/uL (0.7-4.9); Hematocrit 32.9 % (39.6-49.0); Lymphocytes % 17.2 % (15.3-44.8); MPV 11.7 fL (7.6-11.3); RBC Red Blood Cell Count 3.75 M/uL (4.33-5.43)
[2019-12-23 05:55] LABS: Protime INR 1.28
[2019-12-23 06:08] LABS: ALT/SGPT 47 U/L (12-78); AST/SGOT 22 U/L (15-37); Albumin 2.3 g/dL (3.4-5.0); Alkaline Phosphatase 140 U/L (45-117); BUN Blood Urea Nitrogen 8 mg/dL (7-18); Bicarbonate 25 mmol/L (21-32); Bilirubin Total 0.2 mg/dL (0.2-1.0); Glucose Level 130 mg/dL (74-106); Potassium 3.1 mmol/L (3.5-5.1); Protein, Total 6.1 g/dL (6.4-8.2); Sodium Level 149 mmol/L (136-145)
[2019-12-23 09:37] LABS: Platelet Estimate DECR; Urine White Blood Cell Casts OK
[2019-12-23 09:38] LABS: Blood Morphology Comment NOT SEEN (NOT SEEN)
[2019-12-23] MEDS ORDERED: IBUPROFEN 100 MG/5 ML UCUP FT PRN (11:55)
--- NOTE | 2019-12-23 12:02 | P.PN ---
Subjective Date of Service: 12/23/19 Chief Complaint: UTI with sepsis in a quadriplegic No agitation reported. No seizures. Good urine output from suprapubic catheter. The patient is afebrile today. He developed hypotension this morning and was given IV fluid bolus. Blood cultures and urine cultures are growing Gram negative rods. Physical Examination - Vital Signs Temperature: 98.5 F Blood Pressure: 94/51 Pulse: 79 Respirations: 20 Pulse Ox (%): 98 - Physical Exam General: In no apparent distress, Other (Nonverbal) HEENT: Mucous membr. moist/pink Neck: Supple Respiratory: Clear to auscultation bilaterally, Normal air movement Cardiovascular: No edema, Regular rate/rhythm, Normal S1 S2 Gastrointestinal: Soft and benign, No tenderness, Other (PEG, suprapubic catheter.) Musculoskeletal: Other (Contracted extremities.) Neurological: Other (Nonverbal, all extremities spastic and contracted.) - Studies Microbiology Data (last 24 hrs): 12/22/19 02:50 Blood - Blood Blood Culture Gram Stain - Final 12/22/19 02:50 Blood - Blood Gram Stain - Final 12/22/19 02:20 Blood - Blood Blood Culture Gram Stain - Final 12/22/19 02:20 Blood - Blood Gram Stain - Final Assessment And Plan - Current Problems (Diagnosis) (1) Gram negative sepsis Current Visit: Yes Status: Acute (2) UTI (urinary tract infection) Current Visit: Yes Status: Acute (3) Quadriplegia Onset Date: 05/28/18 Current Visit: No Status: Chronic (4) Seizure disorder Onset Date: 05/28/18 Current Visit: No Status: Chronic (5) Septic shock Current Visit: Yes Status: Acute (6) Hypokalemia Current Visit: Yes Status: Acute - Plan Continue IV Rocephin. IV boluses as needed. Maintenance IV fluid. Follow cultures Repeat blood culture today. Suprapubic catheter care Decubitus ulcer precautions Continue PEG tube feeds. Increase free water flushes to treat hypernatremia. Optimize electrolytes, replete potassium. Monitor CBC and blood chemistry. Continue antiseizure medication Pain medications as needed.
[2019-12-23] MEDS: TRAMADOL HCL 50 MG TAB FT SCH ×2 (13:54→20:19)
[2019-12-23] MEDS: PHENYTOIN 125 MG/5 ML ORAL.SUSP FT SCH ×2 (13:55→20:18)
[2019-12-23] MEDS: JEVITY 1.5 CAL LIQUID 1,000 ML BOT RTH SCH (17:24)
[2019-12-23] MEDS: ARGININE FT SCH (19:34)
[2019-12-23] MEDS: ASCORBATE SOD FT SCH (19:34)
[2019-12-23] MEDS: VITE AC FT SCH (19:34)
[2019-12-23] MEDS: POLYVINYL ALCOHOL 1.4% 15 ML EACH EYE SCH (20:18)
[2019-12-23] MEDS: LACTULOSE 20 GM/30 ML UCUP FT SCH (20:18)
[2019-12-23] MEDS: ZINC SULFATE 220 MG CAP FT SCH (20:19)
[2019-12-24] MEDS: CEFTRIAXONE/SWI 1gm 1 GM/10 ML SYR IV SCH (04:00)
[2019-12-24 06:40] LABS: Absolute Lymphocytes (CBC) 1.4 K/uL (0.7-4.9); Basophils % 0.5 % (0-1.3); Hematocrit 33.3 % (39.6-49.0); Lymphocytes % 23.2 % (15.3-44.8); MPV 12.3 fL (7.6-11.3); RBC Red Blood Cell Count 3.84 M/uL (4.33-5.43)
[2019-12-24 07:08] LABS: BUN Blood Urea Nitrogen 5 mg/dL (7-18); Bicarbonate 24 mmol/L (21-32); Glucose Level 113 mg/dL (74-106); Potassium 3.2 mmol/L (3.5-5.1); Sodium Level 142 mmol/L (136-145)
[2019-12-24] MEDS: ZINC SULFATE 220 MG CAP FT SCH ×2 (08:31→20:24)
[2019-12-24] MEDS: BACLOFEN 10 MG TAB FT SCH (08:34)
[2019-12-24] MEDS: TRAMADOL HCL 50 MG TAB FT SCH ×3 (08:34→20:24)
[2019-12-24] MEDS: PHENYTOIN 125 MG/5 ML ORAL.SUSP FT SCH ×3 (08:35→20:24)
[2019-12-24] MEDS: MULTIVITAMINS 5 ML ORAL SYR FT SCH (08:35)
[2019-12-24] MEDS: OXYBUTYNIN CHLORIDE 5 MG TAB FT SCH (08:35)
[2019-12-24] MEDS: Pantoprazole (granules) 40 MG/BLIST PACKET FT SCH (08:35)
[2019-12-24] MEDS: ARGININE FT SCH ×2 (08:36→20:25)
[2019-12-24] MEDS: POLYVINYL ALCOHOL 1.4% 15 ML EACH EYE SCH ×2 (08:36→20:27)
[2019-12-24] MEDS: VITE AC FT SCH ×2 (08:36→20:25)
[2019-12-24] MEDS: ASCORBATE SOD FT SCH ×2 (08:36→20:25)
[2019-12-24] MEDS ORDERED: Meropenem 1000 MG/VIAL IV SCH (09:00)
[2019-12-24] MEDS: NA CHLORIDE 0.9% 1,000 ML IV SCH ×2 (09:07→18:40)
[2019-12-24] MEDS: Meropenem 1,000 MG in NA CHLORIDE 0.9% 100 ML IV SCH ×2 (09:18→16:11)
[2019-12-24] MEDS ORDERED: POTASSIUM 25 MEQ EFFERV TAB PO ONE (10:00)
--- NOTE | 2019-12-24 11:08 | P.PN ---
Subjective Date of Service: 12/24/19 Chief Complaint: UTI with sepsis in a quadriplegic No seizures. Good urine output from suprapubic catheter. He has been afebrile. Blood pressure is better. Blood cultures growing ESBL E coli. He has been tolerating feeding. Physical Examination - Vital Signs Temperature: 97.7 F Blood Pressure: 106/56 Pulse: 92 Respirations: 19 Pulse Ox (%): 94 - Physical Exam General: In no apparent distress, Other (Awake, nonverbal.) HEENT: Mucous membr. moist/pink, Other (Oral candidiasis.) Neck: Supple, JVD not distended Respiratory: Clear to auscultation bilaterally, Normal air movement Cardiovascular: No edema, Regular rate/rhythm, Normal S1 S2 Capillary refill: <2 Seconds Gastrointestinal: Normal bowel sounds, Soft and benign, Non-distended Musculoskeletal: Contractures (Bilateral upper and lower extremities) Neurological: Other (Quadriplegia) Urinary: Suprapubic catheter - Studies Microbiology Data (last 24 hrs): 12/22/19 02:20 Blood - Blood Aerobic Blood Culture - Final Escherichia Coli Esbl 12/22/19 02:20 Blood - Blood Blood Culture Gram Stain - Final 12/22/19 02:20 Blood - Blood Anaerobic Blood Culture - Final Escherichia Coli Esbl 12/22/19 02:20 Blood - Blood Gram Stain - Final 12/22/19 02:50 Blood - Blood Aerobic Blood Culture - Final Escherichia Coli Esbl 12/22/19 02:50 Blood - Blood Blood Culture Gram Stain - Final 12/22/19 02:50 Blood - Blood Anaerobic Blood Culture - Final Escherichia Coli Esbl 12/22/19 02:50 Blood - Blood Gram Stain - Final Assessment And Plan - Current Problems (Diagnosis) (1) Gram negative sepsis Current Visit: Yes Status: Acute (2) UTI (urinary tract infection) Current Visit: Yes Status: Acute (3) Quadriplegia Onset Date: 05/28/18 Current Visit: No Status: Chronic (4) Seizure disorder Onset Date: 05/28/18 Current Visit: No Status: Chronic (5) Septic shock Current Visit: Yes Status: Acute (6) Hypokalemia Current Visit: Yes Status: Acute - Plan Change IV Rocephin to meropenem. Place PICC line for prolonged antibiotic therapy Maintenance IV fluid. Follow cultures Suprapubic catheter care Decubitus ulcer precautions Continue PEG tube feeding. Continue Free water flushes. Optimize electrolytes, replete potassium. Monitor CBC and blood chemistry. Continue antiseizure medication Pain medications as needed.
[2019-12-24] MEDS: JEVITY 1.5 CAL LIQUID 1,000 ML BOT RTH SCH (16:23)
[2019-12-24] MEDS: LACTULOSE 20 GM/30 ML UCUP FT SCH (20:25)
[2019-12-24] MEDS ORDERED: NA CHLORIDE 0.9% 500 ML IV ONE (23:30)
[2019-12-25] MEDS: Meropenem 1,000 MG in NA CHLORIDE 0.9% 100 ML IV SCH ×3 (00:26→16:16)
[2019-12-25] MEDS: NA CHLORIDE 0.9% 1,000 ML IV SCH ×2 (04:26→14:08)
[2019-12-25 06:17] LABS: BUN Blood Urea Nitrogen 5 mg/dL (7-18); Bicarbonate 25 mmol/L (21-32); Glucose Level 119 mg/dL (74-106); Potassium 3.8 mmol/L (3.5-5.1); Sodium Level 140 mmol/L (136-145)
[2019-12-25] MEDS: PHENYTOIN 125 MG/5 ML ORAL.SUSP FT SCH ×3 (08:45→21:29)
[2019-12-25] MEDS: TRAMADOL HCL 50 MG TAB FT SCH ×3 (08:45→21:28)
[2019-12-25] MEDS: OXYBUTYNIN CHLORIDE 5 MG TAB FT SCH (08:46)
[2019-12-25] MEDS: Pantoprazole (granules) 40 MG/BLIST PACKET FT SCH (08:46)
[2019-12-25] MEDS: ZINC SULFATE 220 MG CAP FT SCH ×2 (08:46→21:31)
[2019-12-25] MEDS: BACLOFEN 10 MG TAB FT SCH (08:46)
[2019-12-25] MEDS: POLYVINYL ALCOHOL 1.4% 15 ML EACH EYE SCH ×2 (08:47→21:29)
[2019-12-25] MEDS: ASCORBATE SOD FT SCH ×2 (08:47→21:00)
[2019-12-25] MEDS: VITE AC FT SCH ×2 (08:47→21:00)
[2019-12-25] MEDS: ARGININE FT SCH ×2 (08:47→21:00)
[2019-12-25] MEDS: MULTIVITAMINS 5 ML ORAL SYR FT SCH (08:48)
[2019-12-25] MEDS ORDERED: POTASSIUM 25 MEQ EFFERV TAB PO ONE (09:00)
--- NOTE | 2019-12-25 11:32 | P.PN ---
Subjective Date of Service: 12/25/19 Chief Complaint: UTI with sepsis in a quadriplegic No seizures. Good urine output from suprapubic catheter. Nurse reports hematuria from the penis. He has been afebrile. Blood cultures growing ESBL E coli. Urine culture is growing ESBL E. coli and Proteus. He has been tolerating feeding. Physical Examination - Vital Signs Temperature: 98.4 F Blood Pressure: 94/53 Pulse: 83 Respirations: 19 Pulse Ox (%): 94 - Physical Exam General: Other (Awake but nonverbal) HEENT: Mucous membr. moist/pink Neck: Supple, JVD not distended Respiratory: Clear to auscultation bilaterally, Normal air movement Cardiovascular: No edema, Regular rate/rhythm, Normal S1 S2 Gastrointestinal: Normal bowel sounds, Soft and benign, Non-distended Musculoskeletal: Contractures (Both upper and lower extremities.) Neurological: Other (Awake, nonverbal, contracted and spastic upper and lower extremities.) - Studies Microbiology Data (last 24 hrs): 12/22/19 03:25 Catheterized Urine [place] Count - Final >100,000 CFU/ML. 12/22/19 03:25 Catheterized Urine - Final Proteus Mirabilis Esbl Escherichia Coli Esbl 12/22/19 02:20 Blood - Blood Aerobic Blood Culture - Final Escherichia Coli Esbl 12/22/19 02:20 Blood - Blood Blood Culture Gram Stain - Final 12/22/19 02:20 Blood - Blood Anaerobic Blood Culture - Final Escherichia Coli Esbl 12/22/19 02:20 Blood - Blood Gram Stain - Final 12/22/19 02:50 Blood - Blood Aerobic Blood Culture - Final Escherichia Coli Esbl 12/22/19 02:50 Blood - Blood Blood Culture Gram Stain - Final 12/22/19 02:50 Blood - Blood Anaerobic Blood Culture - Final Escherichia Coli Esbl 12/22/19 02:50 Blood - Blood Gram Stain - Final Assessment And Plan - Current Problems (Diagnosis) (1) Gram negative sepsis Current Visit: Yes Status: Acute (2) UTI (urinary tract infection) Current Visit: Yes Status: Acute (3) Quadriplegia Onset Date: 05/28/18 Current Visit: No Status: Chronic (4) Seizure disorder Onset Date: 05/28/18 Current Visit: No Status: Chronic (5) Septic shock Current Visit: Yes Status: Acute (6) Hypokalemia Current Visit: Yes Status: Acute - Plan Continue meropenem. Place PICC line for prolonged antibiotic therapy. Repeat blood cultures is negative. PICC line may be a challenge given a contracted extremities. In the case may have to rely on peripheral line for antibiotics. Reduce IV fluid rate Follow cultures Suprapubic catheter care Decubitus ulcer precautions Continue PEG tube feeding. Continue Free water flushes. Optimize electrolytes. Monitor CBC and blood chemistry. Continue antiseizure medication Pain medications as needed. Obtain CT abdomen and pelvis to evaluate the hematuria.
--- NOTE | 2019-12-25 13:40 | RAD REPORT ---
EXAM DESCRIPTION: CT - Abdomen Pelvis W Contrast - 12/25/2019 1:25 pm CLINICAL HISTORY: Abdominal pain/urinary tract infection COMPARISON: September 2019 TECHNIQUE: Computed axial tomography of the abdomen pelvis was obtained. 100 cc Isovue-300 was admin istered intravenously. Oral contrast was not requested which limits evaluation of bowel. All CT scans are performed using dose optimization technique as appropriate and may include automated exposure control or mA/KV adjustment according to patient size. FINDINGS: The liver, spleen, pancreas, adrenal and left kidney kidneys appear unremarkable. Small right renal calculi are present. Moderate right hydronephrosis is seen. The right ureter is nor mal caliber. Small low-density areas within the right kidney A suprapubic catheter is present within the bladder. Bladder wall is thickened. Several bladder calcu li are noted. A gastrostomy tube in good position. There is no evidence of diverticulitis. IMPRESSION: Small low-density areas within the right kidney probably pyelonephritis. Moderate right hydronephrosis without visualization of an obstructing calculus
[2019-12-25] MEDS: JEVITY 1.5 CAL LIQUID 1,000 ML BOT RTH SCH (16:22)
[2019-12-25] MEDS: LACTULOSE 20 GM/30 ML UCUP FT SCH (21:00)
[2019-12-26] MEDS: Meropenem 1,000 MG in NA CHLORIDE 0.9% 100 ML IV SCH ×2 (00:52→16:50)
[2019-12-26 05:49] LABS: BUN Blood Urea Nitrogen 6 mg/dL (7-18); Bicarbonate 26 mmol/L (21-32); Glucose Level 116 mg/dL (74-106); Sodium Level 139 mmol/L (136-145)
[2019-12-26] MEDS: NA CHLORIDE 0.9% 1,000 ML IV SCH (06:04)
[2019-12-26] MEDS ORDERED: Meropenem 1,000 MG in NA CHLORIDE 0.9% 100 ML IV SCH (09:00)
[2019-12-26] MEDS: POLYVINYL ALCOHOL 1.4% 15 ML EACH EYE SCH ×2 (09:00→20:42)
[2019-12-26] MEDS: ARGININE FT SCH ×2 (09:00→20:42)
[2019-12-26] MEDS: ASCORBATE SOD FT SCH ×2 (09:00→20:42)
[2019-12-26] MEDS: VITE AC FT SCH ×2 (09:00→20:42)
[2019-12-26] MEDS: TRAMADOL HCL 50 MG TAB FT SCH ×3 (09:41→20:41)
[2019-12-26] MEDS: PHENYTOIN 125 MG/5 ML ORAL.SUSP FT SCH ×3 (09:41→20:40)
[2019-12-26] MEDS: BACLOFEN 10 MG TAB FT SCH (09:41)
[2019-12-26] MEDS: ZINC SULFATE 220 MG CAP FT SCH ×2 (09:41→20:40)
[2019-12-26] MEDS: Pantoprazole (granules) 40 MG/BLIST PACKET FT SCH (09:42)
[2019-12-26] MEDS: MULTIVITAMINS 5 ML ORAL SYR FT SCH (09:42)
[2019-12-26] MEDS: OXYBUTYNIN CHLORIDE 5 MG TAB FT SCH (09:42)
--- NOTE | 2019-12-26 11:58 | P.PN ---
Subjective Date of Service: 12/26/19 Primary Care Provider: assisted Chief Complaint: UTI with sepsis in a quadriplegic Subjective: Doing well Physical Examination - Vital Signs Temperature: 98.7 F Blood Pressure: 92/49 Pulse: 69 Respirations: 18 Pulse Ox (%): 96 - Physical Exam General: Other (Patient is nonverbal) Neck: Supple Respiratory: Clear to auscultation bilaterally, Normal air movement Cardiovascular: Normal pulses, Regular rate/rhythm Gastrointestinal: Other (G-tube in place. Patient with suprapubic catheter) Musculoskeletal: Contractures (To the upper lower extremities) Neurological: Other (Patient is nonverbal) - Studies Microbiology Data (last 24 hrs): 12/22/19 03:25 Catheterized Urine [place] Count - Final >100,000 CFU/ML. 12/22/19 03:25 Catheterized Urine - Final Proteus Mirabilis Esbl Escherichia Coli Esbl Medications List Reviewed: Yes Assessment & Plan Discharge Plan: Assisted Plan to discharge in: 24 Hours Physician Review Additional Text: Impression: Septic shock related to UTI/bacteremia with urine culture positive for Proteus ESBL/E coli ESBL and blood culture positive for E coli ESBL Quadriplegia with contractures History of seizure disorder History of anoxic brain injury Patient with G-tube and suprapubic catheter Plan: Septic shock related to UTI/pyelonephritis/bacteremia complicated with hydronephrosis without obstruction with urine culture positive for Proteus ESBL/ E coli ESBL and blood culture positive for E coli ESBL: Patient will have PICC line placed later tonight. Will make arrangements for the patient to go back to the skilled nursing with IV antibiotic therapy for 2 weeks. Patient currently on meropenem. Anticipate discharge back to the skilled nursing if PICC line can be placed and arrangements for IV antibiotics finalize. Quadriplegia with contractures: Patient is nonverbal. Patient remained stable this time. History of anoxic brain injury: Patient nonverbal. Patient stable this time. History of seizure disorder: Continue medication. Patient with G-tube and suprapubic catheter: Will discontinue IV fluids. Continue G-tube feeds. Will monitor closely. Time Spent Managing Pts Care (In Minutes): 55
[2019-12-26] MEDS ORDERED: ENOXAPARIN 30 MG/0.3 ML SQ SCH (17:00)
[2019-12-26] MEDS: JEVITY 1.5 CAL LIQUID 1,000 ML BOT RTH SCH (19:00)
[2019-12-26] MEDS: LACTULOSE 20 GM/30 ML UCUP FT SCH (20:42)
[2019-12-27] MEDS: Meropenem 1,000 MG in NA CHLORIDE 0.9% 100 ML IV SCH ×3 (00:10→15:07)
[2019-12-27 00:17] VITALS: O2SAT 97
[2019-12-27] MEDS ORDERED: SODIUM CHLORIDE 0.9% 10ML INJ IV PRN ×2 (06:00)
[2019-12-27] MEDS ORDERED: LIDOCAINE 1% MPF 5 ML VIAL IM PRN (06:00)
[2019-12-27] MEDS: ASCORBATE SOD FT SCH (08:17)
[2019-12-27] MEDS: ARGININE FT SCH (08:17)
[2019-12-27] MEDS: VITE AC FT SCH (08:17)
[2019-12-27] MEDS: ZINC SULFATE 220 MG CAP FT SCH (08:21)
[2019-12-27] MEDS: PHENYTOIN 125 MG/5 ML ORAL.SUSP FT SCH ×2 (08:21→13:16)
[2019-12-27] MEDS: TRAMADOL HCL 50 MG TAB FT SCH ×2 (08:21→13:16)
[2019-12-27] MEDS: BACLOFEN 10 MG TAB FT SCH (08:21)
[2019-12-27] MEDS: MULTIVITAMINS 5 ML ORAL SYR FT SCH (08:21)
[2019-12-27] MEDS: Pantoprazole (granules) 40 MG/BLIST PACKET FT SCH (08:24)
[2019-12-27] MEDS: OXYBUTYNIN CHLORIDE 5 MG TAB FT SCH (08:24)
--- NOTE | 2019-12-27 08:28 | P.DS ---
Admission Date: 12/22/19 Discharge Date: 12/27/19 Primary Care Provider: long term Disposition: TRANSFER TO [facility] Discharge Condition: GOOD Reason for Admission: UTI with sepsis in a quadriplegic Consultations: Urology-Dr. Zavala Procedures: Ct Chest: FINDINGS: The liver, spleen, pancreas, adrenal and left kidney kidneys appear unremarkable. Small right renal calculi are present. Moderate right hydronephrosis is seen. The right ureter is normal caliber. Small low-density areas within the right kidney A suprapubic catheter is present within the bladder. Bladder wall is thickened. Several bladder calculi are noted. A gastrostomy tube in good position. There is no evidence of diverticulitis. IMPRESSION: Small low-density areas within the right kidney probably pyelonephritis. Moderate right hydronephrosis without visualization of an obstructing calculus Medical Problem List: Septic shock related to UTI/right pyelonephritis with moderate hydronephrosis without obstructing calculus/bacteremia with urine culture positive for Proteus ESBL/E coli ESBL and blood culture positive for E coli ESBL Quadriplegia with contractures History of seizure disorder History of anoxic brain injury Patient with G-tube and suprapubic catheter Brief History of Present Illness: 39 year year old male with history of anoxic brain injury/quadriplegia /G-tube/suprapubic catheter/recurrent UTI. Patient presented with fever and tachycardia. Patient found to have recurrent UTI. Patient was admitted for septic shock during the course of his stay his condition improved. Hospital Course: Patient presented with fever and tachycardia related to septic shock. CT scan revealed right pyelonephritis with moderate hydronephrosis without obstruction. Patient found to have recurrent UTI. Patient with history of recurrent UTI and suprapubic catheter. Patient was started on IV antibiotic therapy. Urology was consulted. Patient improved during the course of his stay. Patient found to have bacteremia as well. Urine culture was positive for Proteus ESBL and E coli ESBL. Blood cultures were positive for E coli-ESBL. Patient was transition to IV meropenem. Urology recommended no further intervention except long-term IV antibiotic therapy. PICC line was placed. At discharge patient will go back to the care home with PICC line in place. Arrangements for IV meropenem 1 g 3 times a day for 10 more days have been made. Recommend to recheck urine culture after that time to monitor resolution. If negative PICC line can be removed. Patient will also continue with oxybutynin 5 mg daily. Recommend follow up with urology in 1-2 weeks to follow up this hospitalization and to further address his condition. UTI precautions will need to be enforced at the care home. Recommend to recheck lab-BMP, CBC in 1-2 weeks. Patient with history of quadriplegia with contractures. This has remained stable. Patient also with history of anoxic brain injury, chronic pain and seizure disorder. Patient will continue with his current medications: Baclofen 5 mg daily, lactulose 15 mg at bedtime, multi vitamin daily, Dilantin 125 mg/5 mL at 5 ml 3 times a day, and tramadol 50 mg 3 times a day. Further adjustment can be done by care home physician. Further monitoring on lab can be done by the care home physician. Patient with G-tube and suprapubic catheter in place. No changes required at this time. Patient will continue with his current G-tube feeds. G-tube/ suprapubic catheter care will be continued at the care home. Patient with history of GERD. At discharge he will continue with Prilosec 10 mg daily. Vital Signs/Physical Exam: Temp Pulse Resp BP Pulse Ox 98.2 F 80 12 114/56 L 95 12/27/19 04:00 12/27/19 04:00 12/27/19 08:21 12/27/19 04:00 12/27/19 08:21 General: Other (Patient is nonverbal. Patient appears stable at this time. Patient appears to be at his baseline level.) HEENT: Atraumatic Neck: Supple Respiratory: Clear to auscultation bilaterally, Normal air movement Cardiovascular: Normal pulses, Regular rate/rhythm Gastrointestinal: Normal bowel sounds, Soft and benign, Non-distended, Other (G- tube in place) Musculoskeletal: Contractures (To the upper lower extremities), Other (PICC line to the left upper arm.) Integumentary: No tenderness/swelling, No erythema, No cyanosis Neurological: Other (Patient is nonverbal) Laboratory Data at Discharge: WBC 5.8 K/uL (4.3-10.9) 12/24/19 05:41 Hgb 11.1 g/dL (13.6-17.9) L 12/24/19 05:41 Hct 33.3 % (39.6-49.0) L 12/24/19 05:41 Plt Count 116 K/uL (152-406) L 12/24/19 05:41 PT 15.0 SECONDS (9.5-12.5) H 12/23/19 05:30 INR 1.28 12/23/19 05:30 APTT 31.2 SECONDS (24.3-36.9) 12/23/19 05:30 Sodium 139 mmol/L (136-145) 12/26/19 05:07 Potassium 4.0 mmol/L (3.5-5.1) 12/26/19 05:07 BUN 6 mg/dL (7-18) L 12/26/19 05:07 Creatinine 0.58 mg/dL (0.55-1.3) 12/26/19 05:07 Glucose 116 mg/dL (74-106) H 12/26/19 05:07 Magnesium Cancelled 12/22/19 02:52 Total Bilirubin 0.2 mg/dL (0.2-1.0) 12/23/19 05:30 AST 22 U/L (15-37) 12/23/19 05:30 ALT 47 U/L (12-78) 12/23/19 05:30 Alkaline Phosphatase 140 U/L (45-117) H 12/23/19 05:30 Amylase 23 U/L (25-115) L 12/22/19 02:20 Lipase 28 U/L (73-393) L 12/22/19 02:20 Home Medications: Lactulose 15 ml FT BEDTIME 04/24/18 Phenytoin [Dilantin-125] 5 ml FT TID 04/24/18 Zinc Sulfate [Zinc Sulfate*] 220 mg FT BID 05/26/18 Omeprazole Magnesium [Prilosec] 10 mg FT DAILY 11/15/19 Oxybutynin Chloride 5 mg PO DAILY 11/15/19 Tramadol HCl [Ultram] 50 mg FT TID 11/15/19 Arginine/Ascorbate Sod/Elida AC [Arginaid Powder] 1 each FT BID 12/22/19 Baclofen [Ozobax] 5 mg FT DAILY 12/22/19 Dextran 70/Hypromellose [Artificial Tears Drops] 1 gtt EACH EYE BID 12/22/19 Ibuprofen [Motrin Suspension*] 200 mg FT Q4H PRN 12/22/19 Multivit with Minerals/Lutein [Theratrum Complete 50 Plus Tab] 1 each FT DAILY 12/22/19 Patient Discharge Instructions: 1. Patient will return to the care home with IV meropenem 1 g 3 times a day for 10 more days. 2. Patient presented with fever and tachycardia related to septic shock. CT scan revealed right pyelonephritis with moderate hydronephrosis without obstruction. Patient found to have recurrent UTI. Patient with history of recurrent UTI and suprapubic catheter. Patient was started on IV antibiotic therapy. Urology was consulted. Patient improved during the course of his stay. Patient found to have bacteremia as well. Urine culture was positive for Proteus ESBL and E coli ESBL. Blood cultures were positive for E coli-ESBL. Patient was transition to IV meropenem. Urology recommended no further intervention except long-term IV antibiotic therapy. PICC line was placed. At discharge patient will go back to the care home with PICC line in place. Arrangements for IV meropenem 1 g 3 times a day for 10 more days have been made. Recommend to recheck urine culture after that time to monitor resolution. If negative PICC line can be removed. Patient will also continue with oxybutynin 5 mg daily. Recommend follow up with urology in 1-2 weeks to follow up this hospitalization and to further address his condition. UTI precautions will need to be enforced at the care home. Recommend to recheck lab-BMP, CBC in 1-2 weeks. 3. Patient with history of quadriplegia with contractures. This has remained stable. Patient also with history of anoxic brain injury, chronic pain and seizure disorder. Patient will continue with his current medications: Baclofen 5 mg daily, lactulose 15 mg at bedtime, multi vitamin daily, Dilantin 125 mg/5 mL at 5 ml 3 times a day, and tramadol 50 mg 3 times a day. Further adjustment can be done by care home physician. Further monitoring on lab can be done by the care home physician. 4. Patient with G-tube and suprapubic catheter in place. No changes required at this time. Patient will continue with his current G-tube feeds. G-tube/suprapubic catheter care will be continued at the care home. 5. Patient with history of GERD. At discharge he will continue with Prilosec 10 mg daily. Diet: Continue with current G-tube feeds Activity: Fall precautions Time spent managing pt's care (in minutes): 55
[2019-12-27] MEDS: POLYVINYL ALCOHOL 1.4% 15 ML EACH EYE SCH (08:35)
[2019-12-27] MEDS ORDERED: SODIUM CHLORIDE 0.9% 10ML INJ IV SCH (09:00)
--- NOTE | 2019-12-27 12:14 | RAD REPORT ---
EXAM DESCRIPTION: RAD - Chest Single View - 12/27/2019 1:52 am CLINICAL HISTORY: PICC line Placement COMPARISON: None. TECHNIQUE: XR CHEST 1 VIEW 12/27/2019 1:04 AM CDT FINDINGS: Cardiac silhouette is normal in size. Lungs are clear without consolidation, atelectasis, mass or edema. There is no pleural effusion. There is no pneumothorax. There are no acute osseous fin dings. Left PICC line tip is in the mid SVC. IMPRESSION: Left PICC line tip in mid SVC Electronically signed by: Dk Andrews MD 12/27/2019 1:34 AM CDT Due to temporary technical issues with the PACS/Fluency reporting system, reports are being signed by the in house radiologist as a courtesy to ensure prompt reporting. The interpreting radiologist is f ully responsible for the content of the report.
[2019-12-27 12:26] VITALS: BP 110/56; TEMP 97.8
== END 2019-12-27 16:39 | DRG 698 ==
LOC: ER 02:01 → ERHOLD 06:41 → 2ND 07:55
PROVIDERS: ADMIT Hospitalist; ATTEND Family Medicine
PROC: 02HV33Z Insertion of Infusion Device into Superior Vena Cava, Percutaneous Approach (ICD-10-PCS; principal; 2019-12-27)
DX: T83.510A Infection and inflammatory reaction due to cystostomy catheter, initial encounter (principal); A41.51 Sepsis due to Escherichia coli [E. coli]; R65.21 Severe sepsis with septic shock; G82.50 Quadriplegia, unspecified; N13.6 Pyonephrosis; Z87.820 Personal history of traumatic brain injury; K21.9 Gastro-esophageal reflux disease without esophagitis; Z79.899 Other long term (current) drug therapy; B96.4 Proteus (mirabilis) (morganii) as the cause of diseases classified elsewhere; R31.9 Hematuria, unspecified; E87.6 Hypokalemia; Z88.0 Allergy status to penicillin; Z88.8 Allergy status to other drugs, medicaments and biological substances; Z91.5 Personal history of self-harm; Z93.6 Other artificial openings of urinary tract status
CPT/HCPCS: 36415; 36569; 71045; 74177; 80048; 80053; 80076; 80185; 81003; 81015; 82150; 82550; 82553; 82805; 82947; 83605; 83690; 83735; 83880; 84132; 84145; 84484; 85025; 85610; 85730; 87040; 87077; 87086; 87088; 87186; 87205; 87804; 93005; 94760; 96365; 96367; 96375; 99285; J0692; J0696; J1650; J2270; J2405; J7030; J7040; Q9967

== ENCOUNTER 2020-03-25 14:07 | Emergency (ER) | payer OTHER ==
--- OUTSIDE RECORDS SUMMARY | 2020-03-25 14:11 | XMS REPORT | Clinical Summary ---
:1980 Author Organization [facility] Address [address] [place] [address] Care Team Providers Name Role Phone Asked, Pcp Primary Care Provider Unavailable Allergies Active Allergy Reactions Severity Noted Date Comments Diphenhydramine Hcl Unknown Reaction 10/02/2019 Per - she never noted a reaction to thi s medication. Aspirin Unknown Reaction 10/02/2019 Per , s he was just told by the [facility] the patient had thi s listed as an allergy but never noted this before. Un known what his reaction to this is. Meperidine Unknown Reaction 10/02/2019 Per - she is unsure of his reaction to this Penicillins Unknown Reaction 10/02/2019 Medications Medication Sig Dispensed Refills Start Date End Date Status Lactobacillus Take 1 packet 0 Ac tive acidoph-L.bulgar by mouth daily. (FLORANEX) 1 million cell tablet artificial Administer 1 0 Active tears,hypromellose drop to both , eyes 2 (two) (SYSTANE/GENTEAL) times a day. 0.3 % gel ibuprofen (MOTRIN) Take by mouth 0 Active 100 mg/5 mL every 8 (eight) suspension hours as needed for mild pain. lactulose 10 Take 10 g by 0 Acti ve gram/15 mL (15 mL) mouth nightly. solution oxybutynin Take 5 mg by 0 Active (DITROPAN) 5 MG mouth 2 (two) tablet times a day. omeprazole Take 20 mg by 0 Activ e (PriLOSEC) 20 MG mouth daily. capsule traMADol (ULTRAM) Take 50 mg by 0 Active 50 mg mouth every 8 tabletIndications: (eight) hours acute pain as needed for moderate pain .acute pain. phenytoin Take 125 mg by 0 10/11/19 Disco ntinued (DILANTIN) 100 mouth every 6 20 ( Stop Taking at mg/4 mL suspension (six) hours. Discharge) levoFLOXacin Take 500 mg by 0 10/11/19 Di scontinued (LEVAQUIN) 500 MG mouth daily. 20 (Stop Taking at tablet Unclear start Discha rge) date. Intended for 7 days of therapy. Started prior to 10/02/2019 phenytoin Take 5 mL (125 600 mL 0 10/10/2019 11/09/19 Expi red (DILANTIN) 100 mg total) by 20 mg/4 mL suspension mouth every 6 (six) hours for 30 days. bacitracin Apply topically 1 g 0 10/10/2019 11/09/19 Ex pired ointment tube 2 (two) times a 20 day for 30 days. baclofen 5 mg 5 mg by g-tube 90 tablet 0 10/10/2019 11/09/19 tablet route 3 (three) 20 times a day for 30 days. povidone-iodine Apply topically 10 mL 0 10/10/2019 0 (BETADINE) 10 % 2 (two) times a 20 external solution day for 30 days. Active Problems Problem Noted Date Enterococcus UTI 10/10/2019 [place] calculus 10/02/2019 Hydronephrosis of right kidney 10/02/2019 Anoxic brain damage 10/02/2019 Spasticity 10/02/2019 Pyelonephritis 10/02/2019 Severe sepsis 10/02/2019 Fever 10/02/2019 Leukocytosis 10/02/2019 Seizure disorder 10/02/2019 Lactic acidosis 10/02/2019 GERD (gastroesophageal reflux disease) 10/02/2019 Dysphagia 10/02/2019 Vomiting 10/02/2019 UTI (urinary tract infection) 10/02/2019 Encounters Date Type Specialty Care Team Description 10/28/2019 Intake Access 10/03/2019 Anesthesia Event Radiology Adán Chatterjee MD Gilbert, Janet M., MD 10/02/2019 - Hospital Encounter General Internal Alanna Ventura, 10/11/2019 Medicine MD Wolfe, MD Shanelle Dowling Cherry, MD 10/02/2019 Intake Access after 03/25/2019 Immunizations Name Administration Dates Next Due FLUCELVAX QUAD PF 10/11/2019 Social History Tobacco Use Types Packs/Day Years Used Date Unknown If Ever Smoked Smokeless Tobacco: Never Used Tobacco Cessation: Counseling Given: No Alcohol Use Drinks/Week oz/Week Comments Defer Sex Assigned at Date Recorded Not on file Job Start Date Occupation Industry Not on file Not on file Not on file Travel History Travel Start Travel End No recent travel history available. Last Filed Vital Signs Vital Sign Reading Time Taken Comments Blood Pressure 138/76 10/11/2019 8:12 AM [employer] Pulse 84 10/11/2019 8:12 AM [employer] Temperature 35.6 C (96 F) 10/11/2019 8:12 AM [employer] Respiratory Rate 18 10/11/2019 8:12 AM [employer]IED [employer]CTOR Oxygen Saturation 98% 10/11/2019 8:12 AM [employer]IED FL[employer]CTOR Inhaled Oxygen Concentration - - Weight 65 kg (143 lb 4.8 oz) 10/02/2019 4:15 AM [employer] Height 172.7 cm (5' 8") 10/09/2019 7:05 PM [employer] Body Mass Index 21.79 10/02/2019 4:15 AM [employer]IED [employer] Plan of Treatment Health Maintenance Due Date Last Done Comments INFLUENZA VACCINE 04/28/2020 10/11/2019 Implants Implanted Type Area Room Attendants Device Shelf Model / Identifier Expiration Serial / Date Lot Stent [place] [employer]k 26cm - [id number] Surgic al N/A: COOK 06/22/2022 [id number] / Implanted: 10/03/2019 at [facility] (Quantity not on file) Kai nts N/A INTERVENTIONAL / RADIOLOGY [id number] Procedures Procedure Name Priority Date/Time Associated Comments Diagnosis POC GLUCOSE Routine 10/11/2019 8:14 Results for this AM [employer] procedure are i n the results section. ESTIMATED GFR Routine 10/11/2019 3:21 Results fo r this AM [employer] procedure are i n the results section. PHOSPHORUS LEVEL Routine 10/11/2019 3:21 Results for this AM [employer] procedure are i n the results section. MAGNESIUM LEVEL Routine 10/11/2019 3:21 Results for this AM [employer] procedure are i n the results section. BASIC METABOLIC PANEL Routine 10/11/2019 3:21 Re sults for this AM [employer] procedure are i n the results section. HC COMPLETE BLD COUNT Routine 10/11/2019 3:00 Re sults for this W/AUTO DIFF AM [employer] procedure are i n the results section. POC GLUCOSE Routine 10/11/2019 12:14 Results for this AM [employer] procedure are i n the results section. FREE PHENYTOIN LEVEL Routine 10/10/2019 10:41 Res ults for this PM [employer] procedure are i n the results section. POC GLUCOSE Routine 10/10/2019 9:32 Results for this PM [employer] procedure are i n the results section. FREE PHENYTOIN LEVEL Routine 10/10/2019 6:00 Res ults for this PM [employer] procedure are i n the results section. POC GLUCOSE Routine 10/10/2019 11:34 Results for this AM [employer] procedure are i n the results section. POC GLUCOSE Routine 10/10/2019 8:15 Results for this AM [employer] IN[employer] procedure are i n the results section. POC GLUCOSE Routine 10/10/2019 5:03 Results for this AM [employer] FL[employer] IN[employer] procedure are i n the results section. ESTIMATED GFR Routine 10/10/2019 4:49 Results fo r this AM [employer] procedure are i n the results section. BASIC METABOLIC PANEL Routine 10/10/2019 4:49 Re sults for this AM [employer] procedure are i n the results section. HC COMPLETE BLD COUNT Routine 10/10/2019 4:49 Re sults for this W/AUTO DIFF AM [employer] IN[employer] procedure are i n the results section. POC GLUCOSE Routine 10/10/2019 12:28 Results for this AM [employer] IN[employer] procedure are i n the results section. POC GLUCOSE Routine 10/09/2019 9:22 Results for this PM [employer] procedure are i n the results section. POC GLUCOSE Routine 10/09/2019 5:25 Results for this PM [employer] procedure are i n the results section. POC GLUCOSE Routine 10/09/2019 11:32 Results for this AM [employer] procedure are i n the results section. POC GLUCOSE Routine 10/09/2019 7:55 Results for this AM [employer] procedure are i n the results section. POC GLUCOSE Routine 10/09/2019 3:58 Results for this AM [employer] IN[employer] procedure are i n the results section. HC COMPLETE BLD COUNT Routine 10/09/2019 3:51 Re sults for this W/AUTO DIFF AM [employer] procedure are i n the results section. ESTIMATED GFR Routine 10/09/2019 3:49 Results fo r this AM [employer] procedure are i n the results section. BASIC METABOLIC PANEL Routine 10/09/2019 3:49 Re sults for this AM [employer] procedure are i n the results section. POC GLUCOSE Routine 10/08/2019 9:48 Results for this PM [employer] procedure are i n the results section. POC GLUCOSE Routine 10/08/2019 4:41 Results for this PM [employer] procedure are i n the results section. POC GLUCOSE Routine 10/08/2019 11:57 Results for this AM [employer] IN[employer] procedure are i n the results section. POC GLUCOSE Routine 10/08/2019 7:32 Results for this AM [employer] FL[employer] IN[employer] procedure are i n the results section. POC GLUCOSE Routine 10/08/2019 5:17 Results for this AM [employer] procedure are i n the results section. POC GLUCOSE Routine 10/07/2019 11:48 Results for this PM [employer] procedure are i n the results section. POC GLUCOSE Routine 10/07/2019 7:51 Results for this PM [employer] procedure are i n the results section. POC GLUCOSE Routine 10/07/2019 5:13 Results for this PM [employer] procedure are i n the results section. POC GLUCOSE Routine 10/07/2019 11:53 Results for this AM [employer] procedure are i n the results section. POC GLUCOSE Routine 10/07/2019 7:26 Results for this AM [employer] procedure are i n the results section. POC GLUCOSE Routine 10/06/2019 11:24 Results for this PM [employer] procedure are i n the results section. POC GLUCOSE Routine 10/06/2019 7:58 Results for this PM [employer] procedure are i n the results section. POC GLUCOSE Routine 10/06/2019 4:26 Results for this PM [employer] procedure are i n the results section. POC GLUCOSE Routine 10/06/2019 11:50 Results for this AM [employer] procedure are i n the results section. POC GLUCOSE Routine 10/06/2019 7:46 Results for this AM [employer] procedure are i n the results section. ESTIMATED GFR Routine 10/06/2019 3:20 Results fo r this AM [employer] procedure are i n the results section. MAGNESIUM LEVEL Routine 10/06/2019 3:20 Results for this AM [employer] procedure are i n the results section. BASIC METABOLIC PANEL Routine 10/06/2019 3:20 Re sults for this AM [employer] procedure are i n the results section. HC COMPLETE BLD COUNT Routine 10/06/2019 3:20 Re sults for this W/AUTO DIFF AM [employer] procedure are i n the results section. PHOSPHORUS LEVEL Routine 10/06/2019 3:20 Results for this AM [employer] procedure are i n the results section. POC GLUCOSE Routine 10/06/2019 3:17 Results for this AM [employer] procedure are i n the results section. POC GLUCOSE Routine 10/05/2019 11:29 Results for this PM [employer] procedure are i n the results section. CONSULT TO OSTOMY CARE Routine 10/05/2019 8:28 NURSE PM [employer] POC GLUCOSE Routine 10/05/2019 4:48 Results for this PM [employer] procedure are i n the results section. POC GLUCOSE Routine 10/05/2019 12:48 Results for this PM [employer] procedure are i n the results section. POC GLUCOSE Routine 10/05/2019 12:06 Results for this PM [employer] procedure are i n the results section. FREE PHENYTOIN LEVEL Routine 10/05/2019 12:00 Res ults for this PM [employer] procedure are i n the results section. POC GLUCOSE Routine 10/05/2019 8:57 Results for this AM [employer] procedure are i n the results section. POC GLUCOSE Routine 10/05/2019 5:42 Results for this AM [employer] procedure are i n the results section. ESTIMATED GFR Routine 10/05/2019 2:00 Results fo r this AM [employer] procedure are i n the results section. HC COMPLETE BLD COUNT Routine 10/05/2019 2:00 Re sults for this W/AUTO DIFF AM [employer]IGHT [employer] procedure are i n the results section. PHOSPHORUS LEVEL Routine 10/05/2019 2:00 Results for this AM [employer] procedure are i n the results section. MAGNESIUM LEVEL Routine 10/05/2019 2:00 Results for this AM [employer] IN[employer] procedure are i n the results section. BASIC METABOLIC PANEL Routine 10/05/2019 2:00 Re sults for this AM [employer] procedure are i n the results section. POC GLUCOSE Routine 10/05/2019 1:53 Results for this AM [employer] procedure are i n the results section. POC GLUCOSE Routine 10/04/2019 9:26 Results for this PM [employer] procedure are i n the results section. POC GLUCOSE Routine 10/04/2019 5:07 Results for this PM [employer] procedure are i n the results section. POC GLUCOSE Routine 10/04/2019 12:33 Results for this PM [employer] procedure are i n the results section. POC GLUCOSE Routine 10/04/2019 8:41 Results for this AM [employer] procedure are i n the results section. VANCOMYCIN LEVEL, Timed 10/04/2019 5:00 Result s for this TROUGH AM [employer] procedure are i n the results section. ESTIMATED GFR Routine 10/04/2019 5:00 Results fo r this AM [employer] procedure are i n the results section. HC COMPLETE BLD COUNT Routine 10/04/2019 5:00 Re sults for this W/AUTO DIFF AM [employer] procedure are i n the results section. PHOSPHORUS LEVEL Routine 10/04/2019 5:00 Results for this AM C[employer]IED FL[employer] procedure are i n the results section. MAGNESIUM LEVEL Routine 10/04/2019 5:00 Results for this AM C[employer]IFIED FLIGHT IN[employer]CTOR procedure are i n the results section. BASIC METABOLIC PANEL Routine 10/04/2019 5:00 Re sults for this AM C[employer]IED FLIGHT IN[employer] procedure are i n the results section. POC GLUCOSE Routine 10/04/2019 4:50 Results for this AM [employer] procedure are i n the results section. POC GLUCOSE Routine 10/04/2019 12:40 Results for this AM [employer] procedure are i n the results section. POC GLUCOSE Routine 10/03/2019 8:44 Results for this PM [employer] procedure are i n the results section. POC GLUCOSE Routine 10/03/2019 6:05 Results for this PM [employer] procedure are i n the results section. POTASSIUM LEVEL Routine 10/03/2019 5:30 Results for this PM [employer]IED FLIGHT IN[employer]CTOR procedure are i n the results section. PHOSPHORUS LEVEL Routine 10/03/2019 5:30 Results for this PM [employer]IED FLIGHT IN[employer]CTOR procedure are i n the results section. MAGNESIUM LEVEL Routine 10/03/2019 5:30 Results for this PM [employer] procedure are i n the results section. IONIZED CALCIUM Routine 10/03/2019 5:30 Results for this PM [employer] FL[employer] IN[employer]CTOR procedure are i n the results section. IR RIGHT NEPHROSTOMY STAT 10/03/2019 4:54 Res ults for this INITIAL PLACEMENT PM [employer] FLIGHT INSTRUCTOR procedure are in the results section. ANESTHESIA INTUBATION Routine 10/03/2019 3:03 Re sults for this PM [employer] procedure are i n the results section. POC GLUCOSE Routine 10/03/2019 1:09 Results for this PM [employer] procedure are i n the results section. POC GLUCOSE Routine 10/03/2019 8:16 Results for this AM C[employer]IFIED FLIGHT IN[employer] procedure are i n the results section. POC GLUCOSE Routine 10/03/2019 4:46 Results for this AM C[employer]IFIED FLIGHT IN[employer]CTOR procedure are i n the results section. ESTIMATED GFR Routine 10/03/2019 3:10 Results fo r this AM [employer]IED FLIGHT INSTRUCTOR procedure are i n the results section. PROTHROMBIN TIME WITH Routine 10/03/2019 3:10 Re sults for this INR AM C[employer]IED FLIGHT INSTRUCTOR procedure are i n the results section. PARTIAL THROMBOPLASTIN Routine 10/03/2019 3:10 R esults for this TIME (PTT) AM [employer]CTOR procedure are i n the results section. TYPE AND SCREEN Routine 10/03/2019 3:10 Results for this AM C[employer]IED FLIGHT IN[employer]CTOR procedure are i n the results section. LACTIC ACID LEVEL Routine 10/03/2019 3:10 Result s for this AM C[employer]IFIED FLIGHT INSTRUCTOR procedure are i n the results section. HC COMPLETE BLD COUNT Routine 10/03/2019 3:10 Re sults for this W/AUTO DIFF AM C[employer]IED FLIGHT INSTRUCTOR procedure are i n the results section. PHOSPHORUS LEVEL Routine 10/03/2019 3:10 Results for this AM C[employer]IFIED FLIGHT INSTRUCTOR procedure are i n the results section. MAGNESIUM LEVEL Routine 10/03/2019 3:10 Results for this AM C[employer]IFIED FLIGHT INSTRUCTOR procedure are i n the results section. BASIC METABOLIC PANEL Routine 10/03/2019 3:10 Re sults for this AM [employer] procedure are i n the results section. POC GLUCOSE Routine 10/03/2019 12:51 Results for this AM [employer] procedure are i n the results section. POC GLUCOSE Routine 10/02/2019 8:50 Results for this PM [employer] procedure are i n the results section. POC GLUCOSE Routine 10/02/2019 4:41 Results for this PM [employer] procedure are i n the results section. POC GLUCOSE Routine 10/02/2019 12:18 Results for this PM [employer] procedure are i n the results section. US RENAL Routine 10/02/2019 12:02 Results for this PM [employer] procedure are i n the results section. LACTIC ACID LEVEL, Timed 10/02/2019 10:09 Resul ts for this SEPSIS - NOW AND REPEAT AM C[employer]IED FLIGHT INSTRUCTOR proc edure are in 2X EVERY 3 HOURS the results section. BLOOD CULTURE, AEROBIC Routine 10/02/2019 10:09 R esults for this & ANAEROBIC AM [employer]CTOR procedure are i n the results section. POC GLUCOSE Routine 10/02/2019 8:18 Results for this AM C[employer]IED FL[employer] IN[employer]CTOR procedure are i n the results section. LACTIC ACID LEVEL, Timed 10/02/2019 7:45 Resul ts for this SEPSIS - NOW AND REPEAT AM C[employer]IFIED FLIGHT INSTRUCTOR proc edure are in 2X EVERY 3 HOURS the results section. XR ABDOMEN 1 VW Routine 10/02/2019 7:40 Results for this PORTABLE AM [employer] INSTRUCTOR procedure are i n the results section. XR CHEST 1 VW PORTABLE Routine 10/02/2019 7:30 R esults for this AM [employer]IED FLIGHT [employer]STRUCTOR procedure are i n the results section. GRAM STAIN STAT 10/02/2019 6:18 Results for this AM [employer] FL[employer] INSTRUCTOR procedure are i n the results section. URINE CULTURE STAT 10/02/2019 6:18 Results fo r this AM [employer] procedure are i n the results section. ECG 12-LEAD Routine 10/02/2019 5:01 Results for this AM [employer]IED FL[employer] IN[employer] procedure are i n the results section. THYROID STIMULATING STAT 10/02/2019 4:45 Resu lts for this HORMONE AM [employer]IED FLIGHT INSTRUCTOR procedure are i n the results section. PHENYTOIN LEVEL STAT 10/02/2019 4:45 Results for this AM [employer] FL[employer] IN[employer] procedure are i n the results section. T4, FREE STAT 10/02/2019 4:45 Results for this AM C[employer]IED FLIGHT INSTRUCTOR procedure are i n the results section. ESTIMATED GFR STAT 10/02/2019 4:45 Results fo r this AM C[employer]IFIED FLIGHT INSTRUCTOR procedure are i n the results section. MAGNESIUM LEVEL STAT 10/02/2019 4:45 Results for this AM C[employer]IED FLIGHT INSTRUCTOR procedure are i n the results section. PHOSPHORUS LEVEL STAT 10/02/2019 4:45 Results for this AM C[employer]IED FLIGHT INSTRUCTOR procedure are i n the results section. LACTIC ACID LEVEL STAT 10/02/2019 4:45 Result s for this AM C[employer]IED FLIGHT INSTRUCTOR procedure are i n the results section. CREATINE KINASE, TOTAL STAT 10/02/2019 4:45 R esults for this (CPK) AM C[employer]IED FLIGHT INSTRUCTOR procedure are i n the results section. TROPONIN STAT 10/02/2019 4:45 Results for this AM C[employer]IFIED FLIGHT INSTRUCTOR procedure are i n the results section. COMPREHENSIVE METABOLIC STAT 10/02/2019 4:45 Results for this PANEL AM C[employer]IED FLIGHT INSTRUCTOR procedure are i n the results section. FREE PHENYTOIN LEVEL Routine 10/02/2019 4:45 Res ults for this AM [employer]IED FLIGHT INSTRUCTOR procedure are i n the results section. ARTERIAL BLOOD GAS Routine 10/02/2019 4:45 Resul ts for this AM [employer] IN[employer]CTOR procedure are i n the results section. PARTIAL THROMBOPLASTIN STAT 10/02/2019 4:45 R esults for this TIME (PTT) AM C[employer]IED FLIGHT INSTRUCTOR procedure are i n the results section. PROTHROMBIN TIME WITH STAT 10/02/2019 4:45 Re sults for this INR AM [employer]IED FLIGHT INSTRUCTOR procedure are i n the results section. URINALYSIS SCREEN AND STAT 10/02/2019 4:45 Re sults for this MICROSCOPY, WITH REFLEX AM C[employer]IFIED FLIGHT INSTRUCTOR proc edure are in TO CULTURE the results section. HC COMPLETE BLD COUNT STAT 10/02/2019 4:45 Re sults for this W/AUTO DIFF AM [employer]IED FLIGHT INSTRUCTOR procedure are i n the results section. RESPIRATORY PATHOGEN Routine 10/02/2019 4:37 Res ults for this PANEL AM [employer] FLIGHT INSTRUCTOR procedure are i n the results section. INFLUENZA ANTIGEN TEST, Routine 10/02/2019 4:37 Results for this REFLEX NEGATIVE TO RPP AM C[employer]IFIED FLIGHT INSTRUCTOR proce dure are in the results section. BLOOD CULTURE, AEROBIC Routine 10/02/2019 4:30 R esults for this AM C[employer]IED FLIGHT INSTRUCTOR procedure are i n the results section. BLOOD CULTURE, AEROBIC STAT 10/02/2019 4:30 R esults for this & ANAEROBIC AM [employer]IED FLIGHT INSTRUCTOR procedure are i n the results section. POC GLUCOSE Routine 10/02/2019 4:08 Results for this AM C[employer]IFIED FLIGHT INSTRUCTOR procedure are i n the results section. after 03/25/2019 Results POC glucose (10/11/2019 8:14 AM CERTIFIED FLIGHT INSTRUCTOR)Only the most recent of52 resultswithin the time period is included. Pathologist Sig nature POC glucose 91 65 - 99 mg/dL [facility] Comment: [facility]OSPITAL Human Anatomy Teacher Name: Chris Wilcox Device ID: [id number] Chartable: [facility] Notified RN Specimen Performing Organization Address City/[facility]/Zipcode Phone Number [facility] DEPARTMENT OF PATHOLOGY AND [address] [place] [phone] Estimated GFR (10/11/2019 3:21 AM CERTIFIED FLIGHT INSTRUCTOR)Only the most recent of8 resultswithin the time period is included. Estimated GFR >=90 mL/min/1.73 [facility] Comment: [facility] Catergory Units Interpretation G1 >=90 Normal or high G2 60-89 Mildly decreased G3a 45-59 Mildly to moderately decreas ed G3b 30-44 Moderately to severely decre ased G4 15-29 Severely decreased G5 <15 Kidney failure The eGFR was calculated using the Chronic Kidney Disea se Epidemiology Collaboration (CKD-EPI) equation. Interpretation is based on recommendations of the National Kidney Foundation-Kidney Disease Outcomes Charanjit lity Initiative (NKF-KDOQI) published in 2014. Specimen Plasma specimen Performing Organization Address City/State/Zipcode Phone Number [facility] DEPARTMENT OF PATHOLOGY AND [address] [place] [address] [address] Phosphorus level (10/11/2019 3:21 AM CERTIFIED FLIGHT INSTRUCTOR)Only the most recent of7 resultswithin the time period is included. Pathologist Sig nature Phosphorus 3.1 2.4 - 4.5 mg/dL [facility] Specimen Plasma specimen Performing Organization Address [facility] Phone Number [facility] DEPARTMENT OF PATHOLOGY AND [address] [place] [address] [place] [phone] Magnesium level (10/11/2019 3:21 AM CERTIFIED FLIGHT INSTRUCTOR)Only the most recent of7 resultswithin the time period is included. Pathologist Sig nature Magnesium 2.1 1.6 - 2.6 mg/dL [facility] L Specimen Plasma specimen Performing Organization Address [facility] Phone Number [facility] DEPARTMENT OF PATHOLOGY AND [address] [place] [phone] [address] Basic metabolic panel (10/11/2019 3:21 AM CERTIFIED FLIGHT INSTRUCTOR)Only the most recent of7 results within the time period is included. Pathologist Sig nature Sodium 137 135 - 148 mEq/L [facility] Potassium 4.1 3.5 - 5.0 mEq/L [facility] Chloride 101 98 - 112 mEq/L [facility] CO2 25 24 - 31 mEq/L [facility] Anion gap 11@ANIO 7 - 15 mEq/L [facility] BUN 16 6 - 20 mg/dL [facility] Creatinine 0.48 (L) 0.70 - 1.20 mg/dL [facility] Glucose 121 (H) 65 - 99 mg/dL [facility] Calcium 9.4 8.3 - 10.2 mg/dL [facility] Specimen Plasma specimen Performing Organization Address [facility] [place] Phone Number [facility] DEPARTMENT OF PATHOLOGY AND [address] [place] [address] [phone] [address] CBC with platelet and differential (10/11/2019 3:00 AM CERTIFIED FLIGHT INSTRUCTOR)Only the most recent of8 resultswithin the time period is included. WBC 6.12 4.50 - 11.00 [facility] k/uL [facility] RBC 4.56 4.40 - 6.00 [facility] m/uL [facility] HGB 13.2 (L) 14.0 - 18.0 [facility] g/dL HOSPITAL HCT 41.3 41.0 - 51.0 % [facility] MCV 90.6 82.0 - 100.0 [facility] MCH 28.9 27.0 - 34.0 pg [facility] MCHC 32.0 31.0 - 37.0 [facility] g/dL [facility] RDW - SD 46.0 37.0 - 55.0 fL [facility] MPV 11.9 8.8 - 13.2 fL [facility] Platelet count 281 150 - 400 k/uL [facility] Nucleated RBC 0.00 /100 WBC [facility] Neutrophils 62.5 39.0 - 69.0 % [facility] Lymphocytes 25.2 25.0 - 45.0 % [facility] Monocytes 8.0 0.0 - 10.0 % [facility] Eosinophils 2.6 0.0 - 5.0 % [facility] Basophils 0.7 0.0 - 1.0 % [facility] Immature granulocytes 1.0Comment: 0.0 - 1.0 % [facility] "[facility] HOSPITAL granulocytes" (promyelocytes , myelocytes, metamyelocytes ) Specimen Blood Performing Organization Address City/State/Zipcode Phone Number [facility] DEPARTMENT OF PATHOLOGY AND [address] [place] [address] [place] [phone] Free phenytoin level (10/10/2019 10:41 PM CERTIFIED FLIGHT INSTRUCTOR)Only the most recent of4 results within the time period is included. Phenytoin, free 0.50 (L) 1.00 - 2.00 ADEL Comment: ug/mL SABIANIST This test has been modified from the manufacturers HOSPITAL instructions. The performance characteristics were determined by [facility] in a manner consistent with CLIA requirements. This test has not been cleared or approved by the U.S. Food and Drug Administration. Specimen Blood Performing Organization Address City/State/Zipcode Phone Number [facility] DEPARTMENT OF PATHOLOGY AND [address] [place] [address] [phone] [address] Vancomycin level, trough (10/04/2019 5:00 AM CERTIFIED FLIGHT INSTRUCTOR) Vancomycin, 12.7 10.0 - 20.0 ROMANO SABIANIST trough Comment: ug/mL HOSPITAL Therapeutic Ranges: Peak 30.0 - 40.0 ug/mL Trough 10.0 - 20.0 ug/mL Specimen Serum Performing Organization Address City/[facility] Phone Number [facility] DEPARTMENT OF PATHOLOGY AND [address] [place] [address] [phone] [address] Potassium level (10/03/2019 5:30 PM CERTIFIED FLIGHT INSTRUCTOR) Pathologist Sig nature Potassium 4.2 3.5 - 5.0 mEq/L [facility] L Specimen Plasma specimen Performing Organization Address City/[facility] Phone Number [facility] DEPARTMENT OF PATHOLOGY AND [address] [place] [address] [phone] [address] Ionized calcium (10/03/2019 5:30 PM CERTIFIED FLIGHT INSTRUCTOR) Pathologist Sig [facility] pH 7.45 [facility] Ionized calcium 1.12 1.11 - 1.32 mmol/L [facility] Specimen Plasma specimen Performing Organization Address [facility] Phone Number [facility] DEPARTMENT OF PATHOLOGY AND [address] [place] [address] [phone] [address] IR Nephrostomy Insertion Right (10/03/2019 4:54 PM CERTIFIED FLIGHT INSTRUCTOR) Specimen Narrative Performed At Performing Radiologist CHIRAG Cheney MD Assistants None Anesthesia Type General anesthesia provided by physiolog . Pre Procedure Diagnosis 39-year-old male with staghorn calculus and obstructive uropathy. Post Procedure Diagnosis Status post antegrade right nephrostogram and placemen t of a right percutaneous nephroureteral catheter. Procedure 1. Antegrade right nephrostogram 2. Placement of a right percutaneous nep hrostomy Technique Written informed consent was obtained prior to the pro cedure. The patient was placed in a prone position on the procedur e table. The right back was sterilely prepared and draped in the routine manner. Lidocaine 1% was used for local anesthetic. Ultrasound imaging over the right back was then perfor med, demonstrating mild to moderate right hydronephrosis. Using real-time ultrasound guidance, a 22-gauge needle was advanced successfully into a mildly dilated lower pole calyx of the right ki dney. Injection of contrast through the needle promptly opac ified the right renal collecting system. A 0.018 inch guidewire was ad vanced the needle and into the right renal pelvis under fluoroscopy. The needle was removed, and a Accu stick set sheath was advanced over the guidewire and into the right renal p frieda. The inner dilator and guidewire were then removed, and an antegr monica right nephrostogram was then performed with injection of con trast through the Accu stick set sheath. A 4 Bhutanese glide catheter was advanced through the out er portion of the AccuStick set sheath and a 0.035 inch Glidewire was us ed to navigate the system into the urinary bladder. The Glidewire was exc hanged for an Amplatz wire and after tract dilation a 26 cm, 8.5-Bhutanese percutaneous nephroureteral catheter was then placed. The catheter pigtail was formed within the urinary carroll dder. Attempts at forming the proximal pigtail were unsuccessful given c alculus at the level of the renal pelvis. This catheter was then sewn to the skin using 2-0 silk suture and at tached to gravity bag drainage. The patient tolerated the procedure with out immediate complications. Radiation Dose Ka,r = 947 mGy Complications None Specimens Removed None Estimated Blood Loss Approximately 5 mL Blood/Blood Products Administered None Grafts/Implants As described in the above report Impression: 1. Ultrasound imaging over the right kidney demonstr ates mild to moderate right hydronephrosis. Using real-time ultraso und guidance, a 21-gauge needle was advanced successfully into a mildl y dilated lower pole calyx of the right kidney. 2. An antegrade right nephrostogram demonstrates mil d to moderate right hydronephrosis and hydroureter. 3. Successful placement of an 8.5-Bhutanese right percu taneous nephroureteral catheter, as detailed above. The cathet er pigtail was formed within the right renal pelvis. This catheter wa s placed to gravity bag drainage. 4. Hydronephrosis is also prominent in the upper pole, and if patient symptomatically doesn't improve, upper pole access and drainage may be necessary. [facility]-[id number] Procedure Note Interface, Radiology Results Incoming - 10/03/2019 5:26 PM CERTIFIED FLIGHT INSTRUCTOR Performing Radiologist Arpan Cheney MD Assistants None Anesthesia Type General anesthesia provided by physiolog . Pre Procedure Diagnosis 39-year-old male with staghorn calculus and obstructive uropathy. Post Procedure Diagnosis Status post antegrade right nephrostogra m and placement of a right percutaneous nephroureteral catheter. Procedure 1. Antegrade right nephrostogram 2. Placement of a right percutaneous nep hrostomy Technique Written informed consent was obtained pr ior to the procedure. The patient was placed in a prone position on the procedure table. The right back was sterilely prepared and draped in the routine manner. Lidocaine 1% was used for local anesthetic. Ultrasound imaging over the right back w as then performed, demonstrating mild to moderate right hydronephrosis. Using real-time ultrasound guidance, a 22-gauge needle was advanced successfully into a mildly dilated lower pole calyx of the right ki dney. Injection of contrast through the needle promptly opacified the right renal collecting system. A 0.018 inch guidewire was advanced the needle and into the right renal pelvis under fluoroscopy. The needle was removed, and a Accu stick set sheath was advanced over the guidewire and into the right renal pelvis. The inner dilator and guidewire were then removed, and an antegrade right nephrostogram was then performed with injection of contrast through the Accu stick set sheath. A 4 Bhutanese glide catheter was advanced t hrough the outer portion of the AccuStick set sheath and a 0.035 inch Glidewire was used to navigate the system into the urinary bladder. The Glidewire was exchanged for an Amplatz wire and after tract dilation a 26 cm, 8.5-Bhutanese percutaneous nephroure teral catheter was then placed. The catheter pigtail was formed within the urinary bladder. Attempts at forming the proximal pigtail were unsuccessful given calculus at the level of the renal pelvis. This catheter was then sewn to the skin using 2-0 silk suture and attached to gravity bag drainage. The patient tolerated the procedure without immediate complications. Radiation Dose Ka,r = 947 mGy Complications None Specimens Removed None Estimated Blood Loss Approximately 5 mL Blood/Blood Products Administered None Grafts/Implants As described in the above report Impression: 1. Ultrasound imaging over the right ki dney demonstrates mild to moderate right hydronephrosis. Using real-time ultrasound guidance, a 21-gauge needle was advanced successfully into a mildly dilated lower pole calyx of the right kidney. 2. An antegrade right nephrostogram dem onstrates mild to moderate right hydronephrosis and hydroureter. 3. Successful placement of an 8.5-Frenc h right percutaneous nephroureteral catheter, as detailed above. The catheter pigtail was formed within the right renal pelvis. This catheter was placed to gravity bag drainage. 4. Hydronephrosis is also prominent in t he upper pole, and if patient symptomatically doesn't improve, upper pole access and drainage may be necessary. [facility]-[id number] Performing Organization Address City/[facility]/Zipcode Phone Number [facility] [address] [place] [address] Airway (10/03/2019 3:03 PM CERTIFIED FLIGHT INSTRUCTOR) Narrative Performed At Zuleyma Perez CRNA 10/03/2019 3:03 PM Airway Performed by: Zuleyma Perez CRNA Authorized by: Roxanna Mera MD Location: OR Difficult Airway: No Resident/ELECTRONIC COMMERCE SPECIALIST/AA: Zuleyma Perez CRNA Preoxygenated with 100% O2: Yes C-spine Precautions Maintained Throughou t: Yes Mask Ventilation: Easy mask Final Airway Type: Endotracheal airway Final Endotracheal Airway: ETT Technique Used: Direct laryngoscopy Blade Type: Holliday Laryngoscope Blade/Videolaryngoscope Carroll de Size: 2 ETT Size (mm): 7.0 Measured from: Lips ETT to Lips (cm): 21 Placement Verified by: CO2 detection, di rect visualization and equal breath sounds Laryngoscopic view: Grade I - full vie w of glottis Number of Attempts at Approach: 1 EZ OETT, pt teeth ans mouth protected and unchanged. Partial thromboplastin time, activated (10/03/2019 3:10 AM CERTIFIED FLIGHT INSTRUCTOR)Only the most recent of2 resultswithin the time period is included. PTT 29.8 23.0 - 36.0 [facility] Comment: [facility] [facility]ITAL PTT therapeutic range for unfractionated heparin is 61.0-112.0 seconds which corresponds to Anti-Xa 0.3-0.7 U/ml. Specimen Blood Performing Organization Address City/[facility]/Zipcode Phone Number [facility] DEPARTMENT OF PATHOLOGY AND [address] [place], [place] [phone] GENOM[facility] [address]INE [address] [address] Prothrombin time with INR (10/03/2019 3:10 AM CERTIFIED FLIGHT INSTRUCTOR)Only the most recent of2 resultswithin the time period is included. Prothrombin time 15.2 (H) 11.5 - 14.5 ADEL sec [facility] INR 1.2 ADEL Comment: SABIANIST [facility] International Normalized Ratio (INR) is a [facility] monitoring tool for patients who are stable on oral anticoagulant therapy. An INR of 2.0-3.0 is suggested for deep vein thrombosis/pulmonary embolism. Specimen Blood Performing Organization Address City/[facility]/Zipcode Phone Number [facility] DEPARTMENT OF PATHOLOGY AND [address] [place] [address] [phone] [address] Type and screen (10/03/2019 3:10 AM CERTIFIED FLIGHT INSTRUCTOR) Pathologist Sig nature ABO grouping A [facility] Rh type POS [facility] Antibody screen (gel) NEG [facility] Specimen Blood Performing Organization Address City/[facility] Phone Number [facility] DEPARTMENT OF PATHOLOGY AND [address] [place] [address] [phone] [address] Lactic acid level (10/03/2019 3:10 AM CERTIFIED FLIGHT INSTRUCTOR)Only the most recent of2 results within the time period is included. Pathologist Sig nature Lactic acid 1.0 0.5 - 2.2 mmol/L [facility] Specimen Plasma specimen Performing Organization Address [facility] Phone Number [facility] DEPARTMENT OF PATHOLOGY AND [address] [place] [address] [phone] [address] US Renal (10/02/2019 12:02 PM CERTIFIED FLIGHT INSTRUCTOR) Specimen Narrative Performed At EXAMINATION: US RENAL RADIANT CLINICAL HISTORY: Pyelonephritis com plicated COMPARISON: None. IMPRESSION: The right kidney measures 11.5 cm in l ength. The left kidney measures 11.1 cm in le ngth. There is an 8 mm calculus in the upper pole of the rig ht kidney. There is mild right hydronephrosis. There is no cyst or santo d mass. Echogenicity is normal. A Cardenas catheter is present in the decom pressed urinary bladder. [facility]-[id number] Procedure Note Interface, Radiology Results Incoming - 10/02/2019 1:01 PM CERTIFIED FLIGHT INSTRUCTOR EXAMINATION: US RENAL CLINICAL HISTORY: Pyelonephritis compl icated COMPARISON: None. IMPRESSION: The right kidney measures 11.5 cm in le ngth. The left kidney measures 11.1 cm in rosemary gth. There is an 8 mm calculus in the upper p ole of the right kidney. There is mild right hydronephrosis. There is no cyst or solid mass. Echogenicity is normal. A Cardenas catheter is present in the decom pressed urinary bladder. [facility]-[id number] Performing Organization Address [facility] Phone Number [facility] [address] [place] [phone] Lactic acid level, SEPSIS - Now and repeat 2x every 3 hours (10/02/2019 10:09 AM CERTIFIED FLIGHT INSTRUCTOR)Only the most recent of2 resultswithin the time period is included. Pathologist Sig nature Lactic acid 1.0 0.5 - 2.2 mmol/L [facility] Specimen Blood Performing Organization Address [facility]/Zipcode Phone Number [facility] DEPARTMENT OF PATHOLOGY AND [address] [place] [address] [phone] [address] Blood culture, aerobic & anaerobic (10/02/2019 10:09 AM CERTIFIED FLIGHT INSTRUCTOR)Only the most recent of2 resultswithin the time period is included. Blood culture No growth after 5 days of incubation. FLORESITA CONTRERAS isolate Comment: HOSPITAL Specimen Information Specimen Source: Blood Specimen Site: Hand, left Specimen Blood - Hand, left Performing Organization Address [facility] [place] Phone Number [facility] DEPARTMENT OF PATHOLOGY AND [address] [place], [place] [phone] [address] [address] XR Abdomen 1 Vw Portable (10/02/2019 7:40 AM CERTIFIED FLIGHT INSTRUCTOR) Specimen Narrative Performed At EXAMINATION: RADITech Cocktail XR ABDOMEN 1 VW PORTABLE CLINICAL HISTORY: ICU new admission COMPARISON: None. FINDINGS: Gas is seen throughout the length of the colon. Proxim al colon is mildly dilated, with the cecum measuring up to 8.6 cm. No air -filled dilated loops of small bowel are seen. Free air and air-fluid levels are not appreciated. No unusual calcifications a re seen. IMPRESSION: Moderately large amount of gas in the co ashley. No small bowel dilation. [facility]-[id number] Procedure Note Hm Interface, Radiology Results Incoming - 10/02/2019 8:02 AM CERTIFIED FLIGHT INSTRUCTOR EXAMINATION: XR ABDOMEN 1 VW PORTABLE CLINICAL HISTORY: ICU new admission COMPARISON: None. FINDINGS: Gas is seen throughout the length of the colon. Proximal colon is mildly dilated, with the cecum measuring up to 8.6 cm. No air-filled dilated loops of small bowel are seen. Free air and air-fluid levels are not appreciated. No unusual calcifications a re seen. IMPRESSION: Moderately large amount of gas in the co ashley. No small bowel dilation. [facility]-[id number] Performing Organization Address [facility] Phone Number [facility] [address] [place] [address] XR Chest 1 Vw Portable (10/02/2019 7:30 AM CERTIFIED FLIGHT INSTRUCTOR) Specimen Narrative Performed At EXAMINATION: XR CHEST 1 VW PORTABLE RADIANT CLINICAL HISTORY: ICU pt unstable or clinical worsening COMPARISON: None IMPRESSION: Mild patchy bibasilar atelectasis Hypoinflation of the lungs Tiny right costophrenic angle effusion No central congestion No pneumothorax. The Cardiomediastinal silhouette is norm al in size Single view chest. [id number] Procedure Note Interface, Radiology Results Incoming - 10/02/2019 9:19 AM CERTIFIED FLIGHT INSTRUCTOR EXAMINATION: XR CHEST 1 VW PORTABLE CLINICAL HISTORY: ICU pt unstable or c linical worsening COMPARISON: None IMPRESSION: Mild patchy bibasilar atelectasis Hypoinflation of the lungs Tiny right costophrenic angle effusion No central congestion No pneumothorax. The Cardiomediastinal silhouette is norm al in size Single view chest. [id number] Performing Organization Address [facility] Cent[facility] Phone Number [facility] [address] [place] [address] Gram stain (10/02/2019 6:18 AM CERTIFIED FLIGHT INSTRUCTOR) Gram stain result Occasional WBC's [facility] Rare Gram positive cocci in pairs [facility]ITA L Rare Gram positive rods Comment: Specimen Information Specimen Source: Urine Specimen Site: Suprapubic/ Specimen Urine - Suprapubic Performing Organization Address City/[facility]/Zipcode Phone Number [facility] DEPARTMENT OF PATHOLOGY AND [address] [place], [place] [phone] GENOMIC MEDICINE [address] [address] Urine culture (10/02/2019 6:18 AM CERTIFIED FLIGHT INSTRUCTOR) Urine culture Enterococcus faecalis JUAN ANTONIO COTNRERAS isolate colony count undetermined, HOSPITAL probably due to inhibiting substance. The performance characteristics of this assay on this isolate were validated by the Microbiology Laboratory at [facility]. This source has not been approve d by the U.S. Food and Drug Administration. The results are n ot intended to be used as the sole means for clinical bismark gnosis or patient management. The Microbiology Laboratory i s authorized under the clinical Laboratory Improvement Amendments of 1988 (CLIA-88) to perform high complexit y testing. This organism is Vancomycin Sensitive. (A) Comment: Specimen Information Specimen Source: Urine Specimen Site: Suprapubic/ Urine culture Providencia starseniortbarbara CONTRERAS isolate colony count undetermined, HOSPITAL probably due to inhibiting substance. The performance characteristics of this assay on this isolate were validated by the Microbiology Laboratory at [facility]. This source has not been approve d by the U.S. Food and Drug Administration. The results are n ot intended to be used as the sole means for clinical bismark gnosis or patient management. The Microbiology Laboratory i s authorized under the clinical Laboratory Improvement Amendments of 1988 (CLIA-88) to perform high complexit y testing. (A) Specimen Urine Organism Antibiotic Method Susceptibility Enterococcus faecalis Ampicillin LÓPEZ 1 mcg/mL: Susceptible Enterococcus faecalis Nitrofurantoin LÓPEZ <=16 mcg/m L: Susceptible Enterococcus faecalis Levofloxacin LÓPEZ >4 mcg/mL: Resistant Enterococcus faecalis Linezolid LÓPEZ 2 mcg/mL: Susceptible Enterococcus faecalis Minocycline LÓPEZ >8 mcg/mL: Resistant Enterococcus faecalis Tetracycline LÓPEZ >8 mcg/mL: Resistant Enterococcus faecalis Vancomycin LÓPEZ 1 mcg/mL: Susceptible Enterococcus faecalis Tigecycline LÓPEZ <=0.125 mc g/mL: Susceptible Enterococcus faecalis Ciprofloxacin LÓPEZ mcg/mL: R esistant Providencia stuartii Ampicillin LÓPEZ >16 mcg/mL: Resistant Providencia stuartii Amoxicillin/Clavulanate LÓPEZ >16 /8 mcg/mL: Resistant Providencia stuartii Amikacin LÓPEZ <=4 mcg/mL: Susceptible Providencia stuartii Aztreonam LÓPEZ <=1 mcg/mL: Susceptible Providencia stuartii Ceftazidime LÓPEZ <=0.5 mcg/m L: Susceptible Providencia stuartii Ciprofloxacin LÓPEZ >2 mcg/mL: Resistant Providencia stuartii Ceftriaxone LÓPEZ <=0.5 mcg/m L: Susceptible Providencia stuartii Cefazolin LÓPEZ >32 mcg/mL: Resistant Providencia stuartii Cefepime LÓPEZ <=0.5 mcg/m L: Susceptible Providencia stuartii Nitrofurantoin LÓPEZ >64 mcg/mL: Resistant Providencia stuartii Cefoxitin LÓPEZ <=4 mcg/mL: Susceptible Providencia stuartii Gentamicin LÓPEZ mcg/mL: Re sistant Providencia stuartii Levofloxacin LÓPEZ 4 mcg/mL: R esistant Providencia stuartii Meropenem LÓPEZ <=0.125 mcg /mL: Susceptible Providencia stuartii Tobramycin LÓPEZ mcg/mL: Re sistant Providencia stuartii Ampicillin/Sulbactam LÓPEZ 8/4 mc g/mL: Susceptible Providencia stuartii Trimethoprim/Sulfamethoxazol LÓPEZ >2/38 mcg/mL: Resistant e Providencia stuartii Tetracycline LÓPEZ <=1 mcg/mL: Resistant Providencia stuartii Piperacillin/Tazobactam LÓPEZ <=2 /4 mcg/mL: Susceptible Providencia stuartii Ertapenem LÓPEZ <=0.125 mcg /mL: Susceptible Providencia stuartii Tigecycline LÓPEZ mcg/mL: Re sistant Performing Organization Address City/State/Zipcode Phone Number [facility] DEPARTMENT OF PATHOLOGY AND [address] [place] [phone] GENOMIC MEDICINE [address] [address] ECG 12 lead (10/02/2019 5:01 AM CERTIFIED FLIGHT INSTRUCTOR) Pathologist Sig nature Ventricular rate 101 [facility] Atrial rate 101 [facility] WI interval 188 [facility] QRSD interval 92 [facility] QT interval 354 [facility] QTC interval 459 [facility] P axis 1 44 [facility] QRS axis 1 76 [facility] T wave axis 47 [facility] EKG impression Sinus [facility] MUSE tachycardia-Otherwise normal ECG-In automated comparison with ECG of 02-OCT-2019 05:00,-No significant change was found- Specimen Narrative Performed At This result has an attachment that is no t available. Performing Organization Address City/State/Zipcode Phone Number [facility] MUSE [address] [place] [address] Urinalysis screen and microscopy, with reflex to culture (10/02/2019 4:45 AM CERTIFIED FLIGHT INSTRUCTOR) Specimen site Suprapubic [facility] Color, UA Danyelle [facility] Appearance, UA Cloudy [facility] Specific gravity, UA 1.046 (H) 1.001 - 1.035 [facility] pH, UA 6.0 5.0 - 8.5 [facility] Protein, UA 2+ (A) Negative [facility] Glucose, UA Negative Negative [facility] Ketones, UA Negative Negative [facility] Bilirubin, UA Negative Negative [facility] Blood, UA Moderate (A) Negative [facility] Nitrite, UA Negative Negative [facility] Urobilinogen, UA <2.0 <2.0 [facility] Leukocyte esterase, Large (A) Negative [facility] Epithelial cells, UA <1 /HPF [facility] WBC, UA >180 (H) 0 - 1 /HPF [facility] [facility] RBC, UA 63 (H) 0 - 5 /HPF [facility] Bacteria, UA None seen None seen [facility] WBC clumps, UA Moderate (A) [facility] Yeast, UA None seen [facility] Yeast with None seen [facility] pseudohyphae, UA HOSPITAL Specimen Urine Performing Organization Address [facility]/Zipcode Phone Number [facility] DEPARTMENT OF PATHOLOGY AND [address] [place], [place] [phone] GENOMIC MEDICINE [facility] [address] [place] [address] Troponin (10/02/2019 4:45 AM CERTIFIED FLIGHT INSTRUCTOR) Troponin <0.006 0.000 - 0.040 [facility] Comment: ng/mL HOSPITAL In patients suspected of having a myocardial infarctio n, along with all other appropriate clinical measures and actions includ ing ECG and other diagnostics as appropriate, measure Ultra TnI at 0 hrs and at 3 hrs. Myocardial infarction VERY LIKELY The 0 hr TnI level is > 0.10 ng/mL Myocardial infarction LIKELY The 0 hr TnI level is > 0.04 ng/mL and 3 hr level is i ncreased or decreased by at least 0.020 ng/mL Myocardial infarction VERY UNLIKELY Both the 0 hr and 3 hr TnI levels <= 0.04 ng/mL(within normal limits) OR 0 hr is > 0.04 ng/mL and 3 hr is increased OR decreased by less than 0.020 ng/mL Specimen Plasma specimen Performing Organization Address [facility] Phone Number [facility] DEPARTMENT OF PATHOLOGY AND [address] [place] [phone] Thyroid stimulating hormone (10/02/2019 4:45 AM CERTIFIED FLIGHT INSTRUCTOR) [facility] TSH 1.48 0.27 - 4.20 uIU/mL [facility] ITAL Specimen Plasma specimen Performing Organization Address [facility] Phone Number [facility] DEPARTMENT OF PATHOLOGY AND [address] [place] [phone] T4, free (10/02/2019 4:45 AM CERTIFIED FLIGHT INSTRUCTOR) [facility] T4, free 1.3 0.9 - 1.7 ng/dL [facility] L Specimen Plasma specimen Performing Organization Address [facility] Phone Number [facility] DEPARTMENT OF PATHOLOGY AND [address] [place] [phone] Arterial blood gas (10/02/2019 4:45 AM CERTIFIED FLIGHT INSTRUCTOR) [facility] pH, arterial 7.37 7.35 - 7.45 [facility] pCO2, arterial 43 35 - 45 mmHg [facility] pO2, arterial 66 (L) 80 - 90 mmHg [facility] Bicarbonate, 24.1 21.0 - 28.0 [facility] arterial mmol/L HOSPITAL Base excess, -1 -2 - 2 mEq/L [facility] arterial [facility] O2 saturation, 93 (L) 95 - 100 % [facility] Specimen Blood Performing Organization Address City/[facility] Phone Number [facility] DEPARTMENT OF PATHOLOGY AND [address] [place] [address] [phone] [address] Creatine kinase, total (CPK) (10/02/2019 4:45 AM CERTIFIED FLIGHT INSTRUCTOR) Pathologist Sig nature Creatine kinase 39 39 - 308 U/L [facility] L Specimen Plasma specimen Performing Organization Address [facility] Phone Number [facility] DEPARTMENT OF PATHOLOGY AND [address] [place] [address] [phone] [address] Phenytoin level (10/02/2019 4:45 AM CERTIFIED FLIGHT INSTRUCTOR) Pathologist Sig nature Phenytoin 3.0 (L) 10.0 - 20.0 [facility] Comment: ug/mL HOSPITAL Therapeutic Range: 10 - 20 ug/mL Specimen Plasma specimen Performing Organization Address [facility] Phone Number [facility] DEPARTMENT OF PATHOLOGY AND [address] [place] [address] [phone] [address] Comprehensive metabolic panel (10/02/2019 4:45 AM CERTIFIED FLIGHT INSTRUCTOR) Sodium 145 135 - 148 [facility] mEq/L [facility] Potassium 3.4 (L) 3.5 - 5.0 [facility] mEq/L [facility] Chloride 111 98 - 112 mEq/L [facility] CO2 23 (L) 24 - 31 mEq/L [facility] Anion gap 11@ANIO 7 - 15 mEq/L [facility] BUN 21 (H) 6 - 20 mg/dL [facility] Creatinine 0.71 0.70 - 1.20 [facility] mg/dL HOSPITAL Glucose 92 65 - 99 mg/dL [facility] Calcium 8.4 8.3 - 10.2 [facility] mg/dL HOSPITAL Protein 6.7 6.3 - 8.3 g/dL [facility] Comment: HOSPITAL Wqpjavg2252.6-7.0 g/dL 1 dcbi8762.4-7.6 g/dL 7 months-1eyst464.1-7.3 g/dL 1-2 kqahn378.6-7.5 g/dL >3 gapjy326.0-8.0 g/dL 18-5812791.3-8.3 g/dL Albumin 2.4 (L) 3.5 - 5.0 g/dL [facility] A/G ratio 0.6 (L) 0.7 - 3.8 [facility] Alkaline phosphatase 171 (H) 40 - 129 U/L [facility] AST 35 10 - 50 U/L [facility] ALT 60 (H) 5 - 50 U/L [facility] Total bilirubin 0.4 0.0 - 1.2 [facility] mg/dL HOSPITAL Specimen Plasma specimen Performing Organization Address City/[facility]ode Phone Number [facility] DEPARTMENT OF PATHOLOGY AND [address] [place] [phone] GENOMIC MEDICINE [address] [address] Respiratory pathogen panel (10/02/2019 4:37 AM CERTIFIED FLIGHT INSTRUCTOR) Pathologist [facility] Respiratory Negative for all pathogens tested: [facility] pathogen panel Negative for Adenovirus SABIANIST Negative for Coronavirus HKU1 [facility] Negative for Coronavirus NL63 Negative for Coronavirus 229E Negative for Coronavirus OC43 Negative for Human Metapneumovirus Negative for Rhinovirus/Enterovirus Negative for Influenza A Negative for Influenza A/H1 Negative for Influenza A/H3 Negative for Influenza A/H1-2009 Negative for Influenza B Negative for Parainfluenza Virus 1 Negative for Parainfluenza Virus 2 Negative for Parainfluenza Virus 3 Negative for Parainfluenza Virus 4 Negative for Respiratory Syncytial Virus Negative for Bordetella pertussis Negative for Chlamydophila pneumoniae Negative for Mycoplasma pneumoniae This real-time PCR assay detects the presence of nucle ic acids (RNA or DNA) for the respiratory pathogens liste d. A result of "Not-detected" does not exclude the possib ility of the presence of one or more pathogens at concentrat ions less than the detectable limits of the assay. Comment: Specimen Information Specimen Source: Nares Specimen Site: Left Specimen Nares - Left Performing Organization Address City/State/[facility] Centercode Phone Number [facility] DEPARTMENT OF PATHOLOGY AND [address] [place] [address] [phone] [address] Influenza antigen test, reflex negative to RPP (10/02/2019 4:37 AM CERTIFIED FLIGHT INSTRUCTOR) Influenza antigen Negative for Influenza A/B antigen. JUAN ANTONIO CONTRERAS Comment: HOSPITAL Specimen Information Specimen Source: Nares Specimen Site: Left Specimen Nares - Left Performing Organization Address [facility] Centercode Phone Number [facility] DEPARTMENT OF PATHOLOGY AND [address] [place] [address] [place] [phone] Blood culture, aerobic (10/02/2019 4:30 AM CERTIFIED FLIGHT INSTRUCTOR) Blood culture No growth after 5 days of incubation. FLORESITA CONTRERAS isolate, aerobic Comment: HOSPITAL Specimen Information Specimen Source: Blood Specimen Site: Unspecified Specimen Blood Performing Organization Address [facility] Phone Number [facility] DEPARTMENT OF PATHOLOGY AND [address] [place] [phone] after 03/25/2019 DR Lamin aldrich ([place]) [address] [place] [phone] Advance Directives For more information, please contact: [phone] Type Date Recorded Patient Jewel Hole Gauger Explanati on Advance Directives, Living Will and 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
--- OUTSIDE RECORDS SUMMARY | 2020-03-25 14:15 | XMS REPORT | Continuity of Care Document ---
:1980 Author Organization [facility] t Address [address] [place] [address] Care Team Providers Name Role Phone Asked, Pcp Primary Care Physician Unavailable Juan Henley MD Attending Clinician Mike ASCENCIO Attending Clinician Audrey ASCENCIO, M. Attending Clinician Shae Wolfe MD Attending Clinician Shanelle ASCENCIO Attending Clinician Shena ASCENCIO Attending Clinician Ede ASCENCIO, M. Attending Clinician AUDREY Admitting Clinician Unavailable Payers Payer Name Policy Policy Number Effective Expiration Source Type Date Date AMERIGROUPAMERIGROUP xxxxxxxxx 2017 [place] STAR+PLUS 00:00:00 [place] [id number]-Pre sentHMO Problems Condition Condition Condition Status Onset Resolution Last Treating Co mments Source Name Details Category Date Date Treatment Clinician Date Enterococc Enterococc Disease Active 2020-0 [place] us UTI us UTI 1-13 Methodi 00:00: st 00 Staghorn Staghorn Disease Active 2020-0 [place] calculus calculus 1-05 Method i 00:[facility]: st 00 Hydronephr Hydronephr Disease Active 2020-0 [place] osis of osis of 05 [facility] right right 00:00: st kidney kidney 00 Anoxic Anoxic Disease Active [place] brain brain 05 [facility] damage damage 00:00: st 00 Spasticity Spasticity Disease Active 2020-0 [place] 05 [facility] 00:00: st Pyelonephr Pyelonephr Disease [facility] 00 Severe Severe Disease Active [place] sepsis sepsis 10-02 [facility] 00:00: st 00 Fever Fever Disease Active [place] 10-02 Methodi 00:00: st 00 Leukocytos Leukocytos Disease Active [place] is is 05 Methodi 00:00: st 00 Seizure Seizure Disease Active [place] disorder disorder 10-02 Method i 00:00: st 00 Lactic Lactic Disease Active [place] acidosis acidosis 10-02 Method i 00:00: st 00 GERD GERD Disease Active [place] (gastroeso (gastroeso 10-02 Me thodi phageal phageal 00:00: st reflux reflux 00 disease) disease) Dysphagia Dysphagia Disease Active Johnathan yovany 05 Methodi 00:00: st 00 Vomiting Vomiting Disease Active [place] 10-02 [facility] 00:00: st 00 UTI UTI Disease Active [place] (urinary (urinary 10-02 Method i tract tract 00:00: st infection) infection) 00 Allergies, Adverse Reactions, Alerts Allergy Allergy Status Severity Reaction(s) Onset Inactive Treating Comm ents Source Name Type Date Date Clinician Diphenhy Propensi Active Unknown Per - Mitchell benavidez ty to Reaction 1-05 she never Meth kingsley Hcl adverse 00:00: noted a st reaction 00 reaction s to to this drug medicatio n. Aspirin Propensi Active Unknown Per , Johnathan yovany ty to Reaction 1-05 she was Methodi adverse 00:00: just told st reaction 00 by the s to nursing drug home the patient had this listed as an allergy but never noted this before. Unknown what his reaction to this is. Meperidi Propensi Active Unknown Per Johnathan yovany ne ty to Reaction 1-05 - she is Method i adverse 00:00: unsure of st reaction 00 his s to reaction drug to this Penicill Propensi Active Unknown 2020-0 [place] ins ty to Reaction 10-02 Method[facility] adverse 00:00: st reaction 00 s to drug Social History Social Habit Start Date Stop Date Quantity Comments Source Sex Assigned At [facility] ethodist Alcohol intake 2019-10-02 2019-10-02 [facility] thodist 00:00:00 00:00:00 Medications Ordered Filled Start Stop Current Ordering Indication Dosage Frequency Signature Comments Components Source Medication Medication Date Date Medication? Clinician (SIG) Name Name phenytoin 2020-0 2020- No 125mg Q6H Take 125 [place] (DILANTIN) 14 -14 mg by Methodi 100 mg/4 mL 10:29: 00:[address] suspension 42 :00 every 6 (six) hours. levoFLOXaci 2020-0 2020- No 500mg QD Take 500 [place] n 10-11-14 mg by Methodi (LEVAQUIN) 10:29: 00:[address] 500 MG 42 :00 daily. tablet Unclear start date. Intended for 7 days of therapy. Started prior to 10/02/2019 Lactobacill 2020-0 Yes 1{packe QD Take 1 [place] us 1-14 t} packet by Sonia acidoph-L.b 10:29: mouth st ulgar 37 daily. (FLORANEX) 1 million cell tablet artificial 2020-0 Yes 1[drp] Q.5D Administer [place] tears,hypro -14 1 drop to Met hodi mellose, 10:29: both eyes st (SYSTANE/GE 37 2 (two) NTEAL) 0.3 times a % gel day. ibuprofen 2020-0 Yes Q8H Take by [place] on (MOTRIN) 10-11 mouth Methodi 100 mg/5 mL 10:29: every 8 st suspension 37 (eight) hours as needed for mild pain. lactulose 2020-0 Yes 10g QD Take 10 g Johnathan ston 10 gram/15 -14 by mouth Metho di mL (15 mL) 10:29: nightly. st solution 37 oxybutynin 2020-0 Yes 5mg Q.5D Take 5 mg [place] (DITROPAN) -14 by mouth 2 Met hodi 5 MG tablet 10:29: (two) st 37 times a day. omeprazole 2020-0 Yes 20mg QD Take 20 mg [place] (PriLOSEC) -14 by mouth Metho di 20 MG 10:29: daily. st capsule 37 traMADol 2019-0 Yes acute pain 50mg Q8H Take 50 mg [place] (ULTRAM) 50 -14 by mouth Meth kingsley mg tablet 10:29: every 8 st 37 (eight) hours as needed for moderate pain .acute pain. phenytoin 2020- No 125mg Q6H Take 5 mL [place] (DILANTIN) 10-10 (125 mg Metho di 100 mg/4 mL 00:00: 23:59 total) by st suspension 00 :00 mouth every 6 (six) hours for 30 days. bacitracin 0 2020- No Q.5D Apply [place] ointment 10-10 topically Metho di tube 00:00: 23:59 2 (two) st 00 :00 times a day for 30 days. baclofen 5 2019- No 5mg Q.[id number] 5 mg by Pete mg tablet 10-10 [id number] g-tube M ethodi 00:00: 23:[address] 00 :00 (three) times a day for 30 days. povidone-io 0 2020- No Q.5D Apply [place] dine 10-10 topically Method[facility] (BETADINE) 00:00: 23:59 2 (two) st 10 % 00 :00 times a external day for 30 solution days. Immunizations Ordered Immunization Filled Immunization Date Status Commen ts Source Name Name FLUCELVAX QUAD PF 2019-10-11 Completed [place] 00:00:00 [place] Vital Signs Vital Name Observation Time Observation Value Comments Source Systolic blood 2019-10-11 08:12:54 138 mm[Hg] [place] n [place] pressure Diastolic blood 2019-10-11 08:12:54 76 mm[Hg] [place] pressure Heart rate 2019-10-11 08:12:54 84 /min [place] [facility] Body temperature 2019-10-11 08:12:54 35.56 [place] Respiratory rate 2019-10-11 08:12:54 18 /min [place] Oxygen saturation in 2019-10-11 08:12:54 98 /min [place] [facility] Arterial blood by Pulse oximetry Body height 2019-10-09 19:05:00 172.7 cm Pete Mendiola Body weight 2019-10-02 04:15:00 65 kg Pete Mendiola BMI 2019-10-02 04:15:00 21.79 kg/m2 [place] [facility] Procedures Procedure Date / Time Performing Clinician Source Performed POC GLUCOSE 2019-10-11 08:14:00 Delmi Timmons Meth odist BASIC METABOLIC PANEL 2019-10-11 03:21:00 Jailyn Andres n [place] MAGNESIUM LEVEL 2019-10-11 03:21:00 Dmitry Jailynned [place] Meth odist PHOSPHORUS LEVEL 2019-10-11 03:21:00 Dmitry Jailynned [place] Met hodist ESTIMATED GFR 2019-10-11 03:21:00 OnqiwDelmi mitchell Meth odist HC COMPLETE BLD COUNT 2019-10-11 03:00:00 Jailyn Andres [place] W/AUTO DIFF POC GLUCOSE 2019-10-11 00:14:00 OnqiwDelmi mitchell Meth odist FREE PHENYTOIN LEVEL 2019-10-10 22:41:00 Esteban Juárez [place] POC GLUCOSE 2019-10-10 21:32:00 OnqiwDelmi mitchell Meth odist FREE PHENYTOIN LEVEL 2019-10-10 18:00:00 Jailene Contreras [place] POC GLUCOSE 2019-10-10 11:34:00 OnDelmi west Meth odist POC GLUCOSE 2019-10-10 08:15:00 OnDelmi west Meth odist POC GLUCOSE 2019-10-10 05:03:00 Karina Wolfe [place] Me thodist HC COMPLETE BLD COUNT 2019-10-10 04:49:00 Jailene Contreras [place] W/AUTO DIFF BASIC METABOLIC PANEL 2019-10-10 04:49:00 Jailene Contreras [place] ESTIMATED GFR 2019-10-10 04:49:00 Karina Wolfe [place] Me thodist POC GLUCOSE 2019-10-10 00:28:00 OnDelmi west Meth odist POC GLUCOSE 2019-10-09 21:22:00 Karina Wolfe [place] Me thodist POC GLUCOSE 2019-10-09 17:25:00 Yaneth Karina Shae [facility] thodist POC GLUCOSE 2019-10-09 11:32:00 Yaneth Karina Shae [facility] thodist POC GLUCOSE 2019-10-09 07:55:00 Yaneth Karina Shae [facility] thodist POC GLUCOSE 2019-10-09 03:58:00 Yaneth Karina Shae [place] Me thodist HC COMPLETE BLD COUNT 2019-10-09 03:51:00 Jesus Alberto Euceda [place] W/AUTO DIFF BASIC METABOLIC PANEL 2019-10-09 03:49:00 Jesus Alberto Euceda [place] ESTIMATED GFR 2019-10-09 03:49:00 Karina Wolfe Shae [facility] thodist POC GLUCOSE 2019-10-08 21:48:00 Karina Wolfe Shae [facility] thodist POC GLUCOSE 2019-10-08 16:41:00 Karina Wolfe Shae [facility] thodist POC GLUCOSE 2019-10-08 11:57:00 Karina Wolfe Shae [facility] thodist POC GLUCOSE 2019-10-08 07:32:00 Karina Wolfe Shae [facility] thodist POC GLUCOSE 2019-10-08 05:17:00 Karina Wolfe Shae [facility] thodist POC GLUCOSE 2019-10-07 23:48:00 Karina Wolfe Shae [facility] thodist POC GLUCOSE 2019-10-07 19:51:00 Karina Wolfe Shae [facility] thodist POC GLUCOSE 2019-10-07 17:13:00 Karina Wolfe Shae [facility] thodist POC GLUCOSE 2019-10-07 11:53:00 Karina Wolfe Shae [facility] thodist POC GLUCOSE 2019-10-07 07:26:00 Karina Wolfe Shae [facility] thodist POC GLUCOSE 2019-10-06 23:24:00 Karina Wolfe Shae [facility] thodist POC GLUCOSE 2019-10-06 19:58:00 Karina Wolfe Shae [facility] thodist POC GLUCOSE 2019-10-06 16:26:00 Karina Wolfe Shae [facility] thodist POC GLUCOSE 2019-10-06 11:50:00 Karina Wolfe Shae [facility] thodist POC GLUCOSE 2019-10-06 07:46:00 Karina Wolfe [place] Me thodist PHOSPHORUS LEVEL 2019-10-06 03:20:00 Jose Donnelly [facility] HC COMPLETE BLD COUNT 2019-10-06 03:20:00 Moiz Wang [place] W/AUTO DIFF BASIC METABOLIC PANEL 2019-10-06 03:20:00 Moiz Wang [place] MAGNESIUM LEVEL 2019-10-06 03:20:00 FelipeLaney carlsonmichael [place] Meth odist ESTIMATED GFR 2019-10-06 03:20:00 Karina Wolfe [place] Me thodist POC GLUCOSE 2019-10-06 03:17:00 Karina Wolfe [place] Me thodist POC GLUCOSE 2019-10-05 23:29:00 Karina Wolfe [place] Me thodist CONSULT TO OSTOMY CARE 2019-10-05 20:28:48 Jesus Alberto Euceda on U[facility] NURSE POC GLUCOSE 2019-10-05 16:48:00 Karina Wolfe [place] Me thodist POC GLUCOSE 2019-10-05 12:48:00 Alanna Ventura Me thodist POC GLUCOSE 2019-10-05 12:06:00 Alanna Ventura Me thodist FREE PHENYTOIN LEVEL 2019-10-05 12:00:00 Christopher Kang [place] POC GLUCOSE 2019-10-05 08:57:00 Alanna Ventura Me thodist POC GLUCOSE 2019-10-05 05:42:00 Alanna Ventura Me thodist BASIC METABOLIC PANEL 2019-10-05 02:00:00 Elvia Coker [place] MAGNESIUM LEVEL 2019-10-05 02:00:00 Elvia Coker ethodist PHOSPHORUS LEVEL 2019-10-05 02:00:00 Elvia Coker HC COMPLETE BLD COUNT 2019-10-05 02:00:00 Elvia Coker [place] W/AUTO DIFF ESTIMATED GFR 2019-10-05 02:00:00 Elvia Coker ethodist POC GLUCOSE 2019-10-05 01:53:00 Alanna Ventura Me thodist POC GLUCOSE 2019-10-04 21:26:00 Alanna Ventura Me thodist POC GLUCOSE 2019-10-04 17:07:00 Alanna Ventura Me thodist POC GLUCOSE 2019-10-04 12:33:00 Alanna Ventura Me thodist POC GLUCOSE 2019-10-04 08:41:00 Alanna Ventura Wi thodist BASIC METABOLIC PANEL 2019-10-04 05:00:00 Elvia Coker [place] MAGNESIUM LEVEL 2019-10-04 05:00:00 John Paul Elviaray Machuca Pete Lowery ethodist PHOSPHORUS LEVEL 2019-10-04 05:00:00 Elvia Coker HC COMPLETE BLD COUNT 2019-10-04 05:00:00 Elvia Coker [place] W/AUTO DIFF ESTIMATED GFR 2019-10-04 05:00:00 Elvia Coker [place] ethodist VANCOMYCIN LEVEL, TROUGH 2019-10-04 05:00:00 Moiz Wang [place] POC GLUCOSE 2019-10-04 04:50:00 Alanna Ventura Me thodist POC GLUCOSE 2019-10-04 00:40:00 Alanna Ventura Me thodist POC GLUCOSE 2019-10-03 20:44:00 Alanna Ventura Me thodist POC GLUCOSE 2019-10-03 18:05:00 Alanna Ventura Me thodist IONIZED CALCIUM 2019-10-03 17:30:00 Kang, Christopher inman [place] MAGNESIUM LEVEL 2019-10-03 17:30:00 Kang, Christopher inman [place] PHOSPHORUS LEVEL 2019-10-03 17:30:00 Christopher Kang [place] POTASSIUM LEVEL 2019-10-03 17:30:00 Kang, Christopher inman [place] IR RIGHT NEPHROSTOMY 2019-10-03 16:54:59 Esteban Juárez [place] INITIAL PLACEMENT ANESTHESIA INTUBATION 2019-10-03 15:03:04 Zuleyma Perez [place] POC GLUCOSE 2019-10-03 13:09:00 Alanna Ventura BeverleyVeronica [place] Wi thodist POC GLUCOSE 2019-10-03 08:16:00 Alanna Ventura BeverleyVeronica [place] Wi thodist POC GLUCOSE 2019-10-03 04:46:00 Audrey Alanna [place] Wi thodist BASIC METABOLIC PANEL 2019-10-03 03:10:00 John Paul, Elvia Mendiola MAGNESIUM LEVEL 2019-10-03 03:10:00 John Paul, Elvia Brigette Pete Lowery ethodist PHOSPHORUS LEVEL 2019-10-03 03:10:00 John Paul, Elvia Mendiola HC COMPLETE BLD COUNT 2019-10-03 03:10:00 John Paul, Elvia Mendiola W/AUTO DIFF LACTIC ACID LEVEL 2019-10-03 03:10:00 John Paul, Elvia Mendiola TYPE AND SCREEN 2019-10-03 03:10:00 John Paul, Elvia Freeman Beverley ethodist PARTIAL THROMBOPLASTIN 2019-10-03 03:10:00 John Paul, Elvia Mendiola TIME (PTT) PROTHROMBIN TIME WITH INR 2019-10-03 03:10:00 John Paul, Elvia Mendiola ESTIMATED GFR 2019-10-03 03:10:00 John Paul, Elvia Brigette Pete Lowery ethodist POC GLUCOSE 2019-10-03 00:51:00 Alanna Ventura BeverleyVeronica [place] Wi thodist POC GLUCOSE 2019-10-02 20:50:00 Clifford Venturajemma LoweryVeronica [place] Wi thodist POC GLUCOSE 2019-10-02 16:41:00 Alanna Ventura BeverleyVeronica [place] Wi thodist POC GLUCOSE 2019-10-02 12:18:00 Clifford Venturajemma LoweryVeronica [place] Wi thodist US RENAL 2019-10-02 12:02:52 Moiz Wang Meth odist BLOOD CULTURE, AEROBIC & 2019-10-02 10:09:00 Christopher Kang [place] [facility] ANAEROBIC LACTIC ACID LEVEL, SEPSIS 2019-10-02 10:09:00 Moiz Wang usmatthew [place] - NOW AND REPEAT 2X EVERY 3 HOURS POC GLUCOSE 2019-10-02 08:18:00 Alanna Ventura BeverleyVeronica Freeman Wi thodist LACTIC ACID LEVEL, SEPSIS 2019-10-02 07:45:00 Moiz Wang [place] - NOW AND REPEAT 2X EVERY 3 HOURS XR ABDOMEN 1 VW PORTABLE 2019-10-02 07:40:00 Alanna Ventura [place] XR CHEST 1 VW PORTABLE 2019-10-02 07:30:00 Moiz Wang on [place] URINE CULTURE 2019-10-02 06:18:00 Alanna Ventura Me thodist GRAM STAIN 2019-10-02 06:18:00 Alanna Ventura Me thodist ECG 12-LEAD 2019-10-02 05:01:02 Moiz Wang Meth odist HC COMPLETE BLD COUNT 2019-10-02 04:45:00 Moiz Wang [place] W/AUTO DIFF URINALYSIS SCREEN AND 2019-10-02 04:45:00 Moiz Wang MICROSCOPY, WITH REFLEX TO CULTURE PROTHROMBIN TIME WITH INR 2019-10-02 04:45:00 Moiz Wang [place] PARTIAL THROMBOPLASTIN 2019-10-02 04:45:00 Moiz Wang [place] TIME (PTT) ARTERIAL BLOOD GAS 2019-10-02 04:45:00 Moiz Wang ethodist FREE PHENYTOIN LEVEL 2019-10-02 04:45:00 Moiz Wang COMPREHENSIVE METABOLIC 2019-10-02 04:45:00 Alanna Ventura [place] PANEL TROPONIN 2019-10-02 04:45:00 Alanna Ventura Wi thodist CREATINE KINASE, TOTAL 2019-10-02 04:45:00 Alanna Ventura (CPK) LACTIC ACID LEVEL 2019-10-02 04:45:00 Alanna Ventura PHOSPHORUS LEVEL 2019-10-02 04:45:00 Alanna Ventura ethodist MAGNESIUM LEVEL 2019-10-02 04:45:00 Alanna Ventura Wi thodist ESTIMATED GFR 2019-10-02 04:45:00 Alanna Ventura Wi thodist T4, FREE 2019-10-02 04:45:00 Alanna Ventura Me thodist PHENYTOIN LEVEL 2019-10-02 04:45:00 Alanna Ventura Me thodist THYROID STIMULATING 2019-10-02 04:45:00 Alanna Ventura HORMONE INFLUENZA ANTIGEN TEST, 2019-10-02 04:37:[address] Mendiola REFLEX NEGATIVE TO RPP RESPIRATORY PATHOGEN PANEL 2019-10-02 04:37:00 Alanna Ventura BLOOD CULTURE, AEROBIC 2019-10-02 04:30:00 Alanna Ventura stostorm Mendiola POC GLUCOSE 2019-10-02 04:08:00 Alanna Ventura Me thodist Plan of Care Planned Activity Planned Date Details Comments Source Future Scheduled 2020-04-28 INFLUENZA VACCINE Armando Mendiola Test 00:00:00 [code = INFLUENZA VACCINE] Encounters Start End Encounter Admission Attending Care Care Encounter Source Date/Time Date/Time Type Type Clinicians Facility Department ID 2020-03-05 2020-03-05 [facility] [id number] 10:10:00 23:59:00 Encounter [facility] [id number] [facility] [id number] 2020-03-01 2020-03-01 Office [facility] [id number] 08:07:28 08:53:10 Visit [facility] [id number] [place] 4.2.7.2.686 [facility] [id number] Primary & 204 Specialty Care 2020-03-01 2020-03-[id number] 00:00:00 00:00:00 [facility] [id number] [place] 4.2.7.2.686 [facility] [id number] Primary & 204 Specialty Care 2019-10-02 2019-10-11 Inpatient [facility] [id number] 52 [place] 00:00:00 00:00:00 MEJIA [address] Results Test Description Test Time Test Comments Results Result Comments Source POC glucose 2019-10-11 08:14:58 Test Item Value Reference Range Interpretation Comme [facility] POC glucose (test code = 91 mg/dL 65-99 Ope rator Name: Chris Glass ID: [id number]) [id number] able: [facility] Notified ALENA MendiolaBasic metabolic [id number] 03:57:11 Test Item Value Reference Range Interpretation Comments Sodium (test code = 2951-2) 137 135- 148 mEq/L Potassium (test code = 2823-3) 4.1 3.5- 5.0 mEq/L Chloride (test code = 2075-0) 101 98- 112 mEq/L CO2 (test code = 8-9) 25 24- 31 mEq/L Anion gap (test code = 46327-7) 11@ANIO 7- 15 mEq/L BUN (test code = 3094-0) 16 mg/dL 6-20 Creatinine (test code = 2160-0) 0.48 mg/dL 0.7-1.2 L Glucose (test code = 2345-7) 121 mg/dL 65-99 H Calcium (test code = 19329-6) 9.4 mg/dL 8.3-10.2 Lab Interpretation (test code = Abnormal 42581-2) Pete CaballeroistMagnesium [id number] 03:57:11 Test Item Value Reference Range Interpretation Comments Magnesium (test code = 20996-8) 2.1 mg/dL 1.6-2.6 Pete MethodistEstimated [id number] 03:57:11 Test Item Value Reference Range Interpretation Comments Estimated GFR (test >=90 mL/min/1.73 m2 Caterg ory Units code = 5488) InterpretationG 1 >=90 Normal or highG2 60-89 Mildly nxdhrkcqtQ5t 45-59 Mildly to mode rately [id number] 30-44 Moderately to severely decreasedG4 15-29 Severely decre asedG5 <15 Kidn ey failureThe eGFR was calculated dez talavera the Chronic Kidney Disease Epidemiology Co llaboration (CKD-EPI) equat ion. Interpretation is based on recommendations of the National Kidney Foundation-Kidn ey Disease Outcomes Qualit y Initiative (NKF-KDOQI) pub lished in 2013. Pete CaballeroistPhosphorus [id number] 03:57:10 Test Item Value Reference Range Interpretation Comments Phosphorus (test code = 2777-1) 3.1 mg/dL 2.4-4.5 [place] MethodistCB with platelet and [id number] 03:25:12 Test Item Value Reference Range Interpretation Comments WBC (test code = 05311-1) 6.12 4.50- 11.00 k/uL RBC (test code = 20005-8) 4.56 m/uL 4.4-6 HGB (test code = 718-7) 13.2 g/dL 14-18 L HCT (test code = 4544-3) 41.3 % 41-51 MCV (test code = 787-2) 90.6 fL 82-100 MCH (test code = 785-6) 28.9 pg 27-34 MCHC (test code = 786-4) 32.0 g/dL 31-37 RDW - SD (test code = 46.0 fL 37-55 38335-8) MPV (test code = 04861-1) 11.9 fL 8.8-13.2 Platelet count (test code 281 150- 400 k/uL = 97998-0) Nucleated RBC (test code 0.00 /100 WBC = 74294-6) Neutrophils (test code = 62.5 % 39-69 00559-1) Lymphocytes (test code = 25.2 % 25-45 33906-6) Monocytes (test code = 8.0 % 0-10 54823-2) Eosinophils (test code = 2.6 % 0-5 77407-3) Basophils (test code = 0.7 % 0-1 64325-2) Immature granulocytes 1.0 % 0-1 "Immat ure (test code = 66646-9) granul ocytes" (promyelocytes, myelocytes, metamyelocytes) Lab Interpretation (test Abnormal code = 45991-9) [place] MethodistFree phenytoin [id number] 00:25:54 Test Item Value Reference Range Interpretation Comments Phenytoin, free (test 0.50 ug/mL 1-2 L This t est has been code = 3969-3) modified from the manufacturers instructions. The performance characteristics were determined by Eliu weber in a manner consis tent with CLIA requirements. This test has not be en cleared or appr tayla by the U.S. Food a nd Drug Administration. Lab Interpretation Abnormal (test code = 55169-4) [place] MethodistBlood culture, aerobic & [id number] 14:03:07 Test Item Value Reference Range Interpretation Comments Blood culture No growth Specimen isolate (test after 5 days InformationSpe cimen code = 600-7) of Source: BloodS pecimen incubation. Site: Hand, lef t [place] MethodistBlood culture, [id number] 08:33:03 Test Item Value Reference Range Interpretation Comments Blood culture No growth Specimen isolate, after 5 days InformationSpec imen aerobic (test of Source: BloodS pecimen code = 974) incubation. Site: Unspecifi ed [place] MethodistVancomycin level, [id number] 05:55:41 Test Item Value Reference Range Interpretation Comments Vancomycin, trough 12.7 ug/mL 10-20 Therapeut ic Ranges: (test code = Peak 30.0 - 40.0 56895-7) ug/mL Trough 10.0 - 20.0 ug/mL [place] MethodistPotassium [id number] 18:03:02 Test Item Value Reference Range Interpretation Comments Potassium (test code = 2823-3) 4.2 3.5- 5.0 mEq/L [place] MethodistIonized [id number] 18:02:39 Test Item Value Reference Range Interpretation Comments pH (test code = 2753-2) 7.45 Ionized calcium (test code = 1.12 mmol/L 1.11-1.32 ) [place] MethodistIR Nephrostomy Insertion [id number] 17:23:25Hm Interface, Radiology Results - 10/03/2019 5:26 PM CSTPerforming RadiologistRohit Shravan MDAssistantsNone Anesthesia TypeGeneral anesthesia provided by physiologic.Pre Procedure Swbkiewlb43-fgtl-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 Procedure1. Antegrade right nephrostogram 2. Placement of a right percutaneous nephrostomy TechniqueWritten informed consent was obtained prior to the procedure. The patient was placed in a prone position on the procedure table. The right back was sterilely prepared and draped in the routine manner. Lidocaine 1% was used for local anesthetic. Ultrasound imaging over the right back was then performed, demonstratingmild to moderate right hydronephrosis. Using real-time ultrasound guidance, a 22-gauge needle was advanced successfully into a mildly dilated lower pole calyx of the right kidney. Injection of contrastthrough the needle promptly opacified the right renal [...] of contrast through the Accu stick set sheath.A 4 Maldivian glide catheter was advanced through the outer portion of the AccuStick set sheath and a 0.035 inch Glidewire was used to navigate the system into the urinary bladder. The Glidewire was exchanged for an Amplatz wire and after tract dilationa 26 cm, 8.5-Maldivian percutaneous nephroureteral catheter was then placed. The catheter pigtail was formed within the urinary bladder. Attempts at forming the proximal pigtail were unsuccessful given calculus at the level of the renal pelvis. This catheter was then sewn to the skin using 2-0 silk suture and attached to gravity bag drainage. The patient tolerated the procedure without immediate complications.Radiation DoseKa,r = 947 mGyComplicationsNone Specimens RemovedNone Estimated Blood LossApproximately 5 mL Blood/Blood Products AdministeredNone Grafts/ImplantsAs described in the above report Imp ression: 1. Ultrasound imaging over the right kidney demonstrates mild to moderate right hydronephrosis. Using real-time ultrasound guidance, a 21-gauge needle was advanced successfully into a mildly dilated lower pole calyx of the right kidney.2. An antegrade right nephrostogram demonstrates mild to moderate right hydronephrosis and hydroureter.3. Successful placement of an 8.5-Maldivian right percutaneous nephroureteral catheter, as detailed above. The catheter pigtail was formed within the right renal pelvis. This catheter was placed to gravity bag drainage.4. Hydronephrosis is also prominent inthe upper pole, and if patient symptomatically doesn't improve, upper pole access and drainage may be necessary. [facility]-[id number] MethodistGram [id number] 16:09:04Gram stain resultOccasional WBC'sRare Gram positive cocci in pairsRare Gram positive rods Comment: Specimen InformationSpecimen Source: UrineSpecimen Site: Suprapubic/ [facility] [id number] 15:03:04 Zuleyma Perez CRNA 10/03/2019 3:03 PMAirwayPerformed by: Zuleyma Perez CRNAAuthorizedby: Roxanna Mera MD Location: [facility] Airway: No Resident/WAX CUTTER/AA: Zuleyma Perez CRNAPreoxygenated with 100% O2: Yes C-spine Precautions Maintained Throughout: Yes Mask Ventilation: Easy maskFinal Airway Type: Endotracheal airwayFinal Endotracheal Airway: ETTTechnique Used: Direct laryngoscopyBlade Type: MillerLaryngoscope Blade/Videolaryngoscope Blade Size: 2ETT Size (mm): 7.0Measured from: LipsETT to Lips (cm): 21Placement Verified by: CO2 detection, direct visualization and equal breath sounds Laryngoscopic view: Grade I - full view of glottisNumber of Attempts at Approach: 1 EZ OETT, pt teeth ans mouth protected and unchanged. [place] MethodistType and [id number] 04:22:00 Test Item Value Reference Range Interpretation Comments ABO grouping (test code = 883-9) A Rh type (test code = 61339-5) POS Antibody screen (gel) (test code = NEG 890-4) [facility] CenterLactic acid [id number] 03:52:26 Test Item Value Reference Range Interpretation Comments Lactic acid (test code = 08081-4) 1.0 mmol/L 0.5-2.2 [facility] CenterPartial thromboplastin time, fqsdlwpwi3048-48-81 03:47:21 Test Item Value Reference Range Interpretation Comments PTT (test code = 29.8 23.0- 36.0 [place] [address]-8) unfractionated heparin is61.0-112.0 se conds which corresponds to Anti-Xa0.3-0.7 U/ml. [facility] LevellandistProthrombin time with [id number] 03:47:14 Test Item Value Reference Range Interpretation Comments Prothrombin time (test 15.2 11.5- 14.5 sec H code = 5902-2) INR (test code = 1.2 [facility] 47466-5) Normalized Rati o (INR) is a therapeuti c monitoring tool for patients who ar e stable on oral anticoagulant t herapy. An INR of 2.0-3 .0 is suggested for d eep vein thrombosis/pulm onary embolism. Lab Interpretation Abnormal (test code = 91415-9) [facility] MethodistECG 12 [id number] 22:21:18 Test Item Value Reference Range Interpretation Comments Ventricular rate (test 101 code = 253) Atrial rate (test code 101 = 255) ID interval (test code 188 = 266) QRSD interval (test 92 code = 260) QT interval (test code 354 = 264) QTC interval (test code 459 = 265) P axis 1 (test code = 44 267) QRS axis 1 (test code = 76 268) T wave axis (test code 47 = 270) EKG impression (test Sinus code = 273) tachycardia-Otherwise normal ECG-In automated comparison with ECG of 02-OCT-2019 05:00,-No significant change was found- [facility] MethodistRespiratory pathogen [id number] 15:01:22Respiratory pathogen panelNegative for all pathogens tested:Negative for AdenovirusNegative for Coronavirus XUZ0Ydgpfqud for Coronavirus PA64Wgfvdipa for Coronavirus 229ENegative for Coronavirus WP66Cspwbopd for Human MetapneumovirusNegative for Rhinovirus/EnterovirusNegative for Influenza ANegative for Influenza A/G1Pjqrgbko for Influenza A/L8Ernkainh for Influenza A/H1-2009Negative for Influenza BNegative for Parainfluenza Virus 1Negative for Parainfluenza Virus 2Negative for Parainfluenza Virus 3Negative for Parainfluenza Virus 4Negative for Respiratory Syncytial VirusNegative for Bordetella pertussisNegative for Chlamydophila pneumoniaeNegative for Mycoplasma pneumoniaeThis real-time PCR assaydetects the presence of nucleic acids (RNA or DNA) for the respiratory pathogens listed. A result of "Not-detected" does not exclude the possibility of the presence of one or more pathogens at concentrations less than the detectable limits of the assay. Comment: Specimen InformationSpecimen Source: Na resSpecimen Site: Left [facility] MethodistUS Renal 2019-10-02 12:58:28Hm Interface, Radiology Results 10/02/2019 1:01 PM CSTEXAMINATION: US RENALCLINICAL HISTORY: Pyelonephritis complicatedCOMPARISON: None.IMPRESSION: The right kidney measures 11.5 cm in length.The left kidney measures 11.1 cm in length.There is an 8 mm calculus in the upper pole of the right kidney. There is mild right hydronephrosis. There is no cyst or solid mass. Echogenicity is normal.A Cardenas catheter is present in the decompressed urinary bladder.[facility]-[id number] MethodistLactic acid level, SEPSIS - Now and repeat 2x every 3 feeje5633-03-49 11:23:34 Test Item Value Reference Range Interpretation Comments Lactic acid (test code = 28756-3) 1.0 mmol/L 0.5-2.2 [place] MethodistInfluenza antigen test, reflex negative to [id number] 09:36:12 Test Item Value Reference Range Interpretation Comments Influenza Negative for Specimen antigen (test Influenza A/B Information ecimen code = 42886-5) antigen. Source: Nasir sSpecimen Site: Left [facility] Chest 1 Vw [id number] 09:15:56Hm Interface, Radiology Results 10/02/2019 9:19 AM CSTEXAMINATION: XR CHEST 1 VW PORTABLECLINICAL HISTORY: ICU pt unstable or clinical worseningCOMPARISON: NoneIMPRESSION:Mild patchy bibasilar atelectasisHypoinflation of the lungsTiny right costophrenic angle effusionNo central congestionNo pneumothorax.The Cardiomediastinal silhouette is normal in sizeSingle view chest.[id number] [facility] Abdomen 1 Vw [id number] 07:58:59Hm Interface, Radiology Results 10/02/2019 8:02 AM CSTEXAMINATION: XR ABDOMEN 1 VW PORTABLECLINICAL HISTORY: ICU new admissionCOMPARISON: None.FINDINGS:Gas is seen throughout the length of the colon. Proximal colon is mildly dilated, with the cecum measuring up to 8.6 cm. No air-filled dilated loops of small bowel are seen. Free air and air-fluid levels are not appreciated. No unusual c alcifications are seen.IMPRESSION:Moderately large amount of gas in the colon. No small bowel dilation.[facility]-[id number] MethodistT4, [id number] 07:48:17 Test Item Value Reference Range Interpretation Comments T4, free (test code = 3024-7) 1.3 ng/dL 0.9-1.7 [place] MethodistThyroid stimulating [id number] 07:48:17 Test Item Value Reference Range Interpretation Comments TSH (test code = 3016-3) 1.48 0.27- 4.20 uIU/mL [place] MethodistPhenytoin [id number] 07:45:01 Test Item Value Reference Range Interpretation Comments Phenytoin (test code = 3.0 ug/mL 10-20 L Thera peutic Range: 3968-5) 10 - 20 ug/mL Lab Interpretation (test Abnormal code = 96626-7) [place] MethodistUrinalysis screen and microscopy, with reflex to culture 2019-10-02 07:39:14 Test Item Value Reference Range Interpretation Comments Specimen site (test code = Suprapubic 0747719) Color, UA (test code = 5778-6) Danyelle Appearance, UA (test code = Cloudy 5767-9) Specific gravity, UA (test code = 1.046 1.001-1.035 H 5811-5) pH, UA (test code = 5803-2) 6.0 5.0-8.5 Protein, UA (test code = 35563-0) 2+ Negative A Glucose, UA (test code = 33152-0) Negative Negative Ketones, UA (test code = 2514-8) Negative Negative Bilirubin, UA (test code = 5770-3) Negative Negative Blood, UA (test code = 5794-3) Moderate Negative A Nitrite, UA (test code = 5802-4) Negative Negative Urobilinogen, UA (test code = <2.0 <2.0 73577-9) Leukocyte esterase, UA (test code Large Negative A = 5799-2) Epithelial cells, UA (test code = <1 /HPF 5787-7) WBC, UA (test code = 5821-4) >180 0- 1 /HPF H RBC, UA (test code = 99518-4) 63 0- 5 /HPF H Bacteria, UA (test code = 18206-0) None seen None seen WBC clumps, UA (test code = Moderate A 50465-6) Yeast, UA (test code = 30680-5) None seen Yeast with pseudohyphae, UA (test None seen code = 45722-4) Lab Interpretation (test code = Abnormal 79387-9) [facility] CenterComprehensive metabolic fzdny7107-77-24 07:03:19 Test Item Value Reference Range Interpretation Comments Sodium (test code = 145 135- 148 mEq/L 2951-2) Potassium (test code = 3.4 3.5- 5.0 mEq/L L 2823-3) Chloride (test code = 111 98- 112 mEq/L 2075-0) CO2 (test code = 2027-9) 23 24- 31 mEq/L L Anion gap (test code = 11@ANIO 7- 15 mEq/L 88986-6) BUN (test code = 3094-0) 21 mg/dL 6-20 H Creatinine (test code = 0.71 mg/dL 0.7-1.2 2160-0) Glucose (test code = 92 mg/dL 65-99 2345-7) Calcium (test code = 8.4 mg/dL 8.3-10.2 31057-3) Protein (test code = 6.7 g/dL 6.3-8.3 [place] 9994.6-7.0 2885-2) g/dL1 hedi8108.4-7.6 g/dL7 months-0fofk147 .1- 7.3 g/dL1-2 vytyg316.6-7.5 g/dL>3 fbedt967.0-8.0 g/zZ44-4431882. 3-8 .3 g/dL Albumin (test code = 2.4 g/dL 3.5-5 L 1751-7) A/G ratio (test code = 0.6 0.7-3.8 L 1759-0) Alkaline phosphatase 171 U/L 40-129 H (test code = 6768-6) AST (test code = 1920-8) 35 U/L 10-50 ALT (test code = 1742-6) 60 U/L 5-50 H Total bilirubin (test 0.4 mg/dL 0-1.2 code = 1975-2) Lab Interpretation (test Abnormal code = 72379-3) [place] MethodistCreatine kinase, total (CPK)2019-10-02 07:03:18 Test Item Value Reference Range Interpretation Comments Creatine kinase (test code = 2157-6) 39 U/L 39-308 [place] JdwzayygzPzopeafv9168-71-44 07:01:25 Test Item Value Reference Range Interpretation Comments Troponin (test code = <0.006 0-0.04 [place] [address]-8) having a myocar dial infarction, chinedu arana with all other appro priate clinical measur es and actions includi ng ECG and other diagnosti cs as appropriate, ne asure Ultra TnI at 0 hrs and at 3 hrs.Myocardia l infarction VERY LIKELYThe 0 hr TnI level is > 0.10 ng/mL --Myocardial in farction LIKELYThe 0 hr TnI level is > 0.04 ng/mL and 3 hr level is increa sed or decreased by at least 0.020 ng/mL -------Bala cardial infarct ion VERY UNLIKELYBoth th e 0 hr and 3 hr TnI levels <= 0.04 ng/mL(within no rmal limits) OR 0 hr is > 0.04 ng/mL and 3 hr is increased OR de creased by less than 0.020 ng/mL [place] MethodistArterial blood [id number] 06:32:59 Test Item Value Reference Range Interpretation Comments pH, arterial (test code = 2744-1) 7.37 7.35-7.45 pCO2, arterial (test code = 43 35- 45 mmHg 2019-04) pO2, arterial (test code = 66 80- 90 mmHg L 2703-7) Bicarbonate, arterial (test code 24.1 mmol/L 21-28 = 1960-4) Base excess, arterial (test code -1 -2 - 2 mEq-L = 1925-7) O2 saturation, arterial (test 93 % 95-100 L code = 6388-6) Lab Interpretation (test code = Abnormal 73545-9) Pete Mendiola
--- OUTSIDE RECORDS SUMMARY | 2020-03-25 14:17 | XMS REPORT | Summary of Care ---
:1980 Author Organization [facility] Address [address] [place] [address] Care Team Providers Name Role Phone Pcp, Does Not Have A Primary Care Provider Reason for Referral MRI/CAT Scan (Routine) Status Reason Specialty Diagnoses / Referred By Referred To Procedures Contact Contact New Request Diagnostic Diagnoses Renal stone Demarcus Mckeon, Radiology Procedures CT ABDOMEN PELVIS WO CONTRAST [address] [place] [address] [address] [place] [address] Reason for Visit Reason Comments Follow-up Encounter Details Date Type Department Care Team Description 03/01/2020 Office Visit [facility] Urology- Connor Mckeon MD Renal stone (Primary [address] [place]) [address] Ronny Beaulieu [facility] [address] [place] [address] [phone] Allergies Active Allergy Reactions Severity Noted Date Comments Triprolidine-Pseudoep Unknown - See 07/23/2017 hedrine comments Aspirin Unknown - See 07/23/2017 comments Meperidine Hcl Unknown - See 11/17/2019 comments Penicillins Unknown - See 07/23/2017 Patient tolera sonny comments Ceftriaxone at recent outside hospita lization documented as of this encounter (statuses as of 03/01/2020) Medications Medication Sig Dispensed Refills Start Date End Date Status GENERLAC 10 gram/15 mL Take 15 mL through 0 05/18/20 17 Active solution enteral tube at bedtime. phenytoin 125 mg/5 [...] oxybutynin chloride 5 Take 5 mg by mouth 0 Active mg tablet 2 (two) times daily. omeprazole 20 mg Take 20 mg by 0 Active capsule mouth. baclofen (LIORESAL) 5 Take 5 mg by mouth 0 Active mg/mL oral 3 (three) times suspensionIndications: daily. via feeding tube Indications: via feeding tube documented as of this encounter (statuses as of 03/01/2020) Active Problems Problem Noted Date Attention to nephrostomy 11/17/2019 Right renal stone 11/10/2019 Overview: Added automatically from request for dex powell [id number] Nephrostomy tube displaced 10/29/2019 Protein-calorie malnutrition, moderate 08/25/2017 Moderate protein-calorie malnutrition 08/25/2017 Hx of traumatic brain injury 08/10/2017 Overview: Added automatically from request for dex sherry [id number] Injury of urethra, subsequent encounter 08/10/2017 Overview: Added automatically from request for dex sherry [id number] documented as of this encounter (statuses as of 03/01/2020) Social History Tobacco Use Types Packs/Day Years Used Date Former Smoker Smokeless Tobacco: Never Used Tobacco Cessation: Counseling Given: No Comments: Former heavy smoking Alcohol Use Drinks/Week oz/Week Comments No Sex Assigned at Date Recorded Not on file Job Start Date Occupation Industry Not on file Not on file Not on file Travel History Travel Start Travel End No recent travel history available. COVID-19 Exposure Response Date Recorded In the last month, have you been in contact Unable to assess 03/01/2020 8:06 AM CDT with someone who was confirmed or suspected to have Coronavirus / COVID-19? documented as of this encounter Last Filed Vital Signs Vital Sign Reading Time Taken Comments Blood Pressure 99/63 03/01/2020 8:18 AM CDT Pulse 67 03/01/2020 8:18 AM CDT Temperature - - Respiratory Rate 18 03/01/2020 8:18 AM CDT Oxygen Saturation 96% 03/01/2020 8:18 AM CDT Inhaled Oxygen Concentration - - Weight 63.5 kg (140 lb) 03/01/2020 8:18 AM CDT Height 167.6 cm (5' 6") 03/01/2020 8:18 AM CDT Body Mass Index 22.6 03/01/2020 8:18 AM CDT documented in this encounter Progress Notes Demarcus Mckeon MD - 03/01/2020 8:15 AM CDT Demarcus Mckeon MD Stripper Color of Urology Integration Software Engineer of Female Urology, Voiding Dysfunction and Pelvic Reconstruction [facility] Division of Urology Referring Provider: No referring provider defined for this encounter. REASON FOR REFERRAL/CHIEF COMPLAINT: Right staghorn stone s/p PCNL 12/05/2019 Neurogenic bladder s/p brain anoxia, severe body contracture, non responsive. G tube. HISTORY OF PRESENT ILLNESS: The patient is a 39 year old male who was referred to the urology clinic for evaluation of right staghorn stone. The patient has presented today with his nurse, and medical transport in [facility]. The patient has been followed [...] has received IV abx for 5 days. 12/05/2019: right PCNL and the right PCN has removed at the facility 01/03/2020: Telehealth postop follow up 03/01/2020: doing well, the PCN removed and closed wound. The SPT in place and draining good urine output ( exchanged at facility 02/17/2020). The does not know about his condition a lot but he looksfine, not in pain and the G tube in place. PAST MEDICAL HISTORY: Past Medical History: Diagnosis Date Anoxic brain injury 09/04/2016 Asthma Recurrent UTI Seizures PAST SURGICAL HISTORY: Past Surgical History: Procedure Laterality Date ENDOSCOPIC PERCUTANEOUS NEPHROLITHOTOMY Right 12/05/2019 Surgeon: Demarcus Mckeon MD; Location: [facility] NEPHROSTOMY PERCUTANEOUS ENDOSCOPIC GASTRIC TUBE PLACEMENT SUPRAPUBIC CATHETER PLACEMENT TRACHEOSTOMY Later removed MEDICATIONS: Current Outpatient Medications: baclofen (LIORESAL) 5 mg/mL oral suspension, Take 5 mg by mouth 3 (three) times daily. Indications: via feeding tube, Disp: , Rfl: artificial tears,hypromellose, 0.3 % ophthalmic gel, 1 [...] Take 150 mg through enteral tube 3 (three) times daily., Disp: , Rfl: ALLERGIES: Allergies [...] file Gets together: Not on file Attends nondenominational service: Not on file Active member of [...] due to patient condition. PHYSICAL EXAMINATION: Vitals: 03/01/20 0818 BP: 99/63 Pulse: 67 Resp: 18 SpO2: 96% Weight: 140 lb (63.5 kg) Height: 5' 6" (1.676 m) Although no optimum due to patient [...] : Normal penis, normal testicles, normal urethral meatus( although not optimum due to patient condition and posture). LISSA not done LABS: Reviewed ASSESSMENT AND PLAN: The patient is a 39 year old male who was referred to the urology clinic for evaluation of right staghorn stone s/p PCNL 11/2019. - Doing well - Renal US - Encourage hydration( as tolerated to at least 2.5 L per day). - Follow up in a year with CHERISE Mckeon MD documented in this encounter Plan of Treatment Date Type Specialty Care Team Description 03/05/2020 Appointment Radiology Armando Henley MD [address] [place] [address] 77 [phone] 02/28/2021 Office Visit Urology Gerber Cavanaugh i, BAUTISTA [address] [facility] [address] [place] [address] [phone] Name Type Priority Associated Diagnoses Order S chedule CT ABDOMEN PELVIS WO IMAGING Routine Renal stone Expecte d: 03/01/2020, CONTRAST Expires: 2020 Health Maintenance Due Date Last Done Comments VARICELLA VACCINES ( of 2 - 1982 2-dose childhood series) DTaP,Tdap,and Td Vaccines ( - 1992 Tdap) INFLUENZA VACCINE (Season Ended) 2020 Depression Screening 11/10/2020 11/10/2019 PNEUMOCOCCAL 0-64 YEARS COMBINED Aged Out No longer eligible based on SERIES patient's age to complete this topic documented as of this encounter Results Not on filedocumented in this encounter Visit Diagnoses Diagnosis Renal stone - Primary Calculus of kidney documented in this encounter Additional Health Concerns Infection Onset Date Last Indicated Resolved Time 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
--- OUTSIDE RECORDS SUMMARY | 2020-03-25 14:17 | XMS REPORT | Summary of Care ---
:1980 Author Organization [facility] - [facility] Address [address] [place] [address] Care Team Providers Name Role Phone Pcp, Does Not Have A Primary Care Provider Reason for Referral MRI/CAT Scan (Routine) Status Reason Specialty Diagnoses / Referred By Referred To Procedures Contact Contact New Request Diagnostic Diagnoses Renal stone Demarcus Mckeon, Radiology Procedures CT ABDOMEN PELVIS WO CONTRAST [address] [place] [address] [address] [place] [address] Reason for Visit Reason Comments Follow-up Encounter Details Date Type Department Care Team Description 03/01/2020 Office Visit [facility] Urology- Connor Mckeon MD Renal stone (Primary [address] [place]) [address] Ronny Beaulieu [facility] [address] [place] [address] [phone] Allergies Active Allergy Reactions Severity Noted Date [...] Added automatically from request for dex powell [id number] Nephrostomy tube displaced 10/29/2019 Protein-calorie malnutrition, moderate 08/25/2017 Moderate protein-calorie malnutrition 08/25/2017 Hx of traumatic brain injury 08/10/2017 Overview: Added automatically from request for dex sherry [id number] Injury of urethra, subsequent encounter 08/10/2017 Overview: Added automatically from request for dex sherry [id number] documented as of this encounter (statuses as [...] 03/01/2020 8:15 AM CDT Demarcus Mckeon MD Carpet Cleaner of Urology Production Control Coordinator of Female Urology, Voiding Dysfunction and Pelvic Reconstruction [facility] Division of Urology Referring Provider: No referring [...] with his nurse, and medical transport in [facility]. The patient has been followed [...] Demarcus Mckeon MD; Location: [facility] OR [facility] NEPHROSTOMY PERCUTANEOUS ENDOSCOPIC GASTRIC TUBE PLACEMENT SUPRAPUBIC [...] file Gets together: Not on file Attends scientology service: Not on file Active member of [...] Description 03/05/2020 Appointment Radiology Armando Henley MD [address] [place] [address] [phone] 02/28/2021 Office Visit Urology Gerber Cavanaugh i, BAUTISTA [address] [facility] [address] [place] [address] [phone] Name Type Priority Associated Diagnoses Order S [...] Group Dates [employer] xxxxxxxxx 2017-[facility] [address] [place] [address] [place] [address] documented as of this encounter
--- OUTSIDE RECORDS SUMMARY | 2020-03-25 14:17 | XMS REPORT | Summary of Care ---
:1980 Author Organization [facility] - [facility] Address [address] [place] [address] Care Team Providers Name Role Phone Pcp, Does Not Have A Primary Care Provider Reason for Visit Reason Comments Orders Encounter Details Date Type Department Care Team Description 03/01/2020 Telephone [facility] Urology- [place] Demarcus Calderon MD [address] [address] Ronny Hicks [facility] [address] [place] [address] [place], [place] [phone] Allergies Active Allergy Reactions Severity Noted Date [...] Added automatically from request for dex powell [id number] Nephrostomy tube displaced 10/29/2019 Protein-calorie malnutrition, moderate 08/25/2017 Moderate protein-calorie malnutrition 08/25/2017 Hx of traumatic brain injury 08/10/2017 Overview: Added automatically from request for dex powell [id number] Injury of urethra, subsequent encounter 08/10/2017 Overview: Added automatically from request for dex powell [id number] documented as of this encounter (statuses as [...] Signs Not on filedocumented in this encounter Plan of Treatment Date Type Specialty Care Team Description 03/05/2020 Appointment Radiology Armando Henley MD [address] [place] [address] [place], [place] [phone] 02/28/2021 Office Visit Urology Gerber Cavanaugh i, GNP [address] [facility] [address] [place], [place] [id number] Health Maintenance Due Date Last Done Comments VARICELLA VACCINES (1 of 2 - 1982 2-dose childhood series) DTaP,Tdap,and Td Vaccines (1 - 1992 Tdap) INFLUENZA VACCINE (Season Ended) 2020 Depression Screening 11/10/2020 11/10/2019 PNEUMOCOCCAL 0-64 YEARS COMBINED Aged Out No longer eligible based on SERIES patient's age to complete this topic documented as of this encounter Results Not on filedocumented in this encounter Additional Health Concerns Infection Onset Date Last Indicated Resolved Time 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
--- OUTSIDE RECORDS SUMMARY | 2020-03-25 14:17 | XMS REPORT | Summary of Care ---
:1980 Author Organization [facility] Address [address] [place] [id number] Care Team Providers Name Role Phone Pcp, Does Not Have A Primary Care Provider Encounter Details Date Type Department Care Team Description 03/05/2020 [facility] Armando Henley Canceled (ER ROR) Encounter Interventional MD Juan Radiology [address] [place] [address] [place] [id number] Allergies Active Allergy Reactions Severity Noted Date Comments Triprolidine-Pseudoep Unknown - See 07/23/2017 hedrine comments Aspirin Unknown - See 07/23/2017 comments Meperidine Hcl Unknown - See 11/17/2019 comments Penicillins Unknown - See 07/23/2017 Patient tolera sonny comments Ceftriaxone at recent outside hospita lization documented as of this encounter (statuses as of 03/06/2020) Medications Medication Sig Dispensed Refills Start Date [...] as of this encounter (statuses as of 03/06/2020) Active Problems Problem Noted Date Attention to nephrostomy 11/17/2019 Right renal stone 11/10/2019 Overview: Added automatically from request for dex powell [id number] Nephrostomy tube displaced 10/29/2019 Protein-calorie malnutrition, moderate 08/25/2017 Moderate protein-calorie malnutrition 08/25/2017 Hx of traumatic brain injury 08/10/2017 Overview: Added automatically from request for dex powell [id number] Injury of urethra, subsequent encounter 08/10/2017 Overview: Added automatically from request for dex powell [id number] documented as of this encounter (statuses as of 03/06/2020) Social History Tobacco Use Types Packs/Day Years [...] last month, have you been in contact with No / Unsure 03/05/2020 10:10 AM CDT someone who was confirmed or suspected to have Coronavirus / COVID-19? documented as of this encounter Last Filed Vital Signs Vital Sign Reading Time Taken Comments Blood Pressure 100/61 03/05/2020 10:27 AM CDT Pulse 72 03/05/2020 10:27 AM CDT Temperature 36.6 C (97.9 F) 03/05/2020 10:27 AM CDT Respiratory Rate 18 03/05/2020 10:27 AM CDT Oxygen Saturation 96% 03/05/2020 10:27 AM CDT Inhaled Oxygen Concentration - - Weight 63.5 kg (140 lb) 03/05/2020 10:27 AM CDT Height 167.6 cm (5' 6") 03/05/2020 10:27 AM CDT Body Mass Index 22.6 03/05/2020 10:27 AM CDT documented in this encounter Plan of Treatment Date Type Specialty Care Team Description 02/28/2021 Office Visit Urology AfshanGerber i, GNP [address] [facility] [address] [place] [address] Health Maintenance Due Date Last Done Comments [...] filedocumented in this encounter Visit Diagnoses Diagnosis Attention to nephrostomy documented in this encounter Additional Health Concerns Infection Onset Date Last Indicated Resolved Time 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 [address] [place] [id number] [place] [address] documented as of this encounter
[2020-03-25] MEDS ORDERED: TETANUS & DIPHTHERIA TOX,ADULT 0.5 ML VIAL ONE (14:52)
[2020-03-25] MEDS ORDERED: LIDOCAINE 1% MPF 5 ML VIAL ONE (14:52)
--- NOTE | 2020-03-25 15:09 | RAD REPORT ---
EXAM DESCRIPTION: CT - Head C Spine Mpr Wo Con - 03/25/2020 2:47 pm CLINICAL HISTORY: Head and neck injury status post fall. Head and neck pain COMPARISON: Head ct 2012 TECHNIQUE: Computed axial tomography of the head and cervical spine was obtained. Sagittal and coronal reconstruction was performed. All CT scans are performed using dose optimization technique as appropriate and may include automated exposure control or mA/KV adjustment according to patient size. FINDINGS: Small amount of blood is present within the sulci of the left temporal lobe. The ventricles are normal in caliber. An extra-axial fluid collection is not noted.Fluid within the v isualized sinuses and mastoids is not seen A cervical fracture is not visualized. No dislocation is noted. IMPRESSION: Left temporal subarachnoid bleed A cervical fracture is not visualized. Panchito of the emergency room notified March 25, 2020 3 p.m.
--- NOTE | 2020-03-25 15:16 | EDPHYS ---
Physician Documentation [facility] Name: Farhat Maza Age: 39 yrs Sex: Male : 1980 Arrival Date: 03/25/2020 Time: 14:08 Bed 20 Private MD: ED Physician Dwayne Haines HPI: 03/25 14:35 This 39 yrs old Male presents to ER via EMS with complaints of Fall Injury. pm1 14:35 Details of fall: The patient fell from a height, Bed. Onset: The symptoms/episode pm1 began/occurred 1 hour prior to arrival. Associated injuries: The patient sustained injury to the head, laceration. Patient with history of anoxic brain injury post suicide attempt many years ago and lives in a skilled nursing. Patient nonverbal and all extremities contracted. While skilled nursing staff were changing his clothing and bedding, patient rolled of the bed and hit his head. Presenting with laceration to left side of forehead. Historical: - Allergies: 15:07 Antihistamine; ca1 15:07 Aspirin; ca1 15:07 Demerol; ca1 15:07 PENICILLINS; ca1 - PMHx: 15:07 Anoxic brain injury post suicide attempt; aspiration pneumonia; Asthma; GERD; ca1 obstructive and reflux uropathy; Pneumonia; Seizures; upper and lower ext contractures; UTI; - PSHx: 15:07 G-tube; nephrostomy tube; suprapubic cath; ca1 - Immunization history: Last tetanus immunization: - up to date. - Social history:: Smoking status: Patient denies any tobacco usage or history of. ROS: 14:35 Unable to obtain ROS due to patient is in a persistent vegetative state, Report was pm1 obtained from skilled nursing staff and EMS. Exam: 14:35 Constitutional: The patient appears in no acute distress, awake, comfortable, pm1 non-diaphoretic, non-toxic, well groomed, contracted. 14:35 Head/face: Noted is no obvious of injury or deformity except a laceration(s), 2 cm(s), of the left side of forehead. 14:35 Eyes: Periorbital structures: appear normal, no ecchymosis, no swelling, Pupils: no acute changes, Conjunctiva: no acute changes, Lids and lashes: no acute changes. 14:35 ENT: External ear(s): are unremarkable, Ear canal(s): are normal, TM's: are normal, Nose: no acute changes, External nose: no obvious acute abnormality, Nasal septum: no septal hematoma appreciated, bleeding, is not appreciated. 14:35 Neck: External neck: no apparent tenderness. 14:35 Cardiovascular: Rate: normal, Rhythm: regular, Pulses: no pulse deficits are appreciated. 14:35 Respiratory: Exam negative for acute changes, respiratory distress. 14:35 Abdomen/GI: Inspection: PEG tube present, Palpation: abdomen is soft and non-tender, in all quadrants. 14:35 Skin: Appearance: normal except for affected area, injury, laceration(s), the wound is approximately 2 cm(s), of the face and left side of forehead, well healing wound under dressing to right hand. 14:35 Neuro: unable to assess due to patient baseline. Patient at baseline per ER nurses here that have taken care of him. Vital Signs: 14:09 BP 107 / 66; Pulse 65; Resp 20; Pulse Ox 99% on R/A; Weight 63.5 kg; Pain 0/10; ls4 15:09 BP 97 / 71; Pulse 70; Resp 18 S; Pulse Ox 100% on R/A; ca1 15:52 BP 102 / 62; Pulse 73; Resp 15 S; Pulse Ox 100% on R/A; ca1 16:41 BP 115 / 73 LA; Pulse 69; Resp 17 S; Pulse Ox 100% on R/A; ca1 14:09 UNABLE TO USE PAIN SCALE. FLACC 0 ls4 [place] Coma Score: 14:09 Eye Response: to pain(2). Verbal Response: inappropriate words(3). Motor Response: ls4 withdraws from pain(4). Total: 9. 15:18 Eye Response: to pain(2). Verbal Response: incomprehensible(2). Motor Response: flexion ca1 (decorticate)(3). Total: 7. Trauma Score (Adult): 14:09 Eye Response: to pain(0); Verbal Response: none(0); Motor Response: withdraws from ls4 pain(1); Systolic BP: > 89 mm Hg(4); Respiratory Rate: 10 to 29 per min(4); [place] Score: 7; Trauma Score: 9 Laceration: 15:54 Wound Repair of 2cm ( 0.8in ) subcutaneous laceration to left side of forehead. pm1 Irregularly shaped.. Distal neuro/vascular/tendon intact. Anesthesia: Local anesthetic administered with 2 mls of 1% lidocaine. Wound prep: Extensive cleansing with hibiclenz by me, Wound irrigation with saline by me, Wound explored extensively, Copious irrigation. Skin closed with 4 5-0 Prolene using simple sutures and sterile technique. Patient tolerated well. MDM: 14:32 Patient medically screened. pm1 15:03 Data reviewed: vital signs. Data interpreted: Pulse oximetry: on room air is 99 %. pm1 Interpretation: normal. 15:35 Physician consultation: MD Jeff was contacted at 15:35, regarding regarding transfer, pm1 to [facility]. patient's condition, and will see patient would like medications started, Keppra 500 IV instead of Phenytoin IV. 03/25 15:05 Order name: CBC with Diff pm1 03/25 15:05 Order name: PT-INR; Complete Time: 16:07 pm1 03/25 15:05 Order name: Ptt, Activated; Complete Time: 16:07 pm1 03/25 15:05 Order name: CMP; Complete Time: 16:24 pm1 03/25 15:06 Order name: CBC with Automated Diff; Complete Time: 16:07 EDMS 03/25 15:40 Order name: Dilantin ca1 03/25 14:35 Order name: CT Head C Spine; Complete Time: 15:12 pm1 03/25 14:35 Order name: Prolene, Sutures; Complete Time: 15:54 pm1 03/25 15:41 Order name: Phenytoin (Dilantin) Level; Complete Time: 16:24 EDMS 03/25 14:35 Order name: Dressing - Wound; Complete Time: 15:54 pm1 03/25 14:35 Order name: Gloves, Sterile; Complete Time: 14:40 pm1 03/25 14:35 Order name: Setup Suture Tray; Complete Time: 14:40 pm1 03/25 15:05 Order name: IV Saline Lock; Complete Time: 15:55 pm1 Administered Medications: 15:00 Drug: Tetanus-Diphtheria Toxoid Adult 0.5 ml {Manufacturing Development Engineer: [employer]. Exp: ca1 11/11/2021. Lot #: [id number]. } Route: IM; Site: left deltoid; 15:15 Follow up: Response: No adverse reaction ca1 15:34 Not Given (Physician Discretion): Phenytoin 500 mg IVPB once pm1 15:37 Drug: NS 0.9% 1000 ml Route: IV; Rate: 100 ml/hr; Site: right antecubital; ca1 16:55 Follow up: Response: No adverse reaction; IV Status: Completed infusion ca1 15:55 Drug: Lidocaine (1 %) 5 ml {Note: By Panchito Medina NP.} Volume: 5 ml; Route: ca1 Infiltration; 16:29 Drug: Keppra 500 mg Route: IV; Rate: calculated rate; Site: right antecubital; ca1 16:54 Follow up: Response: No adverse reaction; IV Status: Completed infusion ca1 Disposition: 17:12 Co-signature as Attending Physician, Dwayne Haines MD. rn Disposition: 03/25/20 15:15 Transfer ordered to [facility]. Diagnosis are Traumatic subarchnoid bleed left temporal area, Fall from bed, Laceration without foreign body of unspecified part of head - forehead. - Reason for transfer: Higher level of care. - Accepting physician is [facility] . - Condition is Stable. - Problem is new. - Symptoms have improved. Signatures: Dispatcher [employer] EDDwayne Elizabeth MD MD rn Marinas, Patrick, NP STORE RECEIVING SPECIALIST pm1 Lashon Rosales RN RN ls4 Yumiko Palacio RN RN ca1 Corrections: (The following items were deleted from the chart) 17:03 15:15 03/25/2020 15:15 Transfer ordered to [facility]. Diagnosis is ca1 Traumatic subarchnoid bleed left temporal area; Fall from bed; Laceration without foreign body of unspecified part of head - forehead. Reason for transfer: Higher level of care. Accepting physician is [facility] . Condition is Stable. Problem is new. Symptoms have improved. pm1
--- NOTE | 2020-03-25 15:16 | ER ---
Nurse's Notes [facility] Name: Farhat Maza Age: 39 yrs Sex: Male : 1980 Arrival Date: 03/25/2020 Time: 14:08 Bed 20 Private MD: Diagnosis: Traumatic subarchnoid bleed left temporal area;Fall from bed;Laceration without foreign body of unspecified part of head-forehead Presentation: 03/25 14:09 Chief complaint: EMS states: PT ROLLED OFF OF BED WHILE CAREGIVERS WERE DOING MORNING ls4 CARE. PT HAS LACERATION ON LEFT SIDE OF FOREHEAD. Care prior to arrival: None. Mechanism of Injury: Fall out of bed approximately 2 feet. Trauma event details: Injury occurred in the [facility], Injury occurred: in an institution. Injury occurred: March 25, 2020. 14:09 Acuity: JOSEPH 2 ls4 14:09 Method Of Arrival: EMS: [facility] ls4 14:12 Coronavirus screen: Proceed with normal triage. Patient denies a cough. Patient denies ca1 shortness of breath or difficulty breathing. Patient denies measured and/or subjective temperature greater than 100.4F prior to today's visit. Patient denies travel on a cruise ship or to a country the [facility] currently lists as an affected area. Patient denies contact with known and/or suspected case of COVID-19. 14:12 Ebola Screen: Patient negative for fever greater than or equal to 101.5 degrees ca1 Fahrenheit, and additional compatible Ebola Virus Disease symptoms Patient denies exposure to infectious person. Patient denies travel to an Ebola-affected area in the 21 days before illness onset. No symptoms or risks identified at this time. Initial Sepsis Screen: Does the patient meet any 2 criteria? No. Patient's initial sepsis screen is negative. Does the patient have a suspected source of infection? No. Patient's initial sepsis screen is negative. Risk Assessment: Do you want to hurt yourself or someone else? Unable to obtain. Onset of symptoms was March 25, 2020. Triage Assessment: 14:19 General: Appears in no apparent distress. comfortable, ill, Behavior is listless. Pain: ls4 Unable to use pain scale. Does not appear to understand pain scale. FLACC scale score is 0 out of 10. Neuro:. Trauma Activation: Not Applicable Physician: ED Physician; Name: ; Notified At: ; Arrived At: Physician: General Surgeon; Name: ; Notified At: ; Arrived At: Physician: Radiology; Name: ; Notified At: ; Arrived At: Physician: Respiratory; Name: ; Notified At: ; Arrived At: Physician: Lab; Name: ; Notified At: ; Arrived At: Historical: - Allergies: 15:07 Antihistamine; ca1 15:07 Aspirin; ca1 15:07 Demerol; ca1 15:07 PENICILLINS; ca1 - PMHx: 15:07 Anoxic brain injury post suicide attempt; aspiration pneumonia; Asthma; GERD; ca1 obstructive and reflux uropathy; Pneumonia; Seizures; upper and lower ext contractures; UTI; - PSHx: 15:07 G-tube; nephrostomy tube; suprapubic cath; ca1 - Immunization history: Last tetanus immunization: - up to date. - Social history:: Smoking status: Patient denies any tobacco usage or history of. Screenin:09 Abuse screen: Denies threats or abuse. Denies injuries from another. Tuberculosis ls4 screening: No symptoms or risk factors identified. 15:00 Nutritional screening: On PEG tube. ca1 15:07 Fall Risk Fall in past 12 months (25 points). Secondary diagnosis (15 points) impaired ca1 mobility, IV access (20 points). Ambulatory Aid- None/Bed Rest/Nurse Assist (0 pts). Total Bejarano Fall Scale indicates High Risk Score (45 or more points). Fall prevention measures have been instituted. Side Rails Up X 2 Frequent Obs/Assessments Occuring. Primary Survey: 14:09 NO uncontrolled hemorrhage observed. A: The patient only responds to painful stimuli. ls4 Airway: patent. Breathing/Chest: Respiratory pattern: regular, Respiratory effort: spontaneous, unlabored. Circulation: Pulses: palpable right radial artery and left radial artery. Disability Painful Stimuli. Exposure/Environment: There is no evidence of uncontrolled external bleeding. Obvious injury(ies) are noted at this time: LACERATION LEFT FOREHEAD. 15:09 Reassessment Airway Airway Patent Breathing/Chest Respiratory pattern Regular ca1 Respiratory effort Spontaneous Unlabored Breath sounds Clear Chest inspection Symmetrical Circulation Pulses Palpable Color [place] Temperature Warm Dry Disability Painful stimuli. Assessment: 14:12 General: Appears in no apparent distress. Behavior is Pt is obtunded. Pt had a failed ca1 suicide by hanging years ago. Pt's behavior and response are baseline per EMS and per multiple visits to the ER.. Pain: Unable to use pain scale. Neuro: Level of Consciousness is obtunded, Oriented to none. Cardiovascular: Heart tones S1 S2 present Capillary refill < 3 seconds Patient's skin is warm and dry. Respiratory: Airway is patent Respiratory effort is even, unlabored, Respiratory pattern is regular, symmetrical, Breath sounds are clear bilaterally. GI: Abdomen is flat, non-distended, PEG tube in place, clamped. Site clean. Bowel sounds present X 4 quads. Abd is soft X 4 quads. : suprapubic catheter in place to gravity drainage. EENT: No signs and/or symptoms were reported regarding the EENT system. Derm: Skin is intact, is healthy with good turgor, Skin is. Musculoskeletal: Capillary refill < 3 seconds, contractures on both upper and lower extremity joints. 15:34 Reassessment: Patient appears in no apparent distress at this time. No changes from ca1 previously documented assessment. 15:52 Reassessment: Called and report given to ALENA Pierson at [facility] ER. ca1 16:41 Reassessment: Patient appears in no apparent distress at this time. No changes from ca1 previously documented assessment. Awaiting EMS for transport. Vital Signs: 14:09 BP 107 / 66; Pulse 65; Resp 20; Pulse Ox 99% on R/A; Weight 63.5 kg; Pain 0/10; ls4 15:09 BP 97 / 71; Pulse 70; Resp 18 S; Pulse Ox 100% on R/A; ca1 15:52 BP 102 / 62; Pulse 73; Resp 15 S; Pulse Ox 100% on R/A; ca1 16:41 BP 115 / 73 LA; Pulse 69; Resp 17 S; Pulse Ox 100% on R/A; ca1 14:09 UNABLE TO USE PAIN SCALE. FLACC 0 ls4 [place] Coma Score: 14:09 Eye Response: to pain(2). Verbal Response: inappropriate words(3). Motor Response: ls4 withdraws from pain(4). Total: 9. 15:18 Eye Response: to pain(2). Verbal Response: incomprehensible(2). Motor Response: flexion ca1 (decorticate)(3). Total: 7. Trauma Score (Adult): 14:09 Eye Response: to pain(0); Verbal Response: none(0); Motor Response: withdraws from ls4 pain(1); Systolic BP: > 89 mm Hg(4); Respiratory Rate: 10 to 29 per min(4); [place] Score: 7; Trauma Score: 9 ED Course: 14:08 Patient arrived in ED. ls4 14:09 Lashon Rosales RN is Primary Nurse. ls4 14:09 Patient has correct armband on for positive identification. Placed in gown. Bed in low ls4 position. Call light in reach. Side rails up X 1. Patient maintains SpO2 saturation greater than 95% on room air. mail processing clerk on. Pulse ox on. NIBP on. 14:12 Triage completed. ls4 14:12 Arm band placed on. ca1 14:12 Thermoregulation: warm blanket given to patient. ca1 14:20 Panchito Medina NP is PHCP. pm1 14:20 Dwayne Haines MD is Attending Physician. pm1 14:47 CT Head C Spine In Process Unspecified. EDMS 15:21 initiated a transfer with Saranya from the [facility] Transfer [place]/. eb 15:[address] Jeff the Trauma doctor registered nurse practitioner for [facility] with Panchito [place] eb for patient transfer consultation. 15:35 administrative approval given by Saranya Ortiz Rn/ patient has been accepted to [facility] ER/ Dr. Lezama has accepted the patient in transfer/ report to be called to [phone]. 15:37 Initial lab(s) drawn, by ED staff, sent to lab. Inserted saline lock: 20 gauge in right ca1 antecubital area, using aseptic technique. ,using aseptic technique. by ZanaGULFPORT BEHAVIORAL HEALTH SYSTEMtap and die maker technician Blood collected. 15:54 Assist provider with laceration repair on forehead and left jew that was between 2.6 ca1 to 7.5 cm using sutures. Set up tray. Performed by Panchito Medina NP Dressed with 4X4s, Neosporin, Patient tolerated well. 16:57 Patient transferred, IV remains in place. ca1 Administered Medications: 15:00 Drug: Tetanus-Diphtheria Toxoid Adult 0.5 ml {Communications Tower Climber: [employer]. Exp: ca1 11/11/2021. Lot #: [id number]. } Route: IM; Site: left deltoid; 15:15 Follow up: Response: No adverse reaction ca1 15:34 Not Given (Physician Discretion): Phenytoin 500 mg IVPB once pm1 15:37 Drug: NS 0.9% 1000 ml Route: IV; Rate: 100 ml/hr; Site: right antecubital; ca1 16:55 Follow up: Response: No adverse reaction; IV Status: Completed infusion ca1 15:55 Drug: Lidocaine (1 %) 5 ml {Note: By Panchito Medina NP.} Volume: 5 ml; Route: ca1 Infiltration; 16:29 Drug: Keppra 500 mg Route: IV; Rate: calculated rate; Site: right antecubital; ca1 16:54 Follow up: Response: No adverse reaction; IV Status: Completed infusion ca1 Intake: 14:09 PO: 0ml; Tubes: 0ml (); Total: 0ml. ls4 Outcome: 15:15 ER care complete, transfer ordered by . pm1 16:56 Transferred by helicopter to [facility], Transfer form completed. X-rays sent ca1 w/ patient. 16:56 Condition: stable 16:56 Patient's length of stay in the Emergency Department was greater than 2 hours. Awaiting ambulancePatient's length of stay extended due to 17:03 Patient left the ED. ca1 Signatures: Dispatcher [employer] EDMS Panchito Medina NP WASTE TRANSPORTATION TECHNICIAN pm1 Zuleyma Soto Lisa, RN RN ls4 Yumiko Palacio RN RN ca1 Corrections: (The following items were deleted from the chart) 14:19 14:09 BP 107 / 66; Pulse 65bpm; Resp 20bpm; Pulse Ox 99% RA; Pain 0/10; UNABLE TO USE ls4 PAIN SCALE. FLACC 0; ls4 15:11 14:12 Musculoskeletal: Capillary refill < 3 seconds, ca1 ca1 15:34 14:12 General: Appears in no apparent distress. Behavior is Pt is obtunded. Pt had a ca1 failed suicide by hanging years ago. Pt's behavior and response are baseline per EMS. ca1 15:36 14:12 GI: Abdomen is flat, non-distended, Bowel sounds present X 4 quads. Abd is soft X ca1 4 quads ca1 15:36 14:12 : Cardenas in place to gravity drainage ca1 ca1 16:45 16:41 BP 89 / 61; Pulse 69bpm; Resp 17bpm; Spontaneous; Pulse Ox 100% RA; ca1 ca1 16:46 16:41 BP 89 / 61 L Arm; Pulse 69bpm; Resp 17bpm; Spontaneous; Pulse Ox 100% RA; ca1 ca1
[2020-03-25] MEDS ORDERED: NA CHLORIDE 0.9% 1,000 ML ONE (15:25)
[2020-03-25] MEDS ORDERED: levETIRAcetam 500 MG in NA CHLORIDE 0.9% 100 ML IV ONE (15:45)
[2020-03-25 16:01] LABS: Absolute Lymphocytes (CBC) 1.2 K/uL (0.7-4.9); Basophils % 0.4 % (0-1.3); Hematocrit 47.5 % (39.6-49.0); Lymphocytes % 17.6 % (15.3-44.8); MPV 11.4 fL (7.6-11.3)
[2020-03-25 16:03] LABS: Protime INR 1.03
[2020-03-25 16:15] LABS: ALT/SGPT 80 U/L (12-78); AST/SGOT 39 U/L (15-37); Albumin 3.9 g/dL (3.4-5.0); Alkaline Phosphatase 285 U/L (45-117); BUN Blood Urea Nitrogen 14 mg/dL (7-18); Bicarbonate 31 mmol/L (21-32); Bilirubin Total 0.3 mg/dL (0.2-1.0); Glucose Level 86 mg/dL (74-106); Potassium 4.4 mmol/L (3.5-5.1); Protein, Total 8.7 g/dL (6.4-8.2); Sodium Level 139 mmol/L (136-145)
[2020-03-25 17:27] VITALS: O2SAT 100
[2020-03-25 17:30] VITALS: BP 115/73
== END 2020-03-25 17:03 | disposition short-term general hospital (02) ==
LOC: ER 14:07
PROC: 0JQ10ZZ Repair Face Subcutaneous Tissue and Fascia, Open Approach (ICD-10-PCS; principal; 2020-03-25)
DX: S06.5X0A Traumatic subdural hemorrhage without loss of consciousness, initial encounter (principal); W06.XXXA Fall from bed, initial encounter; Y93.9 Activity, unspecified; Y92.122 Bedroom in nursing home as the place of occurrence of the external cause; Z23 Encounter for immunization; Z88.6 Allergy status to analgesic agent; Z88.5 Allergy status to narcotic agent; Z88.0 Allergy status to penicillin; Z88.8 Allergy status to other drugs, medicaments and biological substances; Z87.820 Personal history of traumatic brain injury; Z91.5 Personal history of self-harm
CPT/HCPCS: 96365; 96361; 85025; 36415; 85610; 85730; 80185; 80053; 70450; 72125; 90471; 90714; 99285; 12011; J1953; J7030

== ENCOUNTER 2020-06-11 08:28 | Emergency (ER) | payer OTHER ==
--- OUTSIDE RECORDS SUMMARY | 2020-06-11 08:53 | XMS REPORT | Clinical Summary ---
:1980 Author Organization [facility] Address [address] [place] [address] Care Team Providers Name Role Phone Asked, Pcp Primary Care Provider Unavailable Allergies Active Allergy Reactions Severity Noted Date Comments Diphenhydramine Hcl Unknown Reaction 10/02/2019 Per - she never noted a reaction to thi s medication. Aspirin Unknown Reaction 10/02/2019 Per , s he was just told by the assisted the patient had thi s listed as [...] Dowling Cherry, MD 10/02/2019 Intake Access after 06/11/2019 Immunizations Name Administration Dates Next Due FLUCELVAX [...] Comments Blood Pressure 138/76 10/11/2019 8:12 AM CAMPUS RECRUITING COORDINATOR Pulse 84 10/11/2019 8:12 AM CAMPUS RECRUITING COORDINATOR Temperature 35.6 C (96 F) 10/11/2019 8:12 AM CAMPUS RECRUITING COORDINATOR Respiratory Rate 18 10/11/2019 8:12 AM CAMPUS RECRUITING COORDINATOR Oxygen Saturation 98% 10/11/2019 8:12 AM CAMPUS RECRUITING COORDINATOR Inhaled Oxygen Concentration - - Weight 65 kg (143 lb 4.8 oz) 10/02/2019 4:15 AM CAMPUS RECRUITING COORDINATOR Height 172.7 cm (5' 8") 10/09/2019 7:05 PM CAMPUS RECRUITING COORDINATOR Body Mass Index 21.79 10/02/2019 4:15 AM CAMPUS RECRUITING COORDINATOR Plan of Treatment Health Maintenance Due Date Last Done Comments INFLUENZA VACCINE 06/28/2020 10/11/2019 Implants Implanted Type Area Varitype Operator Device Shelf Model / Identifier Expiration Serial / Date Lot Stent Willow Nphrtstmy Collins Mac-Loc Lp-Lk 26cm - [id number] Surgic al N/A: COOK 06/22/2022 [id number] / Implanted: 10/03/[address] [facility] (Quantity not on file) Kai nts N/A INTERVENTIONAL / RADIOLOGY [id number] Procedures Procedure Name Priority Date/Time Associated Comments Diagnosis POC GLUCOSE Routine 10/11/2019 8:14 Results for this AM CAMPUS RECRUITING COORDINATOR procedure are i n the results section. ESTIMATED GFR Routine 10/11/2019 3:21 Results fo r this AM CAMPUS RECRUITING COORDINATOR procedure are i n the results section. PHOSPHORUS LEVEL Routine 10/11/2019 3:21 Results for this AM CAMPUS RECRUITING COORDINATOR procedure are i n the results section. MAGNESIUM LEVEL Routine 10/11/2019 3:21 Results for this AM CAMPUS RECRUITING COORDINATOR procedure are i n the results section. BASIC METABOLIC PANEL Routine 10/11/2019 3:21 Re sults for this AM CAMPUS RECRUITING COORDINATOR procedure are i n the results section. HC COMPLETE BLD COUNT Routine 10/11/2019 3:00 Re sults for this W/AUTO DIFF AM CAMPUS RECRUITING COORDINATOR procedure are i n the results section. POC GLUCOSE Routine 10/11/2019 12:14 Results for this AM CAMPUS RECRUITING COORDINATOR procedure are i n the results section. FREE PHENYTOIN LEVEL Routine 10/10/2019 10:41 Res ults for this PM CAMPUS RECRUITING COORDINATOR procedure are i n the results section. POC GLUCOSE Routine 10/10/2019 9:32 Results for this PM CAMPUS RECRUITING COORDINATOR procedure are i n the results section. FREE PHENYTOIN LEVEL Routine 10/10/2019 6:00 Res ults for this PM CAMPUS RECRUITING COORDINATOR procedure are i n the results section. POC GLUCOSE Routine 10/10/2019 11:34 Results for this AM CAMPUS RECRUITING COORDINATOR procedure are i n the results section. POC GLUCOSE Routine 10/10/2019 8:15 Results for this AM CAMPUS RECRUITING COORDINATOR procedure are i n the results section. POC GLUCOSE Routine 10/10/2019 5:03 Results for this AM CAMPUS RECRUITING COORDINATOR procedure are i n the results section. ESTIMATED GFR Routine 10/10/2019 4:49 Results fo r this AM CAMPUS RECRUITING COORDINATOR procedure are i n the results section. BASIC METABOLIC PANEL Routine 10/10/2019 4:49 Re sults for this AM CAMPUS RECRUITING COORDINATOR procedure are i n the results section. HC COMPLETE BLD COUNT Routine 10/10/2019 4:49 Re sults for this W/AUTO DIFF AM CAMPUS RECRUITING COORDINATOR procedure are i n the results section. POC GLUCOSE Routine 10/10/2019 12:28 Results for this AM CAMPUS RECRUITING COORDINATOR procedure are i n the results section. POC GLUCOSE Routine 10/09/2019 9:22 Results for this PM CAMPUS RECRUITING COORDINATOR procedure are i n the results section. POC GLUCOSE Routine 10/09/2019 5:25 Results for this PM CAMPUS RECRUITING COORDINATOR procedure are i n the results section. POC GLUCOSE Routine 10/09/2019 11:32 Results for this AM CAMPUS RECRUITING COORDINATOR procedure are i n the results section. POC GLUCOSE Routine 10/09/2019 7:55 Results for this AM CAMPUS RECRUITING COORDINATOR procedure are i n the results section. POC GLUCOSE Routine 10/09/2019 3:58 Results for this AM CAMPUS RECRUITING COORDINATOR procedure are i n the results section. HC COMPLETE BLD COUNT Routine 10/09/2019 3:51 Re sults for this W/AUTO DIFF AM CAMPUS RECRUITING COORDINATOR procedure are i n the results section. ESTIMATED GFR Routine 10/09/2019 3:49 Results fo r this AM CAMPUS RECRUITING COORDINATOR procedure are i n the results section. BASIC METABOLIC PANEL Routine 10/09/2019 3:49 Re sults for this AM CAMPUS RECRUITING COORDINATOR procedure are i n the results section. POC GLUCOSE Routine 10/08/2019 9:48 Results for this PM CAMPUS RECRUITING COORDINATOR procedure are i n the results section. POC GLUCOSE Routine 10/08/2019 4:41 Results for this PM CAMPUS RECRUITING COORDINATOR procedure are i n the results section. POC GLUCOSE Routine 10/08/2019 11:57 Results for this AM CAMPUS RECRUITING COORDINATOR procedure are i n the results section. POC GLUCOSE Routine 10/08/2019 7:32 Results for this AM CAMPUS RECRUITING COORDINATOR procedure are i n the results section. POC GLUCOSE Routine 10/08/2019 5:17 Results for this AM CAMPUS RECRUITING COORDINATOR procedure are i n the results section. POC GLUCOSE Routine 10/07/2019 11:48 Results for this PM CAMPUS RECRUITING COORDINATOR procedure are i n the results section. POC GLUCOSE Routine 10/07/2019 7:51 Results for this PM CAMPUS RECRUITING COORDINATOR procedure are i n the results section. POC GLUCOSE Routine 10/07/2019 5:13 Results for this PM CAMPUS RECRUITING COORDINATOR procedure are i n the results section. POC GLUCOSE Routine 10/07/2019 11:53 Results for this AM CAMPUS RECRUITING COORDINATOR procedure are i n the results section. POC GLUCOSE Routine 10/07/2019 7:26 Results for this AM CAMPUS RECRUITING COORDINATOR procedure are i n the results section. POC GLUCOSE Routine 10/06/2019 11:24 Results for this PM CAMPUS RECRUITING COORDINATOR procedure are i n the results section. POC GLUCOSE Routine 10/06/2019 7:58 Results for this PM CAMPUS RECRUITING COORDINATOR procedure are i n the results section. POC GLUCOSE Routine 10/06/2019 4:26 Results for this PM CAMPUS RECRUITING COORDINATOR procedure are i n the results section. POC GLUCOSE Routine 10/06/2019 11:50 Results for this AM CAMPUS RECRUITING COORDINATOR procedure are i n the results section. POC GLUCOSE Routine 10/06/2019 7:46 Results for this AM CAMPUS RECRUITING COORDINATOR procedure are i n the results section. ESTIMATED GFR Routine 10/06/2019 3:20 Results fo r this AM CAMPUS RECRUITING COORDINATOR procedure are i n the results section. MAGNESIUM LEVEL Routine 10/06/2019 3:20 Results for this AM CAMPUS RECRUITING COORDINATOR procedure are i n the results section. BASIC METABOLIC PANEL Routine 10/06/2019 3:20 Re sults for this AM CAMPUS RECRUITING COORDINATOR procedure are i n the results section. HC COMPLETE BLD COUNT Routine 10/06/2019 3:20 Re sults for this W/AUTO DIFF AM CAMPUS RECRUITING COORDINATOR procedure are i n the results section. PHOSPHORUS LEVEL Routine 10/06/2019 3:20 Results for this AM CAMPUS RECRUITING COORDINATOR procedure are i n the results section. POC GLUCOSE Routine 10/06/2019 3:17 Results for this AM CAMPUS RECRUITING COORDINATOR procedure are i n the results section. POC GLUCOSE Routine 10/05/2019 11:29 Results for this PM CAMPUS RECRUITING COORDINATOR procedure are i n the results section. CONSULT TO OSTOMY CARE Routine 10/05/2019 8:28 NURSE PM CAMPUS RECRUITING COORDINATOR POC GLUCOSE Routine 10/05/2019 4:48 Results for this PM CAMPUS RECRUITING COORDINATOR procedure are i n the results section. POC GLUCOSE Routine 10/05/2019 12:48 Results for this PM CAMPUS RECRUITING COORDINATOR procedure are i n the results section. POC GLUCOSE Routine 10/05/2019 12:06 Results for this PM CAMPUS RECRUITING COORDINATOR procedure are i n the results section. FREE PHENYTOIN LEVEL Routine 10/05/2019 12:00 Res ults for this PM CAMPUS RECRUITING COORDINATOR procedure are i n the results section. POC GLUCOSE Routine 10/05/2019 8:57 Results for this AM CAMPUS RECRUITING COORDINATOR procedure are i n the results section. POC GLUCOSE Routine 10/05/2019 5:42 Results for this AM CAMPUS RECRUITING COORDINATOR procedure are i n the results section. ESTIMATED GFR Routine 10/05/2019 2:00 Results fo r this AM CAMPUS RECRUITING COORDINATOR procedure are i n the results section. HC COMPLETE BLD COUNT Routine 10/05/2019 2:00 Re sults for this W/AUTO DIFF AM CAMPUS RECRUITING COORDINATOR procedure are i n the results section. PHOSPHORUS LEVEL Routine 10/05/2019 2:00 Results for this AM CAMPUS RECRUITING COORDINATOR procedure are i n the results section. MAGNESIUM LEVEL Routine 10/05/2019 2:00 Results for this AM CAMPUS RECRUITING COORDINATOR procedure are i n the results section. BASIC METABOLIC PANEL Routine 10/05/2019 2:00 Re sults for this AM CAMPUS RECRUITING COORDINATOR procedure are i n the results section. POC GLUCOSE Routine 10/05/2019 1:53 Results for this AM CAMPUS RECRUITING COORDINATOR procedure are i n the results section. POC GLUCOSE Routine 10/04/2019 9:26 Results for this PM CAMPUS RECRUITING COORDINATOR procedure are i n the results section. POC GLUCOSE Routine 10/04/2019 5:07 Results for this PM CAMPUS RECRUITING COORDINATOR procedure are i n the results section. POC GLUCOSE Routine 10/04/2019 12:33 Results for this PM CAMPUS RECRUITING COORDINATOR procedure are i n the results section. POC GLUCOSE Routine 10/04/2019 8:41 Results for this AM CAMPUS RECRUITING COORDINATOR procedure are i n the results section. VANCOMYCIN LEVEL, Timed 10/04/2019 5:00 Result s for this TROUGH AM CAMPUS RECRUITING COORDINATOR procedure are i n the results section. ESTIMATED GFR Routine 10/04/2019 5:00 Results fo r this AM CAMPUS RECRUITING COORDINATOR procedure are i n the results section. HC COMPLETE BLD COUNT Routine 10/04/2019 5:00 Re sults for this W/AUTO DIFF AM CAMPUS RECRUITING COORDINATOR procedure are i n the results section. PHOSPHORUS LEVEL Routine 10/04/2019 5:00 Results for this AM CAMPUS RECRUITING COORDINATOR procedure are i n the results section. MAGNESIUM LEVEL Routine 10/04/2019 5:00 Results for this AM CAMPUS RECRUITING COORDINATOR procedure are i n the results section. BASIC METABOLIC PANEL Routine 10/04/2019 5:00 Re sults for this AM CAMPUS RECRUITING COORDINATOR procedure are i n the results section. POC GLUCOSE Routine 10/04/2019 4:50 Results for this AM CAMPUS RECRUITING COORDINATOR procedure are i n the results section. POC GLUCOSE Routine 10/04/2019 12:40 Results for this AM CAMPUS RECRUITING COORDINATOR procedure are i n the results section. POC GLUCOSE Routine 10/03/2019 8:44 Results for this PM CAMPUS RECRUITING COORDINATOR procedure are i n the results section. POC GLUCOSE Routine 10/03/2019 6:05 Results for this PM CAMPUS RECRUITING COORDINATOR procedure are i n the results section. POTASSIUM LEVEL Routine 10/03/2019 5:30 Results for this PM CAMPUS RECRUITING COORDINATOR procedure are i n the results section. PHOSPHORUS LEVEL Routine 10/03/2019 5:30 Results for this PM CAMPUS RECRUITING COORDINATOR procedure are i n the results section. MAGNESIUM LEVEL Routine 10/03/2019 5:30 Results for this PM CAMPUS RECRUITING COORDINATOR procedure are i n the results section. IONIZED CALCIUM Routine 10/03/2019 5:30 Results for this PM CAMPUS RECRUITING COORDINATOR procedure are i n the results section. IR RIGHT NEPHROSTOMY STAT 10/03/2019 4:54 Res ults for this INITIAL PLACEMENT PM CAMPUS RECRUITING COORDINATOR procedure are in the results section. ANESTHESIA INTUBATION Routine 10/03/2019 3:03 Re sults for this PM CAMPUS RECRUITING COORDINATOR procedure are i n the results section. POC GLUCOSE Routine 10/03/2019 1:09 Results for this PM CAMPUS RECRUITING COORDINATOR procedure are i n the results section. POC GLUCOSE Routine 10/03/2019 8:16 Results for this AM CAMPUS RECRUITING COORDINATOR procedure are i n the results section. POC GLUCOSE Routine 10/03/2019 4:46 Results for this AM CAMPUS RECRUITING COORDINATOR procedure are i n the results section. ESTIMATED GFR Routine 10/03/2019 3:10 Results fo r this AM CAMPUS RECRUITING COORDINATOR procedure are i n the results section. PROTHROMBIN TIME WITH Routine 10/03/2019 3:10 Re sults for this INR AM CAMPUS RECRUITING COORDINATOR procedure are i n the results section. PARTIAL THROMBOPLASTIN Routine 10/03/2019 3:10 R esults for this TIME (PTT) AM CAMPUS RECRUITING COORDINATOR procedure are i n the results section. TYPE AND SCREEN Routine 10/03/2019 3:10 Results for this AM CAMPUS RECRUITING COORDINATOR procedure are i n the results section. LACTIC ACID LEVEL Routine 10/03/2019 3:10 Result s for this AM CAMPUS RECRUITING COORDINATOR procedure are i n the results section. HC COMPLETE BLD COUNT Routine 10/03/2019 3:10 Re sults for this W/AUTO DIFF AM CAMPUS RECRUITING COORDINATOR procedure are i n the results section. PHOSPHORUS LEVEL Routine 10/03/2019 3:10 Results for this AM CAMPUS RECRUITING COORDINATOR procedure are i n the results section. MAGNESIUM LEVEL Routine 10/03/2019 3:10 Results for this AM CAMPUS RECRUITING COORDINATOR procedure are i n the results section. BASIC METABOLIC PANEL Routine 10/03/2019 3:10 Re sults for this AM CAMPUS RECRUITING COORDINATOR procedure are i n the results section. POC GLUCOSE Routine 10/03/2019 12:51 Results for this AM CAMPUS RECRUITING COORDINATOR procedure are i n the results section. POC GLUCOSE Routine 10/02/2019 8:50 Results for this PM CAMPUS RECRUITING COORDINATOR procedure are i n the results section. POC GLUCOSE Routine 10/02/2019 4:41 Results for this PM CAMPUS RECRUITING COORDINATOR procedure are i n the results section. POC GLUCOSE Routine 10/02/2019 12:18 Results for this PM CAMPUS RECRUITING COORDINATOR procedure are i n the results section. US RENAL Routine 10/02/2019 12:02 Results for this PM CAMPUS RECRUITING COORDINATOR procedure are i n the results section. LACTIC ACID LEVEL, Timed 10/02/2019 10:09 Resul ts for this SEPSIS - NOW AND REPEAT AM CAMPUS RECRUITING COORDINATOR proc edure are in 2X EVERY 3 HOURS the results section. BLOOD CULTURE, AEROBIC Routine 10/02/2019 10:09 R esults for this & ANAEROBIC AM CAMPUS RECRUITING COORDINATOR procedure are i n the results section. POC GLUCOSE Routine 10/02/2019 8:18 Results for this AM CAMPUS RECRUITING COORDINATOR procedure are i n the results section. LACTIC ACID LEVEL, Timed 10/02/2019 7:45 Resul ts for this SEPSIS - NOW AND REPEAT AM CAMPUS RECRUITING COORDINATOR proc edure are in 2X EVERY 3 HOURS the results section. XR ABDOMEN 1 VW Routine 10/02/2019 7:40 Results for this PORTABLE AM CAMPUS RECRUITING COORDINATOR procedure are i n the results section. XR CHEST 1 VW PORTABLE Routine 10/02/2019 7:30 R esults for this AM CAMPUS RECRUITING COORDINATOR procedure are i n the results section. GRAM STAIN STAT 10/02/2019 6:18 Results for this AM CAMPUS RECRUITING COORDINATOR procedure are i n the results section. URINE CULTURE STAT 10/02/2019 6:18 Results fo r this AM CAMPUS RECRUITING COORDINATOR procedure are i n the results section. ECG 12-LEAD Routine 10/02/2019 5:01 Results for this AM CAMPUS RECRUITING COORDINATOR procedure are i n the results section. THYROID STIMULATING STAT 10/02/2019 4:45 Resu lts for this HORMONE AM CAMPUS RECRUITING COORDINATOR procedure are i n the results section. PHENYTOIN LEVEL STAT 10/02/2019 4:45 Results for this AM CAMPUS RECRUITING COORDINATOR procedure are i n the results section. T4, FREE STAT 10/02/2019 4:45 Results for this AM CAMPUS RECRUITING COORDINATOR procedure are i n the results section. ESTIMATED GFR STAT 10/02/2019 4:45 Results fo r this AM CAMPUS RECRUITING COORDINATOR procedure are i n the results section. MAGNESIUM LEVEL STAT 10/02/2019 4:45 Results for this AM CAMPUS RECRUITING COORDINATOR procedure are i n the results section. PHOSPHORUS LEVEL STAT 10/02/2019 4:45 Results for this AM CAMPUS RECRUITING COORDINATOR procedure are i n the results section. LACTIC ACID LEVEL STAT 10/02/2019 4:45 Result s for this AM CAMPUS RECRUITING COORDINATOR procedure are i n the results section. CREATINE KINASE, TOTAL STAT 10/02/2019 4:45 R esults for this (CPK) AM CAMPUS RECRUITING COORDINATOR procedure are i n the results section. TROPONIN STAT 10/02/2019 4:45 Results for this AM CAMPUS RECRUITING COORDINATOR procedure are i n the results section. COMPREHENSIVE METABOLIC STAT 10/02/2019 4:45 Results for this PANEL AM CAMPUS RECRUITING COORDINATOR procedure are i n the results section. FREE PHENYTOIN LEVEL Routine 10/02/2019 4:45 Res ults for this AM CAMPUS RECRUITING COORDINATOR procedure are i n the results section. ARTERIAL BLOOD GAS Routine 10/02/2019 4:45 Resul ts for this AM CAMPUS RECRUITING COORDINATOR procedure are i n the results section. PARTIAL THROMBOPLASTIN STAT 10/02/2019 4:45 R esults for this TIME (PTT) AM CAMPUS RECRUITING COORDINATOR procedure are i n the results section. PROTHROMBIN TIME WITH STAT 10/02/2019 4:45 Re sults for this INR AM CAMPUS RECRUITING COORDINATOR procedure are i n the results section. URINALYSIS SCREEN AND STAT 10/02/2019 4:45 Re sults for this MICROSCOPY, WITH REFLEX AM CAMPUS RECRUITING COORDINATOR proc edure are in TO CULTURE the results section. HC COMPLETE BLD COUNT STAT 10/02/2019 4:45 Re sults for this W/AUTO DIFF AM CAMPUS RECRUITING COORDINATOR procedure are i n the results section. RESPIRATORY PATHOGEN Routine 10/02/2019 4:37 Res ults for this PANEL AM CAMPUS RECRUITING COORDINATOR procedure are i n the results section. INFLUENZA ANTIGEN TEST, Routine 10/02/2019 4:37 Results for this REFLEX NEGATIVE TO RPP AM CAMPUS RECRUITING COORDINATOR proce dure are in the results section. BLOOD CULTURE, AEROBIC Routine 10/02/2019 4:30 R esults for this AM CAMPUS RECRUITING COORDINATOR procedure are i n the results section. BLOOD CULTURE, AEROBIC STAT 10/02/2019 4:30 R esults for this & ANAEROBIC AM CAMPUS RECRUITING COORDINATOR procedure are i n the results section. POC GLUCOSE Routine 10/02/2019 4:08 Results for this AM CAMPUS RECRUITING COORDINATOR procedure are i n the results section. after 06/11/2019 Results POC glucose (10/11/2019 8:14 AM CAMPUS RECRUITING COORDINATOR)Only the most recent of52 resultswithin the time period is included. Pathologist Sig nature POC glucose 91 65 - 99 mg/dL [facility] Comment: HOSPITAL Customer Service Voice Name: Chris Wilcox Device ID: [id number] Chartable: [facility] Notified RN Specimen Performing Organization Address City/[facility]/Zipcode Phone Number [facility] DEPARTMENT OF PATHOLOGY AND [address] [place] [phone] Estimated GFR (10/11/2019 3:21 AM CAMPUS RECRUITING COORDINATOR)Only the most recent of8 resultswithin the time period is included. Estimated GFR >=90 mL/min/1.73 [facility] Comment: HOSPITAL Catergory Units Interpretation G1 [...] specimen Performing Organization Address City/State/Zipcode Phone Number [facility] DEPARTMENT OF PATHOLOGY AND [address] [place] [phone] [address] Phosphorus level (10/11/2019 3:21 AM CAMPUS RECRUITING COORDINATOR)Only the most recent of7 resultswithin the time period is included. Pathologist Sig nature Phosphorus 3.1 2.4 - 4.5 mg/dL [facility] L Specimen Plasma specimen Performing Organization Address [facility] Number [facility] DEPARTMENT OF PATHOLOGY AND [address] [place] [address] [place] [phone] Magnesium level (10/11/2019 3:21 AM CAMPUS RECRUITING COORDINATOR)Only the most recent of7 resultswithin the time period is included. Pathologist Sig nature Magnesium 2.1 1.6 - 2.6 mg/dL [facility] L Specimen Plasma specimen Performing Organization Address [facility] Phone Number [facility] DEPARTMENT OF PATHOLOGY AND [address] [place] [phone] [address] Basic metabolic panel (10/11/2019 3:21 AM CAMPUS RECRUITING COORDINATOR)Only the most recent of7 results within the time period is included. Pathologist Sig nature Sodium 137 135 - 148 mEq/L [facility] Potassium 4.1 3.5 - 5.0 mEq/L [facility] Chloride 101 98 - 112 mEq/L [facility] CO2 25 24 - 31 mEq/L [facility] Anion gap 11@ANIO 7 - 15 mEq/L [facility] BUN 16 6 - 20 mg/dL [facility] Creatinine 0.48 (L) 0.70 - 1.20 mg/dL [facility] Glucose 121 (H) 65 - 99 mg/dL [facility] Calcium 9.4 8.3 - 10.2 mg/dL [facility] Specimen Plasma specimen Performing Organization Address [facility] Phone Number [facility] DEPARTMENT OF PATHOLOGY AND [address] [place] [address] [phone] [address] CBC with platelet and differential (10/11/2019 3:00 AM CAMPUS RECRUITING COORDINATOR)Only the most recent of8 resultswithin the time period is included. WBC 6.12 4.50 - 11.00 [facility] k/uL [facility] RBC 4.56 4.40 - 6.00 [facility] m/uL [facility] HGB 13.2 (L) 14.0 - 18.0 [facility] g/dL HOSPITAL HCT 41.3 41.0 - 51.0 % [facility] MCV 90.6 82.0 - 100.0 [facility] MCH 28.9 27.0 - 34.0 pg [facility] MCHC 32.0 31.0 - 37.0 [facility] g/dL [facility] RDW - SD 46.0 37.0 - 55.0 fL [facility] MPV 11.9 8.8 - 13.2 fL [facility] Platelet count 281 150 - 400 k/uL [facility] Nucleated RBC 0.00 /100 WBC [facility] Neutrophils 62.5 39.0 - 69.0 % [facility] Lymphocytes 25.2 25.0 - 45.0 % [facility] Monocytes 8.0 0.0 - 10.0 % [facility] Eosinophils 2.6 0.0 - 5.0 % [facility] Basophils 0.7 0.0 - 1.0 % [facility] Immature granulocytes 1.0Comment: 0.0 - 1.0 % [facility] "[facility]PITAL granulocytes" (promyelocytes , myelocytes, metamyelocytes ) Specimen Blood Performing Organization Address City/State/Zipcode Phone Number [facility] DEPARTMENT OF PATHOLOGY AND [address] [place] [address] [place] [phone] Free phenytoin level (10/10/2019 10:41 PM CAMPUS RECRUITING COORDINATOR)Only the most recent of4 results within the time period is included. Phenytoin, free 0.50 (L) 1.00 - 2.00 [place] Comment: ug/mL [facility] This test has been modified from the manufacturers HOSPITAL instructions. The performance characteristics were determined by [facility] in a manner consistent with CLIA requirements. This test has not been cleared or approved by the U.S. Food and Drug Administration. Specimen Blood Performing Organization Address City/State/Zipcode Phone Number [facility] DEPARTMENT OF PATHOLOGY AND [address] [place] [address] [phone] [address] Vancomycin level, trough (10/04/2019 5:00 AM CAMPUS RECRUITING COORDINATOR) Vancomycin, 12.7 10.0 - 20.0 ROMANO YAZIDISM trough Comment: ug/mL HOSPITAL Therapeutic Ranges: Peak 30.0 - 40.0 ug/mL Trough 10.0 - 20.0 ug/mL Specimen Serum Performing Organization Address City/[facility] Phone Number [facility] DEPARTMENT OF PATHOLOGY AND [address] [place] [address] [phone] [address] Potassium level (10/03/2019 5:30 PM CAMPUS RECRUITING COORDINATOR) Pathologist Sig nature Potassium 4.2 3.5 - 5.0 mEq/L [facility] L Specimen Plasma specimen Performing Organization Address City/[facility] Phone Number [facility] DEPARTMENT OF PATHOLOGY AND [address] [place] [address] [phone] [address] Ionized calcium (10/03/2019 5:30 PM CAMPUS RECRUITING COORDINATOR) Pathologist Sig [facility] pH 7.45 [facility] Ionized calcium 1.12 1.11 - 1.32 mmol/L [facility] Specimen Plasma specimen Performing Organization Address [facility] Phone Number [facility] DEPARTMENT OF PATHOLOGY AND [address] [place] [address] [phone] [address] IR Nephrostomy Insertion Right (10/03/2019 4:54 PM CAMPUS RECRUITING COORDINATOR) Specimen Narrative Performed At Performing Radiologist CHIRAG [...] the Accu stick set sheath. A 4 Cymro glide catheter was advanced through the out er portion of the AccuStick set sheath and a 0.035 inch Glidewire was us ed to navigate the system into the urinary bladder. The Glidewire was exc hanged for an Amplatz wire and after tract dilation a 26 cm, 8.5-Cymro percutaneous nephroureteral catheter was then placed. The [...] and hydroureter. 3. Successful placement of an 8.5-Cymro right percu taneous nephroureteral catheter, as detailed above. The cathet er pigtail was formed within the right renal pelvis. This catheter wa s placed to gravity bag drainage. 4. Hydronephrosis is also prominent in the upper pole, and if patient symptomatically doesn't improve, upper pole access and drainage may be necessary. [facility]-[id number] Procedure Note Interface, Radiology Results Incoming - 10/03/2019 5:26 PM CAMPUS RECRUITING COORDINATOR Performing Radiologist Arpan Cheney MD Assistants None [...] the Accu stick set sheath. A 4 Cymro glide catheter was advanced t hrough the outer portion of the AccuStick set sheath and a 0.035 inch Glidewire was used to navigate the system into the urinary bladder. The Glidewire was exchanged for an Amplatz wire and after tract dilation a 26 cm, 8.5-Cymro percutaneous nephroure teral catheter was then placed. [...] pole access and drainage may be necessary. [facility]-[id number] Performing Organization Address City/[facility]/Zipcode Phone Number [facility] [address] [place] [address] Airway (10/03/2019 3:03 PM CAMPUS RECRUITING COORDINATOR) Narrative Performed At Zuleyma Perez CRNA 10/03/2019 3:03 PM Airway Performed by: Zuleyma Perez CRNA Authorized by: Roxanna Mera MD Location: [place] Difficult Airway: No Resident/SYSTEM SALES CONSULTANT/AA: Zuleyma Perez CRNA Preoxygenated with 100% O2: [...] Partial thromboplastin time, activated (10/03/2019 3:10 AM CAMPUS RECRUITING COORDINATOR)Only the most recent of2 resultswithin the time period is included. PTT 29.8 23.0 - 36.0 [facility] Comment: [facility] HOSPITAL PTT therapeutic range for unfractionated heparin is 61.0-112.0 seconds which corresponds to Anti-Xa 0.3-0.7 U/ml. Specimen Blood Performing Organization Address City/[facility]/Zipcode Phone Number [facility] DEPARTMENT OF PATHOLOGY AND [address] [place] [phone] [facility] [address] Prothrombin time with INR (10/03/2019 3:10 AM CAMPUS RECRUITING COORDINATOR)Only the most recent of2 resultswithin the time period is included. Prothrombin time 15.2 (H) 11.5 - 14.5 [place] sec [facility] INR 1.2 [place] Comment: YAZIDISM [facility] International Normalized Ratio (INR) is a [facility] monitoring tool for patients who are stable on oral anticoagulant therapy. An INR of 2.0-3.0 is suggested for deep vein thrombosis/pulmonary embolism. Specimen Blood Performing Organization Address City/[facility]/Zipcode Phone Number [facility] DEPARTMENT OF PATHOLOGY AND [address] [place] [address] [phone] [address] Type and screen (10/03/2019 3:10 AM CAMPUS RECRUITING COORDINATOR) Pathologist Sig nature ABO grouping A [facility] Rh type POS [facility] Antibody screen (gel) NEG [facility] Specimen Blood Performing Organization Address City/[facility] Phone Number [facility] DEPARTMENT OF PATHOLOGY AND [address] [place] [address] [phone] [address] Lactic acid level (10/03/2019 3:10 AM CAMPUS RECRUITING COORDINATOR)Only the most recent of2 results within the time period is included. Pathologist Sig nature Lactic acid 1.0 0.5 - 2.2 mmol/L [facility] Specimen Plasma specimen Performing Organization Address [facility] Phone Number [facility] DEPARTMENT OF PATHOLOGY AND [address] [place] [address] [phone] [address] US Renal (10/02/2019 12:02 PM CAMPUS RECRUITING COORDINATOR) Specimen Narrative Performed At EXAMINATION: US RENAL [...] present in the decom pressed urinary bladder. [facility]-[id number] Procedure Note Interface, Radiology Results Incoming - 10/02/2019 1:01 PM CAMPUS RECRUITING COORDINATOR EXAMINATION: US RENAL CLINICAL HISTORY: Pyelonephritis compl [...] present in the decom pressed urinary bladder. [facility]-[id number] Performing Organization Address [facility] Phone Number [facility] [address] [place] [phone] Lactic acid level, SEPSIS - Now and repeat 2x every 3 hours (10/02/2019 10:09 AM CAMPUS RECRUITING COORDINATOR)Only the most recent of2 resultswithin the time period is included. Pathologist Sig nature Lactic acid 1.0 0.5 - 2.2 mmol/L [facility] Specimen Blood Performing Organization Address [facility]/Zipcode Phone Number [facility] DEPARTMENT OF PATHOLOGY AND [address] [place] [address] [phone] [address] Blood culture, aerobic & anaerobic (10/02/2019 10:09 AM CAMPUS RECRUITING COORDINATOR)Only the most recent of2 resultswithin the time period is included. Blood culture No growth after 5 days of incubation. FLORESITA CONTRERAS isolate Comment: HOSPITAL Specimen Information Specimen Source: Blood Specimen Site: Hand, left Specimen Blood - Hand, left Performing Organization Address [facility] Phone Number [facility] DEPARTMENT OF PATHOLOGY AND [address] [place], [place] [phone] [address] [address] XR Abdomen 1 Vw Portable (10/02/2019 7:40 AM CAMPUS RECRUITING COORDINATOR) Specimen Narrative Performed At EXAMINATION: [employer] XR ABDOMEN 1 VW PORTABLE CLINICAL HISTORY: [...] the co ashley. No small bowel dilation. [id number] Procedure Note Hm Interface, Radiology Results Incoming - 10/02/2019 8:02 AM CAMPUS RECRUITING COORDINATOR EXAMINATION: XR ABDOMEN 1 VW PORTABLE CLINICAL [...] the co ashley. No small bowel dilation. [id number] Performing Organization Address [facility] Phone Number [facility] [address] [place] [address] XR Chest 1 Vw Portable (10/02/2019 7:30 AM CAMPUS RECRUITING COORDINATOR) Specimen Narrative Performed At EXAMINATION: XR CHEST 1 VW PORTABLE RADIANT CLINICAL HISTORY: ICU pt unstable or clinical worsening COMPARISON: None IMPRESSION: Mild patchy bibasilar atelectasis Hypoinflation of the lungs Tiny right costophrenic angle effusion No central congestion No pneumothorax. The Cardiomediastinal silhouette is norm al in size Single view chest. [id number] Procedure Note Interface, Radiology Results Incoming - 10/02/2019 9:19 AM CAMPUS RECRUITING COORDINATOR EXAMINATION: XR CHEST 1 VW PORTABLE CLINICAL HISTORY: ICU pt unstable or c linical worsening COMPARISON: None IMPRESSION: Mild patchy bibasilar atelectasis Hypoinflation of the lungs Tiny right costophrenic angle effusion No central congestion No pneumothorax. The Cardiomediastinal silhouette is norm al in size Single view chest. [id number] Performing Organization Address [facility] Phone Number [facility] [address] [place] [address] Gram stain (10/02/2019 6:18 AM CAMPUS RECRUITING COORDINATOR) Gram stain result Occasional WBC's [facility] Rare Gram positive cocci in pairs HOSPITA L Rare Gram positive rods Comment: Specimen Information Specimen Source: Urine Specimen Site: Suprapubic/ Specimen Urine - Suprapubic Performing Organization Address City/[facility]/Zipcode Phone Number [facility] DEPARTMENT OF PATHOLOGY AND [address] [place], [place] [phone] GEN[address] [address] Urine culture (10/02/2019 6:18 AM CAMPUS RECRUITING COORDINATOR) Urine culture Enterococcus faecalis JUAN ANTONIO CONTRERAS isolate colony count undetermined, HOSPITAL probably due to inhibiting substance. The performance characteristics of this assay on this isolate were validated by the Microbiology Laboratory at [facility]. This source has not been approve d [...] were validated by the [facility] at [facility]. This source has not been approve d [...] sistant Performing Organization Address City/State/Zipcode Phone Number [facility] DEPARTMENT OF PATHOLOGY AND [address] [place] [phone] GEN[facility] [address] ECG 12 lead (10/02/2019 5:01 AM CAMPUS RECRUITING COORDINATOR) Pathologist Sig nature Ventricular rate 101 [facility] Atrial rate 101 [facility] MS interval 188 [facility] QRSD interval 92 [facility] QT interval 354 [facility] QTC interval 459 [facility] P axis 1 44 [facility] QRS axis 1 76 [facility] T wave axis 47 [facility] EKG impression Sinus [facility] MUSE tachycardia-Otherwise normal ECG-In automated comparison with ECG of 02-OCT-2019 05:00,-No significant change was found- Specimen Narrative Performed At This result has an attachment that is no t available. Performing Organization Address City/State/Zipcode Phone Number [facility] MUSE [address] [place] [address] Urinalysis screen and microscopy, with reflex to culture (10/02/2019 4:45 AM CAMPUS RECRUITING COORDINATOR) Specimen site Suprapubic [facility] Color, UA Danyelle [facility] Appearance, UA Cloudy [facility] Specific gravity, UA 1.046 (H) 1.001 - 1.035 [facility] pH, UA 6.0 5.0 - 8.5 [facility] Protein, UA 2+ (A) Negative [facility] Glucose, UA Negative Negative [facility] Ketones, UA Negative Negative [facility] Bilirubin, UA Negative Negative [facility] Blood, UA Moderate (A) Negative [facility] Nitrite, UA Negative Negative [facility] Urobilinogen, UA <2.0 <2.0 [facility] Leukocyte esterase, Large (A) Negative [facility] Epithelial cells, UA <1 /HPF [facility] WBC, UA >180 (H) 0 - 1 /HPF [facility] RBC, UA 63 (H) 0 - 5 /HPF [facility] Bacteria, UA None seen None seen [facility] WBC clumps, UA Moderate (A) [facility] Yeast, UA None seen [facility] Yeast with None seen [facility] pseudohyphae, UA HOSPITAL Specimen Urine Performing Organization Address [facility]/Zipcode Phone Number [facility] DEPARTMENT OF PATHOLOGY AND [address] [place], [place] [phone] GENOMIC MEDICINE [facility] [address] [place] [address] Troponin (10/02/2019 4:45 AM CAMPUS RECRUITING COORDINATOR) Troponin <0.006 0.000 - 0.040 [facility] Comment: ng/mL HOSPITAL In patients suspected of [...] ng/mL Specimen Plasma specimen Performing Organization Address [facility] Phone Number [facility] DEPARTMENT OF PATHOLOGY AND [address] [place] [address] Thyroid stimulating hormone (10/02/2019 4:45 AM CAMPUS RECRUITING COORDINATOR) [facility] TSH 1.48 0.27 - 4.20 uIU/mL [facility] ITAL Specimen Plasma specimen Performing Organization Address [facility] Phone Number [facility] DEPARTMENT OF PATHOLOGY AND [address] [place] [address] T4, free (10/02/2019 4:45 AM CAMPUS RECRUITING COORDINATOR) [facility] T4, free 1.3 0.9 - 1.7 ng/dL [facility] L Specimen Plasma specimen Performing Organization Address [facility] Phone Number [facility] DEPARTMENT OF PATHOLOGY AND [address] [place] [phone] Arterial blood gas (10/02/2019 4:45 AM CAMPUS RECRUITING COORDINATOR) [facility] pH, arterial 7.37 7.35 - 7.45 [facility] pCO2, arterial 43 35 - 45 mmHg [facility] pO2, arterial 66 (L) 80 - 90 mmHg [facility] Bicarbonate, 24.1 21.0 - 28.0 [facility] arterial mmol/L HOSPITAL Base excess, -1 -2 - 2 mEq/L [facility] arterial [facility] O2 saturation, 93 (L) 95 - 100 % [facility] Specimen Blood Performing Organization Address City/[facility] Phone Number [facility] DEPARTMENT OF PATHOLOGY AND [address] [place] [address] [phone] [address] Creatine kinase, total (CPK) (10/02/2019 4:45 AM CAMPUS RECRUITING COORDINATOR) Pathologist Sig nature Creatine kinase 39 39 - 308 U/L [facility] L Specimen Plasma specimen Performing Organization Address [facility] Phone Number [facility] DEPARTMENT OF PATHOLOGY AND [address] [place] [address] [phone] [address] Phenytoin level (10/02/2019 4:45 AM CAMPUS RECRUITING COORDINATOR) Pathologist Sig nature Phenytoin 3.0 (L) 10.0 - 20.0 [facility] Comment: ug/mL HOSPITAL Therapeutic Range: 10 - 20 ug/mL Specimen Plasma specimen Performing Organization Address [facility] Phone Number [facility] DEPARTMENT OF PATHOLOGY AND [address] [place] [address] [phone] [address] Comprehensive metabolic panel (10/02/2019 4:45 AM CAMPUS RECRUITING COORDINATOR) Sodium 145 135 - 148 [facility] mEq/L [facility] Potassium 3.4 (L) 3.5 - 5.0 [facility] mEq/L [facility] Chloride 111 98 - 112 mEq/L [facility] CO2 23 (L) 24 - 31 mEq/L [facility] Anion gap 11@ANIO 7 - 15 mEq/L [facility] BUN 21 (H) 6 - 20 mg/dL [facility] Creatinine 0.71 0.70 - 1.20 [facility] mg/dL HOSPITAL Glucose 92 65 - 99 mg/dL [facility] Calcium 8.4 8.3 - 10.2 [facility] mg/dL HOSPITAL Protein 6.7 6.3 - 8.3 g/dL [facility] Comment: HOSPITAL Cvszjcx7052.6-7.0 g/dL 1 tilt8780.4-7.6 g/dL 7 months-1uqyh498.1-7.3 g/dL 1-2 xuezl469.6-7.5 g/dL >3 .0-8.0 g/dL 18-7860976.3-8.3 g/dL Albumin 2.4 (L) 3.5 - 5.0 g/dL [facility] A/G ratio 0.6 (L) 0.7 - 3.8 [facility] Alkaline phosphatase 171 (H) 40 - 129 U/L [facility] AST 35 10 - 50 U/L [facility] ALT 60 (H) 5 - 50 U/L [facility] Total bilirubin 0.4 0.0 - 1.2 [facility] mg/dL HOSPITAL Specimen Plasma specimen Performing Organization Address City/[facility] Phone Number [facility] DEPARTMENT OF PATHOLOGY AND [address] [place] [phone] GENOMIC MEDICINE [address] [address] Respiratory pathogen panel (10/02/2019 4:37 AM CAMPUS RECRUITING COORDINATOR) Pathologist [facility] Respiratory Negative for all pathogens tested: [facility] pathogen panel Negative for Adenovirus YAZIDISM Negative for Coronavirus HKU1 [facility] Negative for Coronavirus NL63 Negative for Coronavirus [...] Specimen Nares - Left Performing Organization Address City/State/[facility] Phone Number [facility] DEPARTMENT OF PATHOLOGY AND [address] [place] [address] [phone] [address] Influenza antigen test, reflex negative to RPP (10/02/2019 4:37 AM CAMPUS RECRUITING COORDINATOR) Influenza antigen Negative for Influenza A/B antigen. JUAN ANTONIO CONTRERAS Comment: HOSPITAL Specimen Information Specimen Source: Nares Specimen Site: Left Specimen Nares - Left Performing Organization Address [facility] Phone Number [facility] DEPARTMENT OF PATHOLOGY AND [address] [place] [address] [place] [address] Blood culture, aerobic (10/02/2019 4:30 AM CAMPUS RECRUITING COORDINATOR) Blood culture No growth after 5 days of incubation. FLROESITA CONTRERAS isolate, aerobic Comment: HOSPITAL Specimen Information Specimen Source: Blood Specimen Site: Unspecified Specimen Blood Performing Organization Address [facility] Phone Number [facility] DEPARTMENT OF PATHOLOGY AND [address] [place] [phone] after 06/11/2019 DR Lamin aldrich ([place]) [address] [place] [phone] Advance Directives For more information, please contact: [phone] Type Date Recorded Patient Paediatric Surgeon Explanati on Advance Directives, Living Will and Medical Power of [place] Driller Helper
--- OUTSIDE RECORDS SUMMARY | 2020-06-11 08:55 | XMS REPORT | Continuity of Care Document ---
:1980 Author Organization [facility] t Address [address] [place] [address] Care Team Providers Name Role Phone Asked, [...] AMERIGROUPAMERIGROUP xxxxxxxxx 2017 [place] STAR+PLUS 00:00:00 Hinduism MCDxxxxxxxxx2017-Pre sentHMO Problems Condition Condition Condition Status [...] kidney kidney 00 Anoxic Anoxic Disease Active Elizabeth brain brain 05 Methodi damage damage 00:00: st 00 Spasticity Spasticity Disease Active 2020-0 [place] 05 Methodi 00:00: st Pyelonephr Pyelonephr Disease [facility]i [facility] 00 Severe Severe Disease Active Elizabeth sepsis sepsis 10-02 Methodi 00:00: st 00 Fever Fever Disease Active Elizabeth 10-02 Methodi 00:00: st 00 Leukocytos Leukocytos Disease Active H [place] is is 05 Methodi 00:00: st 00 Seizure Seizure Disease Active Elizabeth disorder disorder 10-02 Method i 00:00: st 00 Lactic Lactic Disease Active Elizabeth acidosis acidosis 10-02 Method i 00:00: st 00 GERD GERD Disease Active Elizabeth (gastroeso (gastroeso 10-02 Me thodi phageal phageal 00:00: st reflux reflux 00 disease) disease) Dysphagia Dysphagia Disease Active Johnathan yovany 05 Methodi 00:00: st 00 Vomiting Vomiting Disease Active [place] on 10-02 Methodi 00:00: st 00 UTI UTI Disease Active Elizabeth (urinary (urinary 10-02 Method i tract tract [...] Date Quantity Comments Source Sex Assigned At [facility] ethodist Alcohol intake 2019-10-02 2019-10-02 [facility] thodist 00:00:00 00:00:00 Medications Ordered Filled Start [...] tablet artificial 2020-0 Yes 1[drp] Q.5D Administer Elizabeth tears,hypro -14 1 drop to Met hodi [...] 30 days. baclofen 5 2019- No 5mg [id number] 5 mg by Pete mg tablet 10-10 [id number] g-tube M ethodi 00:00: 23:59 3D route [...] Name Name FLUCELVAX QUAD PF 2019-10-11 Completed Elizabeth 00:00:00 Hinduism Vital Signs Vital Name Observation Time Observation Value Comments Source Systolic blood 2019-10-11 08:12:54 138 mm[Hg] [place] n Hinduism pressure Diastolic blood 2019-10-11 08:12:54 76 mm[Hg] [place] Hinduism pressure Heart rate 2019-10-11 08:12:54 84 /min Elizabeth Hinduism Body temperature 2019-10-11 08:12:54 35.56 [place] Hinduism Respiratory rate 2019-10-11 08:12:54 18 /min [place] Hinduism Oxygen saturation in 2019-10-11 08:12:54 98 /min Elizabeth Hinduism Arterial blood by Pulse oximetry Body height 2019-10-09 19:05:00 172.7 cm Pete Mendiola Body weight 2019-10-02 04:15:00 65 kg Pete Mendiola BMI 2019-10-02 04:15:00 21.79 kg/m2 Freeman Hinduism Procedures Procedure Date / Time Performing Clinician Source Performed POC GLUCOSE 2019-10-11 08:14:00 Delmi Timmons Meth odist BASIC METABOLIC PANEL 2019-10-11 03:21:00 Jailyn Andres n Hinduism MAGNESIUM LEVEL 2019-10-11 03:21:00 Dmitry Jailynned Freeman Meth odist PHOSPHORUS LEVEL 2019-10-11 03:21:00 Dmitry Jailynned Freeman Met hodist ESTIMATED GFR 2019-10-11 03:21:00 OnqiwDelmi mitchell Meth odist HC COMPLETE BLD COUNT 2019-10-11 03:00:00 Jailyn Andres Hinduism W/AUTO DIFF POC GLUCOSE 2019-10-11 00:14:00 OnqiwDelmi mitchell Meth odist FREE PHENYTOIN LEVEL 2019-10-10 22:41:00 Esteban Juárez Hinduism POC GLUCOSE 2019-10-10 21:32:00 OnqiwDelmi mitchell Meth odist FREE PHENYTOIN LEVEL 2019-10-10 18:00:00 Jailene Contreras Hinduism POC GLUCOSE 2019-10-10 11:34:00 OnDelmi west Meth odist POC GLUCOSE 2019-10-10 08:15:00 OnDelmi west Meth odist POC GLUCOSE 2019-10-10 05:03:00 Karina Wolfe Freeman Me thodist HC COMPLETE BLD COUNT 2019-10-10 04:49:00 Jailene Contreras Hinduism W/AUTO DIFF BASIC METABOLIC PANEL 2019-10-10 04:49:00 Jailene Contreras Hinduism ESTIMATED GFR 2019-10-10 04:49:00 Karina Wolfe Freeman Me thodist POC GLUCOSE 2019-10-10 00:28:00 OnDelmi west Meth odist POC GLUCOSE 2019-10-09 21:22:00 Karina Wolfe Elizabeth Me thodist POC GLUCOSE 2019-10-09 17:25:00 Yaneth Karina Shae [facility] thodist POC GLUCOSE 2019-10-09 11:32:00 Yaneth Karina Shae [facility] thodist POC GLUCOSE 2019-10-09 07:55:00 Yaneth Karina Shae [facility] thodist POC GLUCOSE 2019-10-09 03:58:00 Yaneth Karina Shae Elizabeth Me thodist HC COMPLETE BLD COUNT 2019-10-09 03:51:00 Jesus Alberto Euceda Hinduism W/AUTO DIFF BASIC METABOLIC PANEL 2019-10-09 03:49:00 Jesus Alberto Euceda Hinduism ESTIMATED GFR 2019-10-09 03:49:00 Karina Wolfe Shae [facility] thodist POC GLUCOSE 2019-10-08 21:48:00 Karina Wolfe Shae [facility] thodist POC GLUCOSE 2019-10-08 16:41:00 Karina Wolfe Shae [facility] thodist POC GLUCOSE 2019-10-08 11:57:00 Karina Wolfe Shae [facility] thodist POC GLUCOSE 2019-10-08 07:32:00 Karina Wolfe Shae [facility] thodist POC GLUCOSE 2019-10-08 05:17:00 Karina Wolfe Shae [facility] thodist POC GLUCOSE 2019-10-07 23:48:00 Karina Wolfe Shae [facility] thodist POC GLUCOSE 2019-10-07 19:51:00 Karina Wolfe Shae [facility] thodist POC GLUCOSE 2019-10-07 17:13:00 Karina Wolfe Shae [facility] thodist POC GLUCOSE 2019-10-07 11:53:00 Karina Wolfe Shae [facility] thodist POC GLUCOSE 2019-10-07 07:26:00 Karina Wolfe Shae [facility] thodist POC GLUCOSE 2019-10-06 23:24:00 Karina Wolfe Shae [facility] thodist POC GLUCOSE 2019-10-06 19:58:00 Karina Wolfe Shae [facility] thodist POC GLUCOSE 2019-10-06 16:26:00 Karina Wolfe Shae [facility] thodist POC GLUCOSE 2019-10-06 11:50:00 Karina Wolfe Shae [facility] thodist POC GLUCOSE 2019-10-06 07:46:00 Karina Wolfe Elizabeth Me thodist PHOSPHORUS LEVEL 2019-10-06 03:20:00 Jose Donnelly Hinduism HC COMPLETE BLD COUNT 2019-10-06 03:20:00 Moiz Wang Hinduism W/AUTO DIFF BASIC METABOLIC PANEL 2019-10-06 03:20:00 Moiz Wang Hinduism MAGNESIUM LEVEL 2019-10-06 03:20:00 FelipeLaney carlsonmichael [facility] Meth odist ESTIMATED GFR 2019-10-06 03:20:00 Karina Wolfe Elizabeth Me thodist POC GLUCOSE 2019-10-06 03:17:00 Karina Wolfe Elizabeth Me thodist POC GLUCOSE 2019-10-05 23:29:00 Karina Wolfe Freeman Me thodist CONSULT TO OSTOMY CARE 2019-10-05 20:28:48 Jesus Alberto Euceda on Hinduism NURSE POC GLUCOSE 2019-10-05 16:48:00 Karina Wolfe Elizabeth Me thodist POC GLUCOSE 2019-10-05 12:48:00 Alanna Ventura Me thodist POC GLUCOSE 2019-10-05 12:06:00 Alanna Ventura Me thodist FREE PHENYTOIN LEVEL 2019-10-05 12:00:00 Christopher Kang Hinduism POC GLUCOSE 2019-10-05 08:57:00 Alanna Ventura Me thodist POC GLUCOSE 2019-10-05 05:42:00 Alanna Ventura Me thodist BASIC METABOLIC PANEL 2019-10-05 02:00:00 Elvia Coker Hinduism MAGNESIUM LEVEL 2019-10-05 02:00:00 Elvia Coker ethodist PHOSPHORUS LEVEL 2019-10-05 02:00:00 Elvia Coker HC COMPLETE BLD COUNT 2019-10-05 02:00:00 Elvia Coker Hinduism W/AUTO DIFF ESTIMATED GFR 2019-10-05 02:00:00 Elvia Coker ethodist POC GLUCOSE 2019-10-05 01:53:00 Alanna Ventura Me thodist POC GLUCOSE 2019-10-04 21:26:00 Alanna Ventura Me thodist POC GLUCOSE 2019-10-04 17:07:00 Alanna Ventura Me thodist POC GLUCOSE 2019-10-04 12:33:00 Alanna Ventura Me thodist POC GLUCOSE 2019-10-04 08:41:00 Alanna Ventura N[place] thodist BASIC METABOLIC PANEL 2019-10-04 05:00:00 Elvia Coker Hinduism MAGNESIUM LEVEL 2019-10-04 05:00:00 Jhon Paul Elviaray Machuca Pete Lowery ethodist PHOSPHORUS LEVEL 2019-10-04 05:00:00 Elvia Coker HC COMPLETE BLD COUNT 2019-10-04 05:00:00 Elvia Coker Hinduism W/AUTO DIFF ESTIMATED GFR 2019-10-04 05:00:00 Elvia Coker Beverley ethodist VANCOMYCIN LEVEL, TROUGH 2019-10-04 05:00:00 Moiz Wang Hinduism POC GLUCOSE 2019-10-04 04:50:00 Alanna Ventura Me thodist POC GLUCOSE 2019-10-04 00:40:00 Alanna Ventura Me thodist POC GLUCOSE 2019-10-03 20:44:00 Alanna Ventura Me thodist POC GLUCOSE 2019-10-03 18:05:00 Alanna Ventura Me thodist IONIZED CALCIUM 2019-10-03 17:30:00 Kang, Christopher inman Hinduism MAGNESIUM LEVEL 2019-10-03 17:30:00 Kang, Christophre inman Hinduism PHOSPHORUS LEVEL 2019-10-03 17:30:00 Christopher Kang Hinduism POTASSIUM LEVEL 2019-10-03 17:30:00 Kang, Christopher inman Hinduism IR RIGHT NEPHROSTOMY 2019-10-03 16:54:59 Esteban Juárez Hinduism INITIAL PLACEMENT ANESTHESIA INTUBATION 2019-10-03 15:03:04 Zuleyma Perez Hinduism POC GLUCOSE 2019-10-03 13:09:00 Alanna Ventura BeverleyVeronica Freeman N[place] thodist POC GLUCOSE 2019-10-03 08:16:00 Alanna Ventura BeverleyVeronica Freeman Nj thodist POC GLUCOSE 2019-10-03 04:46:00 Audrey Alanna Freeman Nj thodist BASIC METABOLIC PANEL 2019-10-03 03:10:00 John Paul, Elvia Mendiola MAGNESIUM LEVEL 2019-10-03 03:10:00 John Paul, Elvia Brigette Pete Lowery ethodist PHOSPHORUS LEVEL 2019-10-03 03:10:00 John Paul, Elvia Mendiola HC COMPLETE BLD COUNT 2019-10-03 03:10:00 John Paul, Elvia Mendiola W/AUTO DIFF LACTIC ACID LEVEL 2019-10-03 03:10:00 John Paul, Elvia Menidola TYPE AND SCREEN 2019-10-03 03:10:00 John Paul, Elvia Freeman Beverley ethodist PARTIAL THROMBOPLASTIN 2019-10-03 03:10:00 John Paul, Elvia Mendiola TIME (PTT) PROTHROMBIN TIME WITH INR 2019-10-03 03:10:00 John Paul, Elvia Mendiola ESTIMATED GFR 2019-10-03 03:10:00 John Paul, Elvia Brigette Pete Lowery ethodist POC GLUCOSE 2019-10-03 00:51:00 Alanna Ventura BeverleyVeronica Freeman Nj thodist POC GLUCOSE 2019-10-02 20:50:00 Clifford Venturajemma LoweryVeronica Freeman N[place] thodist POC GLUCOSE 2019-10-02 16:41:00 Alanna Ventura BeverleyVeronica Freeman Nj thodist POC GLUCOSE 2019-10-02 12:18:00 Clifford Venturajemma LoweryVeronica Freeman N[place] thodist US RENAL 2019-10-02 12:02:52 Moiz Wang Meth odist BLOOD CULTURE, AEROBIC & 2019-10-02 10:09:00 Christopher Kang Freeman Hinduism ANAEROBIC LACTIC ACID LEVEL, SEPSIS 2019-10-02 10:09:00 Moiz Wang usmatthew Hinduism - NOW AND REPEAT 2X EVERY 3 HOURS POC GLUCOSE 2019-10-02 08:18:00 Alanna Ventura BeverleyVeronica Freeman N[place] thodist LACTIC ACID LEVEL, SEPSIS 2019-10-02 07:45:00 Moiz Wang Hinduism - NOW AND REPEAT 2X EVERY 3 HOURS XR ABDOMEN 1 VW PORTABLE 2019-10-02 07:40:00 Alanna Ventura Hinduism XR CHEST 1 VW PORTABLE 2019-10-02 07:30:00 Moiz Wang on Hinduism URINE CULTURE 2019-10-02 06:18:00 Alanna Ventura Me thodist GRAM STAIN 2019-10-02 06:18:00 Alanna Ventura Me thodist ECG 12-LEAD 2019-10-02 05:01:02 Moiz Wang Meth odist HC COMPLETE BLD COUNT 2019-10-02 04:45:00 Moiz Wang Hinduism W/AUTO DIFF URINALYSIS SCREEN AND 2019-10-02 04:45:00 Moiz Wang MICROSCOPY, WITH REFLEX TO CULTURE PROTHROMBIN TIME WITH INR 2019-10-02 04:45:00 Moiz Wang Hinduism PARTIAL THROMBOPLASTIN 2019-10-02 04:45:00 Moiz Wang Hinduism TIME (PTT) ARTERIAL BLOOD GAS 2019-10-02 04:45:00 Moiz Wang ethodist FREE PHENYTOIN LEVEL 2019-10-02 04:45:00 Moiz Wang COMPREHENSIVE METABOLIC 2019-10-02 04:45:00 Alanna Ventura Hinduism PANEL TROPONIN 2019-10-02 04:45:00 Alanna Ventura Nj thodist CREATINE KINASE, TOTAL 2019-10-02 04:45:00 Alanna Ventura (CPK) LACTIC ACID LEVEL 2019-10-02 04:45:00 Alanna Ventura PHOSPHORUS LEVEL 2019-10-02 04:45:00 Alanna Ventura ethodist MAGNESIUM LEVEL 2019-10-02 04:45:00 Alanna Ventura Nj thodist ESTIMATED GFR 2019-10-02 04:45:00 Alanna Ventura Nj thodist T4, FREE 2019-10-02 04:45:00 Alanna Ventura [...] Planned Date Details Comments Source Future Scheduled 2020-06-28 INFLUENZA VACCINE Armando Mendiola Test 00:00:00 [code = INFLUENZA VACCINE] Encounters Start End Encounter Admission Attending Care Care Encounter Source Date/Time Date/Time Type Type Clinicians Facility Department ID 2020-03-05 2020-03-05 [facility] [id number] 10:10:00 23:59:00 Encounter [facility] [id number] [facility] [id number] 2020-03-01 2020-03-01 Office [facility] [id number] 08:07:28 08:53:[address] [facility] [id number] [place] 4.2.7.2.686 [facility] [id number] Primary & 204 Specialty Care 2020-03-01 2020-03-01 [id number] 00:00:00 00:00:[address] [facility] [id number] [place] 4.2.7.2.686 [facility] [id number] Primary & 204 Specialty Care 2019-10-02 2019-10-11 Inpatient SHANELLE [facility] 012 [id number] 52 Elizabeth 00:00:00 00:00:00 MEJIA [address] Results Test Description Test Time Test Comments Results Result Comments Source POC glucose 2019-10-11 08:14:58 Test Item Value Reference Range Interpretation Comme [facility] POC glucose (test code = 91 mg/dL 65-99 Ope rator Name: Chris Glass ID: [id number]) [id number] able: [facility] Notified ALENA MendiolaBasic metabolic [id number] 03:57:11 Test Item Value Reference Range Interpretation Comments Sodium (test code = 2951-2) 137 135- 148 mEq/L Potassium (test code = 2823-3) 4.1 3.5- 5.0 mEq/L Chloride (test code = 2075-0) 101 98- 112 mEq/L CO2 (test code = 8-9) 25 24- 31 mEq/L Anion gap (test code = 03490-9) 11@ANIO 7- 15 mEq/L BUN (test code = 3094-0) 16 mg/dL 6-20 Creatinine (test code = 2160-0) 0.48 mg/dL 0.7-1.2 L Glucose (test code = 2345-7) 121 mg/dL 65-99 H Calcium (test code = 27190-5) 9.4 mg/dL 8.3-10.2 Lab Interpretation (test code = Abnormal 03128-6) Pete CaballeroistMagnesium [id number] 03:57:11 Test Item Value Reference Range Interpretation Comments Magnesium (test code = 01019-6) 2.1 mg/dL 1.6-2.6 Pete MethodistEstimated [id number] 03:57:11 Test Item Value Reference Range Interpretation Comments Estimated GFR (test >=90 mL/min/1.73 m2 Caterg ory Units code = 5488) InterpretationG 1 >=90 Normal or highG2 60-89 Mildly wuezyfbwoE7a 45-59 Mildly to mode rately micfvbcloN0g 30-44 Moderately to severely decreasedG4 15-29 Severely decre asedG5 <15 Kidn ey failureThe eGFR was calculated dez talavera the Chronic Kidney Disease Epidemiology Co llaboration (CKD-EPI) equat ion. Interpretation is based on recommendations of the National Kidney Foundation-Kidn ey Disease Outcomes Qualit y Initiative (NKF-KDOQI) pub lished in 2013. Pete CaballeroistPhosphorus [id number] 03:57:10 Test Item Value Reference Range Interpretation Comments Phosphorus (test code = 2777-1) 3.1 mg/dL 2.4-4.5 Elizabeth MethodistCB with platelet and [id number] 03:25:12 Test Item Value Reference Range Interpretation Comments WBC (test code = 26190-1) 6.12 4.50- 11.00 k/uL RBC (test code = 37397-3) 4.56 m/uL 4.4-6 HGB (test code = 718-7) 13.2 g/dL 14-18 L HCT (test code = 4544-3) 41.3 % 41-51 MCV (test code = 787-2) 90.6 fL 82-100 MCH (test code = 785-6) 28.9 pg 27-34 MCHC (test code = 786-4) 32.0 g/dL 31-37 RDW - SD (test code = 46.0 fL 37-55 23860-3) MPV (test code = 30788-1) 11.9 fL 8.8-13.2 Platelet count (test code 281 150- 400 k/uL = 73067-6) Nucleated RBC (test code 0.00 /100 WBC = 28741-8) Neutrophils (test code = 62.5 % 39-69 44180-2) Lymphocytes (test code = 25.2 % 25-45 38650-3) Monocytes (test code = 8.0 % 0-10 35626-2) Eosinophils (test code = 2.6 % 0-5 84317-2) Basophils (test code = 0.7 % 0-1 79029-4) Immature granulocytes 1.0 % 0-1 "Immat ure (test code = 66740-4) granul ocytes" (promyelocytes, myelocytes, metamyelocytes) Lab Interpretation (test Abnormal code = 53139-8) Elizabeth MethodistFree phenytoin [id number] 00:25:54 Test Item Value Reference Range Interpretation [...] Administration. Lab Interpretation Abnormal (test code = 15695-3) Elizabeth MethodistBlood culture, aerobic & [id number] 14:03:07 Test Item Value Reference Range Interpretation Comments Blood culture No growth Specimen isolate (test after 5 days InformationSpe cimen code = 600-7) of Source: BloodS pecimen incubation. Site: Hand, lef t Elizabeth MethodistBlood culture, [id number] 08:33:03 Test Item Value Reference Range Interpretation Comments Blood culture No growth Specimen isolate, after 5 days InformationSpec imen aerobic (test of Source: BloodS pecimen code = 974) incubation. Site: Unspecifi ed Elizabeth MethodistVancomycin level, [id number] 05:55:41 Test Item Value Reference Range Interpretation Comments Vancomycin, trough 12.7 ug/mL 10-20 Therapeut ic Ranges: (test code = Peak 30.0 - 40.0 39785-6) ug/mL Trough 10.0 - 20.0 ug/mL Elizabeth MethodistPotassium [id number] 18:03:02 Test Item Value Reference Range Interpretation Comments Potassium (test code = 2823-3) 4.2 3.5- 5.0 mEq/L Elizabeth MethodistIonized [id number] 18:02:39 Test Item Value Reference Range Interpretation Comments pH (test code = 2753-2) 7.45 Ionized calcium (test code = 1.12 mmol/L 1.11-1.32 ) Elizabeth MethodistIR Nephrostomy Insertion [id number] 17:23:25Hm Interface, Radiology Results - 10/03/2019 5:26 PM CSTPerforming RadiologistRohit Shravan MDAssistantsNone Anesthesia TypeGeneral anesthesia provided by physiologic.Pre Procedure Efhoosbes75-ptzt-cce 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 The Glidewire was exchanged for an Amplatz wire and after tract dilationa 26 cm, 8.5-Prydeinig percutaneous nephroureteral catheter was then placed. The [...] hydronephrosis and hydroureter.3. Successful placement of an 8.5-Prydeinig right percutaneous nephroureteral catheter, as detailed above. The catheter pigtail was formed within the right renal pelvis. This catheter was placed to gravity bag drainage.4. Hydronephrosis is also prominent inthe upper pole, and if patient symptomatically doesn't improve, upper pole access and drainage may be necessary. [facility]-2VQ1462RDVEuwuaip MethodistGram [id number] 16:09:04Gram stain resultOccasional WBC'sRare Gram positive cocci in pairsRare Gram positive rods Comment: Specimen InformationSpecimen Source: UrineSpecimen Site: Suprapubic/ [facility] [id number] 15:03:04 Zuleyma Perez CRNA 10/03/2019 3:03 PMAirwayPerformed by: Zuleyma Perez CRNAAuthorizedby: Roxanna Mera MD [facility] Airway: No Resident/AIRCRAFT ENGINE MECHANIC/AA: Zuleyma Perez CRNAPreoxygenated with 100% O2: Yes [...] pt teeth ans mouth protected and unchanged. Elizabeth MethodistType and [id number] 04:22:00 Test Item Value Reference Range Interpretation Comments ABO grouping (test code = 883-9) A Rh type (test code = 98241-1) POS Antibody screen (gel) (test code = NEG 890-4) [facility] SystemL[facility] acid [id number] 03:52:26 Test Item Value Reference Range Interpretation Comments Lactic acid (test code = 52398-0) 1.0 mmol/L 0.5-2.2 [facility] SystemPartial thromboplastin time, [id number] 03:47:21 Test Item Value Reference Range Interpretation Comments PTT (test code = 29.8 23.0- 36.0 [place] [address]-6) unfractionated heparin is61.0-112.0 se conds which corresponds to Anti-Xa0.3-0.7 U/ml. [facility] HospitalistProthrombin time with [id number] 03:47:14 Test Item Value Reference Range Interpretation Comments Prothrombin time (test 15.2 11.5- 14.5 sec H code = 5902-2) INR (test code = 1.2 [facility] 1967[facility]) Normalized Rati o (INR) is a therapeuti c monitoring tool for patients who ar e stable on oral anticoagulant t herapy. An INR of 2.0-3 .0 is suggested for d eep vein thrombosis/pulm onary embolism. Lab Interpretation Abnormal (test code = 88049-7) Freeman MethodistECG 12 [id number] 22:21:18 Test Item Value Reference Range Interpretation Comments Ventricular rate (test 101 code = 253) Atrial rate (test code 101 = 255) VA interval (test code 188 = 266) QRSD [...] significant change was found- Freeman MethodistRespiratory pathogen [id number] 15:01:22Respiratory pathogen panelNegative for all pathogens tested:Negative for AdenovirusNegative for Coronavirus GNJ3Ckhstfuy for Coronavirus FH13Tbwqswus for Coronavirus 229ENegative for Coronavirus WF45Ccnmfwqa for Human MetapneumovirusNegative for Rhinovirus/EnterovirusNegative for Influenza ANegative for Influenza A/N8Fdyyjexi for Influenza A/Y4Wdpzwgjl for Influenza A/H1-2009Negative for Influenza BNegative for [...] Specimen InformationSpecimen Source: Na resSpecimen Site: Left [facility] MethodistUS Renal 2019-10-02 12:58:28Hm Interface, Radiology Results [...] catheter is present in the decompressed urinary bladder.[facility]-7GZ5471GXZWgzveuy MethodistLactic acid level, SEPSIS - Now and repeat 2x every 3 [id number] 11:23:34 Test Item Value Reference Range Interpretation Comments Lactic acid (test code = 73424-6) 1.0 mmol/L 0.5-2.2 Elizabeth MethodistInfluenza antigen test, reflex negative to [id number] 09:36:12 Test Item Value Reference Range Interpretation Comments Influenza Negative for Specimen antigen (test Influenza A/B Information ecimen code = 73372-9) antigen. Source: Nasir sSpecimen Site: Left [facility] Chest 1 Vw [id number] 09:15:56Hm Interface, Radiology Results 10/02/2019 9:19 AM CSTEXAMINATION: XR CHEST 1 VW PORTABLECLINICAL HISTORY: ICU pt unstable or clinical worseningCOMPARISON: NoneIMPRESSION:Mild patchy bibasilar atelectasisHypoinflation of the lungsTiny right costophrenic angle effusionNo central congestionNo pneumothorax.The Cardiomediastinal silhouette is normal in sizeSingle view chest.[id number] [facility] Abdomen 1 Vw [id number] 07:58:59Hm Interface, Radiology Results 10/02/2019 8:02 AM [...] gas in the colon. No small bowel dilation.[facility]-EO28IPVZOkuspfc MethodistT4, [id number] 07:48:17 Test Item Value Reference Range Interpretation Comments T4, free (test code = 3024-7) 1.3 ng/dL 0.9-1.7 Elizabeth MethodistThyroid stimulating [id number] 07:48:17 Test Item Value Reference Range Interpretation Comments TSH (test code = 3016-3) 1.48 0.27- 4.20 uIU/mL Elizabeth MethodistPhenytoin [id number] 07:45:01 Test Item Value Reference Range Interpretation Comments Phenytoin (test code = 3.0 ug/mL 10-20 L Thera peutic Range: 3968-5) 10 - 20 ug/mL Lab Interpretation (test Abnormal code = 66607-8) Elizabeth MethodistUrinalysis screen and microscopy, with reflex to culture 2019-10-02 07:39:14 Test Item Value Reference Range Interpretation Comments Specimen site (test code = Suprapubic 0752200) Color, UA (test code = 5778-6) Danyelle Appearance, UA (test code = Cloudy 5767-9) Specific gravity, UA (test code = 1.046 1.001-1.035 H 5811-5) pH, UA (test code = 5803-2) 6.0 5.0-8.5 Protein, UA (test code = 57079-9) 2+ Negative A Glucose, UA (test code = 24058-2) Negative Negative Ketones, UA (test code = 2514-8) Negative Negative Bilirubin, UA (test code = 5770-3) Negative Negative Blood, UA (test code = 5794-3) Moderate Negative A Nitrite, UA (test code = 5802-4) Negative Negative Urobilinogen, UA (test code = <2.0 <2.0 06807-0) Leukocyte esterase, UA (test code Large Negative A = 5799-2) Epithelial cells, UA (test code = <1 /HPF 5787-7) WBC, UA (test code = 5821-4) >180 0- 1 /HPF H RBC, UA (test code = 70623-8) 63 0- 5 /HPF H Bacteria, UA (test code = 22734-3) None seen None seen WBC clumps, UA (test code = Moderate A 72776-9) Yeast, UA (test code = 84815-1) None seen Yeast with pseudohyphae, UA (test None seen code = 56731-5) Lab Interpretation (test code = Abnormal 95756-9) [facility] SystemComprehensive metabolic [id number] 07:03:19 Test Item Value Reference Range Interpretation Comments Sodium (test code = 145 135- 148 mEq/L 2951-2) Potassium (test code = 3.4 3.5- 5.0 mEq/L L 2823-3) Chloride (test code = 111 98- 112 mEq/L 2075-0) CO2 (test code = 2027-9) 23 24- 31 mEq/L L Anion gap (test code = 11@ANIO 7- 15 mEq/L 20569-4) BUN (test code = 3094-0) 21 mg/dL 6-20 H Creatinine (test code = 0.71 mg/dL 0.7-1.2 2160-0) Glucose (test code = 92 mg/dL 65-99 2345-7) Calcium (test code = 8.4 mg/dL 8.3-10.2 36877-9) Protein (test code = 6.7 g/dL 6.3-8.3 [place] 9994.6-7.0 2885-2) g/dL1 sosq3522.4-7.6 g/dL7 months-6kyoq724 .1- 7.3 g/dL1-2 .6-7.5 g/dL>3 .0-8.0 g/[id number]. 3-8 .3 g/dL Albumin (test code = 2.4 g/dL 3.5-5 L 1751-7) A/G ratio (test code = 0.6 0.7-3.8 L 1759-0) Alkaline phosphatase 171 U/L 40-129 H (test code = 6768-6) AST (test code = 1920-8) 35 U/L 10-50 ALT (test code = 1742-6) 60 U/L 5-50 H Total bilirubin (test 0.4 mg/dL 0-1.2 code = 1975-2) Lab Interpretation (test Abnormal code = 32210-1) Elizabeth MethodistCreatine kinase, total (CPK)2019-10-02 07:03:18 Test Item Value Reference Range Interpretation Comments Creatine kinase (test code = 2157-6) 39 U/L 39-308 Elizabeth [id number] 07:01:25 Test Item Value Reference Range Interpretation Comments Troponin (test code = <0.006 0-0.04 [place] [address]-2) having a myocar dial infarction, chinedu arana with all other appro priate clinical measur es and actions includi ng ECG and other diagnosti cs as appropriate, pa asure Ultra TnI at 0 hrs and [...] de creased by less than 0.020 ng/mL Elizabeth MethodistArterial blood [id number] 06:32:59 Test Item Value Reference Range Interpretation [...] (test 93 % 95-100 L code = 5368-6) Lab Interpretation (test code = Abnormal 04260-8) Pete Mendiola
[2020-06-11] MEDS ORDERED: WATER FOR INJ,STERILE 20 ML ONE (09:40)
[2020-06-11] MEDS ORDERED: NA CHLORIDE 0.9% 0 ML ONE (10:02)
[2020-06-11] MEDS ORDERED: CEFTRIAXONE/SWI 1gm 0 GM/0 ML SYR ONE ×2 (10:02→10:13)
[2020-06-11] MEDS ORDERED: NA CHLORIDE 0.9% 500 ML ONE (10:13)
[2020-06-11 10:37] LABS: Absolute Lymphocytes (CBC) 1.6 K/uL (0.7-4.9); Basophils % 0.5 % (0-1.3); Hematocrit 45.8 % (39.6-49.0); Lymphocytes % 17.1 % (15.3-44.8); MPV 11.2 fL (7.6-11.3); RBC Red Blood Cell Count 5.19 M/uL (4.33-5.43)
--- NOTE | 2020-06-11 11:05 | EDPHYS ---
Physician Documentation [facility] Name: Farhat Maza Age: 40 yrs Sex: Male : 1980 Arrival Date: 06/11/2020 Time: 08:32 Bed 17 Private MD: ANJELICA Physician Mario Pisano HPI: 06/11 09:37 This 40 yrs old Male presents to ER via EMS with complaints of PEG tube nely pulled out. 09:37 The patient presents with abdominal pain peg removed. Onset: The symptoms/episode nely began/occurred 1 day(s) ago. The symptoms do not radiate. Associated signs and symptoms: none. Modifying factors: The symptoms are alleviated by nothing, the symptoms are aggravated by movement, pressure. The patient has experienced similar episodes in the past, several times. Historical: - Allergies: 08:39 Antihistamine; tw2 08:39 Aspirin; tw2 08:39 Demerol; tw2 08:39 PENICILLINS; tw2 - PMHx: 08:39 Anoxic brain injury post suicide attempt; Seizures; upper and lower ext contractures; tw2 obstructive and reflux uropathy; GERD; Pneumonia; Asthma; aspiration pneumonia; UTI; contractures; - PSHx: 08:39 G-tube; nephrostomy tube; suprapubic cath; tw2 - Immunization history:: Adult Immunizations. - Social history:: Smoking status: . - Family history:: not pertinent. ROS: 09:37 Constitutional: Negative for fever, chills, and weight loss, Eyes: Negative for injury, nely pain, redness, and discharge, ENT: Negative for injury, pain, and discharge, Neck: Negative for injury, pain, and swelling, Cardiovascular: Negative for chest pain, palpitations, and edema, Respiratory: Negative for shortness of breath, cough, wheezing, and pleuritic chest pain, Back: Negative for injury and pain, : Negative for injury, bleeding, discharge, and swelling, MS/Extremity: Negative for injury and deformity, Skin: Negative for injury, rash, and discoloration. 09:37 Abdomen/GI: Positive for peg out, slightly reddened skin at peg site. Exam: 09:37 Constitutional: This is a well developed, well nourished patient who is awake, alert, nely and in no acute distress. Head/Face: Normocephalic, atraumatic. Eyes: Pupils equal round and reactive to light, extra-ocular motions intact. Lids and lashes normal. Conjunctiva and sclera are non-icteric and not injected. Cornea within normal limits. Periorbital areas with no swelling, redness, or edema. ENT: Nares patent. No nasal discharge, no septal abnormalities noted. Tympanic membranes are normal and external auditory canals are clear. Oropharynx with no redness, swelling, or masses, exudates, or evidence of obstruction, uvula midline. Mucous membranes moist. Neck: Trachea midline, no thyromegaly or masses palpated, and no cervical lymphadenopathy. Supple, full range of motion without nuchal rigidity, or vertebral point tenderness. No Meningismus. Chest/axilla: Normal chest wall appearance and motion. Nontender with no deformity. No lesions are appreciated. Cardiovascular: Regular rate and rhythm with a normal S1 and S2. No gallops, murmurs, or rubs. Normal PMI, no JVD. No pulse deficits. Respiratory: Lungs have equal breath sounds bilaterally, clear to auscultation and percussion. No rales, rhonchi or wheezes noted. No increased work of breathing, no retractions or nasal flaring. 09:37 Abdomen/GI: Inspection: redness at peg site, foul discharge at suprapubic site, will replace ppeg and exchange saldana. Vital Signs: 08:33 BP 127 / 61; Pulse 68; Resp 17; Temp 98.2(A); Pulse Ox 96% on R/A; tw2 09:58 BP 99 / 49; Pulse 85; Resp 17; Pulse Ox 97% on R/A; tw2 10:30 BP 98 / 50; Pulse 80; Resp 18 S; Temp 97.9(R); Pulse Ox 98% on R/A; aa5 11:44 BP 94 / 52; Pulse 81; Resp 17; Pulse Ox 95% on R/A; tw2 12:30 BP 92 / 48; Pulse 82; Resp 18 S; Pulse Ox 98% on R/A; aa5 MDM: 08:34 Patient medically screened. nely 09:41 Differential diagnosis: urinary tract infection, peg disloged, with mild cellulitis to nely site, uti is a concern. Data reviewed: vital signs, nurses notes, lab test result(s), CBC, electrolytes, radiologic studies. Data interpreted: deputy clerk of superior court: not applicable for this patient encounter. rate is 68 beats/min, rhythm is regular, Pulse oximetry: on room air is 96 %. Test interpretation: by ED physician or midlevel provider: plain radiologic studies. Counseling: I had a detailed discussion with the patient and/or guardian regarding: the historical points, exam findings, and any diagnostic results supporting the discharge/admit diagnosis, lab results, radiology results, the need for outpatient follow up, for definitive care, a verse writer, a urologist. 10:55 ED course: peg replaced with an [address] peg, [address] suprapubic saldana placed, to nely bag. follow up. 06/11 09:35 Order name: CBC with Diff; Complete Time: 10:55 [facility] 06/11 09:35 Order name: Comprehensive Metabolic Panel; Complete Time: 11:19 [facility] 06/11 09:30 Order name: Enterostomy Tube Check w/contr; Complete Time: 11:19 [facility] 06/11 09:35 Order name: Saldana: suprapubic; Complete Time: 11:18 [facility] 06/11 09:59 Order name: IV Start; Complete Time: 11:06 tw2 Administered Medications: 10:30 Drug: NS 0.9% 500 ml Route: IV; Rate: bolus; Site: left upper arm; aa 11:30 Follow up: IV Status: Completed infusion; IV Intake: 500ml [facility] 11:00 Drug: Rocephin 1 grams Route: IV; Rate: per protocol; Site: left upper arm; [facility] 11:15 Follow up: Response: No adverse reaction aa Disposition: 06/11/20 11:04 Discharged to Home. Impression: Urinary tract infection, site not specified, Gastrostomy status, Gastrostomy complications. - Condition is Fair. - Discharge Instructions: Saldana Catheter Care, Adult, Urinary Tract Infection, Adult, Urinary Tract Infection, Adult, Xnry-iw-Cpnm, PEG Tube Home Guide, Cwqc-lg-Vqov, Saldana Catheter Care, Adult, Gwpb-vb-Qbwy, PEG Tube Home Guide. - Prescriptions for sulfamethoxazole- trimethoprim 200-40 mg/5 mL Oral Suspension - take 20 milliliter by ORAL route every 12 hours for 7 days; 280 milliliter. - Medication Reconciliation Form, Thank You Letter, Antibiotic Education, Prescription Opioid Use, SBAR form form. - Follow up: Private Physician; When: 2 - 3 days; Reason: Recheck today's complaints, Continuance of care, Re-evaluation by your physician. Follow up: Valentín Vazquez MD; When: 2 - 3 days; Reason: Recheck today's complaints, Re-evaluation by your physician. Follow up: Jessa Aquino MD; When: 2 - 3 days; Reason: Recheck today's complaints, Re-evaluation by your physician. - Problem is new. - Symptoms have improved. Signatures: Dispatcher [employer] [facility] Mario Pisano MD MD cha Calderon, Audri, RN RN aa5 Junie Niño, RN RN tw2 Yumiko Palacio RN RN ca1 Corrections: (The following items were deleted from the chart) 10:14 09:37 Abdomen 1 View (KUB)+RAD.RAD.BRZ ordered. [facility] 13:33 11:04 06/11/2020 11:04 Discharged to Home. Impression: Urinary tract infection, site ca1 not specified; Gastrostomy status; Gastrostomy complications. Condition is Fair. Discharge Instructions: Saldana Catheter Care, Adult, Urinary Tract Infection, Adult, Urinary Tract Infection, Adult, Dgzz-ql-Nthi, PEG Tube Home Guide, Qdqt-ga-Emby, Saldana Catheter Care, Adult, Lzcx-dm-Mgqm, PEG Tube Home Guide. Prescriptions for sulfamethoxazole-trimethoprim 200-40 mg/5 mL Oral Suspension - take 20 milliliter by ORAL route every 12 hours for 7 days; 280 milliliter. and Forms are Medication Reconciliation Form, Thank You Letter, Antibiotic Education, Prescription Opioid Use. Follow up: Private Physician; When: 2 - 3 days; Reason: Recheck today's complaints, Continuance of care, Re-evaluation by your physician. Follow up: Valentín Vazquez; When: 2 - 3 days; Reason: Recheck today's complaints, Re-evaluation by your physician. Follow up: Jessa Aquino; When: 2 - 3 days; Reason: Recheck today's complaints, Re-evaluation by your physician. Problem is new. Symptoms have improved. nely
--- NOTE | 2020-06-11 11:05 | ER ---
Nurse's Notes [facility] Name: Farhat Maza Age: 40 yrs Sex: Male : 1980 Arrival Date: 06/11/2020 Time: 08:32 Bed 17 Private MD: Diagnosis: Urinary tract infection, site not specified;Gastrostomy status;Gastrostomy complications Presentation: 06/11 08:33 Chief complaint: EMS states: pt from [facility], no verbal report was given tw2 from them, they handed us papers and his old PEG tube, his PEG tube is out not sure what size. Coronavirus screen: At this time, the client does not indicate any symptoms associated with coronavirus-19. Ebola Screen: Patient denies travel to an Ebola-affected area in the 21 days before illness onset. Initial Sepsis Screen: Does the patient meet any 2 criteria? No. Patient's initial sepsis screen is negative. Does the patient have a suspected source of infection? No. Patient's initial sepsis screen is negative. Risk Assessment: Do you want to hurt yourself or someone else? Patient reports no desire to harm self or others. Onset of symptoms was June 11, 2020. 08:33 Method Of Arrival: EMS: [facility] tw2 08:33 Acuity: JOSEPH 3 tw2 Triage Assessment: 08:37 General: Appears NAD, contracted x4. Behavior is at pts baseline from anoxic brain tw2 injury. Pain: Unable to use pain scale. Patient appears quiet. Historical: - Allergies: 08:39 Antihistamine; tw2 08:39 Aspirin; tw2 08:39 Demerol; tw2 08:39 PENICILLINS; tw2 - PMHx: 08:39 Anoxic brain injury post suicide attempt; Seizures; upper and lower ext contractures; tw2 obstructive and reflux uropathy; GERD; Pneumonia; Asthma; aspiration pneumonia; UTI; contractures; - PSHx: 08:39 G-tube; nephrostomy tube; suprapubic cath; tw2 - Immunization history:: Adult Immunizations. - Social history:: Smoking status: . - Family history:: not pertinent. Screenin:30 Nutritional screening: Pt is slender and uses PEG tube for feedings. . Tuberculosis aa5 screening: No symptoms or risk factors identified. Fall Risk Secondary diagnosis (15 points) seizures, impaired mobility, IV access (20 points). Mental Status- Overestimates/Forgets Limitations (15 pts.). Total Bejarano Fall Scale indicates High Risk Score (45 or more points). Fall prevention measures have been instituted. Side Rails Up X 2 Placed Close to Nursing Station. Assessment: 09:05 General: Appears comfortable, unkempt. Pain: Unable to use pain scale. Does not appear aa5 to understand pain scale. FLACC scale score is 0 out of 10. Neuro: Level of Consciousness is awake, Pt non-verbal, pt unable to follow-commands. Moans to tactile stimuli. . Cardiovascular: Heart tones S1 S2 present Rhythm is regular. Respiratory: Airway is patent Respiratory effort is even, unlabored, Respiratory pattern is regular, symmetrical. GI: Abdomen is flat, Bowel sounds present X 4 quads. : suprapubic catheter in place to gravity drainage Suprapubic catheter ostomy noted to be red. Derm: Skin is pink, warm \T\ dry. Musculoskeletal: arms contracted, hands contracted, and legs contracted. Right hand dressing noted, abrasion that is macerated noted to right hand. Left hip dressing noted for cushion to prevent pressure ulcer. No pressure ulcers noted. 09:05 EENT: Poor dentition noted. Large amount of wax noted to external ears.. aa5 09:30 Reassessment: Provider at bedside placing PEG tube . aa5 09:30 Reassessment: Pt moans to tactile stimuli. . aa5 09:30 Respiratory: Airway is patent Respiratory effort is even, unlabored, Respiratory aa5 pattern is regular, symmetrical. 10:00 Reassessment: Pt cleaned of urinary incontinence, suprapubic catheter site cleaned with aa5 iodine and saline. Clean brief applied, pt repositioned in bed. External ears cleaned with gauze and saline to remove wax, pt tolerated poorly. . 10:40 Reassessment: X-ray at bedside . aa5 11:35 Reassessment: Pt repositioned in bed. Pt with eyes open, moans to tactile stimuli. aa5 Equal and unlabored respirations, skin is pink/warm/dry. . 12:20 Reassessment: Report given to Elvira at [facility]. . aa5 12:30 Reassessment: Pt with eyes open, equal and unlabored respirations, skin is aa5 pink/warm/dry. . 12:57 Reassessment: [facility] states they do not have transport services available to take pt iw back to facility, [facility] called to take pt back . Vital Signs: 08:33 BP 127 / 61; Pulse 68; Resp 17; Temp 98.2(A); Pulse Ox 96% on R/A; tw2 09:58 BP 99 / 49; Pulse 85; Resp 17; Pulse Ox 97% on R/A; tw2 10:30 BP 98 / 50; Pulse 80; Resp 18 S; Temp 97.9(R); Pulse Ox 98% on R/A; aa5 11:44 BP 94 / 52; Pulse 81; Resp 17; Pulse Ox 95% on R/A; tw2 12:30 BP 92 / 48; Pulse 82; Resp 18 S; Pulse Ox 98% on R/A; aa5 ED Course: 08:32 Patient arrived in ED. tw2 08:34 Mario Pisano MD is Attending Physician. nely 08:37 Triage completed. tw2 08:37 Arm band placed on. tw2 08:56 Tequila Lee, RN is Primary Nurse. aa5 09:00 Patient has correct armband on for positive identification. Placed in gown. Bed in low aa5 position. Side rails up X2. Pulse ox on. NIBP on. 09:35 PEG tube placement, 18FR, pt tolerated well, dressed with gauze, completed by Dr. leonor iPsano. 10:30 Initial lab(s) drawn, by az, sent to lab. Inserted saline lock: 22 gauge in left upper aa5 arm, using aseptic technique. Blood collected. 10:50 Enterostomy Tube Check w/contr In Process Unspecified. EDMS 11:03 Valentín Vazquez MD is Referral Physician. nely 11:03 Jessa Aquino MD is Referral Physician. nely 11:30 Suprapubic catheter removed by Dr. Pisano and new 18Fr catheter placed by Dr. leonor Pisano. 12:30 IV discontinued, intact, bleeding controlled, No redness/swelling at site. Pressure aa5 dressing applied. Administered Medications: 10:30 Drug: NS 0.9% 500 ml Route: IV; Rate: bolus; Site: left upper arm; aa5 11:30 Follow up: IV Status: Completed infusion; IV Intake: 500ml aa5 11:00 Drug: Rocephin 1 grams Route: IV; Rate: per protocol; Site: left upper arm; aa5 11:15 Follow up: Response: No adverse reaction aa5 Intake: 11:30 IV: 500ml; Total: 500ml. aa5 Outcome: 11:04 Discharge ordered by . nely 13:00 Discharged to assisted. Report called to [facility]. Report given to [facility] aa5 13:00 Condition: stable aa5 13:00 Discharge instructions given to [facility] nurse. 13:10 Patient left the ED. aa5 Signatures: Dispatcher [employer] EDMS Mario Pisano MD MD cha Williams, Irene, RN RN iw Tequila Lee RN RN aa5 Junie Niño RN RN tw2 Yumiko Palacio RN RN ca1 Corrections: (The following items were deleted from the chart) 12:41 09:05 General: Appears comfortable, aa5 aa5 12:41 09:05 EENT: Poor dentition noted. . aa5 aa5 12:43 10:00 Reassessment: Pt cleaned of urinary incontinence, suprapubic catheter site aa5 cleaned with iodine and saline. Clean brief applied, pt repositioned in bed. . aa5 19:09 13:33 Patient left the ED. ca1 aa5
[2020-06-11 11:11] LABS: ALT/SGPT 118 U/L (12-78); AST/SGOT 39 U/L (15-37); Albumin 3.5 g/dL (3.4-5.0); Alkaline Phosphatase 239 U/L (45-117); BUN Blood Urea Nitrogen 19 mg/dL (7-18); Bicarbonate 29 mmol/L (21-32); Bilirubin Total 0.4 mg/dL (0.2-1.0); Glucose Level 85 mg/dL (74-106); Potassium 4.3 mmol/L (3.5-5.1); Protein, Total 8.6 g/dL (6.4-8.2); Sodium Level 143 mmol/L (136-145)
--- NOTE | 2020-06-11 11:11 | RAD REPORT ---
EXAM DESCRIPTION: RAD - ENTEROSTOMY TUBE CHECK W/CONTR - 06/11/2020 10:50 am CLINICAL HISTORY: Gastrostomy tube placement FINDINGS: Contrast was administered into the percutaneous gastrostomy tube. The stomach is opacified with contrast. Contrast flows into the duodenum and jejunum. No extravasation of contrast is noted. Zero fluoroscopy performed. Zero fluoroscopic spot images obtained
[2020-06-11] MEDS ORDERED: CEFTRIAXONE/SWI 1gm 1 GM/10 ML SYR ONE (11:37)
[2020-06-11 13:38] VITALS: TEMP 98.2
[2020-06-11 13:41] VITALS: BP 94/52; O2SAT 95
== END 2020-06-11 13:33 | disposition home or self-care (01) ==
LOC: ER 08:28
DX: N39.0 Urinary tract infection, site not specified (principal); Z87.820 Personal history of traumatic brain injury; Z91.5 Personal history of self-harm; Z88.0 Allergy status to penicillin; Z88.5 Allergy status to narcotic agent; Z88.6 Allergy status to analgesic agent; Z88.8 Allergy status to other drugs, medicaments and biological substances
CPT/HCPCS: 96361; 85025; 36415; 80053; 49465; 96374; 99284; J0696; J7040

== ENCOUNTER 2020-08-23 20:48 | Emergency (ER) | payer OTHER ==
--- OUTSIDE RECORDS SUMMARY | 2020-08-23 20:52 | XMS REPORT | Clinical Summary ---
:1980 Author Organization [facility] Address [address] [place] [address] Care Team Providers Name Role Phone Asked, Pcp Primary Care Provider Unavailable Allergies Active Allergy Reactions Severity Noted Date Comments Diphenhydramine Hcl Unknown Reaction 10/02/2019 Per - she never noted a reaction to thi s medication. Aspirin Unknown Reaction 10/02/2019 Per , s he was just told by the care home the patient had thi s listed as [...] Encounters Date Type Specialty Care Team Description 10/03/2019 Anesthesia Event Radiology Adán Chatterjee MD Gilbert, Janet M., MD 10/02/2019 - Hospital Encounter General Internal Alanna Ventura, 10/11/2019 Medicine MD Wolfe, MD Shanelle Dowling, MD Delmi after 08/23/2019 Immunizations Name Administration Dates Next Due FLUCELVAX QUAD PF 10/11/2019 Surgical History Surgery Date Site/Laterality Comments PEG TUBE PLACEMENT SUPRAPUBIC CATHETER INSERTION Medical History Medical History Date Comments Anoxic brain injury (HCC) Seizure disorder (HCC) Neurogenic bladder Social History Tobacco Use Types Packs/Day Years Used Date Unknown If Ever Smoked Smokeless Tobacco: Never Used Tobacco Cessation: Counseling Given: No Alcohol Use Drinks/Week oz/Week Comments Defer Sex Assigned at Date Recorded Not on file Last Filed Vital Signs Vital Sign Reading Time Taken Comments Blood Pressure 138/76 10/11/2019 8:12 AM PICKLING OPERATOR Pulse 84 10/11/2019 8:12 AM PICKLING OPERATOR Temperature 35.6 C (96 F) 10/11/2019 8:12 AM PICKLING OPERATOR Respiratory Rate 18 10/11/2019 8:12 AM PICKLING OPERATOR Oxygen Saturation 98% 10/11/2019 8:12 AM PICKLING OPERATOR Inhaled Oxygen Concentration - - Weight 65 kg (143 lb 4.8 oz) 10/02/2019 4:15 AM PICKLING OPERATOR Height 172.7 cm (5' 8") 10/09/2019 7:05 PM PICKLING OPERATOR Body Mass Index 21.79 10/02/2019 4:15 AM PICKLING OPERATOR Plan of Treatment Health Maintenance Due Date Last Done Comments INFLUENZA VACCINE 04/28/2020 10/11/2019 Implants Implanted Type Area [employer] Device Shelf Model / Identifier Expiration Serial / Date Lot Stent Tenmile Nphrtstfelice Guadalupe Mac-Loc Lp-Lk 26cm - [id number] Surgic al N/A: COOK 06/22/2022 [id number] / Implanted: 10/03/2019 at [facility] (Quantity not on file) Kai nts N/A INTERVENTIONAL / RADIOLOGY [id number] Procedures Procedure Name Priority Date/Time Associated Comments Diagnosis POC GLUCOSE Routine 10/11/2019 8:14 Results for this AM PICKLING OPERATOR procedure are i n the results section. ESTIMATED GFR Routine 10/11/2019 3:21 Results fo r this AM PICKLING OPERATOR procedure are i n the results section. PHOSPHORUS LEVEL Routine 10/11/2019 3:21 Results for this AM PICKLING OPERATOR procedure are i n the results section. MAGNESIUM LEVEL Routine 10/11/2019 3:21 Results for this AM PICKLING OPERATOR procedure are i n the results section. BASIC METABOLIC PANEL Routine 10/11/2019 3:21 Re sults for this AM PICKLING OPERATOR procedure are i n the results section. HC COMPLETE BLD COUNT Routine 10/11/2019 3:00 Re sults for this W/AUTO DIFF AM PICKLING OPERATOR procedure are i n the results section. POC GLUCOSE Routine 10/11/2019 12:14 Results for this AM PICKLING OPERATOR procedure are i n the results section. FREE PHENYTOIN LEVEL Routine 10/10/2019 10:41 Res ults for this PM PICKLING OPERATOR procedure are i n the results section. POC GLUCOSE Routine 10/10/2019 9:32 Results for this PM PICKLING OPERATOR procedure are i n the results section. FREE PHENYTOIN LEVEL Routine 10/10/2019 6:00 Res ults for this PM PICKLING OPERATOR procedure are i n the results section. POC GLUCOSE Routine 10/10/2019 11:34 Results for this AM PICKLING OPERATOR procedure are i n the results section. POC GLUCOSE Routine 10/10/2019 8:15 Results for this AM PICKLING OPERATOR procedure are i n the results section. POC GLUCOSE Routine 10/10/2019 5:03 Results for this AM PICKLING OPERATOR procedure are i n the results section. ESTIMATED GFR Routine 10/10/2019 4:49 Results fo r this AM PICKLING OPERATOR procedure are i n the results section. BASIC METABOLIC PANEL Routine 10/10/2019 4:49 Re sults for this AM PICKLING OPERATOR procedure are i n the results section. HC COMPLETE BLD COUNT Routine 10/10/2019 4:49 Re sults for this W/AUTO DIFF AM PICKLING OPERATOR procedure are i n the results section. POC GLUCOSE Routine 10/10/2019 12:28 Results for this AM PICKLING OPERATOR procedure are i n the results section. POC GLUCOSE Routine 10/09/2019 9:22 Results for this PM PICKLING OPERATOR procedure are i n the results section. POC GLUCOSE Routine 10/09/2019 5:25 Results for this PM PICKLING OPERATOR procedure are i n the results section. POC GLUCOSE Routine 10/09/2019 11:32 Results for this AM PICKLING OPERATOR procedure are i n the results section. POC GLUCOSE Routine 10/09/2019 7:55 Results for this AM PICKLING OPERATOR procedure are i n the results section. POC GLUCOSE Routine 10/09/2019 3:58 Results for this AM PICKLING OPERATOR procedure are i n the results section. HC COMPLETE BLD COUNT Routine 10/09/2019 3:51 Re sults for this W/AUTO DIFF AM PICKLING OPERATOR procedure are i n the results section. ESTIMATED GFR Routine 10/09/2019 3:49 Results fo r this AM PICKLING OPERATOR procedure are i n the results section. BASIC METABOLIC PANEL Routine 10/09/2019 3:49 Re sults for this AM PICKLING OPERATOR procedure are i n the results section. POC GLUCOSE Routine 10/08/2019 9:48 Results for this PM PICKLING OPERATOR procedure are i n the results section. POC GLUCOSE Routine 10/08/2019 4:41 Results for this PM PICKLING OPERATOR procedure are i n the results section. POC GLUCOSE Routine 10/08/2019 11:57 Results for this AM PICKLING OPERATOR procedure are i n the results section. POC GLUCOSE Routine 10/08/2019 7:32 Results for this AM PICKLING OPERATOR procedure are i n the results section. POC GLUCOSE Routine 10/08/2019 5:17 Results for this AM PICKLING OPERATOR procedure are i n the results section. POC GLUCOSE Routine 10/07/2019 11:48 Results for this PM PICKLING OPERATOR procedure are i n the results section. POC GLUCOSE Routine 10/07/2019 7:51 Results for this PM PICKLING OPERATOR procedure are i n the results section. POC GLUCOSE Routine 10/07/2019 5:13 Results for this PM PICKLING OPERATOR procedure are i n the results section. POC GLUCOSE Routine 10/07/2019 11:53 Results for this AM PICKLING OPERATOR procedure are i n the results section. POC GLUCOSE Routine 10/07/2019 7:26 Results for this AM PICKLING OPERATOR procedure are i n the results section. POC GLUCOSE Routine 10/06/2019 11:24 Results for this PM PICKLING OPERATOR procedure are i n the results section. POC GLUCOSE Routine 10/06/2019 7:58 Results for this PM PICKLING OPERATOR procedure are i n the results section. POC GLUCOSE Routine 10/06/2019 4:26 Results for this PM PICKLING OPERATOR procedure are i n the results section. POC GLUCOSE Routine 10/06/2019 11:50 Results for this AM PICKLING OPERATOR procedure are i n the results section. POC GLUCOSE Routine 10/06/2019 7:46 Results for this AM PICKLING OPERATOR procedure are i n the results section. ESTIMATED GFR Routine 10/06/2019 3:20 Results fo r this AM PICKLING OPERATOR procedure are i n the results section. MAGNESIUM LEVEL Routine 10/06/2019 3:20 Results for this AM PICKLING OPERATOR procedure are i n the results section. BASIC METABOLIC PANEL Routine 10/06/2019 3:20 Re sults for this AM PICKLING OPERATOR procedure are i n the results section. HC COMPLETE BLD COUNT Routine 10/06/2019 3:20 Re sults for this W/AUTO DIFF AM PICKLING OPERATOR procedure are i n the results section. PHOSPHORUS LEVEL Routine 10/06/2019 3:20 Results for this AM PICKLING OPERATOR procedure are i n the results section. POC GLUCOSE Routine 10/06/2019 3:17 Results for this AM PICKLING OPERATOR procedure are i n the results section. POC GLUCOSE Routine 10/05/2019 11:29 Results for this PM PICKLING OPERATOR procedure are i n the results section. CONSULT TO OSTOMY CARE Routine 10/05/2019 8:28 NURSE PM PICKLING OPERATOR POC GLUCOSE Routine 10/05/2019 4:48 Results for this PM PICKLING OPERATOR procedure are i n the results section. POC GLUCOSE Routine 10/05/2019 12:48 Results for this PM PICKLING OPERATOR procedure are i n the results section. POC GLUCOSE Routine 10/05/2019 12:06 Results for this PM PICKLING OPERATOR procedure are i n the results section. FREE PHENYTOIN LEVEL Routine 10/05/2019 12:00 Res ults for this PM PICKLING OPERATOR procedure are i n the results section. POC GLUCOSE Routine 10/05/2019 8:57 Results for this AM PICKLING OPERATOR procedure are i n the results section. POC GLUCOSE Routine 10/05/2019 5:42 Results for this AM PICKLING OPERATOR procedure are i n the results section. ESTIMATED GFR Routine 10/05/2019 2:00 Results fo r this AM PICKLING OPERATOR procedure are i n the results section. HC COMPLETE BLD COUNT Routine 10/05/2019 2:00 Re sults for this W/AUTO DIFF AM PICKLING OPERATOR procedure are i n the results section. PHOSPHORUS LEVEL Routine 10/05/2019 2:00 Results for this AM PICKLING OPERATOR procedure are i n the results section. MAGNESIUM LEVEL Routine 10/05/2019 2:00 Results for this AM PICKLING OPERATOR procedure are i n the results section. BASIC METABOLIC PANEL Routine 10/05/2019 2:00 Re sults for this AM PICKLING OPERATOR procedure are i n the results section. POC GLUCOSE Routine 10/05/2019 1:53 Results for this AM PICKLING OPERATOR procedure are i n the results section. POC GLUCOSE Routine 10/04/2019 9:26 Results for this PM PICKLING OPERATOR procedure are i n the results section. POC GLUCOSE Routine 10/04/2019 5:07 Results for this PM PICKLING OPERATOR procedure are i n the results section. POC GLUCOSE Routine 10/04/2019 12:33 Results for this PM PICKLING OPERATOR procedure are i n the results section. POC GLUCOSE Routine 10/04/2019 8:41 Results for this AM PICKLING OPERATOR procedure are i n the results section. VANCOMYCIN LEVEL, Timed 10/04/2019 5:00 Result s for this TROUGH AM PICKLING OPERATOR procedure are i n the results section. ESTIMATED GFR Routine 10/04/2019 5:00 Results fo r this AM PICKLING OPERATOR procedure are i n the results section. HC COMPLETE BLD COUNT Routine 10/04/2019 5:00 Re sults for this W/AUTO DIFF AM PICKLING OPERATOR procedure are i n the results section. PHOSPHORUS LEVEL Routine 10/04/2019 5:00 Results for this AM PICKLING OPERATOR procedure are i n the results section. MAGNESIUM LEVEL Routine 10/04/2019 5:00 Results for this AM PICKLING OPERATOR procedure are i n the results section. BASIC METABOLIC PANEL Routine 10/04/2019 5:00 Re sults for this AM PICKLING OPERATOR procedure are i n the results section. POC GLUCOSE Routine 10/04/2019 4:50 Results for this AM PICKLING OPERATOR procedure are i n the results section. POC GLUCOSE Routine 10/04/2019 12:40 Results for this AM PICKLING OPERATOR procedure are i n the results section. POC GLUCOSE Routine 10/03/2019 8:44 Results for this PM PICKLING OPERATOR procedure are i n the results section. POC GLUCOSE Routine 10/03/2019 6:05 Results for this PM PICKLING OPERATOR procedure are i n the results section. POTASSIUM LEVEL Routine 10/03/2019 5:30 Results for this PM PICKLING OPERATOR procedure are i n the results section. PHOSPHORUS LEVEL Routine 10/03/2019 5:30 Results for this PM PICKLING OPERATOR procedure are i n the results section. MAGNESIUM LEVEL Routine 10/03/2019 5:30 Results for this PM PICKLING OPERATOR procedure are i n the results section. IONIZED CALCIUM Routine 10/03/2019 5:30 Results for this PM PICKLING OPERATOR procedure are i n the results section. IR RIGHT NEPHROSTOMY STAT 10/03/2019 4:54 Res ults for this INITIAL PLACEMENT PM PICKLING OPERATOR procedure are in the results section. ANESTHESIA INTUBATION Routine 10/03/2019 3:03 Re sults for this PM PICKLING OPERATOR procedure are i n the results section. POC GLUCOSE Routine 10/03/2019 1:09 Results for this PM PICKLING OPERATOR procedure are i n the results section. POC GLUCOSE Routine 10/03/2019 8:16 Results for this AM PICKLING OPERATOR procedure are i n the results section. POC GLUCOSE Routine 10/03/2019 4:46 Results for this AM PICKLING OPERATOR procedure are i n the results section. ESTIMATED GFR Routine 10/03/2019 3:10 Results fo r this AM PICKLING OPERATOR procedure are i n the results section. PROTHROMBIN TIME WITH Routine 10/03/2019 3:10 Re sults for this INR AM PICKLING OPERATOR procedure are i n the results section. PARTIAL THROMBOPLASTIN Routine 10/03/2019 3:10 R esults for this TIME (PTT) AM PICKLING OPERATOR procedure are i n the results section. TYPE AND SCREEN Routine 10/03/2019 3:10 Results for this AM PICKLING OPERATOR procedure are i n the results section. LACTIC ACID LEVEL Routine 10/03/2019 3:10 Result s for this AM PICKLING OPERATOR procedure are i n the results section. HC COMPLETE BLD COUNT Routine 10/03/2019 3:10 Re sults for this W/AUTO DIFF AM PICKLING OPERATOR procedure are i n the results section. PHOSPHORUS LEVEL Routine 10/03/2019 3:10 Results for this AM PICKLING OPERATOR procedure are i n the results section. MAGNESIUM LEVEL Routine 10/03/2019 3:10 Results for this AM PICKLING OPERATOR procedure are i n the results section. BASIC METABOLIC PANEL Routine 10/03/2019 3:10 Re sults for this AM PICKLING OPERATOR procedure are i n the results section. POC GLUCOSE Routine 10/03/2019 12:51 Results for this AM PICKLING OPERATOR procedure are i n the results section. POC GLUCOSE Routine 10/02/2019 8:50 Results for this PM PICKLING OPERATOR procedure are i n the results section. POC GLUCOSE Routine 10/02/2019 4:41 Results for this PM PICKLING OPERATOR procedure are i n the results section. POC GLUCOSE Routine 10/02/2019 12:18 Results for this PM PICKLING OPERATOR procedure are i n the results section. US RENAL Routine 10/02/2019 12:02 Results for this PM PICKLING OPERATOR procedure are i n the results section. LACTIC ACID LEVEL, Timed 10/02/2019 10:09 Resul ts for this SEPSIS - NOW AND REPEAT AM PICKLING OPERATOR proc edure are in 2X EVERY 3 HOURS the results section. BLOOD CULTURE, AEROBIC Routine 10/02/2019 10:09 R esults for this & ANAEROBIC AM PICKLING OPERATOR procedure are i n the results section. POC GLUCOSE Routine 10/02/2019 8:18 Results for this AM PICKLING OPERATOR procedure are i n the results section. LACTIC ACID LEVEL, Timed 10/02/2019 7:45 Resul ts for this SEPSIS - NOW AND REPEAT AM PICKLING OPERATOR proc edure are in 2X EVERY 3 HOURS the results section. XR ABDOMEN 1 VW Routine 10/02/2019 7:40 Results for this PORTABLE AM PICKLING OPERATOR procedure are i n the results section. XR CHEST 1 VW PORTABLE Routine 10/02/2019 7:30 R esults for this AM PICKLING OPERATOR procedure are i n the results section. GRAM STAIN STAT 10/02/2019 6:18 Results for this AM PICKLING OPERATOR procedure are i n the results section. URINE CULTURE STAT 10/02/2019 6:18 Results fo r this AM PICKLING OPERATOR procedure are i n the results section. ECG 12-LEAD Routine 10/02/2019 5:01 Results for this AM PICKLING OPERATOR procedure are i n the results section. THYROID STIMULATING STAT 10/02/2019 4:45 Resu lts for this HORMONE AM PICKLING OPERATOR procedure are i n the results section. PHENYTOIN LEVEL STAT 10/02/2019 4:45 Results for this AM PICKLING OPERATOR procedure are i n the results section. T4, FREE STAT 10/02/2019 4:45 Results for this AM PICKLING OPERATOR procedure are i n the results section. ESTIMATED GFR STAT 10/02/2019 4:45 Results fo r this AM PICKLING OPERATOR procedure are i n the results section. MAGNESIUM LEVEL STAT 10/02/2019 4:45 Results for this AM PICKLING OPERATOR procedure are i n the results section. PHOSPHORUS LEVEL STAT 10/02/2019 4:45 Results for this AM PICKLING OPERATOR procedure are i n the results section. LACTIC ACID LEVEL STAT 10/02/2019 4:45 Result s for this AM PICKLING OPERATOR procedure are i n the results section. CREATINE KINASE, TOTAL STAT 10/02/2019 4:45 R esults for this (CPK) AM PICKLING OPERATOR procedure are i n the results section. TROPONIN STAT 10/02/2019 4:45 Results for this AM PICKLING OPERATOR procedure are i n the results section. COMPREHENSIVE METABOLIC STAT 10/02/2019 4:45 Results for this PANEL AM PICKLING OPERATOR procedure are i n the results section. FREE PHENYTOIN LEVEL Routine 10/02/2019 4:45 Res ults for this AM PICKLING OPERATOR procedure are i n the results section. ARTERIAL BLOOD GAS Routine 10/02/2019 4:45 Resul ts for this AM PICKLING OPERATOR procedure are i n the results section. PARTIAL THROMBOPLASTIN STAT 10/02/2019 4:45 R esults for this TIME (PTT) AM PICKLING OPERATOR procedure are i n the results section. PROTHROMBIN TIME WITH STAT 10/02/2019 4:45 Re sults for this INR AM PICKLING OPERATOR procedure are i n the results section. URINALYSIS SCREEN AND STAT 10/02/2019 4:45 Re sults for this MICROSCOPY, WITH REFLEX AM PICKLING OPERATOR proc edure are in TO CULTURE the results section. HC COMPLETE BLD COUNT STAT 10/02/2019 4:45 Re sults for this W/AUTO DIFF AM PICKLING OPERATOR procedure are i n the results section. RESPIRATORY PATHOGEN Routine 10/02/2019 4:37 Res ults for this PANEL WITH COVID-19 AM PICKLING OPERATOR procedur e are in the results section. INFLUENZA ANTIGEN TEST, Routine 10/02/2019 4:37 Results for this REFLEX NEGATIVE TO RPP AM PICKLING OPERATOR proce dure are in the results section. BLOOD CULTURE, AEROBIC Routine 10/02/2019 4:30 R esults for this AM PICKLING OPERATOR procedure are i n the results section. BLOOD CULTURE, AEROBIC STAT 10/02/2019 4:30 R esults for this & ANAEROBIC AM PICKLING OPERATOR procedure are i n the results section. POC GLUCOSE Routine 10/02/2019 4:08 Results for this AM PICKLING OPERATOR procedure are i n the results section. after 08/23/2019 Results POC glucose (10/11/2019 8:14 AM PICKLING OPERATOR)Only the most recent of52 resultswithin the time period is included. Pathologist Sig nature POC glucose 91 65 - 99 mg/dL [facility] MORAVIAN Comment: HOSPITAL Head Of Drama Name: Chris Wilcox Device ID: [id number] Chartable: [facility] Notified RN Specimen Performing Organization Address City/[facility] Phon e Number [facility] DEPARTMENT OF PATHOLOGY AND [address] [place] [id number] Estimated GFR (10/11/2019 3:21 AM PICKLING OPERATOR)Only the most recent of8 resultswithin the time period is included. Estimated GFR >=90 mL/min/1.73 [facility] CONTRERAS Comment: HOSPITAL Catergory Units Interpretation G1 >=90 [...] 2014. Specimen Plasma specimen Performing Organization Address City/[facility] Phon e Number [facility] DEPARTMENT OF PATHOLOGY AND [address] [place], [place] [id number] [address] [address] Phosphorus level (10/11/2019 3:21 AM PICKLING OPERATOR)Only the most recent of7 resultswithin the time period is included. Pathologist Sig nature Phosphorus 3.1 2.4 - 4.5 mg/dL [facility] Specimen Plasma specimen Performing Organization Address [facility] [place]/[facility] Phon e Number [facility] DEPARTMENT OF PATHOLOGY AND [address] [place] [address] [address] Magnesium level (10/11/2019 3:21 AM PICKLING OPERATOR)Only the most recent of7 resultswithin the time period is included. Pathologist Sig nature Magnesium 2.1 1.6 - 2.6 mg/dL [facility] Specimen Plasma specimen Performing Organization Address [facility] [place]/[facility] Phon e Number [facility] DEPARTMENT OF PATHOLOGY AND [address] [place] [address] [address] Basic metabolic panel (10/11/2019 3:21 AM PICKLING OPERATOR)Only the most recent of7 results within the time period is included. Pathologist Sig nature Sodium 137 135 - 148 mEq/L [facility] Potassium 4.1 3.5 - 5.0 mEq/L [facility] Chloride 101 98 - 112 mEq/L [facility] CO2 25 24 - 31 mEq/L [facility] Anion gap 11@ANIO 7 - 15 mEq/L [facility] BUN 16 6 - 20 mg/dL [facility] Creatinine 0.48 (L) 0.70 - 1.20 mg/dL [facility] Glucose 121 (H) 65 - 99 mg/dL [facility] Calcium 9.4 8.3 - 10.2 mg/dL [facility] Specimen Plasma specimen Performing Organization Address [facility] [place]/[facility] Phon e Number [facility] DEPARTMENT OF PATHOLOGY AND [address] [place], [place] [phone] [address] [address] CBC with platelet and differential (10/11/2019 3:00 AM PICKLING OPERATOR)Only the most recent of8 resultswithin the time period is included. WBC 6.12 4.50 - 11.00 [facility] k/uL [facility] RBC 4.56 4.40 - 6.00 [facility] m/uL [facility] HGB 13.2 (L) 14.0 - 18.0 [facility] g/dL HOSPITAL HCT 41.3 41.0 - 51.0 % [facility] MCV 90.6 82.0 - 100.0 [facility] MCH 28.9 27.0 - 34.[address] [facility] MCHC 32.0 31.0 - 37.0 [facility] g/dL [facility] RDW - SD 46.0 37.0 - 55.[address] [facility] MPV 11.9 8.8 - 13.[address] [facility] Platelet count 281 150 - 400 k/uL [facility] Nucleated RBC 0.00 /[address] [facility] Neutrophils 62.5 39.0 - 69.0 % [facility] Lymphocytes 25.2 25.0 - 45.0 % [facility] Monocytes 8.0 0.0 - 10.0 % [facility] Eosinophils 2.6 0.0 - 5.0 % [facility] Basophils 0.7 0.0 - 1.0 % [facility] Immature granulocytes 1.0Comment: 0.0 - 1.0 % [facility] "Immature HOSPITAL granulocytes" (promyelocytes , myelocytes, metamyelocytes ) Specimen Blood Performing Organization Address City/[facility] Phon e Number [facility] DEPARTMENT OF PATHOLOGY AND [address] [place] [address] [address] Free phenytoin level (10/10/2019 10:41 PM PICKLING OPERATOR)Only the most recent of4 results within the time period is included. Phenytoin, free 0.50 (L) 1.00 - 2.00 [facility] Comment: ug/mL MORAVIAN This test has been modified from the manufacturers HOSPITAL instructions. The performance characteristics were determined by [facility] in a manner consistent with CLIA requirements. This test has not been cleared or approved by the U.S. Food and Drug Administration. Specimen Blood Performing Organization Address City/[facility] Phon e Number [facility] DEPARTMENT OF PATHOLOGY AND [address] [place] [address] [phone] [address] Vancomycin level, trough (10/04/2019 5:00 AM PICKLING OPERATOR) Vancomycin, 12.7 10.0 - 20.0 [facility] trough Comment: ug/mL HOSPITAL Therapeutic Ranges: Peak 30.0 - 40.0 ug/mL Trough 10.0 - 20.0 ug/mL Specimen Serum Performing Organization Address City/[facility] Phon e Number [facility] DEPARTMENT OF PATHOLOGY AND [address] [place] [address] [phone] [address] Potassium level (10/03/2019 5:30 PM PICKLING OPERATOR) Pathologist Sig nature Potassium 4.2 3.5 - 5.0 mEq/L [facility] Specimen Plasma specimen Performing Organization Address City/[facility] Phon e Number [facility] DEPARTMENT OF PATHOLOGY AND [address] [place] [address] [phone] [address] Ionized calcium (10/03/2019 5:30 PM PICKLING OPERATOR) Pathologist Sig nature pH 7.45 [facility] Ionized calcium 1.12 1.11 - 1.32 mmol/L [facility] Specimen Plasma specimen Performing Organization Address [facility] [place]/[facility] Phon e Number [facility] DEPARTMENT OF PATHOLOGY AND [address] [place] [address] [phone] [address] IR Nephrostomy Insertion Right (10/03/2019 4:54 PM PICKLING OPERATOR) Specimen Narrative Performed At Performing Radiologist CHIRAG Cheney MD Assistants None Anesthesia Type General anesthesia provided by physiolog ic. Pre Procedure Diagnosis 39-year-old male with staghorn [...] the Accu stick set sheath. A 4 Estonian glide catheter was advanced through the out er portion of the AccuStick set sheath and a 0.035 inch Glidewire was us ed to navigate the system into the urinary bladder. The Glidewire was exc hanged for an Amplatz wire and after tract dilation a 26 cm, 8.5-Estonian percutaneous nephroureteral catheter was then placed. The [...] and hydroureter. 3. Successful placement of an 8.5-Estonian right percu taneous nephroureteral catheter, as detailed above. The cathet er pigtail was formed within the right renal pelvis. This catheter wa s placed to gravity bag drainage. 4. Hydronephrosis is also prominent in the upper pole, and if patient symptomatically doesn't improve, upper pole access and drainage may be necessary. [facility]-[id number] Procedure Note Interface, Radiology Results Incoming - 10/03/2019 5:26 PM PICKLING OPERATOR Performing Radiologist Arpan Cheney MD Assistants None [...] the Accu stick set sheath. A 4 Estonian glide catheter was advanced t hrough the outer portion of the AccuStick set sheath and a 0.035 inch Glidewire was used to navigate the system into the urinary bladder. The Glidewire was exchanged for an Amplatz wire and after tract dilation a 26 cm, 8.5-Estonian percutaneous nephroure teral catheter was then placed. [...] pole access and drainage may be necessary. [facility]-[id number] Performing Organization Address City/[facility]/ZIP Code Phon e Number [facility] [address] [place] [address] Airway (10/03/2019 3:03 PM PICKLING OPERATOR) Narrative Performed At Zuleyma Perez CRNA 10/03/2019 3:03 PM Airway Performed by: Zuleyma Perez CRNA Authorized by: Roxanna Mera MD Location: [place] Difficult Airway: No Resident/NUCLEAR MEDICINE MEDICAL DIRECTOR/AA: Zuleyma Perez CRNA Preoxygenated with 100% O2: [...] Partial thromboplastin time, activated (10/03/2019 3:10 AM PICKLING OPERATOR)Only the most recent of2 resultswithin the time period is included. PTT 29.8 23.0 - 36.0 [facility] Comment: [facility] PTT therapeutic range for unfractionated heparin is 61.0-112.0 seconds which corresponds to Anti-Xa 0.3-0.7 U/ml. Specimen Blood Performing Organization Address City/State/ZIP Code Phon e Number [facility] DEPARTMENT OF PATHOLOGY AND [address] [place] [address] [phone] [facility] [address] [place] [address] Prothrombin time with INR (10/03/2019 3:10 AM PICKLING OPERATOR)Only the most recent of2 resultswithin the time period is included. Prothrombin time 15.2 (H) 11.5 - 14.5 [facility] INR 1.2 [facility] Comment: [facility] International Normalized Ratio (INR) is a [facility] monitoring tool for patients who are stable on oral anticoagulant therapy. An INR of 2.0-3.0 is suggested for deep vein thrombosis/pulmonary embolism. Specimen Blood Performing Organization Address City/[facility]/ZIP [facility] Phon e Number [facility] DEPARTMENT OF PATHOLOGY AND [address] [place] [address] [address] Type and screen (10/03/2019 3:10 AM PICKLING OPERATOR) Pathologist Sig nature ABO grouping A [facility] Rh type POS [facility] Antibody screen (gel) NEG [facility] Specimen Blood Performing Organization Address [facility] [place]/[facility] Phon e Number [facility] DEPARTMENT OF PATHOLOGY AND [address] [place] [address] [phone] [address] Lactic acid level (10/03/2019 3:10 AM PICKLING OPERATOR)Only the most recent of2 results within the time period is included. Pathologist Sig nature Lactic acid 1.0 0.5 - 2.2 mmol/L [facility] Specimen Plasma specimen Performing Organization Address City/[facility] Phon e Number [facility] DEPARTMENT OF PATHOLOGY AND [address] [place] [address] [phone] [address] US Renal (10/02/2019 12:02 PM PICKLING OPERATOR) Specimen Narrative Performed At EXAMINATION: US RENAL [...] present in the decom pressed urinary bladder. [facility]-[id number] Procedure Note Hm Interface, Radiology Results Incoming - 10/02/2019 1:01 PM PICKLING OPERATOR EXAMINATION: US RENAL CLINICAL HISTORY: Pyelonephritis compl [...] present in the decom pressed urinary bladder. [facility]-[id number] Performing Organization Address [facility] [place]/[facility] Phon e Number [facility] [address] [place] [address] Lactic acid level, SEPSIS - Now and repeat 2x every 3 hours (10/02/2019 10:09 AM PICKLING OPERATOR)Only the most recent of2 resultswithin the time period is included. Pathologist Sig nature Lactic acid 1.0 0.5 - 2.2 mmol/L [facility] Specimen Blood Performing Organization Address [facility] [place]/[facility]/ZIP [facility] Phon e Number [facility] DEPARTMENT OF PATHOLOGY AND [address] [place] [address] [phone] [address] Blood culture, aerobic & anaerobic (10/02/2019 10:09 AM PICKLING OPERATOR)Only the most recent of2 resultswithin the time period is included. Blood culture No growth after 5 days of incubation. FLORESITA CONTRERAS isolate Comment: HOSPITAL Specimen Information Specimen Source: Blood Specimen Site: Hand, left Specimen Blood - Hand, left Performing Organization Address [facility] [place]/[facility] Phon e Number [facility] DEPARTMENT OF PATHOLOGY AND [address] [place], [place] [phone] [address] [address] XR Abdomen 1 Vw Portable (10/02/2019 7:40 AM PICKLING OPERATOR) Specimen Narrative Performed At EXAMINATION: [employer] XR ABDOMEN 1 VW PORTABLE CLINICAL HISTORY: [...] the co ashley. No small bowel dilation. [facility]-[id number] Procedure Note Interface, Radiology Results Incoming - 10/02/2019 8:02 AM PICKLING OPERATOR EXAMINATION: XR ABDOMEN 1 VW PORTABLE CLINICAL [...] the co ashley. No small bowel dilation. [facility]-[id number] Performing Organization Address [facility] [place]/[facility] Ph[facility] e [facility] [address] [place] [address] XR Chest 1 Vw Portable (10/02/2019 7:30 AM PICKLING OPERATOR) Specimen Narrative Performed At EXAMINATION: XR CHEST 1 VW PORTABLE RADIANT CLINICAL HISTORY: ICU pt unstable or clinical worsening COMPARISON: None IMPRESSION: Mild patchy bibasilar atelectasis Hypoinflation of the lungs Tiny right costophrenic angle effusion No central congestion No pneumothorax. The Cardiomediastinal silhouette is norm al in size Single view chest. [id number] Procedure Note Interface, Radiology Results Incoming - 10/02/2019 9:19 AM PICKLING OPERATOR EXAMINATION: XR CHEST 1 VW PORTABLE CLINICAL HISTORY: ICU pt unstable or c linical worsening COMPARISON: None IMPRESSION: Mild patchy bibasilar atelectasis Hypoinflation of the lungs Tiny right costophrenic angle effusion No central congestion No pneumothorax. The Cardiomediastinal silhouette is norm al in size Single view chest. [id number] Performing Organization Address [facility] [place]/[facility] Phon e Number [facility] [address] [place] [address] Gram stain (10/02/2019 6:18 AM PICKLING OPERATOR) Gram stain result Occasional WBC's [facility] Rare Gram positive cocci in pairs HOSPITA L Rare Gram positive rods Comment: Specimen Information Specimen Source: Urine Specimen Site: Suprapubic/ Specimen Urine - Suprapubic Performing Organization Address City/[facility] Phon e Number [facility] DEPARTMENT OF PATHOLOGY AND [address] [place] [phone] GENOMIC MEDICINE [address] [address] Urine culture (10/02/2019 6:18 AM PICKLING OPERATOR) Urine culture Enterococcus faecalis JUAN ANTONIO CONTRERAS isolate colony count undetermined, HOSPITAL probably due to inhibiting substance. The performance characteristics of this assay on this isolate were validated by the Microbiology Laboratory at [facility]. This source has not been approve d [...] Urine Specimen Site: Suprapubic/ Urine culture Providencia stronny CONTRERAS isolate colony count undetermined, HOSPITAL probably due to inhibiting substance. The performance characteristics of this assay on this isolate were validated by the Microbiology Laboratory at [facility]. This source has not been approve d [...] LÓPEZ mcg/mL: Re sistant Performing Organization Address City/State/ZIP Code Phon e Number [facility] DEPARTMENT OF PATHOLOGY AND [address] [place] [address] 0 GENOMIC MEDICINE [address] [address] ECG 12 lead (10/02/2019 5:01 AM PICKLING OPERATOR) Pathologist Sig nature Ventricular rate 101 [facility] Atrial rate 101 [facility] ID interval 188 [facility] QRSD interval 92 [facility] QT interval 354 [facility] QTC interval 459 [facility] P axis 1 44 [facility] QRS axis 1 76 [facility] T wave axis 47 [facility] EKG impression Sinus [facility] MUSE tachycardia-Otherwise normal ECG-In automated comparison with ECG of 02-OCT-2019 05:00,-No significant change was found- Specimen Narrative Performed At This result has an attachment that is no t available. Performing Organization Address City/[facility] Phon e Number [facility] MUSE [address] [place] [address] Urinalysis screen and microscopy, with reflex to culture (10/02/2019 4:45 AM PICKLING OPERATOR) Specimen site Suprapubic [facility] Color, UA Danyelle [facility] Appearance, UA Cloudy [facility] Specific gravity, UA 1.046 (H) 1.001 - 1.035 [facility] pH, UA 6.0 5.0 - 8.5 [facility] Protein, UA 2+ (A) Negative [facility] Glucose, UA Negative Negative [facility] Ketones, UA Negative Negative [facility] Bilirubin, UA Negative Negative [facility] Blood, UA Moderate (A) Negative [facility] Nitrite, UA Negative Negative [facility] Urobilinogen, UA <2.[address] <[address]0 [facility] Leukocyte esterase, Large (A) Negative [facility] Epithelial cells, UA <1 /HPF [facility] WBC, UA >180 (H) 0 - 1 /HPF [facility] RBC, UA 63 (H) 0 - 5 /HPF [facility] Bacteria, UA None seen None seen [facility] WBC clumps, UA Moderate (A) [facility] Yeast, UA None seen [facility] Yeast with None seen [facility] pseudohyphae, UA HOSPITAL Specimen Urine Performing Organization Address [facility] [place]/[facility] Phon e Number [facility] DEPARTMENT OF PATHOLOGY AND [address] [place], [place] [address] [facility] [address] [place] [address] Troponin (10/02/2019 4:45 AM PICKLING OPERATOR) Troponin <0.006 0.000 - 0.040 [facility] Comment: ng/mL HOSPITAL In patients suspected of [...] ng/mL Specimen Plasma specimen Performing Organization Address [facility] [place]/[facility] Phon e Number [facility] DEPARTMENT OF PATHOLOGY AND [address] [place] [address] [address] Thyroid stimulating hormone (10/02/2019 4:45 AM PICKLING OPERATOR) Pathologist Sig on license of [facility] TSH 1.48 0.27 - 4.20 uIU/mL [facility] ITAL Specimen Plasma specimen Performing Organization Address [facility] [place]/[facility] Phon e Number [facility] DEPARTMENT OF PATHOLOGY AND [address] [place] [address] [address] T4, free (10/02/2019 4:45 AM PICKLING OPERATOR) Pathologist Sig nature T4, free 1.3 0.9 - 1.7 ng/dL [facility] Specimen Plasma specimen Performing Organization Address [facility] [place]/[facility] Phon e Number [facility] DEPARTMENT OF PATHOLOGY AND [address] [place] [address] [address] Arterial blood gas (10/02/2019 4:45 AM PICKLING OPERATOR) Pathologist Sig on license of [facility] pH, arterial 7.37 7.35 - 7.45 [facility] pCO2, arterial 43 35 - [address] [facility] pO2, arterial 66 (L) 80 - [address] [facility] Bicarbonate, 24.1 21.0 - 28.0 [facility] arterial mmol/L HOSPITAL Base excess, -1 -2 - 2 mEq/L [facility] O2 saturation, 93 (L) 95 - 100 % [facility] Specimen Blood Performing Organization Address [facility] [place]/[facility] Phon e Number [facility] DEPARTMENT OF PATHOLOGY AND [address] [place] [address] [phone] [address] Creatine kinase, total (CPK) (10/02/2019 4:45 AM PICKLING OPERATOR) Pathologist Sig nature Creatine kinase 39 39 - 308 U/L [facility] L Specimen Plasma specimen Performing Organization Address [facility] [place]/[facility] Phon e Number [facility] DEPARTMENT OF PATHOLOGY AND [address] [place] [address] [phone] [address] Phenytoin level (10/02/2019 4:45 AM PICKLING OPERATOR) Pathologist Sig nature Phenytoin 3.0 (L) 10.0 - 20.0 [facility] Comment: ug/mL HOSPITAL Therapeutic Range: 10 - 20 ug/mL Specimen Plasma specimen Performing Organization Address [facility] [place]/[facility] Phon e Number [facility] DEPARTMENT OF PATHOLOGY AND [address] [place] [address] [phone] [address] Comprehensive metabolic panel (10/02/2019 4:45 AM PICKLING OPERATOR) Sodium 145 135 - 148 [facility] mEq/L [facility] Potassium 3.4 (L) 3.5 - 5.0 [facility] mEq/L [facility] Chloride 111 98 - 112 mEq/L [facility] CO2 23 (L) 24 - 31 mEq/L [facility] Anion gap 11@ANIO 7 - 15 mEq/L [facility] BUN 21 (H) 6 - 20 mg/dL [facility] Creatinine 0.71 0.70 - 1.20 [facility] mg/dL HOSPITAL Glucose 92 65 - 99 mg/dL [facility] Calcium 8.4 8.3 - 10.2 [facility] mg/dL HOSPITAL Protein 6.7 6.3 - 8.3 g/dL [facility] Comment: HOSPITAL Qmqflam4742.6-7.0 g/dL 1 sctj5217.4-7.6 g/dL 7 months-9oxed363.1-7.3 g/dL 1-2 otqyf332.6-7.5 g/dL >3 .0-8.0 g/dL 18-1873476.3-8.3 g/dL Albumin 2.4 (L) 3.5 - 5.0 g/dL [facility] A/G ratio 0.6 (L) 0.7 - 3.8 [facility] Alkaline phosphatase 171 (H) 40 - 129 U/L [facility] AST 35 10 - 50 U/L [facility] ALT 60 (H) 5 - 50 U/L [facility] Total bilirubin 0.4 0.0 - 1.2 [facility] mg/dL HOSPITAL Specimen Plasma specimen Performing Organization Address City/[facility] Phon e Number [facility] DEPARTMENT OF PATHOLOGY AND [address] [place], [place] [phone] 0 GENOMIC MEDICINE [address] [address] Respiratory pathogen panel (10/02/2019 4:37 AM PICKLING OPERATOR) Respiratory Negative for all pathogens tested: [facility] panel Negative for Adenovirus [place]OR[place]IAN Negative for Coronavirus HKU1 [facility] Negative for Coronavirus NL63 Negative for Coronavirus [...] Specimen Nares - Left Performing Organization Address City/[facility] Phon e Number [facility] DEPARTMENT OF PATHOLOGY AND [address] [place] [address] [phone] [address] Influenza antigen test, reflex negative to RPP (10/02/2019 4:37 AM PICKLING OPERATOR) Influenza antigen Negative for Influenza A/B antigen. JUAN ANTONIO ZAPATAIST Comment: HOSPITAL Specimen Information Specimen Source: Nares Specimen Site: Left Specimen Nares - Left Performing Organization Address [facility] [place]/[facility] Phon e Number [facility] DEPARTMENT OF PATHOLOGY AND [address] [place] [address] [phone] [address] Blood culture, aerobic (10/02/2019 4:30 AM PICKLING OPERATOR) Blood culture No growth after 5 days of incubation. FLORESITA CONTRERAS isolate, aerobic Comment: HOSPITAL Specimen Information Specimen Source: Blood Specimen Site: Unspecified Specimen Blood Performing Organization Address [facility] [place]/[facility] Phon e Number [facility] DEPARTMENT OF PATHOLOGY AND [address] [place] [address] [address] after 08/23/2019 DR Lamin aldrich ([place]) [address] [place] [address] Advance Directives For more information, please contact: [phone] Type Date Recorded Patient Clinical Data Assistant Explanati on Advance Directives, Living Will and Medical Power of Stuffing Machine Operator
--- OUTSIDE RECORDS SUMMARY | 2020-08-23 20:53 | XMS REPORT | Continuity of Care Document ---
:1980 Author Organization [facility] t Address [address] [place] [address] Care Team Providers Name Role Phone Asked, Pcp Primary Care Physician Unavailable Juan Henley MD Attending Clinician Mike ASCENCIO Attending Clinician Audrey ASCENCIO, M. Attending Clinician Shae Wolfe MD Attending Clinician Shanelle ASCENCIO Attending Clinician Shena ASCENCIO Attending Clinician Ede ASCENCIO, M. Attending Clinician AUDREY Admitting Clinician Unavailable Payers Payer Name Policy Policy Effective Expiration Source Type Number Date Date AMERIGROUPAMERIGROUP [id number] 2017 [place] STAR+PLUS 00:00:00 Pentecostal [id number] 2016-Pres entHMO Problems Condition Condition Condition Status Onset Resolution Last Treating Co mments Source Name Details Category Date Date Treatment Clinician Date Enterococc Enterococc Disease Active 2020-0 [place] us UTI us UTI 1-13 Methodi 00:00: st 00 Staghorn Staghorn Disease Active 2019-0 [place] calculus calculus 1-05 Method i 00:[facility]: st 00 Hydronephr Hydronephr Disease Active 2020-0 [place] osis of osis of 105 [facility] right right 00:00: st kidney kidney 00 Anoxic Anoxic Disease Active [place] brain brain 05 Methodi damage damage 00:00: st 00 Spasticity Spasticity Disease Active 2020-0 [place] 105 Methodi 00:00: st 00 Pyelonephr Pyelonephr Disease Active 2020[facility] 00[facility] st 00 Severe Severe Disease Active [place] sepsis sepsis 10-02 Methodi 00:00: st 00 Fever Fever Disease Active [place] 05 Methodi 00:00: st 00 Leukocytos Leukocytos Disease Active [place] is is 05 Methodi 00:00: st 00 Seizure Seizure Disease Active [place] disorder disorder 10-02 Method i 00:00: st 00 Lactic Lactic Disease Active [place] acidosis acidosis 10-02 Method i 00:00: st 00 GERD GERD Disease Active [place] (gastroeso (gastroeso 10-02 Me thodi phageal phageal 00:00: st reflux reflux 00 disease) disease) Dysphagia Dysphagia Disease Active Johnathan pedroza 05 Methodi 00:00: st 00 Vomiting Vomiting Disease Active [place] 10-02 Methodi 00:00: st 00 UTI UTI Disease Active [place] (urinary (urinary 10-02 Method i tract tract [...] n. Aspirin Propensi Active Unknown Per , Johnathanpaula pedroza ty to Reaction 1-05 she was Methodi adverse 00:00: just told st reaction 00 by the s to nursing drug home the patient had this listed as an allergy but never noted this before. Unknown what his reaction to this is. Meperidi Propensi Active Unknown Per Johnathan yovany newman ty to Reaction 1-05 - she is Method i adverse 00:00: unsure of st reaction 00 his s to reaction drug to this Penicill Propensi Active Unknown 2019-0 [place] ins ty to Reaction 10-02 Methodi adverse 00:00: st reaction 00 s to drug Social History Social Habit Start Date Stop Date Quantity Comments Source Sex Assigned At [facility] ethodist Tobacco use and 2019-10-02 2019-10-02 Never used [facility] ethodist exposure 00:00:00 00:00:00 Alcohol intake 2019-10-02 2019-10-02 [facility] thodist 00:00:00 00:00:00 Medications Ordered Filled Start Stop Current Ordering Indication Dosage Frequency Signature Comments Components Source Medication Medication Date Date Medication? Clinician (SIG) Name Name phenytoin 2020- No 125mg Q6H Take 125 [place] (DILANTIN) 1-14 01-14 mg by Methodi 100 mg/4 mL 10:29: 00:[address] suspension 42 :00 every 6 (six) hours. levoFLOXaci 2019- 2020- No 500mg QD Take 500 [place] n -11 10-14 mg by Methodi (LEVAQUIN) 10:29: 00:[address] 500 MG 42 :00 daily. tablet Unclear start date. Intended for 7 days of therapy. Started prior to 10/02/2019 Lactobacill 2020-0 Yes 1{packe QD Take 1 [place] us 1-14 t} packet by Sonia acidoph-L.b 10:29: mouth st ulgar 37 daily. (FLORANEX) 1 million cell tablet artificial 2020-0 Yes 1[drp] Q.5D Administer [place] tears,hypro -14 1 drop to Met mary noriega, 10:29: both eyes st (SYSTANE/GE 37 2 (two) NTEAL) 0.3 times a % gel day. ibuprofen 2020-0 Yes Q8H Take by [place] (MOTRIN) 1-14 mouth Methodi 100 mg/5 mL 10:29: every 8 st suspension 37 (eight) hours as needed for mild pain. lactulose 2020-0 Yes 10g QD Take 10 g Johnathan ston 10 gram/15 1-14 by mouth Metho di mL (15 mL) 10:29: nightly. st solution 37 oxybutynin 2020-0 Yes 5mg Q.5D Take 5 mg [place] (DITROPAN) 1-14 by mouth 2 Met fredi 5 MG tablet 10:29: (two) st 37 times a day. omeprazole 2020-0 Yes 20mg QD Take 20 mg [place] (PriLOSEC) -14 by mouth Metho di 20 MG 10:29: daily. st capsule 37 traMADol 2020-0 Yes acute pain 50mg Q8H Take 50 mg [place] (ULTRAM) 50 -14 by mouth Meth kingsley mg tablet 10:29: every 8 st 37 (eight) hours as needed for moderate pain .acute pain. phenytoin 2019-0 2020- No 125mg Q6H Take 5 mL [place] (DILANTIN) 10-10 (125 mg Metho di 100 mg/4 mL 00:00: 23:59 total) by st suspension 00 :00 mouth every 6 (six) hours for 30 days. bacitracin 2020-0 2020- No Q.5D Apply [place] ointment 10-10 topically Metho di tube 00:00: 23:59 2 (two) st 00 :00 times a day for 30 days. baclofen 5 2019-0 2020- No 5mg Q.[id number] 5 mg by [place] mg tablet 10-10 [id number] g-tube M ethodi 00:00: 23:[address] 00 :00 (three) times a day for 30 days. povidone-io 2019-0 2020- No Q.5D Apply [place] dine 10-10 topically Methodi (BETADINE) 00:00: 23:59 2 (two) st 10 % 00 :00 times a external day for 30 solution days. Immunizations Ordered Immunization Filled Immunization Date Status Commen ts Source Name Name FLUCELVAX QUAD PF 2019-10-11 Completed [place] 00:00:00 Pentecostal Vital Signs Vital Name Observation Time Observation Value Comments Source Systolic blood 2019-10-11 08:12:54 138 mm[Hg] [place] [facility] pressure Diastolic blood 2019-10-11 08:12:54 76 mm[Hg] [place] [facility]al pressure Heart rate 2019-10-11 08:12:54 84 /min [place] Pent[facility]ostal Body temperature 2019-10-11 08:12:54 35.56 [place] [facility] Respiratory rate 2019-10-11 08:12:54 18 /min [place] [facility]al Oxygen saturation in 2019-10-11 08:12:54 98 /min Pete Caballeroist Arterial blood by Pulse oximetry Body height 2019-10-09 19:05:00 172.7 cm Pete Mendiola Body weight 2019-10-02 04:15:00 65 kg Pete Mendiola BMI 2019-10-02 04:15:00 21.79 kg/m2 Pete Caballeroist Procedures Procedure Date / Time Performing Clinician Source Performed POC GLUCOSE 2019-10-11 08:14:00 On[place]mi west Meth odist BASIC METABOLIC PANEL 2019-10-11 03:21:00 Jailyn Andresto n Pentecostal MAGNESIUM LEVEL 2019-10-11 03:21:00 Jailyn Andres Meth odist PHOSPHORUS LEVEL 2019-10-11 03:21:00 Jailyn Andres Met hodist ESTIMATED GFR 2019-10-11 03:21:00 OnaiwuDelmi Meth odist HC COMPLETE BLD COUNT 2019-10-11 03:00:00 Jailyn Andresto n Pentecostal W/AUTO DIFF POC GLUCOSE 2019-10-11 00:14:00 OnaiwuDelmi Meth odist FREE PHENYTOIN LEVEL 2019-10-10 22:41:00 Esteban Juárez Pentecostal POC GLUCOSE 2019-10-10 21:32:00 OnaiwuDelmi Meth odist FREE PHENYTOIN LEVEL 2019-10-10 18:00:00 Jailene Contreras Pentecostal POC GLUCOSE 2019-10-10 11:34:00 OnaiwuDelmi Meth odist POC GLUCOSE 2019-10-10 08:15:00 Onaiwu, Delmi [facility] Meth odist POC GLUCOSE 2019-10-10 05:03:00 Karina Wolfe Me thodist HC COMPLETE BLD COUNT 2019-10-10 04:49:00 Jailene Contreras n Pentecostal W/AUTO DIFF BASIC METABOLIC PANEL 2019-10-10 04:49:00 Jailene Contrerasto n Pentecostal ESTIMATED GFR 2019-10-10 04:49:00 Karina Wolfe Me thodist POC GLUCOSE 2019-10-10 00:28:00 OnaiwDelmi mitchell Meth odist POC GLUCOSE 2019-10-09 21:22:00 YanethKarina [place] Me thodist POC GLUCOSE 2019-10-09 17:25:00 YanethKarina [place] Me thodist POC GLUCOSE 2019-10-09 11:32:00 WolfeKarina [place] Me thodist POC GLUCOSE 2019-10-09 07:55:00 YanethKarina [place] Me thodist POC GLUCOSE 2019-10-09 03:58:00 Yaneth Karina Shae [place] Me thodist HC COMPLETE BLD COUNT 2019-10-09 03:51:00 Jesus Alberto Euceda Pentecostal W/AUTO DIFF BASIC METABOLIC PANEL 2019-10-09 03:49:00 Jesus Alberto Euceda Pentecostal ESTIMATED GFR 2019-10-09 03:49:00 YanethKarina [facility] thodist POC GLUCOSE 2019-10-08 21:48:00 Yaneth Karinaelinor Kaufman [facility] thodist POC GLUCOSE 2019-10-08 16:41:00 Karina Wolfe Shae [facility] thodist POC GLUCOSE 2019-10-08 11:57:00 Yaneth Karinaelinor Kaufman [facility] thodist POC GLUCOSE 2019-10-08 07:32:00 YanethKarina [facility] thodist POC GLUCOSE 2019-10-08 05:17:00 YanethKarina [place] Me thodist POC GLUCOSE 2019-10-07 23:48:00 YanethKarina [facility] thodist POC GLUCOSE 2019-10-07 19:51:00 Yaneth Karinaelinor Kaufman [facility] thodist POC GLUCOSE 2019-10-07 17:13:00 Yaneth Karinaelinor Kaufman [place] Me thodist POC GLUCOSE 2019-10-07 11:53:00 Yaneth Karinaelinor Kaufman [facility] thodist POC GLUCOSE 2019-10-07 07:26:00 Yaneth Karinaelinor Kaumfan [place] Me thodist POC GLUCOSE 2019-10-06 23:24:00 YanethKarina [place] Me thodist POC GLUCOSE 2019-10-06 19:58:00 Yaneth Karinaelinor Kaufman [place] Me thodist POC GLUCOSE 2019-10-06 16:26:00 Karina Wolfe Shae [place] Me thodist POC GLUCOSE 2019-10-06 11:50:00 Karina Wolfe [facility] thodist POC GLUCOSE 2019-10-06 07:46:00 Karina Wolfe [facility] thodist PHOSPHORUS LEVEL 2019-10-06 03:20:00 Jose Donnelly Pentecostal HC COMPLETE BLD COUNT 2019-10-06 03:20:00 Moiz Wang Pentecostal W/AUTO DIFF BASIC METABOLIC PANEL 2019-10-06 03:20:00 Moiz Wang Pentecostal MAGNESIUM LEVEL 2019-10-06 03:20:00 FelipeLaney carlsonmichael [facility] Meth odist ESTIMATED GFR 2019-10-06 03:20:00 Karina Wolfe [facility] thodist POC GLUCOSE 2019-10-06 03:17:00 [facility] 2019-10-05 23:29:00 [facility] TO OSTOMY CARE 2019-10-05 20:28:48 Jesus Alberto Euceda on Pentecostal NURSE POC GLUCOSE 2019-10-05 16:48:00 Karina Wolfe Shae [facility] thodist POC GLUCOSE 2019-10-05 12:48:00 Alanna Ventura Co thodist POC GLUCOSE 2019-10-05 12:06:00 Alanna Ventura Co thodist FREE PHENYTOIN LEVEL 2019-10-05 12:00:00 Christopher Kang Pentecostal POC GLUCOSE 2019-10-05 08:57:00 Alanna Ventura Co thodist POC GLUCOSE 2019-10-05 05:42:00 Alanna Ventura Co thodist BASIC METABOLIC PANEL 2019-10-05 02:00:00 Elvia Coker Pentecostal MAGNESIUM LEVEL 2019-10-05 02:00:00 Elvia Coker ethodist PHOSPHORUS LEVEL 2019-10-05 02:00:00 Elvia Coker HC COMPLETE BLD COUNT 2019-10-05 02:00:00 Elvia Coker Pentecostal W/AUTO DIFF ESTIMATED GFR 2019-10-05 02:00:00 Elvia Coker ethodist POC GLUCOSE 2019-10-05 01:53:00 VenturaAlanna fatima Co thodist POC GLUCOSE 2019-10-04 21:26:00 VenturaAlanna fatima Co thodist POC GLUCOSE 2019-10-04 17:07:00 VenturaAlanna fatima Co thodist POC GLUCOSE 2019-10-04 12:33:00 VenturaAlanna fatima Co thodist POC GLUCOSE 2019-10-04 08:41:00 VenturaAlanna fatima Co thodist BASIC METABOLIC PANEL 2019-10-04 05:00:00 Elvia Coker Pentecostal MAGNESIUM LEVEL 2019-10-04 05:00:00 John Paul Elvia Slaughterbassam Pete Lowery ethodist PHOSPHORUS LEVEL 2019-10-04 05:00:00 Elvia Coker HC COMPLETE BLD COUNT 2019-10-04 05:00:00 Elvia Coker Pentecostal W/AUTO DIFF ESTIMATED GFR 2019-10-04 05:00:00 John Paul Elviaray Machuca Pete Lowery ethodist VANCOMYCIN LEVEL, TROUGH 2019-10-04 05:00:00 Moiz Wang Pentecostal POC GLUCOSE 2019-10-04 04:50:00 AudreyAlanna Co thodist POC GLUCOSE 2019-10-04 00:40:00 VenturaAlanna Co thodist POC GLUCOSE 2019-10-03 20:44:00 AudreyAlanna Co thodist POC GLUCOSE 2019-10-03 18:05:00 AudreyAlanna Co thodist IONIZED CALCIUM 2019-10-03 17:30:00 Kang, Christopher inman Pentecostal MAGNESIUM LEVEL 2019-10-03 17:30:00 Kang, Christopher inman Pentecostal PHOSPHORUS LEVEL 2019-10-03 17:30:00 Kang, Christopher walker Pentecostal POTASSIUM LEVEL 2019-10-03 17:30:00 KangChristopher mitchell n Pentecostal IR RIGHT NEPHROSTOMY 2019-10-03 16:54:59 Esteban Juárez Pentecostal INITIAL PLACEMENT ANESTHESIA INTUBATION 2019-10-03 15:03:04 Miquelcruz Zuleyma Johnathan Caballeroist POC GLUCOSE 2019-10-03 13:09:00 Alanna Ventura Co thodist POC GLUCOSE 2019-10-03 08:16:00 Alanna Ventura Co thodist POC GLUCOSE 2019-10-03 04:46:00 Alanna Ventura Co thodist BASIC METABOLIC PANEL 2019-10-03 03:10:00 Elvia Coker MAGNESIUM LEVEL 2019-10-03 03:10:00 John Paul, Elvia Lowery ethodist PHOSPHORUS LEVEL 2019-10-03 03:10:00 John Paul, Elvia Mendiola HC COMPLETE BLD COUNT 2019-10-03 03:10:00 John Paul, Elvia Mendiola W/AUTO DIFF LACTIC ACID LEVEL 2019-10-03 03:10:00 John Paul, Elvia Mendiola TYPE AND SCREEN 2019-10-03 03:10:00 John Paul, Elvia Lowery ethodist PARTIAL THROMBOPLASTIN 2019-10-03 03:10:00 Elvia Coker TIME (PTT) PROTHROMBIN TIME WITH INR 2019-10-03 03:10:00 Elvia Coker ESTIMATED GFR 2019-10-03 03:10:00 John Paul, Elvia Lowery ethodist POC GLUCOSE 2019-10-03 00:51:00 Alanna Ventura Co thodist POC GLUCOSE 2019-10-02 20:50:00 Alanna Ventura Co thodist POC GLUCOSE 2019-10-02 16:41:00 Alanna Ventuar Co thodist POC GLUCOSE 2019-10-02 12:18:00 Alanna Ventura Co thodist US RENAL 2019-10-02 12:02:52 Moiz Wang odfifi BLOOD CULTURE, AEROBIC & 2019-10-02 10:09:00 Christopher Kang ANAEROBIC LACTIC ACID LEVEL, SEPSIS 2019-10-02 10:09:00 Moiz Wang usmatthew Mendiola - NOW AND REPEAT 2X EVERY 3 HOURS POC GLUCOSE 2019-10-02 08:18:00 Alanna Ventura Co thodist LACTIC ACID LEVEL, SEPSIS 2019-10-02 07:45:00 Moiz Wang - NOW AND REPEAT 2X EVERY 3 HOURS XR ABDOMEN 1 VW PORTABLE 2019-10-02 07:40:00 Alanna Ventura Pentecostal XR CHEST 1 VW PORTABLE 2019-10-02 07:30:00 Moiz Wang Pentecostal URINE CULTURE 2019-10-02 06:18:00 Alanna Ventura Co thodist GRAM STAIN 2019-10-02 06:18:00 Alanna Ventura Co thodist ECG 12-LEAD 2019-10-02 05:01:02 Moiz Wang Meth odist HC COMPLETE BLD COUNT 2019-10-02 04:45:00 Moiz Wang W/AUTO DIFF URINALYSIS SCREEN AND 2019-10-02 04:45:00 Moiz Wang MICROSCOPY, WITH REFLEX TO CULTURE PROTHROMBIN TIME WITH INR 2019-10-02 04:45:00 Moiz Wang PARTIAL THROMBOPLASTIN 2019-10-02 04:45:00 Moiz Wang Pentecostal TIME (PTT) ARTERIAL BLOOD GAS 2019-10-02 04:45:00 Moiz Wang ethodist FREE PHENYTOIN LEVEL 2019-10-02 04:45:00 Moiz Wang COMPREHENSIVE METABOLIC 2019-10-02 04:45:00 Alanna Ventura PANEL TROPONIN 2019-10-02 04:45:00 Alanna Ventura Co thodist CREATINE KINASE, TOTAL 2019-10-02 04:45:00 Alanna Ventura (CPK) LACTIC ACID LEVEL 2019-10-02 04:45:00 Alanna Venturaist PHOSPHORUS LEVEL 2019-10-02 04:45:00 Alanna Ventura ethodist MAGNESIUM LEVEL 2019-10-02 04:45:00 Alanna Ventura Co thodist ESTIMATED GFR 2019-10-02 04:45:00 Alanna Ventura Me thodist T4, FREE 2019-10-02 04:45:00 Alanna Ventura Me thodist PHENYTOIN LEVEL 2019-10-02 04:45:00 Alanna Ventura Me thodist THYROID STIMULATING 2019-10-02 04:45:00 Alanna Ventura Pentecostal HORMONE INFLUENZA ANTIGEN TEST, 2019-10-02 04:37:00 Moiz Wang REFLEX NEGATIVE TO RPP RESPIRATORY PATHOGEN PANEL 2019-10-02 04:37:00 Alanna Ventura WITH COVID-19 BLOOD CULTURE, AEROBIC 2019-10-02 04:30:00 Alanna Ventura stostorm Mendiola POC GLUCOSE 2019-10-02 04:08:00 Alanna Ventura Me thodist Plan of Care Planned Activity Planned Date Details Comments Source Future Scheduled 2020-04-28 INFLUENZA VACCINE Armando inman Pentecostal Test 00:00:00 [code = INFLUENZA VACCINE] Encounters Start End Encounter Admission Attending Care Care Encounter Source Date/Time Date/Time Type Type Clinicians Facility Department ID 2020-03-05 2020-03-05 [facility] [id number] 10:10:00 23:59:00 Encounter [facility] [id number] [place] [id number] 2020-03-01 2020-03-01 Office [facility] [id number] 08:07:28 08:53:10 Visit [facility] [id number] [place] [id number] [facility] [id number] Primary & 204 Specialty Care 2020-03-01 2020-03-01 Telephone [facility] [id number] 00:00:00 00:00:00 [facility] [id number] [place] [id number] [facility] [id number] Primary & 204 Specialty Care 2019-10-02 2019-10-11 [facility] [id number] [place] 00:00:00 00:00:00 MEJIA [address] Results Test Description Test Time Test Comments Results Result Comments Source POC glucose 2019-10-11 08:14:58 Test Item Value Reference Range Interpretation Comme nts POC glucose (test code = 91 mg/dL 65-99 Ope rator Name: Chris Glass ID: [id number]) [id number] able: [facility] Notified ALENA MendiolaBasic metabolic [id number] 03:57:11 Test Item Value Reference Range Interpretation Comments Sodium (test code = 2951-2) 137 135- 148 mEq/L Potassium (test code = 2823-3) 4.1 3.5- 5.0 mEq/L Chloride (test code = 5-0) 101 98- 112 mEq/L CO2 (test code = 2027-9) 25 24- 31 mEq/L Anion gap (test code = 60900-7) 11@ANIO 7- 15 mEq/L BUN (test code = 3094-0) 16 mg/dL 6-20 Creatinine (test code = 2160-0) 0.48 mg/dL 0.7-1.2 L Glucose (test code = 2345-7) 121 mg/dL 65-99 H Calcium (test code = 74143-4) 9.4 mg/dL 8.3-10.2 Lab Interpretation (test code = Abnormal 03910-8) Pete MethodistMagnesium [id number] 03:57:11 Test Item Value Reference Range Interpretation Comments Magnesium (test code = 15212-3) 2.1 mg/dL 1.6-2.6 Freeman MethodistEstimated [id number] 03:57:11 Test Item Value Reference Range Interpretation Comments Estimated GFR (test >=90 mL/min/1.73 [facility]88) InterpretationG 1 >=90 Normal or highG2 60-89 Mildly pdxfimqhtR4g 45-59 Mildly to mode rately wzytoglcxX5a 30-44 Moderately to severely decreasedG4 15-29 Severely decre asedG5 <15 Kidn ey failureThe eGFR was calculated dez talavera the Chronic Kidney Disease Epidemiology Co llaboration (CKD-EPI) equat ion. Interpretation is based on recommendations of the National Kidney Foundation-Kidn ey Disease Outcomes Qualit y Initiative (NKF-KDOQI) pub lished in 2013. [place] MethodfifiPhosphorus [id number] 03:57:10 Test Item Value Reference Range Interpretation Comments Phosphorus (test code = 2777-1) 3.1 mg/dL 2.4-4.5 [place] MethodistCBC with platelet and [id number] 03:25:12 Test Item Value Reference Range Interpretation Comments WBC (test code = 95681-2) 6.12 4.50- 11.00 k/uL RBC (test code = 69771-1) 4.56 m/uL 4.4-6 HGB (test code = 718-7) 13.2 g/dL 14-18 L HCT (test code = 4544-3) 41.3 % 41-51 MCV (test code = 787-2) 90.6 fL 82-100 MCH (test code = 785-6) 28.9 pg 27-34 MCHC (test code = 786-4) 32.0 g/dL 31-37 RDW - SD (test code = 46.0 fL 37-55 39524-3) MPV (test code = 66267-4) 11.9 fL 8.8-13.2 Platelet count (test code 281 150- 400 k/uL = 33465-9) Nucleated RBC (test code 0.00 /100 WBC = 00651-0) Neutrophils (test code = 62.5 % 39-69 03707-9) Lymphocytes (test code = 25.2 % 25-45 73178-7) Monocytes (test code = 8.0 % 0-10 86873-2) Eosinophils (test code = 2.6 % 0-5 35578-2) Basophils (test code = 0.7 % 0-1 79153-2) Immature granulocytes 1.0 % 0-1 "Immat ure (test code = 55429-8) granul ocytes" (promyelocytes, myelocytes, metamyelocytes) Lab Interpretation (test Abnormal code = 98166-3) [place] MethodfifiFree phenytoin [id number] 00:25:54 Test Item Value Reference Range Interpretation [...] Administration. Lab Interpretation Abnormal (test code = 57206-6) Pete MendiolaBlood culture, aerobic & [id number] 14:03:07 Test Item Value Reference Range Interpretation Comments Blood culture No growth Specimen isolate (test after 5 days InformationSpe cimen code = 600-7) of Source: BloodS pecimen incubation. Site: Hand, lef t [place] MethodistBlood culture, [id number] 08:33:03 Test Item Value Reference Range Interpretation Comments Blood culture No growth Specimen isolate, after 5 days InformationSpec imen aerobic (test of Source: BloodS pecimen code = 974) incubation. Site: Unspecifi ed [place] FedericoistVancomycin level, [id number] 05:55:41 Test Item Value Reference Range Interpretation Comments Vancomycin, trough 12.7 ug/mL 10-20 Therapeut ic Ranges: (test code = Peak 30.0 - 40.0 42356-2) ug/mL Trough 10.0 - 20.0 ug/mL [place] MethodistPotassium [id number] 18:03:02 Test Item Value Reference Range Interpretation Comments Potassium (test code = 2823-3) 4.2 3.5- 5.0 mEq/L [facility] HospitalistIonized [id number] 18:02:39 Test Item Value Reference Range Interpretation Comments pH (test code = 2753-2) 7.45 Ionized calcium (test code = 1.12 mmol/L 1.11-1.32 ) [place] MethodistIR Nephrostomy Insertion [id number] 17:23:25Hm Interface, Radiology Results - 10/03/2019 5:26 PM CSTPerforming RadiologistRohit Shravan MDAssistantsNone Anesthesia TypeGeneral anesthesia [facility] by [facility].Pre Procedure Rsylwogqo57-gnem-hhx 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 The Glidewire was exchanged for an Amplatz wire and after tract dilationa 26 cm, 8.5-[place] Irish percutaneous nephroureteral catheter was then placed. The [...] hydronephrosis and hydroureter.3. Successful placement of an 8.5-[place] right percutaneous nephroureteral catheter, as detailed above. The catheter pigtail was formed within the right renal pelvis. This catheter was placed to gravity bag drainage.4. Hydronephrosis is also prominent inthe upper pole, and if patient symptomatically doesn't improve, upper pole access and drainage may be necessary. [facility]-[id number] MethodistGram [id number] 16:09:04Gram stain resultOccasional WBC'sRare Gram positive cocci in pairsRare Gram positive rods Comment: Specimen InformationSpecimen Source: UrineSpecimen Site: Suprapubic/ [facility] [id number] 15:03:04 Zuleyma Perez CRNA 10/03/2019 3:03 PMAirwayPerformed by: Zuleyma Perez CRNAAuthorizedby: Roxanna Mera MD [facility] Airway: No Resident/BEER MERCHANT/AA: Zuleyma Perez CRNAPreoxygenated with 100% O2: Yes [...] pt teeth ans mouth protected and unchanged. [place] MethodistType and [id number] 04:22:00 Test Item Value Reference Range Interpretation Comments ABO grouping (test code = 883-9) A Rh type (test code = 73067-4) POS Antibody screen (gel) (test code = NEG 890-4) [facility] [id number] 03:52:26 Test Item Value Reference Range Interpretation Comments Lactic acid (test code = 12782-7) 1.0 mmol/L 0.5-2.2 [facility] time, [id number] 03:47:21 Test Item Value Reference Range Interpretation Comments PTT (test code = 29.8 23.0- 36.0 [place] [address]-1) unfractionated heparin is61.0-112.0 se conds which corresponds to Anti-Xa0.3-0.7 U/ml. [place] MethodistProthrombin time with [id number] 03:47:14 Test Item Value Reference Range Interpretation Comments Prothrombin time (test 15.2 11.5- 14.5 sec H code = 5902-2) INR (test code = 1.2 [facility] 48660-3) Normalized Rati o (INR) is a therapeuti c monitoring tool for patients who ar e stable on oral anticoagulant t herapy. An INR of 2.0-3 .0 is suggested for d eep vein thrombosis/pulm onary embolism. Lab Interpretation Abnormal (test code = 45094-7) Freeman MethodistECG 12 [id number] 22:21:18 Test Item Value Reference Range Interpretation Comments Ventricular rate (test 101 code = 253) Atrial rate (test code 101 = 255) CT interval (test code 188 = 266) QRSD [...] of 02-OCT-2019 05:00,-No significant change was found- [place] MethodistRespiratory pathogen [id number] 15:01:22Respiratory pathogen panelNegative for all pathogens tested:Negative for AdenovirusNegative for Coronavirus TBN7Jjxjcmro for Coronavirus RK94Bjsmwszj for Coronavirus 229ENegative for Coronavirus UC03Ktufyobq for Human MetapneumovirusNegative for Rhinovirus/EnterovirusNegative for Influenza ANegative for Influenza A/O8Xhdypqua for Influenza A/W6Lisobxzk for Influenza A/H1-2009Negative for Influenza BNegative for [...] Comment: Specimen InformationSpecimen Source: Na resSpecimen Site: [facility] MethodistUS Renal 2019-10-02 12:58:28Hm Interface, [...] catheter is present in the decompressed urinary bladder.[facility]-[id number] MethodistLactic acid level, SEPSIS - Now and repeat 2x every 3 [id number] 11:23:34 Test Item Value Reference Range Interpretation Comments Lactic acid (test code = 60687-2) 1.0 mmol/L 0.5-2.2 [facility] HospitalistInfluenza antigen test, reflex negative to [id number] 09:36:12 Test Item Value Reference Range Interpretation Comments Influenza Negative for Specimen antigen (test Influenza A/B Information ecimen code = 88515-4) antigen. Source: Nasir sSpecimen Site: Left [facility] Chest 1 Vw [id number] 09:15:56Hm Interface, Radiology Results 10/02/2019 9:19 AM CSTEXAMINATION: XR CHEST 1 VW PORTABLECLINICAL HISTORY: ICU pt unstable or clinical worseningCOMPARISON: NoneIMPRESSION:Mild patchy bibasilar atelectasisHypoinflation of the lungsTiny right costophrenic angle effusionNo central congestionNo pneumothorax.The Cardiomediastinal silhouette is normal in sizeSingle view chest.[id number] [facility] Abdomen 1 Vw [id number] 07:58:59Hm Interface, Radiology Results 10/02/2019 8:02 AM [...] gas in the colon. No small bowel dilation.[facility]-OM15FKGZVinnsph MethodistT4, [id number] 07:48:17 Test Item Value Reference Range Interpretation Comments T4, free (test code = 3024-7) 1.3 ng/dL 0.9-1.7 [place] MethodistThyroid stimulating [id number] 07:48:17 Test Item Value Reference Range Interpretation Comments TSH (test code = 3016-3) 1.48 0.27- 4.20 uIU/mL [place] MethodistPhenytoin [id number] 07:45:01 Test Item Value Reference Range Interpretation Comments Phenytoin (test code = 3.0 ug/mL 10-20 L Thera peutic Range: 3968-5) 10 - 20 ug/mL Lab Interpretation (test Abnormal code = 95660-8) [place] MethodistUrinalysis screen and microscopy, with reflex to culture 2019-10-02 07:39:14 Test Item Value Reference Range Interpretation Comments Specimen site (test code = Suprapubic 8250115) Color, UA (test code = 5778-6) Danyelle Appearance, UA (test code = Cloudy 5767-9) Specific gravity, UA (test code = 1.046 1.001-1.035 H 5811-5) pH, UA (test code = 5803-2) 6.0 5.0-8.5 Protein, UA (test code = 02711-6) 2+ Negative A Glucose, UA (test code = 26292-8) Negative Negative Ketones, UA (test code = 2514-8) Negative Negative Bilirubin, UA (test code = 5770-3) Negative Negative Blood, UA (test code = 5794-3) Moderate Negative A Nitrite, UA (test code = 5802-4) Negative Negative Urobilinogen, UA (test code = <2.0 <2.0 63404-9) Leukocyte esterase, UA (test code Large Negative A = 5799-2) Epithelial cells, UA (test code = <1 /HPF 5787-7) WBC, UA (test code = 5821-4) >180 0- 1 /HPF H RBC, UA (test code = 44804-3) 63 0- 5 /HPF H Bacteria, UA (test code = 70688-3) None seen None seen WBC clumps, UA (test code = Moderate A 85902-2) Yeast, UA (test code = 03185-1) None seen Yeast with pseudohyphae, UA (test None seen code = 40988-7) Lab Interpretation (test code = Abnormal 13266-4) [place] Methodunm cancer centerComprehensive metabolic [id number] 07:03:19 Test Item Value Reference Range Interpretation Comments Sodium (test code = 145 135- 148 mEq/L 2951-2) Potassium (test code = 3.4 3.5- 5.0 mEq/L L 2823-3) Chloride (test code = 111 98- 112 mEq/L 2075-0) CO2 (test code = 2027-9) 23 24- 31 mEq/L L Anion gap (test code = 11@ANIO 7- 15 mEq/L 58599-0) BUN (test code = 3094-0) 21 mg/dL 6-20 H Creatinine (test code = 0.71 mg/dL 0.7-1.2 2160-0) Glucose (test code = 92 mg/dL 65-99 2345-7) Calcium (test code = 8.4 mg/dL 8.3-10.2 13188-3) Protein (test code = 6.7 g/dL 6.3-8.3 9994.6-7.0 2885-2) g/dL1 iknh4483.4-7.6 g/dL7 months-7vock818 .1- 7.3 g/dL1-2 aanig217.6-7.5 g/dL>3 qdlro237.0-8.0 g/hL06-4520636. 3-8 .3 g/dL Albumin (test code = 2.4 g/dL 3.5-5 L 1751-7) A/G ratio (test code = 0.6 0.7-3.8 L 1759-0) Alkaline phosphatase 171 U/L 40-129 H (test code = 6768-6) AST (test code = 1920-8) 35 U/L 10-50 ALT (test code = 1742-6) 60 U/L 5-50 H Total bilirubin (test 0.4 mg/dL 0-1.2 code = 1975-2) Lab Interpretation (test Abnormal code = 51374-5) [place] [place] MethodistCreatine kinase, total (CPK)2019-10-02 07:03:18 Test Item Value Reference Range Interpretation Comments Creatine kinase (test code = 2157-6) 39 U/L 39-308 [place] BdmfedqitHkdfzcss6340-62-41 07:01:25 Test Item Value Reference Range Interpretation Comments Troponin (test code = <0.006 0-0.04 [place] [address]-7) having a myocar dial infarction, chinedu arana with all other appro priate clinical measur es and actions includi ng ECG and other diagnosti cs as appropriate, me asure Ultra TnI at 0 hrs and [...] de creased by less than 0.020 ng/mL Pete CaballeroistArterial blood [id number] 06:32:59 Test Item Value Reference Range Interpretation Comments pH, arterial (test code = 2744-1) 7.37 7.35-7.45 pCO2, arterial (test code = 43 35- 45 mmHg 2019-04) pO2, arterial (test code = 66 80- 90 mmHg L 2703-7) Bicarbonate, arterial (test code 24.1 mmol/L - = 1960-4) Base excess, arterial (test code -1 -2 - 2 mEq-L = 1925-7) O2 saturation, arterial (test 93 % 95-100 L code = 3618-6) Lab Interpretation (test code = Abnormal 68311-9) Pete Mendiola
--- NOTE | 2020-08-24 00:42 | ER ---
Nurse's Notes [facility] Name: Farhat Maza Age: 40 yrs Sex: Male : 1980 Arrival Date: 08/23/2020 Time: 20:50 Bed 7 Private MD: Diagnosis: Dislodged Feeding Tube Presentation: 08/23 20:55 Chief complaint: EMS states: Pt with Hx of Anoxic Brain Injury, [place] staff stated wh he pulled out his peg tube. Coronavirus screen: Client denies travel out of the [place] in the last 14 days. At this time, the client does not indicate any symptoms associated with coronavirus-19. Ebola Screen: Patient negative for fever greater than or equal to 101.5 degrees Fahrenheit, and additional compatible Ebola Virus Disease symptoms Patient denies exposure to infectious person. Initial Sepsis Screen: Does the patient meet any 2 criteria? No. Patient's initial sepsis screen is negative. Does the patient have a suspected source of infection? No. Patient's initial sepsis screen is negative. Risk Assessment: Do you want to hurt yourself or someone else? Patient reports no desire to harm self or others. Onset of symptoms was August 23, 2020. 20:55 Method Of Arrival: EMS: [facility] 20:55 Acuity: JOSEPH 4 Historical: - Allergies: 21:00 Antihistamine; 21:00 Aspirin; 21:00 Demerol; 21:00 PENICILLINS; - PMHx: 21:00 Anoxic brain injury post suicide attempt; aspiration pneumonia; Asthma; contractures; wh GERD; obstructive and reflux uropathy; Pneumonia; Seizures; upper and lower ext contractures; UTI; - Immunization history:: Adult Immunizations unknown. - Social history:: Smoking status: Patient/guardian denies using. Screenin:00 Abuse screen: Denies threats or abuse. Denies injuries from another. Nutritional screening: Peg tube. Tuberculosis screening: No symptoms or risk factors identified. Fall Risk None identified. Assessment: 21:28 General: Appears in no apparent distress. Behavior is quiet. Pain: Unable to use pain ea scale. FLACC scale score is 0 out of 10. Neuro: Level of Consciousness is awake. Respiratory: Airway is patent Respiratory effort is even, unlabored, Respiratory pattern is regular, symmetrical. Derm: Skin is pink, warm \T\ dry. 22:27 Reassessment: Pt resting with eyes closed, respirations even and unlabored. Chest ea expansions even and symmetrical. 23:08 Reassessment: Patient and/or family updated on plan of care and expected duration. Pain ea level reassessed. Pt resting with eyes closed, respiration even and unlabored. Chest expansions even and symmetrical. 08/24 00:21 Reassessment: Patient and/or family updated on plan of care and expected duration. Pain ea level reassessed. Pt resting with eyes closed, respirations even and unlabored. Chest expansions even and symmetrical. No s/s of pain or discomfort noted at this time. 01:02 Reassessment: Patient and/or family updated on plan of care and expected duration. Pain ea level reassessed. Pt resting with eyes closed respirations even and unlabored, chest expansions even and symmetrical. Awaiting for transportation home. 01:12 Reassessment: Report called to receiving nurse at [facility]. ea 01:51 Reassessment: Patient and/or family updated on plan of care and expected duration. Pain ea level reassessed. [facility] at facility for transfer, pt left ED via stretcher per EMS. Pt tolerating well. Vital Signs: 08/23 20:55 BP 120 / 85; Pulse 85; Resp 18; Temp 98.4; Pulse Ox 100% ; wh 21:30 BP 130 / 80; Pulse 76; Resp 18; Pulse Ox 97% on R/A; ea 22:26 BP 121 / 80; Pulse 77; Resp 18; Pulse Ox 97% on R/A; ea 23:08 BP 142 / 91; Pulse 86; Resp 18; Pulse Ox 99% on R/A; ea 08/24 00:22 BP 122 / 74; Pulse 78; Resp 18; Pulse Ox 98% on R/A; ea 01:45 BP 131 / 84; Pulse 80; Resp 18; Pulse Ox 98% on R/A; ea ED Course: 08/23 20:50 Patient arrived in ED. mw2 20:51 Kevin Broderick MD is Attending Physician. mh7 20:59 Triage completed. wh 21:28 Violeta Hampton, ALENA is Primary Nurse. ea 21:28 Arm band placed on right wrist. Patient placed in an exam room, on a stretcher, on ea pulse oximetry. 21:28 Patient has correct armband on for positive identification. Bed in low position. Call ea light in reach. Side rails up X2. 21:32 18 Fr G tube replaced per physician, pt tolerated well. ea 22:48 PEG Tube Check w/contrast In Process Unspecified. EDMS 08/24 01:01 Patient did not have IV access during this emergency room visit. ea Administered Medications: No medications were administered Outcome: 00:41 Discharge ordered by MD. lyle 01:46 Discharged to home Pt discharged home left ED via stretcher per ambulance. Pt ea tolerating well 01:46 Condition: stable 01:46 Discharge instructions given to EMS, Instructed on discharge instructions, follow up and referral plans. Demonstrated understanding of instructions, follow-up care. 01:52 Patient left the ED. ea Signatures: Dispatcher [employer] EDPA Violeta Hampton, RN RN India Berry MyKena mw2 Kevin Broderick MD MD mh7
--- NOTE | 2020-08-24 00:42 | EDPHYS ---
Physician Documentation [facility] Name: Farhat Maza Age: 40 yrs Sex: Male : 1980 Arrival Date: 08/23/2020 Time: 20:50 Bed 7 Private MD: ED Physician Kevin Broderick HPI: 08/23 22:14 This 40 yrs old Male presents to ER via EMS with complaints of Pullde Out mh7 Feeding Tube. 22:14 Patient sent from nursing facility due to pulling out his feeding tube. Onset: The mh7 symptoms/episode began/occurred at an unknown time. Severity of symptoms: At their worst the symptoms were moderate today, in the emergency department the symptoms are unchanged. Unable to obtain HPI due to Anoxic Brain Injury, baseline nonverbal. Historical: - Allergies: 21:00 Antihistamine; wh 21:00 Aspirin; 21:00 Demerol; 21:00 PENICILLINS; wh - PMHx: 21:00 Anoxic brain injury post suicide attempt; aspiration pneumonia; Asthma; contractures; wh GERD; obstructive and reflux uropathy; Pneumonia; Seizures; upper and lower ext contractures; UTI; - Immunization history:: Adult Immunizations unknown. - Social history:: Smoking status: Patient/guardian denies using. ROS: 22:14 Unable to obtain ROS due to Anoxic Brain Injury, baseline nonverbal. mh7 Exam: 22:14 Head/Face: Normocephalic, atraumatic. Eyes: Pupils equal round and reactive to light, mh7 extra-ocular motions intact. Lids and lashes normal. Conjunctiva and sclera are non-icteric and not injected. Cornea within normal limits. Periorbital areas with no swelling, redness, or edema. Neck: Trachea midline, no thyromegaly or masses palpated, and no cervical lymphadenopathy. Supple, full range of motion without nuchal rigidity, or vertebral point tenderness. No Meningismus. Chest/axilla: Normal chest wall appearance and motion. Nontender with no deformity. No lesions are appreciated. Cardiovascular: Regular rate and rhythm with a normal S1 and S2. No gallops, murmurs, or rubs. Normal PMI, no JVD. No pulse deficits. Respiratory: Lungs have equal breath sounds bilaterally, clear to auscultation and percussion. No rales, rhonchi or wheezes noted. No increased work of breathing, no retractions or nasal flaring. 22:14 Back: No spinal tenderness. No costovertebral tenderness. Full range of motion. Skin: Warm, dry with normal turgor. Normal color with no rashes, no lesions, and no evidence of cellulitis. 22:14 Constitutional: The patient appears in no acute distress, alert, awake. 22:14 Abdomen/GI: Inspection: Feeding tube site without bleeding, erythema, swelling, or discharge, Bowel sounds: normal, in all quadrants, Palpation: abdomen is soft and non-tender, in all quadrants. 22:14 Musculoskeletal/extremity: ROM: the patient is contracted, Circulation is intact in all extremities. 22:14 Neuro: Orientation: unable to test, baseline non verbal, Mentation: unable to test, baseline nonverbal, Memory: unable to test, baseline nonverbal, Cranial nerves: unable to test, baseline nonverbal, Cerebellar function: unable to test, baseline nonverbal, anoxic brain injury, Motor: the patient is contracted, Sensation: unable to test, baseline nonverbal, Gait: not tested. seizure activity, is not displayed by the patient, Abnormal movements: there are no abnormal movements. Vital Signs: 20:55 BP 120 / 85; Pulse 85; Resp 18; Temp 98.4; Pulse Ox 100% ; wh 21:30 BP 130 / 80; Pulse 76; Resp 18; Pulse Ox 97% on R/A; ea 22:26 BP 121 / 80; Pulse 77; Resp 18; Pulse Ox 97% on R/A; ea 23:08 BP 142 / 91; Pulse 86; Resp 18; Pulse Ox 99% on R/A; ea 08/24 00:22 BP 122 / 74; Pulse 78; Resp 18; Pulse Ox 98% on R/A; ea 01:45 BP 131 / 84; Pulse 80; Resp 18; Pulse Ox 98% on R/A; ea Procedures: 00:42 G-tube placement: a 18 Guyanese catheter was placed, by the ED physician, Kevin lyle MD. MDM: 00:38 Differential Diagnosis Feeding Tube malfunction, Dislodged Feeding Tube . Data dariela reviewed: vital signs, nurses notes, EMS record, old medical records, radiologic studies, plain films. Data interpreted: Pulse oximetry: on room air is 98 %. Interpretation: normal. Counseling: I had a detailed discussion with the patient and/or guardian regarding: the historical points, exam findings, and any diagnostic results supporting the discharge/admit diagnosis, radiology results, the need for outpatient follow up, to return to the emergency department if symptoms worsen or persist or if there are any questions or concerns that arise at home. Response to treatment: the patient's symptoms have resolved after treatment, the patient's blood pressure is in an acceptable range, mental status has returned to baseline, the patient no longer shows bradycardia, the patient is not short of breath, the patient is not tachycardic, the patient's pain is gone, the patient's temperature has normalized. 00:41 Patient medically screened. 7 08/23 21:33 Order name: PEG Tube Check w/contrast pm1 Administered Medications: No medications were administered Disposition: 08/24/20 00:41 Discharged to Home. Impression: Dislodged Feeding Tube. - Condition is Stable. - Discharge Instructions: PEG Tube Home Guide, Cnjq-[id number]. - SBAR form, Medication Reconciliation Form, Thank You Letter, Antibiotic Education, Prescription Opioid Use form. - Follow up: Private Physician; When: 1 - 2 days; Reason: Worsening of condition, Recheck today's complaints, Continuance of care, Re-evaluation by your physician. - Problem is an acute exacerbation. - Symptoms have improved. Signatures: Dispatcher [employer] Violeta Eaton RN RN ea Habalo, Winsy wh Holmes, Maurice, MD MD mh7 Corrections: (The following items were deleted from the chart) 01:52 00:41 08/24/2020 00:41 Discharged to Home. Impression: Dislodged Feeding Tube. ea Condition is Stable. Forms are Medication Reconciliation Form, Thank You Letter, Antibiotic Education, Prescription Opioid Use. Follow up: Private Physician; When: 1 - 2 days; Reason: Worsening of condition, Recheck today's complaints, Continuance of care, Re-evaluation by your physician. Problem is an acute exacerbation. Symptoms have improved. mh7
[2020-08-24 05:28] VITALS: TEMP 98.4
[2020-08-24 05:38] VITALS: O2SAT 98
[2020-08-24 05:39] VITALS: BP 131/84
--- NOTE | 2020-08-24 17:34 | RAD REPORT ---
EXAM DESCRIPTION: RAD - ENTEROSTOMY TUBE CHECK W/CONTR - 08/23/2020 10:48 pm CLINICAL HISTORY: PEG tube placement COMPARISON: None. TECHNIQUE: AP abdomen prior to and following the instillation of contrast via the percutaneous gastr ostomy tube. FINDINGS: [employer] Production Manager AP abdomen demonstrates scattered air within the small and large bowel which is norm al in caliber. There is air seen within the stomach which is normal in caliber in the left upper ab domen. No free air. Gastrostomy tube projects over the mid upper abdomen. Unremarkable bony str uctures. Lung bases are clear. Heart is normal in size. Following contrast administration, there is contrast noted within the distal stomach and 1st portion of the duodenum. The gastrostomy tube is positioned over the distal gastric body. No extravasatio n of contrast beyond the bowel lumen to suggest leak. IMPRESSION: Appropriate position of the gastrostomy tube within the distal gastric antrum. Electronically signed by: Bell Yanes DO 08/24/2020 12:24 AM GAS MANAGER Due to temporary technical issues with the PACS/Fluency reporting system, reports are being signed by the in house radiologists without review as a courtesy to insure prompt reporting. The interpreting radiologist is fully responsible for the content of the report.
== END 2020-08-24 01:52 | disposition home or self-care (01) ==
LOC: ER 20:48
DX: Z43.1 Encounter for attention to gastrostomy (principal); Z87.820 Personal history of traumatic brain injury; Z91.5 Personal history of self-harm; Z88.0 Allergy status to penicillin; Z88.5 Allergy status to narcotic agent; Z88.6 Allergy status to analgesic agent; Z88.8 Allergy status to other drugs, medicaments and biological substances
CPT/HCPCS: 49465; 99284

== ENCOUNTER 2020-09-25 21:33 | Emergency (ER) | payer OTHER ==
--- OUTSIDE RECORDS SUMMARY | 2020-09-25 21:37 | XMS REPORT | Clinical Summary ---
:1980 Author Organization [facility] Address [address] [place] [address] Care Team Providers Name Role Phone Asked, Pcp Primary Care Provider Unavailable Allergies Active Allergy Reactions Severity Noted Date Comments Diphenhydramine Hcl Unknown Reaction 10/02/2019 Per - she never noted a reaction to thi s medication. Aspirin Unknown Reaction 10/02/2019 Per , s he was just told by the [facility] the patient had thi s listed as [...] Wolfe, MD Shanelle Dowling, MD Delmi after 09/25/2019 Immunizations Name Administration Dates Next Due FLUCELVAX [...] Comments Blood Pressure 138/76 10/11/2019 8:12 AM CONCRETER Pulse 84 10/11/2019 8:12 AM CONCRETER Temperature 35.6 C (96 F) 10/11/2019 8:12 AM CONCRETER Respiratory Rate 18 10/11/2019 8:12 AM CONCRETER Oxygen Saturation 98% 10/11/2019 8:12 AM CONCRETER Inhaled Oxygen Concentration - - Weight 65 kg (143 lb 4.8 oz) 10/02/2019 4:15 AM CONCRETER Height 172.7 cm (5' 8") 10/09/2019 7:05 PM CONCRETER Body Mass Index 21.79 10/02/2019 4:15 AM CONCRETER Plan of Treatment Health Maintenance Due Date Last Done Comments COVID-19 VACCINE (#1) 1997 INFLUENZA VACCINE 04/28/2020 10/11/2019 Implants Implanted Type Area Deputy Director Of Nursing Device Shelf Model / Identifier Expiration Serial / Date Lot Stent [place] [employer]ph[employer] Mac-Loc Lp-Lk 26cm - [id number] Surgic al N/A: COOK 06/22/2022 [id number] / Implanted: 10/03/[address] [facility] (Quantity not on file) Kai nts N/A INTERVENTIONAL / RADIOLOGY [id number] Procedures Procedure Name Priority Date/Time Associated Comments Diagnosis POC GLUCOSE Routine 10/11/2019 8:14 Results for this AM CONCRETER procedure are i n the results section. ESTIMATED GFR Routine 10/11/2019 3:21 Results fo r this AM CONCRETER procedure are i n the results section. PHOSPHORUS LEVEL Routine 10/11/2019 3:21 Results for this AM CONCRETER procedure are i n the results section. MAGNESIUM LEVEL Routine 10/11/2019 3:21 Results for this AM CONCRETER procedure are i n the results section. BASIC METABOLIC PANEL Routine 10/11/2019 3:21 Re sults for this AM CONCRETER procedure are i n the results section. HC COMPLETE BLD COUNT Routine 10/11/2019 3:00 Re sults for this W/AUTO DIFF AM CONCRETER procedure are i n the results section. POC GLUCOSE Routine 10/11/2019 12:14 Results for this AM CONCRETER procedure are i n the results section. FREE PHENYTOIN LEVEL Routine 10/10/2019 10:41 Res ults for this PM CONCRETER procedure are i n the results section. POC GLUCOSE Routine 10/10/2019 9:32 Results for this PM CONCRETER procedure are i n the results section. FREE PHENYTOIN LEVEL Routine 10/10/2019 6:00 Res ults for this PM CONCRETER procedure are i n the results section. POC GLUCOSE Routine 10/10/2019 11:34 Results for this AM CONCRETER procedure are i n the results section. POC GLUCOSE Routine 10/10/2019 8:15 Results for this AM CONCRETER procedure are i n the results section. POC GLUCOSE Routine 10/10/2019 5:03 Results for this AM CONCRETER procedure are i n the results section. ESTIMATED GFR Routine 10/10/2019 4:49 Results fo r this AM CONCRETER procedure are i n the results section. BASIC METABOLIC PANEL Routine 10/10/2019 4:49 Re sults for this AM CONCRETER procedure are i n the results section. HC COMPLETE BLD COUNT Routine 10/10/2019 4:49 Re sults for this W/AUTO DIFF AM CONCRETER procedure are i n the results section. POC GLUCOSE Routine 10/10/2019 12:28 Results for this AM CONCRETER procedure are i n the results section. POC GLUCOSE Routine 10/09/2019 9:22 Results for this PM CONCRETER procedure are i n the results section. POC GLUCOSE Routine 10/09/2019 5:25 Results for this PM CONCRETER procedure are i n the results section. POC GLUCOSE Routine 10/09/2019 11:32 Results for this AM CONCRETER procedure are i n the results section. POC GLUCOSE Routine 10/09/2019 7:55 Results for this AM CONCRETER procedure are i n the results section. POC GLUCOSE Routine 10/09/2019 3:58 Results for this AM CONCRETER procedure are i n the results section. HC COMPLETE BLD COUNT Routine 10/09/2019 3:51 Re sults for this W/AUTO DIFF AM CONCRETER procedure are i n the results section. ESTIMATED GFR Routine 10/09/2019 3:49 Results fo r this AM CONCRETER procedure are i n the results section. BASIC METABOLIC PANEL Routine 10/09/2019 3:49 Re sults for this AM CONCRETER procedure are i n the results section. POC GLUCOSE Routine 10/08/2019 9:48 Results for this PM CONCRETER procedure are i n the results section. POC GLUCOSE Routine 10/08/2019 4:41 Results for this PM CONCRETER procedure are i n the results section. POC GLUCOSE Routine 10/08/2019 11:57 Results for this AM CONCRETER procedure are i n the results section. POC GLUCOSE Routine 10/08/2019 7:32 Results for this AM CONCRETER procedure are i n the results section. POC GLUCOSE Routine 10/08/2019 5:17 Results for this AM CONCRETER procedure are i n the results section. POC GLUCOSE Routine 10/07/2019 11:48 Results for this PM CONCRETER procedure are i n the results section. POC GLUCOSE Routine 10/07/2019 7:51 Results for this PM CONCRETER procedure are i n the results section. POC GLUCOSE Routine 10/07/2019 5:13 Results for this PM CONCRETER procedure are i n the results section. POC GLUCOSE Routine 10/07/2019 11:53 Results for this AM CONCRETER procedure are i n the results section. POC GLUCOSE Routine 10/07/2019 7:26 Results for this AM CONCRETER procedure are i n the results section. POC GLUCOSE Routine 10/06/2019 11:24 Results for this PM CONCRETER procedure are i n the results section. POC GLUCOSE Routine 10/06/2019 7:58 Results for this PM CONCRETER procedure are i n the results section. POC GLUCOSE Routine 10/06/2019 4:26 Results for this PM CONCRETER procedure are i n the results section. POC GLUCOSE Routine 10/06/2019 11:50 Results for this AM CONCRETER procedure are i n the results section. POC GLUCOSE Routine 10/06/2019 7:46 Results for this AM CONCRETER procedure are i n the results section. ESTIMATED GFR Routine 10/06/2019 3:20 Results fo r this AM CONCRETER procedure are i n the results section. MAGNESIUM LEVEL Routine 10/06/2019 3:20 Results for this AM CONCRETER procedure are i n the results section. BASIC METABOLIC PANEL Routine 10/06/2019 3:20 Re sults for this AM CONCRETER procedure are i n the results section. HC COMPLETE BLD COUNT Routine 10/06/2019 3:20 Re sults for this W/AUTO DIFF AM CONCRETER procedure are i n the results section. PHOSPHORUS LEVEL Routine 10/06/2019 3:20 Results for this AM CONCRETER procedure are i n the results section. POC GLUCOSE Routine 10/06/2019 3:17 Results for this AM CONCRETER procedure are i n the results section. POC GLUCOSE Routine 10/05/2019 11:29 Results for this PM CONCRETER procedure are i n the results section. CONSULT TO OSTOMY CARE Routine 10/05/2019 8:28 NURSE PM CONCRETER POC GLUCOSE Routine 10/05/2019 4:48 Results for this PM CONCRETER procedure are i n the results section. POC GLUCOSE Routine 10/05/2019 12:48 Results for this PM CONCRETER procedure are i n the results section. POC GLUCOSE Routine 10/05/2019 12:06 Results for this PM CONCRETER procedure are i n the results section. FREE PHENYTOIN LEVEL Routine 10/05/2019 12:00 Res ults for this PM CONCRETER procedure are i n the results section. POC GLUCOSE Routine 10/05/2019 8:57 Results for this AM CONCRETER procedure are i n the results section. POC GLUCOSE Routine 10/05/2019 5:42 Results for this AM CONCRETER procedure are i n the results section. ESTIMATED GFR Routine 10/05/2019 2:00 Results fo r this AM CONCRETER procedure are i n the results section. HC COMPLETE BLD COUNT Routine 10/05/2019 2:00 Re sults for this W/AUTO DIFF AM CONCRETER procedure are i n the results section. PHOSPHORUS LEVEL Routine 10/05/2019 2:00 Results for this AM CONCRETER procedure are i n the results section. MAGNESIUM LEVEL Routine 10/05/2019 2:00 Results for this AM CONCRETER procedure are i n the results section. BASIC METABOLIC PANEL Routine 10/05/2019 2:00 Re sults for this AM CONCRETER procedure are i n the results section. POC GLUCOSE Routine 10/05/2019 1:53 Results for this AM CONCRETER procedure are i n the results section. POC GLUCOSE Routine 10/04/2019 9:26 Results for this PM CONCRETER procedure are i n the results section. POC GLUCOSE Routine 10/04/2019 5:07 Results for this PM CONCRETER procedure are i n the results section. POC GLUCOSE Routine 10/04/2019 12:33 Results for this PM CONCRETER procedure are i n the results section. POC GLUCOSE Routine 10/04/2019 8:41 Results for this AM CONCRETER procedure are i n the results section. VANCOMYCIN LEVEL, Timed 10/04/2019 5:00 Result s for this TROUGH AM CONCRETER procedure are i n the results section. ESTIMATED GFR Routine 10/04/2019 5:00 Results fo r this AM CONCRETER procedure are i n the results section. HC COMPLETE BLD COUNT Routine 10/04/2019 5:00 Re sults for this W/AUTO DIFF AM CONCRETER procedure are i n the results section. PHOSPHORUS LEVEL Routine 10/04/2019 5:00 Results for this AM CONCRETER procedure are i n the results section. MAGNESIUM LEVEL Routine 10/04/2019 5:00 Results for this AM CONCRETER procedure are i n the results section. BASIC METABOLIC PANEL Routine 10/04/2019 5:00 Re sults for this AM CONCRETER procedure are i n the results section. POC GLUCOSE Routine 10/04/2019 4:50 Results for this AM CONCRETER procedure are i n the results section. POC GLUCOSE Routine 10/04/2019 12:40 Results for this AM CONCRETER procedure are i n the results section. POC GLUCOSE Routine 10/03/2019 8:44 Results for this PM CONCRETER procedure are i n the results section. POC GLUCOSE Routine 10/03/2019 6:05 Results for this PM CONCRETER procedure are i n the results section. POTASSIUM LEVEL Routine 10/03/2019 5:30 Results for this PM CONCRETER procedure are i n the results section. PHOSPHORUS LEVEL Routine 10/03/2019 5:30 Results for this PM CONCRETER procedure are i n the results section. MAGNESIUM LEVEL Routine 10/03/2019 5:30 Results for this PM CONCRETER procedure are i n the results section. IONIZED CALCIUM Routine 10/03/2019 5:30 Results for this PM CONCRETER procedure are i n the results section. IR RIGHT NEPHROSTOMY STAT 10/03/2019 4:54 Res ults for this INITIAL PLACEMENT PM CONCRETER procedure are in the results section. ANESTHESIA INTUBATION Routine 10/03/2019 3:03 Re sults for this PM CONCRETER procedure are i n the results section. POC GLUCOSE Routine 10/03/2019 1:09 Results for this PM CONCRETER procedure are i n the results section. POC GLUCOSE Routine 10/03/2019 8:16 Results for this AM CONCRETER procedure are i n the results section. POC GLUCOSE Routine 10/03/2019 4:46 Results for this AM CONCRETER procedure are i n the results section. ESTIMATED GFR Routine 10/03/2019 3:10 Results fo r this AM CONCRETER procedure are i n the results section. PROTHROMBIN TIME WITH Routine 10/03/2019 3:10 Re sults for this INR AM CONCRETER procedure are i n the results section. PARTIAL THROMBOPLASTIN Routine 10/03/2019 3:10 R esults for this TIME (PTT) AM CONCRETER procedure are i n the results section. TYPE AND SCREEN Routine 10/03/2019 3:10 Results for this AM CONCRETER procedure are i n the results section. LACTIC ACID LEVEL Routine 10/03/2019 3:10 Result s for this AM CONCRETER procedure are i n the results section. HC COMPLETE BLD COUNT Routine 10/03/2019 3:10 Re sults for this W/AUTO DIFF AM CONCRETER procedure are i n the results section. PHOSPHORUS LEVEL Routine 10/03/2019 3:10 Results for this AM CONCRETER procedure are i n the results section. MAGNESIUM LEVEL Routine 10/03/2019 3:10 Results for this AM CONCRETER procedure are i n the results section. BASIC METABOLIC PANEL Routine 10/03/2019 3:10 Re sults for this AM CONCRETER procedure are i n the results section. POC GLUCOSE Routine 10/03/2019 12:51 Results for this AM CONCRETER procedure are i n the results section. POC GLUCOSE Routine 10/02/2019 8:50 Results for this PM CONCRETER procedure are i n the results section. POC GLUCOSE Routine 10/02/2019 4:41 Results for this PM CONCRETER procedure are i n the results section. POC GLUCOSE Routine 10/02/2019 12:18 Results for this PM CONCRETER procedure are i n the results section. US RENAL Routine 10/02/2019 12:02 Results for this PM CONCRETER procedure are i n the results section. LACTIC ACID LEVEL, Timed 10/02/2019 10:09 Resul ts for this SEPSIS - NOW AND REPEAT AM CONCRETER proc edure are in 2X EVERY 3 HOURS the results section. BLOOD CULTURE, AEROBIC Routine 10/02/2019 10:09 R esults for this & ANAEROBIC AM CONCRETER procedure are i n the results section. POC GLUCOSE Routine 10/02/2019 8:18 Results for this AM CONCRETER procedure are i n the results section. LACTIC ACID LEVEL, Timed 10/02/2019 7:45 Resul ts for this SEPSIS - NOW AND REPEAT AM CONCRETER proc edure are in 2X EVERY 3 HOURS the results section. XR ABDOMEN 1 VW Routine 10/02/2019 7:40 Results for this PORTABLE AM CONCRETER procedure are i n the results section. XR CHEST 1 VW PORTABLE Routine 10/02/2019 7:30 R esults for this AM CONCRETER procedure are i n the results section. GRAM STAIN STAT 10/02/2019 6:18 Results for this AM CONCRETER procedure are i n the results section. URINE CULTURE STAT 10/02/2019 6:18 Results fo r this AM CONCRETER procedure are i n the results section. ECG 12-LEAD Routine 10/02/2019 5:01 Results for this AM CONCRETER procedure are i n the results section. THYROID STIMULATING STAT 10/02/2019 4:45 Resu lts for this HORMONE AM CONCRETER procedure are i n the results section. PHENYTOIN LEVEL STAT 10/02/2019 4:45 Results for this AM CONCRETER procedure are i n the results section. T4, FREE STAT 10/02/2019 4:45 Results for this AM CONCRETER procedure are i n the results section. ESTIMATED GFR STAT 10/02/2019 4:45 Results fo r this AM CONCRETER procedure are i n the results section. MAGNESIUM LEVEL STAT 10/02/2019 4:45 Results for this AM CONCRETER procedure are i n the results section. PHOSPHORUS LEVEL STAT 10/02/2019 4:45 Results for this AM CONCRETER procedure are i n the results section. LACTIC ACID LEVEL STAT 10/02/2019 4:45 Result s for this AM CONCRETER procedure are i n the results section. CREATINE KINASE, TOTAL STAT 10/02/2019 4:45 R esults for this (CPK) AM CONCRETER procedure are i n the results section. TROPONIN STAT 10/02/2019 4:45 Results for this AM CONCRETER procedure are i n the results section. COMPREHENSIVE METABOLIC STAT 10/02/2019 4:45 Results for this PANEL AM CONCRETER procedure are i n the results section. FREE PHENYTOIN LEVEL Routine 10/02/2019 4:45 Res ults for this AM CONCRETER procedure are i n the results section. ARTERIAL BLOOD GAS Routine 10/02/2019 4:45 Resul ts for this AM CONCRETER procedure are i n the results section. PARTIAL THROMBOPLASTIN STAT 10/02/2019 4:45 R esults for this TIME (PTT) AM CONCRETER procedure are i n the results section. PROTHROMBIN TIME WITH STAT 10/02/2019 4:45 Re sults for this INR AM CONCRETER procedure are i n the results section. URINALYSIS SCREEN AND STAT 10/02/2019 4:45 Re sults for this MICROSCOPY, WITH REFLEX AM CONCRETER proc edure are in TO CULTURE the results section. HC COMPLETE BLD COUNT STAT 10/02/2019 4:45 Re sults for this W/AUTO DIFF AM CONCRETER procedure are i n the results section. RESPIRATORY PATHOGEN Routine 10/02/2019 4:37 Res ults for this PANEL WITH COVID-19 AM CONCRETER procedur e are in the results section. INFLUENZA ANTIGEN TEST, Routine 10/02/2019 4:37 Results for this REFLEX NEGATIVE TO RPP AM CONCRETER proce dure are in the results section. BLOOD CULTURE, AEROBIC Routine 10/02/2019 4:30 R esults for this AM CONCRETER procedure are i n the results section. BLOOD CULTURE, AEROBIC STAT 10/02/2019 4:30 R esults for this & ANAEROBIC AM CONCRETER procedure are i n the results section. POC GLUCOSE Routine 10/02/2019 4:08 Results for this AM CONCRETER procedure are i n the results section. after 09/25/2019 Results POC glucose (10/11/2019 8:14 AM CONCRETER)Only the most recent of52 resultswithin the time period is included. Pathologist Sig nature POC glucose 91 65 - 99 mg/dL JUAN ANTONIO CONTRERAS Comment: HOSPITAL Breaker Table Worker Name: Chris Wilcox Device ID: [id number] Chartable: [facility] Notified RN Specimen Performing Organization Address City/[facility] Phon e Number [facility] DEPARTMENT OF PATHOLOGY AND [address] [place] [phone] Estimated GFR (10/11/2019 3:21 AM CONCRETER)Only the most recent of8 resultswithin the time [...] 2014. Specimen Plasma specimen Performing Organization Address City/[facility]/ZIP [facility] Phon e Number [facility] DEPARTMENT OF PATHOLOGY AND [address] [place] [address] [phone] [address] Phosphorus level (10/11/2019 3:21 AM CONCRETER)Only the most recent of7 resultswithin the time period is included. Pathologist Sig nature Phosphorus 3.1 2.4 - 4.5 mg/dL [facility] Specimen Plasma specimen Performing Organization Address [facility] Phon e Number [facility] DEPARTMENT OF PATHOLOGY AND [address] [place] [address] [address] Magnesium level (10/11/2019 3:21 AM CONCRETER)Only the most recent of7 resultswithin the time period is included. Pathologist Sig nature Magnesium 2.1 1.6 - 2.6 mg/dL [facility] Specimen Plasma specimen Performing Organization Address [facility] Phon e Number [facility] DEPARTMENT OF PATHOLOGY AND [address] [place] [address] [address] Basic metabolic panel (10/11/2019 3:21 AM CONCRETER)Only the most recent of7 results within the time period is included. Pathologist Sig nature Sodium 137 135 - 148 mEq/L [facility] Potassium 4.1 3.5 - 5.0 mEq/L [facility] Chloride 101 98 - 112 mEq/L [facility] CO2 25 24 - 31 mEq/L [facility] Anion gap 11@ANIO 7 - 15 mEq/L [facility] BUN 16 6 - 20 mg/dL [facility] Creatinine 0.48 (L) 0.70 - 1.20 mg/dL [facility] Glucose 121 (H) 65 - 99 mg/dL [facility] Calcium 9.4 8.3 - 10.2 mg/dL [facility] Specimen Plasma specimen Performing Organization Address [facility] Phon e Number [facility] DEPARTMENT OF PATHOLOGY AND [address] [place] [address] [address] CBC with platelet and differential (10/11/2019 3:00 AM CONCRETER)Only the most recent of8 resultswithin the time period is included. WBC 6.12 4.50 - 11.00 [facility] RBC 4.56 4.40 - 6.00 [facility] HGB 13.2 (L) 14.0 - 18.0 [facility] g/dL HOSPITAL HCT 41.3 41.0 - 51.0 % [facility] MCV 90.6 82.0 - 100.0 [facility] MCH 28.9 27.0 - 34.0 pg [facility] MCHC 32.0 31.0 - 37.0 [facility] g/dL [facility] RDW - SD 46.0 37.0 - 55.0 fL [facility] MPV 11.9 8.8 - 13.2 fL [facility] Platelet count 281 150 - 400 k/uL [facility] Nucleated RBC 0.00 /100 WBC [facility] Neutrophils 62.5 39.0 - 69.0 % [facility] Lymphocytes 25.2 25.0 - 45.0 % [facility] Monocytes 8.0 0.0 - 10.0 % [facility] Eosinophils 2.6 0.0 - 5.0 % [facility] Basophils 0.7 0.0 - 1.0 % [facility] Immature granulocytes 1.0Comment: 0.0 - 1.0 % [facility] "[facility] granulocytes" (promyelocytes , myelocytes, metamyelocytes ) Specimen Blood Performing Organization Address City/[facility] Phon e Number [facility] DEPARTMENT OF PATHOLOGY AND [address] [place] [phone] Free phenytoin level (10/10/2019 10:41 PM CONCRETER)Only the most recent of4 results within the time period is included. Pathologist [facility] Phenytoin, free 0.50 (L) 1.00 - 2.00 [facility] Comment: ug/mL ORTHODOXY This test has been modified from the manufacturers HOSPITAL instructions. The performance characteristics were determined by [facility] in a manner consistent with CLIA requirements. This test has not been cleared or approved by the U.S. Food and Drug Administration. Specimen Blood Performing Organization Address City/[facility] Phon e Number [facility] DEPARTMENT OF PATHOLOGY AND [address] [place] [address] [phone] [address] Vancomycin level, trough (10/04/2019 5:00 AM CONCRETER) Vancomycin, 12.7 10.0 - 20.0 [facility] trough Comment: ug/mL HOSPITAL Therapeutic Ranges: Peak 30.0 - 40.0 ug/mL Trough 10.0 - 20.0 ug/mL Specimen Serum Performing Organization Address City/[facility] Phon e Number [facility] DEPARTMENT OF PATHOLOGY AND [address] [place] [address] [phone] [address] Potassium level (10/03/2019 5:30 PM CONCRETER) Pathologist Sig nature Potassium 4.2 3.5 - 5.0 mEq/L [facility] Specimen Plasma specimen Performing Organization Address City/[facility] Phon e Number [facility] DEPARTMENT OF PATHOLOGY AND [address] [place] [address] [address] Ionized calcium (10/03/2019 5:30 PM CONCRETER) Pathologist Sig nature pH 7.45 [facility] Ionized calcium 1.12 1.11 - 1.32 mmol/L [facility] Specimen Plasma specimen Performing Organization Address City/[facility] Phon e Number [facility] DEPARTMENT OF PATHOLOGY AND [address] [place] [address] [phone] [address] IR Nephrostomy Insertion Right (10/03/2019 4:54 PM CONCRETER) Specimen Narrative Performed At Performing Radiologist [facility] [...] the Accu stick set sheath. A 4 [place] glide catheter was advanced through the out er portion of the AccuStick set sheath and a 0.035 inch Glidewire was us ed to navigate the system into the urinary bladder. The Glidewire was exc hanged for an Amplatz wire and after tract dilation a 26 cm, 8.5-[place] percutaneous nephroureteral catheter was then placed. The [...] and hydroureter. 3. Successful placement of an 8.5-[place] right percu taneous nephroureteral catheter, as detailed above. The cathet er pigtail was formed within the right renal pelvis. This catheter wa s placed to gravity bag drainage. 4. Hydronephrosis is also prominent in the upper pole, and if patient symptomatically doesn't improve, upper pole access and drainage may be necessary. [facility]-[id number] Procedure Note Interface, Radiology Results Incoming - 10/03/2019 5:26 PM CONCRETER Performing Radiologist Arpan Cheney MD Assistants None [...] the Accu stick set sheath. A 4 [place] glide catheter was advanced t hrough the outer portion of the AccuStick set sheath and a 0.035 inch Glidewire was used to navigate the system into the urinary bladder. The Glidewire was exchanged for an Amplatz wire and after tract dilation a 26 cm, 8.5-[place] Islander percutaneous nephroure teral catheter was then placed. [...] pole access and drainage may be necessary. [facility]-[id number] Performing Organization Address City/[facility]/ZIP Code Phon e Number [facility] [address] [place] [address] Airway (10/03/2019 3:03 PM CONCRETER) Narrative Performed At Zuleyma Perez CRNA 10/03/2019 3:03 PM Airway Performed by: Zuleyma Perez CRNA Authorized by: Roxanna Mera MD Location: [place] Difficult Airway: No Resident/SCABBLER/AA: Zuleyma Perez CRNA Preoxygenated with 100% O2: [...] Partial thromboplastin time, activated (10/03/2019 3:10 AM CONCRETER)Only the most recent of2 resultswithin the time period is included. PTT 29.8 23.0 - 36.0 [facility] Comment: [facility]PITAL PTT therapeutic range for unfractionated heparin is 61.0-112.0 seconds which corresponds to Anti-Xa 0.3-0.7 U/ml. Specimen Blood Performing Organization Address City/State/ZIP Code Phon e Number [facility] DEPARTMENT OF PATHOLOGY AND [address] [place], [place] [address] GENOMIC MEDICINE [facility] [address] [place] [address] Prothrombin time with INR (10/03/2019 3:10 AM CONCRETER)Only the most recent of2 resultswithin the time period is included. Prothrombin time 15.2 (H) 11.5 - 14.5 [facility] INR 1.2 [facility] Comment: ORTHODOXY [facility] International Normalized Ratio (INR) is a [facility] monitoring tool for patients who are stable on oral anticoagulant therapy. An INR of 2.0-3.0 is suggested for deep vein thrombosis/pulmonary embolism. Specimen Blood Performing Organization Address City/[facility] Phon e Number [facility] DEPARTMENT OF PATHOLOGY AND [address] [place] [address] [address] Type and screen (10/03/2019 3:10 AM CONCRETER) Pathologist Sig nature ABO grouping A [facility] Rh type POS [facility] Antibody screen (gel) NEG [facility] Specimen Blood Performing Organization Address [facility] Phon e Number [facility] DEPARTMENT OF PATHOLOGY AND [address] [place], [place] [address] [address] [address] Lactic acid level (10/03/2019 3:10 AM CONCRETER)Only the most recent of2 results within the time period is included. Pathologist Sig nature Lactic acid 1.0 0.5 - 2.2 mmol/L [facility] Specimen Plasma specimen Performing Organization Address [facility] Phon e Number [facility] DEPARTMENT OF PATHOLOGY AND [address] [place], [place] [address] [address] [address] US Renal (10/02/2019 12:02 PM CONCRETER) Specimen Narrative Performed At EXAMINATION: US RENAL [...] present in the decom pressed urinary bladder. [facility]-[id number] Procedure Note Interface, Radiology Results Incoming - 10/02/2019 1:01 PM CONCRETER EXAMINATION: US RENAL CLINICAL HISTORY: Pyelonephritis compl [...] present in the decom pressed urinary bladder. [facility]-[id number] Performing Organization Address City/[facility] Phon e Number [facility] [address] [place] [phone] Lactic acid level, SEPSIS - Now and repeat 2x every 3 hours (10/02/2019 10:09 AM CONCRETER)Only the most recent of2 resultswithin the time period is included. Pathologist Sig nature Lactic acid 1.0 0.5 - 2.2 mmol/L [facility] Specimen Blood Performing Organization Address [facility] Phon e Number [facility] DEPARTMENT OF PATHOLOGY AND [address] [place] [address] [address] [address] Blood culture, aerobic & anaerobic (10/02/2019 10:09 AM CONCRETER)Only the most recent of2 resultswithin the time period is included. Blood culture No growth after 5 days of incubation. HO CELIA ORTHODOXY isolate Comment: HOSPITAL Specimen Information Specimen Source: Blood Specimen Site: Hand, left Specimen Blood - Hand, left Performing Organization Address [facility] Phon e Number [facility] DEPARTMENT OF PATHOLOGY AND [address] [place] [address] [address] [address] XR Abdomen 1 Vw Portable (10/02/2019 7:40 AM CONCRETER) Specimen Narrative Performed At [facility]AMINATION: [facility] ABDOMEN 1 VW PORTABLE CLINICAL HISTORY: [...] the co ashley. No small bowel dilation. [facility]-[id number] Procedure Note Interface, Radiology Results Incoming - 10/02/2019 8:02 AM CONCRETER EXAMINATION: XR ABDOMEN 1 VW PORTABLE CLINICAL [...] the co ashley. No small bowel dilation. [id number] Performing Organization Address [facility] Phon e Number [facility] [address] [place] [address] XR Chest 1 Vw Portable (10/02/2019 7:30 AM CONCRETER) Specimen Narrative Performed At EXAMINATION: XR CHEST 1 VW PORTABLE [facility] CLINICAL HISTORY: ICU pt unstable or clinical worsening COMPARISON: None IMPRESSION: Mild patchy bibasilar atelectasis Hypoinflation of the lungs Tiny right costophrenic angle effusion No central congestion No pneumothorax. The Cardiomediastinal silhouette is norm al in size Single view chest. [id number] Procedure Note Interface, Radiology Results Incoming - 10/02/2019 9:19 AM CONCRETER EXAMINATION: XR CHEST 1 VW PORTABLE CLINICAL HISTORY: ICU pt unstable or c linical worsening COMPARISON: None IMPRESSION: Mild patchy bibasilar atelectasis Hypoinflation of the lungs Tiny right costophrenic angle effusion No central congestion No pneumothorax. The Cardiomediastinal silhouette is norm al in size Single view chest. [id number] Performing Organization Address [facility] Phon e Number [facility] [address] [place] [address] Gram stain (10/02/2019 6:18 AM CONCRETER) Gram stain result Occasional WBC's [facility] Rare Gram positive cocci in pairs HOSPITA L Rare Gram positive rods Comment: Specimen Information Specimen Source: Urine Specimen Site: Suprapubic/ Specimen Urine - Suprapubic Performing Organization Address City/[facility]/ZIP [facility] Phon e Number [facility] DEPARTMENT OF PATHOLOGY AND [address] [place], [place] [address] GENOMIC [address] [address] Urine culture (10/02/2019 6:18 AM CONCRETER) Urine culture Enterococcus marcial CONTRERAS isolate colony count undetermined, HOSPITAL probably due to inhibiting substance. The performance characteristics of this assay on this isolate were validated by the Microbiology Laboratory at [facility]. This source has not been approve d [...] Source: Urine Specimen Site: Suprapubic/ Urine culture Joy CONTRERAS isolate colony count undetermined, HOSPITAL probably due to inhibiting substance. The performance characteristics of this assay on this isolate were validated by the Microbiology Laboratory at [facility]. This source has not been approve d [...] Organization Address City/State/ZIP Code Phon e Number [facility] DEPARTMENT OF PATHOLOGY AND [address] [place] [address] 0 GENOMIC MEDICINE [address] [address] ECG 12 lead (10/02/2019 5:01 AM CONCRETER) Pathologist Sig nature Ventricular rate 101 [facility] Atrial rate 101 [facility] [place] interval 188 [facility] QRSD interval 92 [facility] QT interval 354 [facility] QTC interval 459 [facility] P axis 1 44 [facility] QRS axis 1 76 [facility] T wave axis 47 [facility] EKG impression Sinus [facility] MUSE tachycardia-Otherwise normal ECG-In automated comparison with ECG of 02-OCT-2019 05:00,-No significant change was found- Specimen Narrative Performed At This result has an attachment that is no t available. Performing Organization Address [facility] Phon e Number [facility] MUSE [address] [place] [address] Urinalysis screen and microscopy, with reflex to culture (10/02/2019 4:45 AM CONCRETER) Specimen site Suprapubic [facility] Color, UA Danyelle [facility] Appearance, UA Cloudy [facility] Specific gravity, UA 1.046 (H) 1.001 - 1.035 [facility] pH, UA 6.0 5.0 - 8.5 [facility] Protein, UA 2+ (A) Negative [facility] Glucose, UA Negative Negative [facility] Ketones, UA Negative Negative [facility] Bilirubin, UA Negative Negative [facility] Blood, UA Moderate (A) Negative [facility] Nitrite, UA Negative Negative [facility] Urobilinogen, UA <2.0 <2.0 [facility] Leukocyte esterase, Large (A) Negative [facility] Epithelial cells, UA <1 /HPF [facility] WBC, UA >180 (H) 0 - 1 /HPF [facility] RBC, UA 63 (H) 0 - 5 /HPF [facility] Bacteria, UA None seen None seen [facility] WBC clumps, UA Moderate (A) [facility] Yeast, UA None seen [facility] Yeast with None seen [facility] pseudohyphae, HOSPITAL Specimen Urine Performing Organization Address [facility] Phon e Number [facility] DEPARTMENT OF PATHOLOGY AND [address] [place], [place] [address] GENOMIC MEDICINE [place] [id number] [place] [address] Troponin (10/02/2019 4:45 AM CONCRETER) Troponin <0.006 0.000 - 0.040 [facility] Comment: ng/mL HOSPITAL In patients [...] ng/mL Specimen Plasma specimen Performing Organization Address [facility] Phon e Number [facility] DEPARTMENT OF PATHOLOGY AND [address] [place] [address] [address] Thyroid stimulating hormone (10/02/2019 4:45 AM CONCRETER) Pathologist Sig [facility] TSH 1.48 0.27 - 4.20 uIU/mL [facility] ITAL Specimen Plasma specimen Performing Organization Address [facility] Phon e Number [facility] DEPARTMENT OF PATHOLOGY AND [address] [place] [address] [address] T4, free (10/02/2019 4:45 AM CONCRETER) Pathologist Sig nature T4, free 1.3 0.9 - 1.7 ng/dL [facility] Specimen Plasma specimen Performing Organization Address [facility] Phon e Number [facility] DEPARTMENT OF PATHOLOGY AND [address] [place] [address] [address] Arterial blood gas (10/02/2019 4:45 AM CONCRETER) Pathologist Sig nature pH, arterial 7.37 7.35 - 7.45 [facility] pCO2, arterial 43 35 - 45 mmHg [facility] pO2, arterial 66 (L) 80 - 90 mmHg [facility] Bicarbonate, 24.1 21.0 - 28.0 [facility] arterial mmol/L [facility] Base excess, -1 -2 - 2 mEq/L [facility] O2 saturation, 93 (L) 95 - 100 % [facility] arterial [facility] Specimen Blood Performing Organization Address [facility] Phon e Number [facility] DEPARTMENT OF PATHOLOGY AND [address] [place] [address] [address] [address] Creatine kinase, total (CPK) (10/02/2019 4:45 AM CONCRETER) Pathologist Sig nature Creatine kinase 39 39 - 308 U/L [facility] Specimen Plasma specimen Performing Organization Address [facility] Phon e Number [facility] DEPARTMENT OF PATHOLOGY AND [address] [place] [address] [address] [address] Phenytoin level (10/02/2019 4:45 AM CONCRETER) Pathologist Sig nature Phenytoin 3.0 (L) 10.0 - 20.0 [facility] Comment: ug/mL HOSPITAL Therapeutic Range: 10 - 20 ug/mL Specimen Plasma specimen Performing Organization Address [facility] Phon e Number [facility] DEPARTMENT OF PATHOLOGY AND [address] [place] [address] [address] [address] Comprehensive metabolic panel (10/02/2019 4:45 AM CONCRETER) Sodium 145 135 - 148 [facility] mEq/L [facility] Potassium 3.4 (L) 3.5 - 5.0 [facility] mEq/L [facility] Chloride 111 98 - 112 mEq/L [facility] CO2 23 (L) 24 - 31 mEq/L [facility] Anion gap 11@ANIO 7 - 15 mEq/L [facility] BUN 21 (H) 6 - 20 mg/dL [facility] Creatinine 0.71 0.70 - 1.20 [facility] mg/dL HOSPITAL Glucose 92 65 - 99 mg/dL [facility] Calcium 8.4 8.3 - 10.2 [facility] mg/dL HOSPITAL Protein 6.7 6.3 - 8.3 g/dL [facility] Comment: HOSPITAL Ammufjp1392.6-7.0 g/dL 1 zhrv3950.4-7.6 g/dL 7 months-0azck561.1-7.3 g/dL 1-2 iqovd480.6-7.5 g/dL >3 .0-8.0 g/dL 18-2662236.3-8.3 g/dL Albumin 2.4 (L) 3.5 - 5.0 g/dL [facility] A/G ratio 0.6 (L) 0.7 - 3.8 [facility] Alkaline phosphatase 171 (H) 40 - 129 U/L [facility] AST 35 10 - 50 U/L [facility] ALT 60 (H) 5 - 50 U/L [facility] Total bilirubin 0.4 0.0 - 1.2 [facility] mg/dL [facility] Specimen Plasma specimen Performing Organization Address City/State/ZIP Code Phon e Number [facility] DEPARTMENT OF PATHOLOGY AND [address] [place] [address] GENOMIC MEDICINE [address] [address] Respiratory pathogen panel (10/02/2019 4:37 AM CONCRETER) Pathologist [facility] Respiratory Negative for all pathogens tested: [facility] pathogen panel Negative for Adenovirus ORTHODOXY Negative for Coronavirus HKU1 [facility] Negative for Coronavirus NL63 Negative for [...] Specimen Nares - Left Performing Organization Address [facility] Phon e Number [facility] DEPARTMENT OF PATHOLOGY AND [address] [place] [address] [address] [address] Influenza antigen test, reflex negative to RPP (10/02/2019 4:37 AM CONCRETER) Influenza antigen Negative for Influenza A/B antigen. [facility] Comment: HOSPITAL Specimen Information Specimen Source: Nares Specimen Site: Left Specimen Nares - Left Performing Organization Address [facility] Phon e Number [facility] DEPARTMENT OF PATHOLOGY AND [address] [place] [address] [address] [address] Blood culture, aerobic (10/02/2019 4:30 AM CONCRETER) Blood culture No growth after 5 days of incubation. FLORESITA YANG ORTHODOXY isolate, aerobic Comment: HOSPITAL Specimen Information Specimen Source: Blood Specimen Site: Unspecified Specimen Blood Performing Organization Address [facility] Phon e Number [facility] DEPARTMENT OF PATHOLOGY AND [address] [place] [address] [address] [address] after 09/25/2019 DR Lamin aldrich ([place]) [address] [place], [place] [address] Advance Directives For more information, please contact: [phone] Type Date Recorded Patient Manager Spa Explanati on Advance Directives, Living Will and Medical Power of Design Assembler
--- OUTSIDE RECORDS SUMMARY | 2020-09-25 21:38 | XMS REPORT | Continuity of Care Document ---
:1980 Author Organization [facility] t Address [address] [place] [address] Care Team Providers Name Role Phone Asked, Pcp Primary Care Physician Unavailable Juan Henley MD Attending Clinician Mike ASCENCIO Attending Clinician Audrey ASCENCIO, M. Attending Clinician Shae Wolfe MD Attending Clinician Shanelle ASCENCIO Attending Clinician Shena ASCENCIO Attending Clinician Ede ASCENCIO, M. Attending Clinician AUDREY Admitting Clinician Unavailable Payers Payer Name Policy Policy Effective Expiration Source Type Number Date Date AMERIGROUPAMERIGROUP [id number] 2017 [place] ST[employer]PLUS 00:00:00 Buddhism KEDbczin72170/09/2016-Pres entHMO Problems Condition Condition Condition Status Onset [...] kidney kidney 00 Anoxic Anoxic Disease Active [place] brain brain 05 Methodi damage damage 00:00: st 00 Spasticity Spasticity Disease Active 2020-0 [place] 105 Methodi 00:00: st 00 Pyelonephr [facility]phr Disease [facility] 00 Severe Severe Disease Active [place] sepsis sepsis 10-02 Methodi 00:00: st 00 Fever Fever Disease Active [place] 05 Methodi 00:00: st 00 Leukocytos Leukocytos Disease Active [place] is is 05 Methodi 00:00: st 00 Seizure Seizure Disease Active [place] disorder disorder 10-02 Method i 00:00: st 00 Lactic Lactic Disease Active [place] acidosis acidosis 10-02 Method i 00:00: st 00 GERD GERD Disease Active [place] (gastroeso (gastroeso 10-02 Me thodi phageal phageal 00:00: st reflux reflux 00 disease) disease) Dysphagia Dysphagia Disease Active Johnathan pedroza 05 Methodi 00:00: st 00 Vomiting Vomiting Disease Active [place] 10-02 Methodi 00:00: st 00 UTI UTI Disease Active [place] (urinary (urinary 10-02 Method i tract tract [...] Date Quantity Comments Source Sex Assigned At [facility] ethodist Tobacco use and 2019-10-02 2019-10-02 Never used [facility] ethodist exposure 00:00:00 00:00:00 Alcohol intake 2019-10-02 2019-10-02 [facility] thodist 00:00:00 00:00:00 Medications Ordered Filled [...] 2019- 2020- No 500mg QD Take 500 [place] n -11 10-14 mg by Methodi (LEVAQUIN) 10:29: 00:[address] 500 MG 42 :00 daily. tablet Unclear start date. Intended for 7 days of therapy. Started prior to 10/02/2019 Lactobacill 2020-0 Yes 1{packe QD Take 1 [place] us 1-14 t} packet by Sonia acidoph-L.b 10:29: mouth st ulgar 37 daily. (FLORANEX) 1 million cell tablet artificial 2020-0 Yes 1[drp] Q.5D Administer [place] tears,hypro -14 1 drop to Met mary [...] days. baclofen 5 2019-0 2020- No 5mg [id number] 5 mg by Freeman mg tablet 10-10 [id number] g-tube M ethodi 00:00: 23:59 3D route [...] Name Name FLUCELVAX QUAD PF 2019-10-11 Completed [place] 00:00:00 Buddhism Vital Signs Vital Name Observation Time Observation Value Comments Source Systolic blood 2019-10-11 08:12:54 138 mm[Hg] [place] pressure Diastolic blood 2019-10-11 08:12:54 76 mm[Hg] [place] Buddhism pressure Heart rate 2019-10-11 08:12:54 84 /min [place] Buddhism Body temperature 2019-10-11 08:12:54 35.56 [place] Respiratory rate 2019-10-11 08:12:54 18 /min [place] [facility] Oxygen saturation in 2019-10-11 08:12:54 98 /min Pete Caballeroist Arterial blood by Pulse oximetry Body height 2019-10-09 19:05:00 172.7 cm Pete Mendiola Body weight 2019-10-02 04:15:00 65 kg Pete Mendiola BMI 2019-10-02 04:15:00 21.79 kg/m2 Pete Caballeroist Procedures Procedure Date / Time Performing Clinician Source Performed POC GLUCOSE 2019-10-11 08:14:00 OnDelmi west Meth odist BASIC METABOLIC PANEL 2019-10-11 03:21:00 Jailyn Andresto n Buddhism MAGNESIUM LEVEL 2019-10-11 03:21:00 Jailyn Andres Meth odist PHOSPHORUS LEVEL 2019-10-11 03:21:00 Jailyn Andres Met hodist ESTIMATED GFR 2019-10-11 03:21:00 OnaiwuDelmi Meth odist HC COMPLETE BLD COUNT 2019-10-11 03:00:00 Jailyn Andresto n Buddhism W/AUTO DIFF POC GLUCOSE 2019-10-11 00:14:00 OnaiwuDelmi Meth odist FREE PHENYTOIN LEVEL 2019-10-10 22:41:00 Esteban Juárez Buddhism POC GLUCOSE 2019-10-10 21:32:00 OnaiwuDelmi Meth odist FREE PHENYTOIN LEVEL 2019-10-10 18:00:00 Jailene Contreras Buddhism POC GLUCOSE 2019-10-10 11:34:00 OnaiwuDelmi Meth odist POC GLUCOSE 2019-10-10 08:15:00 Onaiwu, Delmi Freeman Meth odist POC GLUCOSE 2019-10-10 05:03:00 Karina Wolfe Me thodist HC COMPLETE BLD COUNT 2019-10-10 04:49:00 Jailene Contreras n Buddhism W/AUTO DIFF BASIC METABOLIC PANEL 2019-10-10 04:49:00 Jailene Contrerasto n Buddhism ESTIMATED GFR 2019-10-10 04:49:00 Karina Wolfe Me thodist POC GLUCOSE 2019-10-10 00:28:00 OnaiwDelmi mitchell Meth odist POC GLUCOSE 2019-10-09 21:22:00 aYnethKarina [place] Me thodist POC GLUCOSE 2019-10-09 17:25:00 YanethKarina [place] Me thodist POC GLUCOSE 2019-10-09 11:32:00 WolfeKarina [place] Me thodist POC GLUCOSE 2019-10-09 07:55:00 YanethKarina [place] Me thodist POC GLUCOSE 2019-10-09 03:58:00 Yaneth Karina Shae [place] Me thodist HC COMPLETE BLD COUNT 2019-10-09 03:51:00 Jesus Alberto Euceda Buddhism W/AUTO DIFF BASIC METABOLIC PANEL 2019-10-09 03:49:00 Jesus Alberto Euceda Buddhism ESTIMATED GFR 2019-10-09 03:49:[address] [facility] thodist POC GLUCOSE 2019-10-08 21:48:[address] [facility] thodist POC GLUCOSE 2019-10-08 16:41:[address] [facility] thodist POC GLUCOSE 2019-10-08 11:57:[address] [facility] thodist POC GLUCOSE 2019-10-08 07:32:[address] [facility] thodist POC GLUCOSE 2019-10-08 05:17:00 YanethKarina [facility] Me thodist POC GLUCOSE 2019-10-07 23:48:[address] [facility] thodist POC GLUCOSE 2019-10-07 19:51:[address] [facility] thodist POC GLUCOSE 2019-10-07 17:13:00 Yaneth Karinaelinor Kaufman [facility] Me thodist POC GLUCOSE 2019-10-07 11:53:[address] [facility] thodist POC GLUCOSE 2019-10-07 07:26:00 Yaneth Karinaelinor Kaufman [facility] Me thodist POC GLUCOSE 2019-10-06 23:24:00 YanethKarina [facility] Me thodist POC GLUCOSE 2019-10-06 19:58:00 Yaneth Karinaelinor Kaufman [facility] Me thodist POC GLUCOSE 2019-10-06 16:26:00 Karina Wolfe Shae [facility] Me thodist POC GLUCOSE 2019-10-06 11:50:[address] [facility] thodist POC GLUCOSE 2019-10-06 07:46:[address] [facility] thodist PHOSPHORUS LEVEL 2019-10-06 03:20:00 Jose Donnelly Buddhism HC COMPLETE BLD COUNT 2019-10-06 03:20:00 Moiz Wang Buddhism W/AUTO DIFF BASIC METABOLIC PANEL 2019-10-06 03:20:00 Moiz Wang Buddhism MAGNESIUM LEVEL 2019-10-06 03:20:00 FelipeLaney carlsonmichael Freeman Meth odist ESTIMATED GFR 2019-10-06 03:20:[address] [facility] thodist POC GLUCOSE 2019-10-06 03:17:00 [facility] 2019-10-05 23:29:00 [facility] CON[facility] TO OSTOMY CARE 2019-10-05 20:28:48 Jesus Alberto Euceda on Buddhism NURSE POC GLUCOSE 2019-10-05 16:48:[address] [facility] thodist POC GLUCOSE 2019-10-05 12:48:00 Alanna Ventura Ga thodist POC GLUCOSE 2019-10-05 12:06:00 Alanna Ventura Ga thodist FREE PHENYTOIN LEVEL 2019-10-05 12:00:00 Christopher Kang Buddhism POC GLUCOSE 2019-10-05 08:57:00 Alanna Ventura Ga thodist POC GLUCOSE 2019-10-05 05:42:00 Alanna Ventura Ga thodist BASIC METABOLIC PANEL 2019-10-05 02:00:00 Elvia Coker Buddhism MAGNESIUM LEVEL 2019-10-05 02:00:00 Elvia Coker ethodist PHOSPHORUS LEVEL 2019-10-05 02:00:00 Elvia Cokre HC COMPLETE BLD COUNT 2019-10-05 02:00:00 Elvia Coker Buddhism W/AUTO DIFF ESTIMATED GFR 2019-10-05 02:00:00 Elvia Coker ethodist POC GLUCOSE 2019-10-05 01:53:00 VenturaAlanna fatima Ga thodist POC GLUCOSE 2019-10-04 21:26:00 VenturaAlanna fatima Ga thodist POC GLUCOSE 2019-10-04 17:07:00 VenturaAlanna fatima Ga thodist POC GLUCOSE 2019-10-04 12:33:00 VenturaAlanna fatima Ga thodist POC GLUCOSE 2019-10-04 08:41:00 VenturaAlanna fatima Ga thodist BASIC METABOLIC PANEL 2019-10-04 05:00:00 Elvia Coker Buddhism MAGNESIUM LEVEL 2019-10-04 05:00:00 John Paul Elvia Slaughterbassam Pete Lowery ethodist PHOSPHORUS LEVEL 2019-10-04 05:00:00 Elvia Coker HC COMPLETE BLD COUNT 2019-10-04 05:00:00 Elvia Coker Buddhism W/AUTO DIFF ESTIMATED GFR 2019-10-04 05:00:00 John Paul Elviaray Machuca Pete Lowery ethodist VANCOMYCIN LEVEL, TROUGH 2019-10-04 05:00:00 Moiz Wang Buddhism POC GLUCOSE 2019-10-04 04:50:00 AudreyAlanna Ga thodist POC GLUCOSE 2019-10-04 00:40:00 VenturaAlanna Ga thodist POC GLUCOSE 2019-10-03 20:44:00 AudreyAlanna Ga thodist POC GLUCOSE 2019-10-03 18:05:00 AudreyAlanna Ga thodist IONIZED CALCIUM 2019-10-03 17:30:00 Kang, Christopher inamn Buddhism MAGNESIUM LEVEL 2019-10-03 17:30:00 Kang, Christopher inman Buddhism PHOSPHORUS LEVEL 2019-10-03 17:30:00 Kang, Christopher walker Buddhism POTASSIUM LEVEL 2019-10-03 17:30:00 KangChristopher mitchell n Buddhism IR RIGHT NEPHROSTOMY 2019-10-03 16:54:59 Esteban Juárez Buddhism INITIAL PLACEMENT ANESTHESIA INTUBATION 2019-10-03 15:03:04 Miquelcruz Zuleyma Johnathan Caballeroist POC GLUCOSE 2019-10-03 13:09:00 Alanna Ventura Ga thodist POC GLUCOSE 2019-10-03 08:16:00 Alanna Ventura Ga thodist POC GLUCOSE 2019-10-03 04:46:00 Alanna Ventura Ga thodist BASIC METABOLIC PANEL 2019-10-03 03:10:00 Elvia [...] ethodist POC GLUCOSE 2019-10-03 00:51:00 Alanna Ventura Ga thodist POC GLUCOSE 2019-10-02 20:50:00 Alanna Ventura Ga thodist POC GLUCOSE 2019-10-02 16:41:00 Alanna Ventura Ga thodist POC GLUCOSE 2019-10-02 12:18:00 Alanna Ventura Ga thodist US RENAL 2019-10-02 12:02:52 Moiz Wang odfifi BLOOD CULTURE, AEROBIC & 2019-10-02 10:09:00 Christopher Kang ANAEROBIC LACTIC ACID LEVEL, SEPSIS 2019-10-02 10:09:00 Moiz Wang usmatthew Mendiola - NOW AND REPEAT 2X EVERY 3 HOURS POC GLUCOSE 2019-10-02 08:18:00 Alanna Ventura Ga thodist LACTIC ACID LEVEL, SEPSIS 2019-10-02 07:45:00 Moiz Wang - NOW AND REPEAT 2X EVERY 3 HOURS XR ABDOMEN 1 VW PORTABLE 2019-10-02 07:40:00 Alanna Ventura Buddhism XR CHEST 1 VW PORTABLE 2019-10-02 07:30:00 Moiz Wang Buddhism URINE CULTURE 2019-10-02 06:18:00 Alanna Ventura Ga thodist GRAM STAIN 2019-10-02 06:18:00 Alanna Ventura Ga thodist ECG 12-LEAD 2019-10-02 05:01:02 Moiz Wang Meth odist HC COMPLETE BLD COUNT 2019-10-02 04:45:00 Moiz Wang W/AUTO DIFF URINALYSIS SCREEN AND 2019-10-02 04:45:00 Moiz Wang MICROSCOPY, WITH REFLEX TO CULTURE PROTHROMBIN TIME WITH INR 2019-10-02 04:45:00 Moiz Wang PARTIAL THROMBOPLASTIN 2019-10-02 04:45:00 Moiz Wang Buddhism TIME (PTT) ARTERIAL BLOOD GAS 2019-10-02 04:45:00 Moiz Wang ethodist FREE PHENYTOIN LEVEL 2019-10-02 04:45:00 Moiz Wang COMPREHENSIVE METABOLIC 2019-10-02 04:45:00 Alanna Ventura PANEL TROPONIN 2019-10-02 04:45:00 Alanna Ventura Ga thodist CREATINE KINASE, TOTAL 2019-10-02 04:45:00 Alanna Ventura (CPK) LACTIC ACID LEVEL 2019-10-02 04:45:00 Alanna Venturaist PHOSPHORUS LEVEL 2019-10-02 04:45:00 Alanna Ventura ethodist MAGNESIUM LEVEL 2019-10-02 04:45:00 Alanna Ventura Ga thodist ESTIMATED GFR 2019-10-02 04:45:00 Alanna Venutra Me thodist T4, FREE 2019-10-02 04:45:00 Alanna Ventura Me thodist PHENYTOIN LEVEL 2019-10-02 04:45:00 Alanna Ventura Me thodist THYROID STIMULATING 2019-10-02 04:45:00 Alanna Ventura Buddhism HORMONE INFLUENZA ANTIGEN TEST, 2019-10-02 04:37:00 Moiz Wang Buddhism REFLEX NEGATIVE TO RPP RESPIRATORY PATHOGEN PANEL 2019-10-02 04:37:00 Alanna Ventura WITH COVID-19 BLOOD CULTURE, AEROBIC 2019-10-02 04:30:00 Alanna Ventura POC GLUCOSE 2019-10-02 04:08:00 Alanna Ventura Me thodist Plan of Care Planned Activity Planned Date Details Comments Source Future Scheduled 2020-04-28 INFLUENZA VACCINE Armando inman Buddhism Test 00:00:00 [code = INFLUENZA VACCINE] Future Scheduled 1997 COVID-19 VACCINE Freeman Buddhism Test 00:00:00 (#1) [code = COVID-19 VACCINE (#1)] Encounters Start End Encounter Admission Attending Care Care Encounter Source Date/Time Date/Time Type Type Clinicians Facility Department ID 2020-03-05 2020-03-[id number] 10:10:00 23:59:00 Encounter [facility] [id number] [facility] [id number] 2020-03-01 2020-03-[id number] 08:07:28 08:53:10 Visit [facility] [id number]7.2.686 [facility] [id number] Primary & 204 Specialty Care 2020-03-01 2020-03-[id number] 00:00:00 00:00:00 [facility] [id number]7.2.686 [facility] [id number] Primary & 204 Specialty Care 2019-10-02 2019-10-11 Inpatient SHANELLE [facility] [id number] [id number] [place] 00:00:00 00:00:00 MEJIA [address] Results Test Description Test Time Test Comments Results Result Comments Source POC glucose 2019-10-11 08:14:58 Test Item Value Reference Range Interpretation Comme nts POC glucose (test code = 91 mg/dL 65-99 Ope rator Name: Chris Glass ID: [id number]) [id number] able: [facility] Notified RN Freeman MethodistBasic metabolic [id number] 03:57:11 Test Item Value Reference Range Interpretation Comments Sodium (test code = 2951-2) 137 135- 148 mEq/L Potassium (test code = 2823-3) 4.1 3.5- 5.0 mEq/L Chloride (test code = 2075-0) 101 98- 112 mEq/L CO2 (test code = 2027-9) 25 24- 31 mEq/L Anion gap (test code = 56264-9) 11@ANIO 7- 15 mEq/L BUN (test code = 3094-0) 16 mg/dL 6-20 Creatinine (test code = 2160-0) 0.48 mg/dL 0.7-1.2 L Glucose (test code = 2345-7) 121 mg/dL 65-99 H Calcium (test code = 78445-1) 9.4 mg/dL 8.3-10.2 Lab Interpretation (test code = Abnormal 38648-7) [place] MethodistMagnesium [id number] 03:57:11 Test Item Value Reference Range Interpretation Comments Magnesium (test code = 91554-0) 2.1 mg/dL 1.6-2.6 [place] MethodistEstimated [id number] 03:57:11 Test Item Value Reference Range Interpretation Comments Estimated GFR (test >=90 mL/min/1.73 m2 Fercho meyer Units code = 5488) InterpretationG 1 >=90 Normal or highG2 60-89 Mildly emmxfbyymR6m 45-59 Mildly to mode rately tctnjpbppC7h 30-44 Moderately to severely decreasedG4 15-29 Severely decre asedG5 <15 Kidn ey failureThe eGFR was calculated dez talavera the Chronic Kidney Disease Epidemiology Co llaboration (CKD-EPI) equat ion. Interpretation is based on recommendations of the National Kidney Foundation-Kidn ey Disease Outcomes Qualit y Initiative (NKF-KDOQI) pub lished in 2013. Pete MethodistPhosphorus [id number] 03:57:10 Test Item Value Reference Range Interpretation Comments Phosphorus (test code = 2777-1) 3.1 mg/dL 2.4-4.5 Freeman MethodistCBC with platelet and voaxapbbgmrj9446-18-56 03:25:12 Test Item Value Reference Range Interpretation Comments WBC (test code = 27995-3) 6.12 4.50- 11.00 k/uL RBC (test code = 51416-4) 4.56 m/uL 4.4-6 HGB (test code = 718-7) 13.2 g/dL 14-18 L HCT (test code = 4544-3) 41.3 % 41-51 MCV (test code = 787-2) 90.6 fL 82-100 MCH (test code = 785-6) 28.9 pg 27-34 MCHC (test code = 786-4) 32.0 g/dL 31-37 RDW - SD (test code = 46.0 fL 37-55 84945-9) MPV (test code = 98039-5) 11.9 fL 8.8-13.2 Platelet count (test code 281 150- 400 k/uL = 53537-7) Nucleated RBC (test code 0.00 /100 WBC = 63540-9) Neutrophils (test code = 62.5 % 39-69 47680-4) Lymphocytes (test code = 25.2 % 25-45 50464-2) Monocytes (test code = 8.0 % 0-10 30530-8) Eosinophils (test code = 2.6 % 0-5 32303-8) Basophils (test code = 0.7 % 0-1 15367-6) Immature granulocytes 1.0 % 0-1 "Immat ure (test code = 30645-7) granul ocytes" (promyelocytes, myelocytes, metamyelocytes) Lab Interpretation (test Abnormal code = 36390-8) Pete MethodistFree phenytoin [id number] 00:25:54 Test Item Value Reference Range Interpretation [...] Administration. Lab Interpretation Abnormal (test code = 40061-1) Pete MethodBarneyood culture, aerobic & [id number] 14:03:07 Test Item Value Reference Range Interpretation Comments Blood culture No growth Specimen isolate (test after 5 days InformationSpe cimen code = 600-7) of Source: BloodS pecimen incubation. Site: Hand, lef t Freeman MethodistBlood culture, [id number] 08:33:03 Test Item Value Reference Range Interpretation Comments Blood culture No growth Specimen isolate, after 5 days InformationSpec imen aerobic (test of Source: BloodS pecimen code = 974) incubation. Site: Unspecifi ed [place] BuddhismVancomycin level, [id number] 05:55:41 Test Item Value Reference Range Interpretation Comments Vancomycin, trough 12.7 ug/mL 10-20 Therapeut ic Ranges: (test code = Peak 30.0 - 40.0 77920-4) ug/mL Trough 10.0 - 20.0 ug/mL [place] MethodistPotassium [id number] 18:03:02 Test Item Value Reference Range Interpretation Comments Potassium (test code = 2823-3) 4.2 3.5- 5.0 mEq/L [place] MethodistIonized [id number] 18:02:39 Test Item Value Reference Range Interpretation Comments pH (test code = 2753-2) 7.45 Ionized calcium (test code = 1.12 mmol/L 1.11-1.32 ) [place] MethodistIR Nephrostomy Insertion [id number] 17:23:25Hm Interface, Radiology Results - 10/03/2019 5:26 PM CSTPerforming RadiologistRohit Shravan MDAssistantsNone Anesthesia TypeGeneral anesthesia provided by physiologic.Pre Procedure Kbcuikftn26-prii-gik 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 The Glidewire was exchanged for an Amplatz wire and after tract dilationa 26 cm, 8.5-Burkinan percutaneous nephroureteral catheter was then placed. The [...] hydronephrosis and hydroureter.3. Successful placement of an 8.5-Burkinan right percutaneous nephroureteral catheter, as detailed above. The catheter pigtail was formed within the right renal pelvis. This catheter was placed to gravity bag drainage.4. Hydronephrosis is also prominent inthe upper pole, and if patient symptomatically doesn't improve, upper pole access and drainage may be necessary. [id number] Methodtuba city regional health care corporationGram [id number] 16:09:04Gram stain resultOccasional WBC'sRare Gram positive cocci in pairsRare Gram positive rods Comment: Specimen InformationSpecimen Source: UrineSpecimen Site: Suprapubic/ [facility] [id number] 15:03:04 Zuleyma Perez CRNA 10/03/2019 3:03 PMAirwayPerformed by: Zuleyma Perez CRNAAuthorizedby: Roxanna Mera MD Location: [facility] Airway: No Resident/FREIGHT SORTER/AA: Zuleyma Perez CRNAPreoxygenated with 100% O2: Yes [...] pt teeth ans mouth protected and unchanged. [place] MethodistType and [id number] 04:22:00 Test Item Value Reference Range Interpretation Comments ABO grouping (test code = 883-9) A Rh type (test code = 46268-3) POS Antibody screen (gel) (test code = NEG 890-4) [facility] [id number] 03:52:26 Test Item Value Reference Range Interpretation Comments Lactic acid (test code = 61896-8) 1.0 mmol/L 0.5-2.2 [facility] CenterPartial thromboplastin time, apuuflcwu1054-09-38 03:47:21 Test Item Value Reference Range Interpretation Comments PTT (test code = 29.8 23.0- 36.0 [place] [address]-2) unfractionated heparin is61.0-112.0 se conds which corresponds to Anti-Xa0.3-0.7 U/ml. Freeman MethodistProthrombin time with [id number] 03:47:14 Test Item Value Reference Range Interpretation Comments Prothrombin time (test 15.2 11.5- 14.5 sec H code = 5902-2) INR (test code = 1.2 [facility] 13250-6) Normalized Rati o (INR) is a therapeuti c monitoring tool for patients who ar e stable on oral anticoagulant t herapy. An INR of 2.0-3 .0 is suggested for d eep vein thrombosis/pulm onary embolism. Lab Interpretation Abnormal (test code = 89268-8) Freeman MethodistECG 12 [id number] 22:21:18 Test Item Value Reference Range Interpretation Comments Ventricular rate (test 101 code = 253) Atrial rate (test code 101 = 255) AL interval (test code 188 = 266) QRSD [...] significant change was found- Freeman MethodistRespiratory pathogen [id number] 15:01:22Respiratory pathogen panelNegative for all pathogens tested:Negative for AdenovirusNegative for Coronavirus CTJ1Bebygkat for Coronavirus XB99Hneldpqe for Coronavirus 229ENegative for Coronavirus FO34Owqjwtkz for Human MetapneumovirusNegative for Rhinovirus/EnterovirusNegative for Influenza ANegative for Influenza A/M9Wukrxrxz for Influenza A/O7Ifbnzmgk for Influenza A/H1-2009Negative for Influenza BNegative for [...] Specimen InformationSpecimen Source: Na resSpecimen Site: Left [facility] MethodistUS Renal 2019-10-02 12:58:28Hm Interface, Radiology [...] catheter is present in the decompressed urinary bladder.[facility]-[id number] MethodistLactic acid level, SEPSIS - Now and repeat 2x every 3 bdxmr1600-12-04 11:23:34 Test Item Value Reference Range Interpretation Comments Lactic acid (test code = 18715-5) 1.0 mmol/L 0.5-2.2 [facility] TyleristInfluenza antigen test, reflex negative to [id number] 09:36:12 Test Item Value Reference Range Interpretation Comments Influenza Negative for Specimen antigen (test Influenza A/B Information ecimen code = 91736-8) antigen. Source: Nasir sSpecimen Site: Left [facility] CenterXR [facility] 1 Vw [id number] 09:15:56Hm Interface, Radiology Results 10/02/2019 9:19 AM CSTEXAMINATION: XR CHEST 1 VW PORTABLECLINICAL HISTORY: ICU pt unstable or clinical worseningCOMPARISON: NoneIMPRESSION:Mild patchy bibasilar atelectasisHypoinflation of the lungsTiny right costophrenic angle effusionNo central congestionNo pneumothorax.The Cardiomediastinal silhouette is normal in sizeSingle view chest.[id number] [place] MethodistXR Abdomen 1 [id number] 07:58:59Hm Interface, Radiology Results 10/02/2019 8:02 AM CSTEXAMINATION: XR ABDOMEN 1 PORTABLECLINICAL HISTORY: ICU new admissionCOMPARISON: None.FINDINGS:Gas is seen throughout the length of the colon. Proximal colon is mildly dilated, with the cecum measuring up to 8.6 cm. No air-filled dilated loops of small bowel are seen. Free air and air-fluid levels are not appreciated. No unusual c alcifications are seen.IMPRESSION:Moderately large amount of gas in the colon. No small bowel dilation.[facility]-[id number] MethodistT4, [id number] 07:48:17 Test Item Value Reference Range Interpretation Comments T4, free (test code = 3024-7) 1.3 ng/dL 0.9-1.7 [place] MethodistThyroid stimulating [id number] 07:48:17 Test Item Value Reference Range Interpretation Comments TSH (test code = 3016-3) 1.48 0.27- 4.20 uIU/mL [place] MethodistPhenytoin [id number] 07:45:01 Test Item Value Reference Range Interpretation Comments Phenytoin (test code = 3.0 ug/mL 10-20 L Thera peutic Range: 3968-5) 10 - 20 ug/mL Lab Interpretation (test Abnormal code = 12862-9) [place] MethodistUrinalysis screen and microscopy, with reflex to culture 2019-10-02 07:39:14 Test Item Value Reference Range Interpretation Comments Specimen site (test code = Suprapubic 2058252) Color, UA (test code = 5778-6) Danyelle Appearance, UA (test code = Cloudy 5767-9) Specific gravity, UA (test code = 1.046 1.001-1.035 H 5811-5) pH, UA (test code = 5803-2) 6.0 5.0-8.5 Protein, UA (test code = 23639-5) 2+ Negative A Glucose, UA (test code = 07102-7) Negative Negative Ketones, UA (test code = 2514-8) Negative Negative Bilirubin, UA (test code = 5770-3) Negative Negative Blood, UA (test code = 5794-3) Moderate Negative A Nitrite, UA (test code = 5802-4) Negative Negative Urobilinogen, UA (test code = <2.0 <2.0 42797-9) Leukocyte esterase, UA (test code Large Negative A = 5799-2) Epithelial cells, UA (test code = <1 /HPF 5787-7) WBC, UA (test code = 5821-4) >180 0- 1 /HPF H RBC, UA (test code = 28199-9) 63 0- 5 /HPF H Bacteria, UA (test code = 44387-5) None seen None seen WBC clumps, UA (test code = Moderate A 33277-8) Yeast, UA (test code = 13434-0) None seen Yeast with pseudohyphae, UA (test None seen code = 13890-6) Lab Interpretation (test code = Abnormal 43590-8) [facility] corporationComprehensive metabolic [id number] 07:03:19 Test Item Value Reference Range Interpretation Comments Sodium (test code = 145 135- 148 mEq/L 2951-2) Potassium (test code = 3.4 3.5- 5.0 mEq/L L 2823-3) Chloride (test code = 111 98- 112 mEq/L 2075-0) CO2 (test code = 2027-9) 23 24- 31 mEq/L L Anion gap (test code = 11@ANIO 7- 15 mEq/L 35251-9) BUN (test code = 3094-0) 21 mg/dL 6-20 H Creatinine (test code = 0.71 mg/dL 0.7-1.2 2160-0) Glucose (test code = 92 mg/dL 65-99 2345-7) Calcium (test code = 8.4 mg/dL 8.3-10.2 35096-6) Protein (test code = 6.7 g/dL 6.3-8.3 [place] 9994.6-7.0 2885-2) g/dL1 wryf3857.4-7.6 g/dL7 months-7ecnp603 .1- 7.3 g/dL1-2 vmdwa651.6-7.5 g/dL>3 .0-8.0 g/bY34-4401542. 3-8 .3 g/dL Albumin (test code = 2.4 g/dL 3.5-5 L 1751-7) A/G ratio (test code = 0.6 0.7-3.8 L 1759-0) Alkaline phosphatase 171 U/L 40-129 H (test code = 6768-6) AST (test code = 1920-8) 35 U/L 10-50 ALT (test code = 1742-6) 60 U/L 5-50 H Total bilirubin (test 0.4 mg/dL 0-1.2 code = 1975-2) Lab Interpretation (test Abnormal code = 16936-3) [facility] MethodistCreatine kinase, total (CPK)2019-10-02 07:03:18 Test Item Value Reference Range Interpretation Comments Creatine kinase (test code = 2157-6) 39 U/L 39-308 Shidler [id number] 07:01:25 Test Item Value Reference Range Interpretation Comments Troponin (test code = <0.006 0-0.04 [place] [address]-9) having a myocar dial infarction, chinedu arana [...] creased by less than 0.020 ng/mL Pete MethodistArterial blood [id number] 06:32:59 Test Item Value Reference Range Interpretation [...] (test 93 % 95-100 L code = 1888-6) Lab Interpretation (test code = Abnormal 50546-3) Pete Mendiola
--- NOTE | 2020-09-25 21:45 | EDPHYS ---
Physician Documentation [facility] Name: Farhat Maza Age: 40 yrs Sex: Male : 1980 Arrival Date: 09/25/2020 Time: 21:36 Bed 3 Private MD: ED Physician Mario Pisano HPI: 09/25 21:38 This 40 yrs old Male presents to ER via Unassigned with complaints of CPR IN nely PROGRESS, FULL CODE. 21:38 Preceding the arrest, the patient was found down by [facility] staff. The arrest nely occurred at [facility]. Pre-hospital course: ACLS details: Initial rhythm was asystole. The presenting rhythm is asystole. Airway: oral intubation, Medications given by EMS prior to arrival - SEE ABISAI. The patient has not experienced similar symptoms in the past. Historical: - Allergies: 21:44 Antihistamine; sg 21:44 Aspirin; sg 21:44 Demerol; sg 21:44 PENICILLINS; sg - Home Meds: 21:44 Arginaid 4.5 gram-156 mg/9.2 gram Oral pwpk twice a day [Active]; artificial sg tears(hypromellose) 0.4 % Opht drop 1 drop daily [Active]; Baclofen 5 mg Oral 1 tab daily [Active]; ibuprofen 200 mg Oral tab 2 tabs every 4 hours for Pain [Active]; lactulose 10 gram/15 mL (15 mL) Oral soln 15 mL nightly for constipation [Active]; omeprazole 2mg/ml suspension Oral 10 mL once daily [Active]; oxybutynin chloride 5 mg Oral tab 1 tab daily [Active]; phenytoin 125 mg/5 mL Oral susp 5 mL 3 times per day [Active]; tramadol 50 mg Oral tab 1 tab three times a day [Active]; Zinc Sulfate Oral 1 tab twice a day [Active]; - PMHx: 21:44 Anoxic brain injury post suicide attempt; aspiration pneumonia; Asthma; contractures; sg GERD; obstructive and reflux uropathy; Pneumonia; Seizures; upper and lower ext contractures; UTI; - Immunization history:: Adult Immunizations up to date. - Family history:: not pertinent. ROS: 21:38 Unable to obtain ROS due to obtunded state, INTUBATED , CPR, NO PULSES. nely Exam: 21:38 Cardiovascular: Rate: actual rate is 0 bpm, Rhythm: asystole, Pulses: not palpable, nely Heart sounds: NONE, Edema: is not appreciated, JVD: is not appreciated. 21:38 Respiratory: Respiratory rate: ZERO SPONTANEOUS Vital Signs: 21:40 Pulse 0; Resp 0; Temp 106.8(R); Pulse Ox 000% ; Weight 50 kg; sg 22:00 Height 5 ft. 10 in. (177.80 cm); rr5 22:00 Body Mass Index 15.82 (50.00 kg, 177.80 cm) rr5 22:00 approximation patient on decroticate position rr5 MDM: 21:37 Patient medically screened. nely 21:38 Differential diagnosis: arrythmia, cardiac arrest, respiratory arrest, asphyxiation. [facility] Data reviewed: vital signs, nurses notes, EMS record, [facility] records. Data interpreted: monitoring specialist: rate is 0 beats/min, rhythm is asystole. 09/25 21:50 Order name: glucometer results - FOR PT WITH NO ID mg2 09/25 21:50 Order name: Glucose, Ancillary(No Armband) EDMS Administered Medications: No medications were administered Point of Care Testing: Blood Glucose: 21:31 Blood Glucose: 368 mg/dL; mg2 Ranges: Critical Glucose Levels:Adult <50 mg/dl or >400 mg/dl <40 mg/dl or >180 mg/dl Disposition: Patient pronounced on 09/25/20 21:33 by Mario Pisano. Impression: Respiratory arrest, Quadriplegia, Anoxic brain damage, not elsewhere classified - HX, Fever, unspecified. - Released to Elementary School Teacher. Signatures: Dispatcher [employer] EDMS Christopher Ledesma RN RN Mario Pisano MD MD cha Roque, Raymond, RN RN rr5 Corrections: (The following items were deleted from the chart) 21:45 21:44 09/25/2020 21:44 Patient pronounced on 09/25/2020 at 21:33 by Mario Pisano. nely Impression: Respiratory arrest; Quadriplegia; Anoxic brain damage, not elsewhere classified - HX. Released to Elementary School Teacher. nely 23:44 21:45 09/25/2020 21:44 Patient pronounced on 09/25/2020 at 21:33 by Mario Pisano. rr5 Impression: Respiratory arrest; Quadriplegia; Anoxic brain damage, not elsewhere classified - HX; Fever, unspecified. Released to Elementary School Teacher. nely
--- NOTE | 2020-09-25 21:45 | ER ---
Nurse's Notes [facility] Name: Farhat Maza Age: 40 yrs Sex: Male : 1980 Arrival Date: 09/25/2020 Time: 21:36 Bed 3 Private MD: Diagnosis: Respiratory arrest;Quadriplegia;Anoxic brain damage, not elsewhere classified-HX;Fever, unspecified Presentation: 09/25 21:30 Chief complaint: EMS states: [facility] staff report last known well was at 1900 this evening for medication pass. Staff report they went to assess him and found him to be unresponsive with no pulse, initiated CPR for approx 7 mins TIMBER GIRDLER of EMS. EMS then continued ACLS for 20 mins at scene and during route to ED. Coronavirus screen: no symptoms reported EMS, pt was on a noncovid wing with a roomate. Ebola Screen: No symptoms or risks identified at this time. Risk Assessment: Do you want to hurt yourself or someone else? Unable to obtain. Care prior to arrival: CPR via thumper performed by EMS and is still in progress Medication(s) given: 4 rounds of Epinephrine only IV initiated. in the left Tib/Fib IO. Transition of care: patient was received from another setting of care (long-term care facility), [facility]. 21:30 Method Of Arrival: EMS: [facility] 21:30 Acuity: JOSEPH 1 21:30 Initial Sepsis Screen: Does the patient meet any 2 criteria? Temp <36.0*C (96.8*F)) or sg > 38.3*C (100.9*F). Does the patient have a suspected source of infection? Yes: Catheter related infection ([facility]/dialysis/PICC/central line) Skin breakdown/wound. 21:30 Care prior to arrival: Oral intubation, 7.5 ETT, measuring 22 at the teeth per [facility]. Compressions began prior to arrival. Historical: - Allergies: 21:44 Antihistamine; 21:44 Aspirin; sg 21:44 Demerol; sg 21:44 PENICILLINS; sg - Home Meds: 21:44 Arginaid 4.5 gram-156 mg/9.2 gram Oral pwpk twice a day [Active]; artificial sg tears(hypromellose) 0.4 % Opht drop 1 drop daily [Active]; Baclofen 5 mg Oral 1 tab daily [Active]; ibuprofen 200 mg Oral tab 2 tabs every 4 hours for Pain [Active]; lactulose 10 gram/15 mL (15 mL) Oral soln 15 mL nightly for constipation [Active]; omeprazole 2mg/ml suspension Oral 10 mL once daily [Active]; oxybutynin chloride 5 mg Oral tab 1 tab daily [Active]; phenytoin 125 mg/5 mL Oral susp 5 mL 3 times per day [Active]; tramadol 50 mg Oral tab 1 tab three times a day [Active]; Zinc Sulfate Oral 1 tab twice a day [Active]; - PMHx: 21:44 Anoxic brain injury post suicide attempt; aspiration pneumonia; Asthma; contractures; sg GERD; obstructive and reflux uropathy; Pneumonia; Seizures; upper and lower ext contractures; UTI; - Immunization history:: Adult Immunizations up to date. - Family history:: not pertinent. Screenin:30 Abuse screen: Denies threats or abuse. Denies injuries from another. sg Assessment: 21:30 CPR assessment: unresponsive, pupils fixed \T\ dilated, no respiratory effort, intubated, sg Ambu ventilation, cyanotic, pale, pulses present w/ compressions. Cardiac rhythm is asystole. 21:30 Reassessment: Tashia Mai pt POA per [place] staff has been notified is on the way to the facility at this time, contact number of [phone]. 22:04 Reassessment: [facility] staff dipesh informed thru phone,case number given [phone]. rr5 22:12 Reassessment: [place] [employer] officer arrived. rr5 22:40 Reassessment: family states that [facility] is the facility that they have arrangements with, spoke with Elías Rodriguez, stated he will be at the facility in 45 mins. pt family updated, they are at bedside at this time. 23:41 Reassessment: [facility] staff came and signed the form, taken the body. rr5 of the patient at the bedside. Vital Signs: 21:40 Pulse 0; Resp 0; Temp 106.8(R); Pulse Ox 000% ; Weight 50 kg; sg 22:00 Height 5 ft. 10 in. (177.80 cm); rr5 22:00 Body Mass Index 15.82 (50.00 kg, 177.80 cm) rr5 22:00 approximation patient on decroticate position rr5 ED Course: 21:30 Patient has correct armband on for positive identification. Bed in low position. front desk monitor on. Pulse ox on. NIBP on. 21:30 Arm band placed on. sg 21:36 Patient arrived in ED. 21:37 Mario Pisano MD is Attending Physician. [facility] 21:[address] [place] [employer] to have an officer call the Directory Compiler for the patient. mw2 21:37 No provider procedures requiring assistance completed. 21:41 Triage completed. 21:43 Mario Pisano MD is Pronouncing Provider. [facility] 21:48 Earnest Fish, RN is Primary Nurse. mg2 Administered Medications: No medications were administered Point of Care Testing: Blood Glucose: 21:31 Blood Glucose: 368 mg/dL; mg2 Ranges: Outcome: 21:37 Patient : Time of 21:33 Pronounced by Mario Pisano MD 21:37 Condition: 23:44 Patient left the ED. rr5 Signatures: Christopher Ledesma RN RN Mario Jones MD MD cha [place], MyKena mw2 Earnest Fish, ALENA CARVAJAL [facility] Franky Silva RN RN rr5
[2020-09-26 00:34] VITALS: TEMP 106.8; O2SAT 0
== END 2020-09-25 23:44 ==
LOC: ER 21:33
PROC: 5A12012 Performance of Cardiac Output, Single, Manual (ICD-10-PCS; principal; 2020-09-25)
DX: R09.2 Respiratory arrest (principal); G93.1 Anoxic brain damage, not elsewhere classified; R50.9 Fever, unspecified; G82.50 Quadriplegia, unspecified; G40.909 Epilepsy, unspecified, not intractable, without status epilepticus; J45.909 Unspecified asthma, uncomplicated; Z88.0 Allergy status to penicillin; Z88.5 Allergy status to narcotic agent; Z88.6 Allergy status to analgesic agent
CPT/HCPCS: 36415; 82947; 92950; 99285